=== PATIENT | male | born 1965 | race Caucasian/White ===

== ENCOUNTER 2020-08-05 11:29 | Inpatient (IN) ==
[2020-08-05 12:06] LABS: Basophils # (auto) 0.04 K/uL (0-0.2); Basophils % (auto) 0.6 %; Eosinophils # (auto) 0.28 K/uL (0-0.5); Eosinophils % (auto) 3.9 %; Hematocrit (blood only) 39.9 % (42-52); Immature Granulocytes # (auto) 0.01 K/uL (0.00-0.02); Immature Granulocytes % (auto) 0.1 %; Lymphocytes # (auto) 1.32 K/uL (1.2-3.4); Lymphocytes % (auto) 18.2 %; Mean Corpuscular Hemoglobin 30.2 pg (25-34); Mean Corpuscular Hgb Conc 32.6 g/dL (32-36); Mean Corpuscular Volume 92.6 fL (80-100); Mean Platelet Volume 10.4 fL (7.4-10.4); Monocytes % (auto) 5.5 %; Neutrophils # (auto) 5.22 K/uL (1.4-6.5); Neutrophils % (auto) 71.7 %; Platelet Count 159 K/uL (130-400); RDW Coefficient of Variation 13.1 % (11.5-14.5); RDW Standard Deviation 44.5 fL (36.4-46.3); Red Blood Count 4.31 M/uL (4.7-6.1); White Blood Count 7.27 K/uL (4.8-10.8)
[2020-08-05 12:24] LABS: Calcium 9.2 mg/dl (8.5-10.1); Creatinine Clr Calc Pharmacy 125.9 ml/min; Est GFR (African American) 101.4; Est GFR (Non-African American) 87.5; Potassium 4.5 mmol/L (3.5-5.1)
[2020-08-05] MEDS ORDERED: PIPERACILL/TAZOBAC CONSULT ACTIVE PRN ×2 (12:25→13:45)
[2020-08-05] MEDS ORDERED: PIPERACILLIN/TAZOBACTAM 4.5 GM/120 ML BAG IV ONE (12:25)
--- NOTE | 2020-08-05 13:08 | Ultrasound Report ---
ULTRASOUND BILATERAL LOWER EXTREMITY VENOUS CLINICAL HISTORY: Lower extremity pain and swelling. Cellulitis. COMPARISON STUDY: No priors. TECHNIQUE: Real-time, grayscale, and color Doppler sonography of the deep veins of the right and left lower extremity was performed from the inguinal crease to the calf. Compression and augmentation wer e utilized. FINDINGS: There is no sonographic evidence of deep venous thrombosis identified in the right or left lower extremity. The common femoral, superficial femoral, and popliteal veins are patent and normally compressible bilaterally. The greater saphenous vein and the profunda femoris vein at the junction w ith the common femoral vein are clear in both legs. The visualized calf veins are patent bilaterally. IMPRESSION: There is no sonographic evidence of deep venous thrombosis identified in the right or lef t lower extremity. ACT 112: Negative or not required by law. Electronically signed by: Gurinder Celestin M.D. 08/05/2020 1:07 PM
[2020-08-05] MEDS ORDERED: ONDANSETRON INJ 2 MG/ML 2 ML VIAL IV PRN (13:37)
[2020-08-05] MEDS ORDERED: POLYETHYLENE (MIRALAX) 17 GM PACK PO PRN (13:37)
[2020-08-05] MEDS ORDERED: ACETAMINOPHEN 325 MG TAB PO PRN (13:37)
[2020-08-05] MEDS ORDERED: MAGNESIUM HYDROXIDE SUSP 30 ML UDC PO PRN (13:37)
[2020-08-05] MEDS ORDERED: ALUMINUM/MAGNESIUM SUSP 30 ML UDC PO PRN (13:37)
[2020-08-05] MEDS ORDERED: hydrALAZINE HCL 20 MG/ML VIAL IV PRN (14:21)
--- NOTE | 2020-08-05 14:21 | History & Physical Report ---
Date of Service August 05, 2020 Assessment & Plan (1) Cellulitis: Mr. Smiley is a 55 year old male with a history of Type 2 DM, Hypertension, Asthma/COPD, Morbid Obesity, ARAM (does not use CPAP, it hasn't been set up yet), Klinefelter Syndrome, Gastroparesis, GERD, Seizure Disorder, and Schizophrenia who presented to the ER earlier today with a Progressive Cellulitis of the Right Leg. He has been dealing with a cellulitis of this leg over the past 3 weeks. Initially seen as an outpatient and started on Keflex and Bactrim. Seen at [facility] ER 07/29/2020 and given a dose of Dalvance 4.5 g IV. Met with wound clinic and a right heel diabetic ulcer was debrided -- received IV Dalvance 4.5 g IV at that visit, and continued Bactrim and Keflex. Returned to ER on 08/01/2020 -- given IV Dalvance 4.5 g. He continued Keflex and Bactrim DS as well -- but unfortunately, his leg has gotten more swollen and tender, erythema is spreading, and it is more painful -- making it difficult to walk. Patient does not appear septic currently and WBC count is not elevated. Blood cultures drawn and he is now getting IV Zosyn 4.5 g. -- Admit to Medical Floor. -- IV Zosyn 3.375 g q 8 hours. -- Continue Tylenol 650 mg q 4 hours as needed for pain. -- Consider consulting wound care. -- Monitor daily labs. (2) Diabetic ulcer of right foot: -- As outlined above. (3) Type 2 diabetes mellitus: -- Diabetic diet. -- BSG checks. -- Continue Lantus 50 unit subq daily. -- Novolog 70/30 25 units subq t.i.d.. (4) Hypertension: -- Continue Coreg 6.25 mg b.i.d.. -- Continue Lisinopril 10 mg daily. -- Hydralazine 20 mg IV q 4 hours prn for SBP > 160 mmHg. History of Present Illness Chief Complaint: -- Worsening Cellulitis of Right Lower Extremity. Primary Care Provider: Juan Greer DO Mr. Smiley is a 55 year old male with a history of Type 2 DM, Hypertension, Asthma/COPD, Morbid Obesity, ARAM (does not use CPAP, it hasn't been set up yet), Klinefelter Syndrome, Gastroparesis, GERD, Seizure Disorder, and Schizophrenia who presented to the ER earlier today with progressive swelling, erythema, and pain of the right lower extremity. He has been dealing with a cellulitis of this leg over the past 3 weeks. Initially seen as an outpatient and started on Keflex and Bactrim by his PCP. Seen at [facility] ER 07/29/2020 and given a dose of Dalvance 4.5 g IV. Met with wound clinic and a right heel diabetic ulcer was debrided -- received IV Dalvance 4.5 g IV, continued Bactrim and Keflex. Returned to ER on 08/01/2020 -- given IV Dalvance 4.5 g. He continued Keflex and Bactrim DS as well -- but unfortunately, his leg has gotten more tender, erythema is spreading, and it is more painful -- making it difficult to walk. Patient has had chills but denies any fever. He denies any headache or stiff neck. Appetite is at baseline, but he does admit to intermittent nausea. Patient offers no other complaints. He denies any chest pain, shortness of breath, abdominal pain, or vomiting. Venous Duplex today shows no evidence of DVT. Blood cultures have been drawn. Patient is uncertain if he has ever had arterial studies/ultrasounds done. Allergies Allergy/AdvReac Type Severity Reaction Status Date / Time copper Allergy Mild Unknown Unverified 08/05/20 12:22 cider vinegar AdvReac Mild Unknown Unverified 08/05/20 12:22 Home Medications Medication Instructions Recorded Confirmed Type Saccharomyces boulardii [Florastor] 250 mg PO BID #20 cap 07/29/20 08/05/20 Rx albuterol sulfate 90 mcg/actuation 2 inh INHALATION Q6H PRN 07/30/20 08/05/20 History breath activated powder inhaler carvedilol 6.25 mg tablet 6.25 mg PO BID 07/30/20 08/05/20 History clonazepam 0.5 mg tablet 0.5 mg PO QID tab 07/30/20 08/05/20 History fluoxetine 40 mg capsule 40 mg PO BID 07/30/20 08/05/20 History gabapentin 400 mg capsule 400 mg PO BID 07/30/20 08/05/20 History lisinopril 10 mg tablet 10 mg PO DAILY 07/30/20 08/05/20 History naproxen 250 mg tablet 250 mg PO BID PRN 07/30/20 08/05/20 History olanzapine 20 mg tablet 20 mg PO DAILY 07/30/20 08/05/20 History omeprazole 40 mg capsule,delayed 40 mg PO DAILY 07/30/20 08/05/20 History release trazodone 100 mg tablet 200 mg PO QPM 07/30/20 08/05/20 History zafirlukast 10 mg tablet 20 mg PO Q12H 07/30/20 08/05/20 History furosemide 40 mg PO DAILY 08/05/20 08/05/20 History insulin aspart U-100 [Novolog 25 unit SUBCUT TIDM 08/05/20 08/05/20 History Flexpen U-100 Insulin] methocarbamol 500 mg PO Q8H PRN 08/05/20 08/05/20 History Lantus Solostar U-100 Insulin 60 unit SUBCUT DAILY #1 pen 08/07/20 Rx ciprofloxacin HCl [Cipro] 500 mg PO BID #28 tab 08/07/20 Rx Past Med/Surg History Medical History Anxiety Asthma COPD (chronic obstructive pulmonary disease) Encounter for incision and drainage procedure Gastroparesis GERD (gastroesophageal reflux disease) Klinefelters syndrome Macular degeneration Morbid obesity with BMI of 40.0-44.9, adult ARAM (obstructive sleep apnea) Schizophrenia Seizure disorder Type 2 diabetes mellitus Surgical History H/O hernia repair H/O right heart catheterization Social History Smoking Status: Former smoker Years Smoked: 30; Smoking End Date: 2010; Number of Years Since Quit: 10; Second Hand Exposure: No; Do You Dip or Chew Tobacco: No; Tobacco Cessation Education Requested by Patient: No Hx Alcohol Use: No Hx Substance Use: No Preferred Language: Yoruba Communication Ability: Effective 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 HEENT: Head is atraumatic, normocephalic. EOM's intact. Facies symmetric. No perioral cyanosis. NECK: No JVD. JVP is at the level of the clavicle sitting upright. Carotid upstrokes are + 2 bilaterally. No bruits are noted. CHEST/LUNGS: Clear to auscultation throughout all lung engle. No wheezes, rales, or crackles. CVS: S1 and S2 are regular without obvious murmurs, gallops, or rubs. PMI is nonpalpable. No lifts, heaves, or thrills. No abdominal aortic or renal bruits. ABDOMINAL EXAM: Bowel sounds are present. No masses, organomegaly, or tenderness. EXTREMITIES: No clubbing or cyanosis. Erythema and edema of the right leg is noted and appears to have expanded from previously marked borders, tender to palpation. +1 right DP pulse, Right PT pulse is not palpable. Multiple thick calloused areas of the right heel, foot, and toes -- no obvious open areas or ulcerations. NEUROLOGIC EXAM: Patient is awake, alert, and oriented. Pleasant and cooperative. Answers questions appropriately. Speech is clear. Normal movement in all 4 extremities. Results & Data Results & Data ([facility]) Vital Signs (Past 12 Hours) Vital Signs Temp Pulse Resp BP Pulse Ox 08/05/20 11:30 36.5 C 81 20 179/89 H 99 Laboratory Results Laboratory Results - last 24 hr 08/05/20 08/05/20 11:45 11:45 WBC 7.27 RBC 4.31 L Hgb 13.0 L Hct 39.9 L MCV 92.6 MCH 30.2 MCHC 32.6 RDW Std Deviation 44.5 RDW Coeff of Alex 13.1 Plt Count 159 MPV 10.4 Immature Gran % (Auto) 0.1 Neut % (Auto) 71.7 Lymph % (Auto) 18.2 [place] % (Auto) 5.5 Eos % (Auto) 3.9 Baso % (Auto) 0.6 Neut # (Auto) 5.22 Lymph # (Auto) 1.32 [place] # (Auto) 0.40 Eos # (Auto) 0.28 Baso # (Auto) 0.04 Immature Gran # (Auto) 0.01 Sodium 135 L Potassium 4.5 Chloride 104 Carbon Dioxide 28 Anion Gap 3.0 BUN 17 Creatinine 0.97 Est Cr Clr Drug Dosing 125.9 Est GFR ( Amer) 101.4 Est GFR (Non-Af Amer) 87.5 BUN/Creatinine Ratio 17.0 Glucose 252 H Calcium 9.2 Medications Administered Active Medications Generic Name Dose Route Start Last Admin Trade Name Freq PRN Reason Stop Dose Admin Acetaminophen 650 mg 08/05/20 13:37 Acetaminophen 325 Mg Tab PO 09/04/20 13:36 Q4H PRN pain/fever Al Hydrox/Mg Hydrox/Simethicone 30 ml 08/05/20 13:37 Aluminum/Magnesium Susp 30 Ml Udc PO 09/04/20 13:36 Q6H PRN Dyspepsia Piperacillin Sod/Tazobactam 120 mls @ 30 mls/hr 08/05/20 20:00 Sod 4.5 gm/ Dextrose IV 08/12/20 19:59 Q8H JARVIS Protocol Magnesium Hydroxide 30 ml 08/05/20 13:37 Magnesium Hydroxide Susp 30 Ml Udc PO 09/04/20 13:36 Q6H PRN Constipation Miscellaneous Information 1 ea 08/05/20 13:45 Piperacill/Tazobac Consult Active N/A 09/04/20 13:44 UD PRN Consult Ondansetron HCl 4 mg 08/05/20 13:37 Ondansetron Inj 2 Mg/Ml 2 Ml Vial IV 09/04/20 13:36 Q6H PRN Nausea Polyethylene Glycol 17 gm 08/05/20 13:37 Polyethylene (Miralax) 17 Gm Pack PO 09/04/20 13:36 DAILY PRN Constipation Zolpidem Tartrate 5 mg 08/05/20 13:37 Zolpidem Tartrate 5 Mg Tab PO 09/04/20 13:36 HS PRN Sleep Code Status & VTE Plan Code Status Full code VTE Prophylaxis Plan VTE Prophylaxis will be ordered: Yes Supervising Physician Co-Signing Physician Notes I personally saw and examined the patient. I verified all jaime points and agree with VIRIDIANA Landin with the following exceptions and/or additions: 55-year-old male with worsening cellulitis despite outpatient treatment with Keflex, Bactrim and most recently Dalvance. Under the wound care clinic with erythema spreading beyond marked area on right leg now just from ankle to just below right knee. Previous cellulitis in this area improved with antibiotics. Risk factor of venous stasis and T2DM O/E Non-septic appearing, erythema, swelling and warmth area spreading beyond marked areas to just below right knee. Chronic venous stasis changes on left leg only without any cellulitis. A/P Agree with broad spectrum antibiotics with IV zosyn pending blood cultures. Will also consult wound care provider who has been managing this as an outpatient for continuity. No specific wound that this appears to have come from. Good movement of ankle joint given swelling therefore doubtful infected joint. PG Care Time/CCT Total # of Minutes Spent Total Time Spent with Patient: Total time spent is greater than 50% in coordination of care (as documented) at patient's floor/unit and/or counseling patient:45 Coding Level of Care Code 15996 Initial Inpt Care Lvl 2 Diagnoses Cellulitis L03.119 Laterality: unspecified laterality Site of cellulitis: extremity Site of cellulitis of extremity: lower extremity Diabetic ulcer of right foot E11.621; L97.519 Type 2 diabetes mellitus E11.9 Diabetes mellitus complication status: without complication Diabetes mellitus intermodal dispatcher insulin use: unspecified intermodal dispatcher insulin use status Hypertension I10 Hypertension type: unspecified Time Spent (min) 60 (1) Type 2 diabetes mellitus Diabetes mellitus complication status: without complication Diabetes mellitus intermodal dispatcher insulin use: unspecified intermodal dispatcher insulin use status Qualified Code(s): E11.9 - Type 2 diabetes mellitus without complications (2) Cellulitis Laterality: unspecified laterality Site of cellulitis: extremity Site of cellulitis of extremity: lower extremity Qualified Code(s): L03.119 - Cellulitis of unspecified part of limb (3) Hypertension Hypertension type: unspecified Qualified Code(s): I10 - Essential (primary) hypertension
[2020-08-05 15:39] LABS: Basophils # (auto) 0.04 K/uL (0-0.2); Basophils % (auto) 0.6 %; Eosinophils # (auto) 0.27 K/uL (0-0.5); Eosinophils % (auto) 3.8 %; Hematocrit (blood only) 40.1 % (42-52); Hemoglobin 13.3 g/dL (14.0-18.0); Immature Granulocytes # (auto) 0.01 K/uL (0.00-0.02); Immature Granulocytes % (auto) 0.1 %; Lymphocytes # (auto) 1.64 K/uL (1.2-3.4); Lymphocytes % (auto) 22.8 %; Mean Corpuscular Hemoglobin 30.9 pg (25-34); Mean Corpuscular Hgb Conc 33.2 g/dL (32-36); Mean Corpuscular Volume 93.3 fL (80-100); Monocytes # (auto) 0.38 K/uL (0.11-0.59); Monocytes % (auto) 5.3 %; Neutrophils # (auto) 4.86 K/uL (1.4-6.5); Neutrophils % (auto) 67.4 %; Platelet Count 152 K/uL (130-400); RDW Coefficient of Variation 13.2 % (11.5-14.5); RDW Standard Deviation 44.6 fL (36.4-46.3)
--- NOTE | 2020-08-05 15:43 | Emergency Department Note ---
Impression & Plan Cellulitis of leg, right ED Provider Note INFORMANT: Patient ED PROVIDER(S): Buster Beltrán MD CHIEF COMPLAINT: Swelling of leg PLAN: Disposition: Admitted Condition: Good MEDICAL DECISION MAKING: Patient presented to emergency department because of worsening right leg swelling and pain. He was evaluated. Blood work was obtained and was unremarkable. He had blood cultures done. He was given IV Zosyn after discussion with the ED pharmacist. The patient will need to be admitted for treatment failure of his cellulitis. He is in agreement. Consultation was made with the [facility] service. Patient was evaluated in the ER and admitted for further management. Triage Nursing notes reviewed and agree them. Prior medical records reviewed regarding his treatment and Dalvance evaluation Vital Signs: reviewed and remarkable for no significant abnormalities Differential diagnosis: Etiologies such as cellulitis, abscess, MRSA infection, dermatitis, drug eruption, necrotizing fasciitis, DVT as well as others were entertained. Diagnostics interpreted by me: Imaging studies: Ultrasound imaging revealed no evidence of DVT Consultation(s): [facility] HPI: The patient is a 55 year old male who presents to the Emergency Room with complaints of right leg swelling. This started last week and is from celluliti s. He was on Keflex and Bactrim which did not help. He was started on a trial of Dalvance however his condition worsened and the redness is spreading. More swelling noted. Current pain is rated as 4/10. Pt denies LOC, headache, fevers, chills, diaphoresis, visual changes, neck pain, chest pain, breathing difficulties, nausea, vomiting, abdominal pain, back pain, melena, hematochezia, urinary symptoms, numbness, weakness, lymphadenopathy, or other complaints. ROS: See above HPI for pertinent positives & negatives. A total of [10] systems reviewed and were otherwise negative. PAST MEDICAL HISTORY:[See Below] , diabetic PAST SURGICAL HISTORY:[See Below],[] FAMILY HISTORY:[See Below] SOCIAL HISTORY:[See Below], HOME MEDICATIONS:[See Below] ALLERGIES:[See Below] VITALS:[See Below] PHYSICAL EXAMINATION: GENERAL: Awake, alert, well-appearing, in no distress HENT: Normocephalic, atraumatic. Oropharynx unremarkable. EYES: Normal conjunctiva. Sclera non-icteric. NECK: Inspection normal. Non-tender. Supple. No nuchal rigidity. FROM. No mas ses. RESPIRATORY: Clear to auscultation. No wheezes. No rales. Normal respiratory effort. CARDIAC: Normal rate. Normal rhythm. No murmurs. No rubs. Extremities warm and well perfused. Pulses equal. No JVD. GI: Soft, non-distended. No tenderness to palpation. No rebound or guarding. No masses. RECTAL: Deferred. MUSCULOSKELETAL: Atraumatic. Chest examination reveals no tenderness. The back is symmetrical on inspection without obvious abnormality. There is no CVA tenderness to palpation. No joint edema. LOWER EXTREMITIES: The right lower extremity is more swollen than the left. There is 1+ edema. There is erythema, warmth and tenderness in the right lower leg. The areas that were demarcated by surgical skin marker indicate that the redness and swelling has progressed outside and more proximally. NEURO: Normal sensorium. No sensory or motor deficits noted. SKIN: No other rash or jaundice noted. The patient was seen and examined with Dr. Ana Molina, resident physician. We discussed the case and treatments ordered, reviewed the results, and deter mine the disposition. I have been directly involved with the management and disposition as well as independently evaluated the patient as documented in this note. Buster Beltrán MD Past Med/Surg History Medical History Anxiety Asthma COPD (chronic obstructive pulmonary disease) Encounter for incision and drainage procedure Gastroparesis GERD (gastroesophageal reflux disease) Klinefelters syndrome Macular degeneration Morbid obesity with BMI of 40.0-44.9, adult ARAM (obstructive sleep apnea) Schizophrenia Seizure disorder Type 2 diabetes mellitus Surgical History H/O hernia repair H/O right heart catheterization Social History Smoking Status: Former smoker Years Smoked: 30; Number of Years Since Quit: 10; Second Hand Exposure: No; Hx Alcohol Use: No Hx Substance Use: No Preferred Language: Greek Communication Ability: Effective Propulsion Engineer Required: No Beliefs That Will Affect Care: None marital status: / Current Living Situation: Alone current occupational status: disabled Feels Safe at Home: Yes Assistive Devices: Denture - Upper, Denture - Lower and Glasses Allergies Allergies Allergy/AdvReac Type Severity Reaction Status Date / Time copper Allergy Mild Unknown Unverified 08/05/20 12:22 cider vinegar AdvReac Mild Unknown Unverified 08/05/20 12:22 Home Meds Home Medications Medication Instructions Recorded Confirmed albuterol sulfate 90 mcg/actuation 2 inh INHALATION Q6H PRN 07/30/20 08/05/20 breath activated powder inhaler carvedilol 6.25 mg tablet 6.25 mg PO BID 07/30/20 08/05/20 clonazepam 0.5 mg tablet 0.5 mg PO QID tab 07/30/20 08/05/20 fluoxetine 40 mg capsule 40 mg PO BID 07/30/20 08/05/20 gabapentin 400 mg capsule 400 mg PO BID 07/30/20 08/05/20 insulin aspar prt-insulin aspart 25 unit SUBCUT DAILY 07/30/20 08/05/20 100 unit/mL (70-30) subcutaneous soln insulin glargine 100 unit/mL (3 60 unit SUBCUT DAILY ml 07/30/20 08/05/20 mL) subcutaneous pen lisinopril 10 mg tablet 10 mg PO DAILY 07/30/20 08/05/20 naproxen 250 mg tablet 250 mg PO BID PRN 07/30/20 08/05/20 olanzapine 20 mg tablet 20 mg PO DAILY 07/30/20 08/05/20 omeprazole 40 mg capsule,delayed 40 mg PO DAILY 07/30/20 08/05/20 release trazodone 100 mg tablet 100 mg PO BID 07/30/20 08/05/20 zafirlukast 10 mg tablet 20 mg PO Q12H 07/30/20 08/05/20 Previous Rx's Medication Instructions Recorded Saccharomyces boulardii [Florastor] 250 mg PO BID #20 cap 07/29/20 Results & Data (ED) Vital Signs Vital Signs - 24 hr 08/05/20 11:30 08/05/20 14:02 Temperature 36.5 C Temperature Source Temporal Artery Scan Pulse Rate 81 Pulse Rate [Right Finger] 68 Pulse Rhythm [Right Finger] Regular Pulse Strength [Right Finger] Normal Respiratory Rate 20 18 Respiratory Effort / Characteristics Non-Labored Non-Labored Spontaneous Respiratory Depth Normal Normal Respiratory Pattern Regular Blood Pressure 179/89 H Blood Pressure [Right Arm] 152/76 H Blood Pressure Mean 119 Blood Pressure Mean [Right Arm] 101 Blood Pressure Position [Right Arm] Lying Pulse Oximetry 99 93 Oxygen Delivery Method Room Air Room Air Sepsis Recent Fever Within 48 Hours No Sepsis New/Unexplained Change in Mental Status No Sepsis Action Taken by Nursing No Action Required Laboratory Data Result diagrams: 08/05/20 11:45 08/05/20 11:45 Lab Results 08/05/20 08/05/20 08/05/20 Range/Units 11:45 11:45 Unknown WBC 7.27 (4.8-10.8) K/uL RBC 4.31 L (4.7-6.1) M/uL Hgb 13.0 L (14.0-18.0) g/dL Hct 39.9 L (42-52) % MCV 92.6 (80-100) fL MCH 30.2 (25-34) pg MCHC 32.6 (32-36) g/dL RDW Std Deviation 44.5 (36.4-46.3) fL RDW Coeff of Alex 13.1 (11.5-14.5) % Plt Count 159 (130-400) K/uL MPV 10.4 (7.4-10.4) fL Immature Gran % (Auto) 0.1 % Neut % (Auto) 71.7 % Lymph % (Auto) 18.2 % [place] % (Auto) 5.5 % Eos % (Auto) 3.9 % Baso % (Auto) 0.6 % Neut # (Auto) 5.22 (1.4-6.5) K/uL Lymph # (Auto) 1.32 (1.2-3.4) K/uL [place] # (Auto) 0.40 (0.11-0.59) K/uL Eos # (Auto) 0.28 (0-0.5) K/uL Baso # (Auto) 0.04 (0-0.2) K/uL Immature Gran # (Auto) 0.01 (0.00-0.02) K/uL Sodium 135 L (136-145) mmol/L Potassium 4.5 (3.5-5.1) mmol/L Chloride 104 (98-107) mmol/L Carbon Dioxide 28 (21-32) mmol/L Anion Gap 3.0 (3-11) BUN 17 (7-18) mg/dl Creatinine 0.97 (0.6-1.4) mg/dl Est Cr Clr Drug Dosing 125.9 ml/min Est GFR ( Amer) 101.4 Est GFR (Non-Af Amer) 87.5 BUN/Creatinine Ratio 17.0 (10-20) Glucose 252 H (70-99) mg/dl Calcium 9.2 (8.5-10.1) mg/dl SARS-CoV-2 Ag (Rapid) Negative (Negative) Administered Medications Discontinued Medications Piperacillin Sod/Tazobactam Sod (Zosyn) 4.5 gm in 120 mls @ 240 mls/hr IV NOW ONE Stop: 08/05/20 12:54 Last Infusion: 08/05/20 14:38 Dose: 0 mls/hr Documented by: [id number] Admin: 08/05/20 14:02 Dose: 240 mls/hr Documented by: [id number] Discharge Plan Visit Data Chief Complaint: Swelling/Edema to Extremity Stated Complaint: CELLULITIS ED Provider: Buster Beltrán ED Midlevel Provider: Ana Molina Discharge Problem: Cellulitis of leg, right Forms Stand Alone Forms: My [facility] Prescriptions Prescriptions: No Action lisinopril 10 mg tablet 10 mg PO DAILY RF: 0 zafirlukast [Accolate] 10 mg tablet 20 mg PO Q12H RF: 0 albuterol sulfate 90 mcg/actuation aerosol powdr breath activated 2 inh inhalation Q6H PRN (Reason: Shortness Of Breath) RF: 0 fluoxetine [Prozac] 40 mg capsule 40 mg PO BID RF: 0 clonazepam [Klonopin] 0.5 mg tablet 0.5 mg PO QID RF: 0 gabapentin 400 mg capsule 400 mg PO BID RF: 0 insulin asp prt-insulin aspart [Novolog Mix 70-30 U-100 Insuln] 100 unit/mL (70-30) solution 25 unit subcut DAILY RF: 0 Lantus Solostar U-100 Insulin 100 unit/mL (3 mL) insulin pen 60 unit subcut DAILY RF: 0 carvedilol [Coreg] 6.25 mg tablet 6.25 mg PO BID RF: 0 olanzapine [Zyprexa] 20 mg tablet 20 mg PO DAILY RF: 0 naproxen 250 mg tablet 250 mg PO BID PRN (Reason: Pain) RF: 0 trazodone 100 mg tablet 100 mg PO BID RF: 0 omeprazole 40 mg capsule,delayed release(DR/EC) 40 mg PO DAILY RF: 0 Saccharomyces boulardii [Florastor] 250 mg capsule 250 mg PO BID Qty: 20 RF: 0
[2020-08-05 15:55] LABS: BUN Creatinine Ratio 16.9 (10-20); Calcium 9.4 mg/dl (8.5-10.1); Creatinine Clr Calc Pharmacy 131.3 ml/min; Est GFR (African American) 106.7; Est GFR (Non-African American) 92.1; Potassium 4.3 mmol/L (3.5-5.1)
[2020-08-05] MEDS ORDERED: NAPROXEN 250 MG TAB PO PRN (16:15)
[2020-08-05] MEDS ORDERED: ALBUTEROL HFA INHALER 8.5 GM INH PRN (16:35)
[2020-08-05] MEDS ORDERED: PHARMACY GLYCEMIC MGMT CONSULT PRN (16:36)
[2020-08-05] MEDS ORDERED: GLUCAGON FOR INJ 1 MG VIAL IM PRN (17:00)
[2020-08-05] MEDS ORDERED: GLUCOSE 40% GEL 15 GM TUBE PO PRN (17:00)
[2020-08-05] MEDS ORDERED: GLUCOSE 10 TABS/TUBE PO PRN (17:00)
[2020-08-05] MEDS ORDERED: CARBOHYDRATES FOR HYPOGLYCEMIA PO PRN (17:00)
[2020-08-05] MEDS ORDERED: DEXTROSE 50% 50 ML SYRINGE IV PRN (17:00)
[2020-08-05] MEDS: clonazePAM 0.5 MG TAB PO SCH ×2 (17:28→21:02)
[2020-08-05] MEDS: INSULIN ASPART 100 UNITS/ML 3 ML PEN SC SCH ×2 (17:29→21:21)
--- NOTE | 2020-08-05 20:55 | Ultrasound Report ---
US arterial duplex LE RT CLINICAL HISTORY: Right leg pain. COMPARISON STUDY: No previous studies for comparison. FINDINGS: The right arm brachial artery systolic pressure measured 148 mmHg. The left arm brachial artery systo lic pressure measured 150 mmHg. The right posterior tibial artery systolic pressure measured 145 mmHg. The pressure on the left was 1 82 mmHg. The right dorsalis pedis systolic arterial pressure measured 143 mmHg. The pressure in the left measu red 181 mmHg. This yields ankle arm indices of 0.97 on the right and 1.2 on the left. No elevated velocities were identified. There is triphasic flow in the common femoral superficial fem oral and popliteal arteries. Calf vessel waveforms were felt to be biphasic/triphasic. IMPRESSION: 1. No evidence of hemodynamic significant right lower extremity arterial stenosis. ACT 112: Negative or not required by law. Electronically signed by: Ramon Barrera M.D. 08/05/2020 8:54 PM
[2020-08-05] MEDS: PIPERACILLIN/TAZOBACTAM 4.5 GM in DEXTROSE 5% 100 ML IV SCH (21:00)
[2020-08-05] MEDS ORDERED: traZODone HCL 100 MG TAB PO SCH (21:00)
[2020-08-05] MEDS: FLUoxetine HCL 20 MG CAP PO SCH (21:02)
[2020-08-05] MEDS: SACCHAROMYCES BOULARDII 250 MG CAP PO SCH (21:02)
[2020-08-05] MEDS: carvediloL 6.25 MG TAB PO SCH (21:02)
[2020-08-05] MEDS: GABAPENTIN 400 MG CAP PO SCH (21:02)
[2020-08-05] MEDS: ZOLPIDEM TARTRATE 5 MG TAB PO PRN (21:02)
[2020-08-05] MEDS ORDERED: METHOCARBAMOL 500 MG TABLET PO ONE (21:34)
[2020-08-05] MEDS ORDERED: METHOCARBAMOL 500 MG TABLET PO PRN (21:34)
[2020-08-06] MEDS: PIPERACILLIN/TAZOBACTAM 4.5 GM in DEXTROSE 5% 100 ML IV SCH ×3 (03:50→20:16)
--- NOTE | 2020-08-06 06:37 | Emergency Department Note ---
General (ED) Blank Date of Service August 05, 2020 ED Visit Note I personally saw, interviewed, and examined the patient. Patient's case was discussed with Dr. Beltrán, ED attending, and I assisted with MDM. Please see attending documentation for full details. Resident Activity Tracking Resident Involvement: Resident Care Provided Care Provided: Adult ED
[2020-08-06 06:42] LABS: Basophils # (auto) 0.03 K/uL (0-0.2); Basophils % (auto) 0.5 %; Eosinophils # (auto) 0.24 K/uL (0-0.5); Eosinophils % (auto) 4.3 %; Hematocrit (blood only) 39.2 % (42-52); Hemoglobin 12.9 g/dL (14.0-18.0); Immature Granulocytes # (auto) 0.01 K/uL (0.00-0.02); Immature Granulocytes % (auto) 0.2 %; Lymphocytes # (auto) 1.72 K/uL (1.2-3.4); Lymphocytes % (auto) 30.6 %; Mean Corpuscular Hemoglobin 30.6 pg (25-34); Mean Corpuscular Hgb Conc 32.9 g/dL (32-36); Mean Corpuscular Volume 93.1 fL (80-100); Mean Platelet Volume 10.6 fL (7.4-10.4); Monocytes # (auto) 0.41 K/uL (0.11-0.59); Monocytes % (auto) 7.3 %; Neutrophils # (auto) 3.22 K/uL (1.4-6.5); Neutrophils % (auto) 57.1 %; Platelet Count 157 K/uL (130-400); RDW Coefficient of Variation 13.3 % (11.5-14.5); RDW Standard Deviation 45.3 fL (36.4-46.3); Red Blood Count 4.21 M/uL (4.7-6.1); White Blood Count 5.63 K/uL (4.8-10.8)
[2020-08-06 07:15] LABS: BUN Creatinine Ratio 16.9 (10-20); Blood Urea Nitrogen 15 mg/dl (7-18); C Reactive Protein < 0.29 mg/dl (0-0.29); Carbon Dioxide 29 mmol/L (21-32); Chloride 105 mmol/L (98-107); Creatinine Clr Calc Pharmacy 140.4 ml/min; Est GFR (African American) 112.6; Est GFR (Non-African American) 97.2; Glucose 179 mg/dl (70-99); Potassium 4.1 mmol/L (3.5-5.1); Sodium 136 mmol/L (136-145)
[2020-08-06] MEDS ORDERED: INSULIN GLARGINE SOLOSTAR 100 UNITS/ML 3 ML PEN SQ SCH ×2 (08:00→09:00)
[2020-08-06 08:04] LABS: Estimated Average Glucose 217 mg/dl; Hemoglobin A1C 9.2 % (4.5-5.6)
[2020-08-06] MEDS: SACCHAROMYCES BOULARDII 250 MG CAP PO SCH ×2 (09:21→20:16)
[2020-08-06] MEDS: clonazePAM 0.5 MG TAB PO SCH ×4 (09:21→20:16)
[2020-08-06] MEDS: lisinopril 10 MG TAB PO SCH (09:23)
[2020-08-06] MEDS: PANTOprazole 40 MG TAB PO SCH (09:23)
[2020-08-06] MEDS: OLANZapine 20 MG TABLET PO SCH (09:23)
[2020-08-06] MEDS: carvediloL 6.25 MG TAB PO SCH ×2 (09:23→20:16)
[2020-08-06] MEDS: FLUoxetine HCL 20 MG CAP PO SCH ×2 (09:23→20:17)
[2020-08-06] MEDS: FUROSEMIDE 40 MG TAB PO SCH (09:23)
[2020-08-06] MEDS: GABAPENTIN 400 MG CAP PO SCH ×2 (09:23→20:16)
[2020-08-06] MEDS: INSULIN ASPART 100 UNITS/ML 3 ML PEN SC SCH ×4 (09:26→21:57)
[2020-08-06] MEDS ORDERED: traMADol HCL 50 MG TABLET PO PRN (09:57)
--- NOTE | 2020-08-06 14:22 | Pharmacy Report ---
Pharmacy Glycemic Short Note 2 - Date of Service August 06, 2020 - Glycemic Short BSG Results (Last 24 hours): 08/05/20 08/05/20 08/05/20 15:33 17:11 20:43 Glucose 129 H POC Glucose 167 H 85 08/06/20 08/06/20 08/06/20 05:49 08:04 11:56 Glucose 179 H POC Glucose 176 H 252 H OUTPATIENT ANTIDIABETIC REGIMEN: * Novolog 25 units TIDM, Lantus 50 units daily * A1c 9.2% on 08/06/20 ASSESSMENT: * Patient admitted with cellulitis currently on zosyn, he is a type 2 diabetic currently using lantus and novolog at home. * Fasting this AM 179 mg/dL with reported 50 units yesterday morning, continued this dose this morning and will set scale for this evening * Lunch BSG elevated but AM novolog was given closer to 0930. Will keep current parameters for now, will tighten if continues to be elevated PLAN FOR INPATIENT GLYCEMIC CONTROL: * Hold outpatient oral diabetes medications * Basal insulin * Lantus 50 units SQ x1 * Scale for PM 0/10 units * Bolus insulin * NovoLog per scale ACHS or Q6hrs while NPO * Goal Range: Low 110 mg/dL - High 140 mg/dL * Correction Factor: 15 mg/dL/unit * Nutritional / Prandial insulin per carb ratio of 1 unit per 6 grams CHO consumed
--- NOTE | 2020-08-06 15:39 | Hospitalist Progress Note ---
Date of Service August 06, 2020 Assessment & Plan (1) Cellulitis: Mr. Smiley is a 55 year old male with a history of Type 2 DM, Hypertension, Asthma/COPD, Morbid Obesity, ARAM (does not use CPAP, it hasn't been set up yet), Klinefelter Syndrome, Gastroparesis, GERD, Seizure Disorder, and Schizophrenia who presented to the ER earlier today with a Progressive Cellulitis of the Right Leg. He has been dealing with a cellulitis of this leg over the past 3 weeks. Initially seen as an outpatient and started on Keflex and Bactrim. Seen at [facility] [place] ER 07/29/2020 and given a dose of Dalvance 4.5 g IV. Met with wound clinic and a right heel diabetic ulcer was debrided -- received IV Dalvance 4.5 g IV at that visit, and continued Bactrim and Keflex. Returned to ER on 08/01/2020 -- given IV Dalvance 4.5 g. He continued Keflex and Bactrim DS as well -- but unfortunately, his leg has gotten more swollen and tender, erythema is spreading, and it is more painful -- making it difficult to walk. Afebrile, no leukocytosis, BC ngtd. CRP normal, ESR 24. Patient was seen last month by the wound clinic. He had Xray of the foot without evidence of osteomyelitis on 07/31 LE US - no DVT, duplex arterial US - no evidence of significant stenosis -Continue IV Zosyn . - Continue Tylenol, will add tramadol as patient's pain is not well controlled at present - wound care nurse consulted - no open areas to treat (2) Diabetic ulcer of right foot: Resolved (3) Type 2 diabetes mellitus: -- Diabetic diet. -- BSG checks. Pharmacy glycemic consult (4) Hypertension: -- Continue Coreg 6.25 mg b.i.d.. -- Continue Lisinopril 10 mg daily. -- Hydralazine 20 mg IV q 4 hours prn for SBP > 160 mmHg. (5) DVT prophylaxis: enoxaparin Admission and Anticipated Discharge Date Admission Date: August 05, 2020 Subjective Mr. Smiley is having pain in his lower leg, he reports that it is a 7/10. His leg has been increasingly worse over the last few weeks. He has nausea but otherwise does not have constitutional symptoms Review of Systems Constitutional: no fever, no chills and no body aches Respiratory: no cough and no dyspnea Cardiovascular: no chest pain and no palpitations Gastrointestinal: + nausea; no abdominal pain and no vomiting Genitourinary: no dysuria and no urinary hesitancy Musculoskeletal: no back pain and no joint pain Integumentary: no rash Physical Exam Physical Exam: General: no distress Eyes: normal inspection, PERLL Respiratory: chest non tender, clear to auscultation, normal breath sounds, no respiratory distress, no accessory muscle use Cardiac: regular rate and rhythm, no rub or gallop, no murmur, no edema, no jvd GI/: active bowel sounds, no abd pain or tenderness, soft, non distended Extremities: normal range of motion, normal strength, non tender Neuro/Psych: alert and oriented x 3, normal mood and affect Skin: normal color, dry, right leg with erythema just above mid calf. No open areas. Results & Data Results & Data ([place]) Vital Signs (Past 12 Hours) Vital Signs Temp Pulse Resp BP Pulse Ox 08/06/20 08:02 36.8 C 62 18 162/97 H 92 PG Care Time/CCT Total # of Minutes Spent Total Time Spent with Patient: Total time spent is greater than 50% in coordination of care (as documented) at patient's floor/unit and/or counseling patient: Coding Level of Care Code 67290 Subseq Hosp Care Lvl 2 Diagnoses Cellulitis L03.119 Laterality: unspecified laterality Site of cellulitis: extremity Site of cellulitis of extremity: lower extremity Diabetic ulcer of right foot E11.621; L97.519 Type 2 diabetes mellitus E11.9 Diabetes mellitus complication status: without complication Diabetes mellitus retirement insulin use: unspecified retirement insulin use status Hypertension I10 Hypertension type: unspecified DVT prophylaxis Z29.9 (1) Cellulitis Laterality: unspecified laterality Site of cellulitis: extremity Site of cellulitis of extremity: lower extremity Qualified Code(s): L03.119 - Cellulitis of unspecified part of limb (2) Type 2 diabetes mellitus Diabetes mellitus complication status: without complication Diabetes mellitus retirement insulin use: unspecified retirement insulin use status Qualified Code(s): E11.9 - Type 2 diabetes mellitus without complications (3) Hypertension Hypertension type: unspecified Qualified Code(s): I10 - Essential (primary) hypertension
[2020-08-06] MEDS ORDERED: INSULIN GLARGINE SOLOSTAR 100 UNITS/ML 3 ML PEN SQ ONE (21:00)
[2020-08-06] MEDS ORDERED: traZODone HCL 100 MG TAB PO SCH (21:00)
[2020-08-06] MEDS: ZOLPIDEM TARTRATE 5 MG TAB PO PRN (22:04)
[2020-08-07] MEDS: PIPERACILLIN/TAZOBACTAM 4.5 GM in DEXTROSE 5% 100 ML IV SCH ×2 (04:16→11:56)
[2020-08-07] MEDS ORDERED: POLYETHYLENE (MIRALAX) 17 GM PACK PO ONE (04:29)
[2020-08-07] MEDS ORDERED: bisacodyL 5 MG TABEC PO ONE (04:30)
[2020-08-07 07:10] LABS: Basophils # (auto) 0.04 K/uL (0-0.2); Basophils % (auto) 0.7 %; Eosinophils # (auto) 0.27 K/uL (0-0.5); Eosinophils % (auto) 4.5 %; Hematocrit (blood only) 40.8 % (42-52); Hemoglobin 13.1 g/dL (14.0-18.0); Lymphocytes # (auto) 1.85 K/uL (1.2-3.4); Lymphocytes % (auto) 30.7 %; Mean Corpuscular Hemoglobin 30.2 pg (25-34); Mean Corpuscular Hgb Conc 32.1 g/dL (32-36); Mean Platelet Volume 10.7 fL (7.4-10.4); Monocytes # (auto) 0.36 K/uL (0.11-0.59); Neutrophils # (auto) 3.51 K/uL (1.4-6.5); Neutrophils % (auto) 58.1 %; Platelet Count 151 K/uL (130-400); RDW Coefficient of Variation 13.2 % (11.5-14.5); RDW Standard Deviation 45.5 fL (36.4-46.3); Red Blood Count 4.34 M/uL (4.7-6.1); White Blood Count 6.03 K/uL (4.8-10.8)
[2020-08-07] MEDS ORDERED: POLYETHYLENE (MIRALAX) 17 GM PACK ONE (07:11)
[2020-08-07 07:24] VITALS: TEMP 97.9; O2SAT 99
[2020-08-07 07:48] LABS: BUN Creatinine Ratio 17.9 (10-20); Creatinine Clr Calc Pharmacy 117.4 ml/min; Est GFR (African American) 93.2; Est GFR (Non-African American) 80.5; Potassium 4.1 mmol/L (3.5-5.1)
[2020-08-07 08:23] VITALS: PULSE 62
[2020-08-07] MEDS: PANTOprazole 40 MG TAB PO SCH (08:25)
[2020-08-07] MEDS: clonazePAM 0.5 MG TAB PO SCH ×2 (08:25→12:43)
[2020-08-07] MEDS: OLANZapine 20 MG TABLET PO SCH (08:25)
[2020-08-07] MEDS: FLUoxetine HCL 20 MG CAP PO SCH (08:26)
[2020-08-07] MEDS: lisinopril 10 MG TAB PO SCH (08:26)
[2020-08-07] MEDS: GABAPENTIN 400 MG CAP PO SCH (08:26)
[2020-08-07] MEDS: FUROSEMIDE 40 MG TAB PO SCH (08:26)
[2020-08-07] MEDS: SACCHAROMYCES BOULARDII 250 MG CAP PO SCH (08:26)
[2020-08-07] MEDS: carvediloL 6.25 MG TAB PO SCH (08:27)
[2020-08-07] MEDS: INSULIN ASPART 100 UNITS/ML 3 ML PEN SC SCH ×2 (08:44→12:43)
[2020-08-07] MEDS ORDERED: ENOXAPARIN INJ 40 MG/0.4 ML SYR SQ SCH (09:00)
[2020-08-07] MEDS ORDERED: POLYETHYLENE (MIRALAX) 17 GM PACK PO SCH (09:00)
[2020-08-07] MEDS ORDERED: INSULIN GLARGINE SOLOSTAR 100 UNITS/ML 3 ML PEN SQ SCH (09:00)
--- NOTE | 2020-08-07 12:50 | Discharge Summary ---
Date of Service August 07, 2020 Admission HPI Per Admitting Provider Mr. Smiley is a 55 year old male with a history of Type 2 DM, Hypertension, Asthma/COPD, Morbid Obesity, ARAM (does not use CPAP, it hasn't been set up yet), Klinefelter Syndrome, Gastroparesis, GERD, Seizure Disorder, and Schizophrenia who presented to the ER earlier today with progressive swelling, erythema, and pain of the right lower extremity. He has been dealing with a cellulitis of this leg over the past 3 weeks. Initially seen as an outpatient and started on Keflex and Bactrim by his PCP. Seen at [facility] ER 07/29/2020 and given a dose of Dalvance 4.5 g IV. Met with wound clinic and a right heel diabetic ulcer was debrided -- received IV Dalvance 4.5 g IV, continued Bactrim and Keflex. Returned to ER on 08/01/2020 -- given IV Dalvance 4.5 g. He continued Keflex and Bactrim DS as well -- but unfortunately, his leg has gotten more tender, erythema is spreading, and it is more painful -- making it difficult to walk. Patient has had chills but denies any fever. He denies any headache or stiff neck. Appetite is at baseline, but he does admit to intermittent nausea. Patient offers no other complaints. He denies any chest pain, shortness of breath, abdominal pain, or vomiting. Venous Duplex today shows no evidence of DVT. Blood cultures have been drawn. Patient is uncertain if he has ever had arterial studies/ultrasounds done. Principal Diagnosis Cellulitis Discharge Exam Constitutional WD/WN, vitals as above Respiratory normal respiratory effort, lungs clear to auscultation Cardiovascular RRR, no murmur, no edema Gastrointestinal (Abdomen) normal bowel sounds, soft, nontender, no hepatosplenomegaly Musculoskeletal no cyanosis or clubbing, extremities motor strength 5/5 Skin no rashes, warm and dry improving erythema right lower leg Neurologic moves all extremities and awake Psychiatric A+Ox3, euthymic affect Discharge Data Allergies Allergy/AdvReac Type Severity Reaction Status Date / Time copper Allergy Mild Unknown Unverified 08/05/20 12:22 cider vinegar AdvReac Mild Unknown Unverified 08/05/20 12:22 Ordered Studies 08/05/20 11:53 US venous doppler LE BI Stat 08/05/20 16:06 US arterial duplex LE RT Routine Hospital Course (1) Cellulitis: Mr. Smiley is a 55 year old male with a history of Type 2 DM, Hypertension, Asthma/COPD, Morbid Obesity, ARAM (does not use CPAP, it hasn't been set up yet), Klinefelter Syndrome, Gastroparesis, GERD, Seizure Disorder, and Schizophrenia who presented to the ER earlier today with a Progressive Cellulitis of the Right Leg. He has been dealing with a cellulitis of this leg over the past 3 weeks. Initially seen as an outpatient and started on Keflex and Bactrim. Seen at [facility] ER 07/29/2020 and given a dose of Dalvance 4.5 g IV. Met with wound clinic and a right heel diabetic ulcer was debrided -- received IV Dalvance 4.5 g IV at that visit, and continued Bactrim and Keflex. Returned to ER on 08/01/2020 -- given IV Dalvance 4.5 g. He continued Keflex and Bactrim DS as well -- but unfortunately, his leg has gotten more swollen and tender, erythema is spreading, and it is more painful -- making it difficult to walk. Afebrile, no leukocytosis, BC ngtd. CRP normal, ESR 24. Patient was seen last month by the wound clinic. He had Xray of the foot without evidence of osteomyelitis on 07/31 LE US - no DVT, duplex arterial US - no evidence of significant stenosis - IV Zosyn given with good effect - today patient's pain is a 2-3/10 down from 7-8/10 yesterday. His erythema has improved and he overall feels much better. Will give 2 weeks ciprofloxacin 500 mg bid for discharge. He should assess with his pcp at his appointment later in the week if he can discontinue the cipro earlier than that. - wound care nurse consulted - no open areas to treat Recommend EKG in the office on Wednesday to monitor QT with patient taking Cipro and trazadone. (2) Diabetic ulcer of right foot: Resolved (3) Type 2 diabetes mellitus: A1c 9.2% -- Diabetic diet. -- BSG checks. Pharmacy glycemic consult Patient met with family living educator. Follow up with pcp for better glycemic control. Encouraged patient to check sugars more frequently. He also requests his Lantus dosing be increased to 60 units as this was what he was taking previously and he believes it was mis- filled at 50 units last prescription. I have sent a script for a pen but he may benefit from vials/syringe as he discussed with the family living educator that he has a little bit of trouble administering the pens. (4) Hypertension: -- Continue Coreg 6.25 mg b.i.d.. -- Continue Lisinopril 10 mg daily. -- Hydralazine 20 mg IV q 4 hours prn for SBP > 160 mmHg. (5) DVT prophylaxis: enoxaparin Total Time Total Time Spent Total Time Spent (In Minutes): greater than 30 minutes Discharge Plan Discharge Items Patient Disposition: Home - Self-Care Reason For Visit: CELLULITIS Discharge Diagnosis: Cellulitis Activity: Resume your previous activity Non-emergency contact: Primary Care Provider Call non-emergency contact if: you have any medication questions, your symptoms worsen, your pain is not controlled, your pain is worsening and you have a fever Follow-up/Referrals: Juan Greer DO [Primary Care Provider] - 08/09/20 9:10 am (follow up Wednesday ) Diet: Carb Consistent or DM2 Addtl Attending Provider Instructions: (1) Cellulitis: You recieved IV Zosyn (antibiotic) while you were in the hospital. You will discharge with ciprofloxacin (2) Type 2 diabetes mellitus: Your A1c (measure of 3 months average blood sugar) was 9.25 indicating that your average blood sugar was 217. This is suboptimal control of your blood sug ars and may make healing more difficult. Check your blood sugars before meals and before bed and keep a log to take to your primary care provider so that they can further help you to titrate your ins ulin regimen Pending Studies at Discharge: No Stand-Alone Forms: My [employer], Smoking Cessation Medications and DC Order Prescriptions: New ciprofloxacin HCl [Cipro] 500 mg tablet 500 mg PO BID Qty: 28 RF: 0 Lantus Solostar U-100 Insulin 100 unit/mL (3 mL) insulin pen 60 unit subcut DAILY Qty: 1 RF: 0 Continued lisinopril 10 mg tablet 10 mg PO DAILY RF: 0 zafirlukast [Accolate] 10 mg tablet 20 mg PO Q12H RF: 0 albuterol sulfate 90 mcg/actuation aerosol powdr breath activated 2 inh inhalation Q6H PRN (Reason: Shortness Of Breath) RF: 0 fluoxetine [Prozac] 40 mg capsule 40 mg PO BID RF: 0 clonazepam [Klonopin] 0.5 mg tablet 0.5 mg PO QID RF: 0 gabapentin 400 mg capsule 400 mg PO BID RF: 0 carvedilol [Coreg] 6.25 mg tablet 6.25 mg PO BID RF: 0 olanzapine [Zyprexa] 20 mg tablet 20 mg PO DAILY RF: 0 naproxen 250 mg tablet 250 mg PO BID PRN (Reason: Pain) RF: 0 trazodone 100 mg tablet 200 mg PO QPM RF: 0 omeprazole 40 mg capsule,delayed release(DR/EC) 40 mg PO DAILY RF: 0 Saccharomyces boulardii [Florastor] 250 mg capsule 250 mg PO BID Qty: 20 RF: 0 insulin aspart U-100 [Novolog Flexpen U-100 Insulin] 100 unit/mL (3 mL) Insulin Pen 25 unit SUBCUT TIDM RF: 0 methocarbamol 500 mg tablet 500 mg PO Q8H PRN (Reason: Muscle Spasm) RF: 0 furosemide 40 mg tablet 40 mg PO DAILY RF: 0 Discharge Orders: Discharge Order (Routine); Ordered 08/07/20 Ordered By: Brooke Marlow Admission Data Admit Date/Time: 08/05/20 14:46 Attending Provider: Elias Kitchen Admit Provider: Dylan Blount Primary Care Provider: Juan Greer Other Providers: John Swain Other Interventions: Discharge Summary Assessment (RN) Last Done: 08/07/20 13:22 Supervising Physician Co-Signing Physician Notes I personally examined the patient and verified all jaiem points of history and exam, discussed case, and agree with decision making with Florence CALVERT feeling better and up to going home. also informed PCP who came to look at foot for continuity in outpt f/u vitals ntoed nad heent nc at mmm L foot small soft area on ventral middle of heel but no crepitis no open lesion. tracking erythema gone - outlined areas noted DM foot infection - given what he didn't respond to//then responded dramatically to zosyn - strongly suspect gram negative - with uncontrolled DM have to assume pseudomonas. safe for home, no need for PICC/ongoing IV - risk/benefits favors cipro so that he can be discharged and avoid further risk of prolonged hospitalization. 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
[2020-08-07 13:24] VITALS: BP 130/82
== END 2020-08-07 14:40 | disposition home or self-care (01) | DRG 603 ==
LOC: ED 11:29 → 3W 14:46 → SUATTDRO 14:46 → 3W 16:02

== ENCOUNTER 2020-09-09 13:59 | Observation (INO) ==
[2020-09-09] MEDS ORDERED: ASPIRIN CHEW 324 MG PO STA (14:10)
[2020-09-09] MEDS ORDERED: NITROGLYCERIN SL 0.4 MG/TAB TAB SL STA (14:10)
--- NOTE | 2020-09-09 14:15 | Emergency Department Note ---
Impression & Plan Chest pain, Near syncope, Acute hyperglycemia ED Provider Note NAME: NOA SCHNEIDER AGE: 55 SEX: M : 1965 ARRIVES VIA: Ambulance INFORMANT: Patient ED PROVIDER(S): Elias Sosa DO CHIEF COMPLAINT: HPI: Patient is a 55-year-old male who is morbidly obese with past medical history of schizophrenia, hypertension, hyperlipidemia, diabetes, family history of CAD and asthma who presents to the ER for passing out recurrently at the doctor's office. He notes that she has been having chest pain since then. He has some increased redness of his right lower extremity. He has chest pressure which has been coming and going since yesterday. This started again after he passed out today. He has some shortness of breath as well. Denies any dysuria, urgency or frequency. No new belly pain. No other exacerbating or remitting factors. He was brought in by EMS and found to have a pulse ox 92%. ROS: See above HPI for pertinent positives & negatives. A total of 10 systems reviewed and were otherwise negative. PAST MEDICAL HISTORY:See Below PAST SURGICAL HISTORY:See Below FAMILY HISTORY:See Below SOCIAL HISTORY:See Below HOME MEDICATIONS:See Below ALLERGIES:See Below VITALS:See Below PHYSICAL EXAMINATION: GENERAL: Sitting up in bed, alert, morbidly obese, disheveled, nontoxic, on nasal cannula EYE EXAM: normal conjunctiva. OROPHARYNX: no exudate, no erythema, lips, buccal mucosa, and tongue normal and mucous membranes are moist NECK: supple, no nuchal rigidity, no adenopathy, non-tender LUNGS: Clear to auscultation. Normal chest wall mechanics HEART: no murmurs, S1 normal and S2 normal ABDOMEN: abdomen soft, non-tender, normo-active bowel sounds, no masses, no rebound or guarding. BACK: Back is symmetrical on inspection and there is no deformity, no midline tenderness, no CVA tenderness. SKIN: no rashes and no bruising UPPER EXTREMITIES: upper extremities are grossly normal. LOWER EXTREMITIES: No pitting edema. NEURO EXAM: Normal sensorium, cranial nerves II-XII grossly intact, normal speech, no gross weakness of arms, no gross weakness of legs. MEDICAL DECISION MAKING: Patient is a 55-year-old male who presents the ER via EMS for chest pain associated with syncope versus near syncopal episodes.IV was established blood work was obtained. Labs show no significant leukocytosis or anemia. ABG with a CO2 slightly elevated at 51. BMP with LFTs bilirubin and lipase was unremarkable. Troponin was negative. UA was negative. Covid was negative. Chest x-ray with some vascular congestion. Patient was given nitro and had resolution of his chest pain. He is a fairly high risk with morbid obesity, hypertension, DM and hyperlipidemia. Patient was updated bedside and discussed with hospitalist for further evaluation. EKG showed no acute pathology. Triage Nursing notes reviewed. Limited review of prior medical records performed Vital Signs: reviewed and remarkable for no significant abnormalities Differential diagnosis: Differential diagnoses includes but is not limited to acute coronary syndrome, myocardial infarction, pericarditis, pulmonary embolus, aortic dissection, pneumonia, pneumothorax, musculoskeletal, shingles, esophageal. ER treatment provided: See below Diagnostics interpreted by me: ECG: Sinus rhythm rate 82 Normal axis No PVCs T wave inversion in aVL QTC 411 Cardiac Monitoring: An order was placed for continuous cardiac monitoring. The monitor shows a rate of 81 with sinus rhythm. Laboratory studies: As stated above and show below. Imaging studies: Portable AP upright 1 view of the chest shows no focal infiltrate or pneumothorax Consultation(s): Discussed with hospitalist for further evaluation Procedures: none Critical Care: None Past Med/Surg History Medical History Anxiety Asthma Cardiac murmur Cellulitis of leg Chronic back pain COPD (chronic obstructive pulmonary disease) Gastroparesis GERD (gastroesophageal reflux disease) Hiatal hernia Hx of respiratory failure Klinefelters syndrome Macular degeneration Morbid obesity with BMI of 40.0-44.9, adult ARAM (obstructive sleep apnea) Peripheral neuropathy Pneumonia Pneumonia Schizophrenia Seizure disorder Tachycardia Type 2 diabetes mellitus Surgical History H/O hernia repair H/O right heart catheterization History of colonoscopy History of esophagogastroduodenoscopy (EGD) History of gastric bypass S/P epidural steroid injection Family History Other No family history of adverse response to anesthesia Social History Smoking Status: Former smoker Tobacco Type: Cigarettes Years Smoked: 30; Number of Years Since Quit: 10; Second Hand Exposure: No; Hx Alcohol Use: Yes Alcohol type: beer and hard liquor Alcohol Intake F requency: Monthly or Less Hx Substance Use: No Preferred Language: P[place] Communication Ability: Effective 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 Beliefs That Will Affect Care: None marital status: / Current Living Situation: Alone current occupational status: disabled Feels Safe at Home: Yes Assistive Devices: Denture - Upper, Denture - Lower, Glasses and Walker Allergies Allergies Allergy/AdvReac Type Severity Reaction Status Date / Time copper Allergy Mild skin rash, Verified 09/09/20 11:12 itching cider vinegar AdvReac Mild Redness,swe Verified 09/09/20 11:12 ating Home Meds Home Medications Medication Instructions Recorded Confirmed albuterol sulfate 90 mcg/actuation 2 inh INHALATION Q6H PRN 07/30/20 09/09/20 breath activated powder inhaler clonazepam 0.5 mg tablet 0.5 mg PO QID tab 07/30/20 09/09/20 fluoxetine 40 mg capsule 80 mg PO QAM 07/30/20 09/09/20 lisinopril 10 mg tablet 10 mg PO QAM 07/30/20 09/09/20 omeprazole 40 mg capsule,delayed 40 mg PO BID 07/30/20 09/09/20 release insulin aspart U-100 [Novolog 25 unit SUBCUT TIDM 08/05/20 09/09/20 Flexpen U-100 Insulin] methocarbamol 500 mg PO Q8H PRN 08/05/20 09/09/20 Lantus Solostar U-100 Insulin 60 unit SUBCUT QAM 08/20/20 09/09/20 carvedilol 3.125 mg PO BID 08/20/20 09/09/20 gabapentin 600 mg PO QID 08/20/20 09/09/20 naproxen sodium 550 mg PO BID 08/20/20 09/09/20 rosuvastatin 20 mg PO QAM 08/20/20 09/09/20 trazodone 300 mg PO HS 08/26/20 09/09/20 furosemide 40 mg PO DIRECTED PRN 09/09/20 09/09/20 olanzapine 15 mg tablet 15 mg PO DAILY 09/09/20 09/09/20 olanzapine 20 mg tablet 20 mg PO HS tab 09/09/20 09/09/20 zafirlukast 20 mg PO DAILY 09/09/20 09/09/20 Previous Rx's Medication Instructions Recorded Fernando osborn [Florastor] 250 mg PO BID #20 cap 07/29/20 Results & Data (ED) Vital Signs Vital Signs - 24 hr 09/09/20 14:07 09/09/20 14:13 09/09/20 14:31 Temperature 37.1 C Temperature Source Oral Pulse Rate 80 79 87 Pulse Rate from SpO2 Sensor 80 88 Respiratory Rate 19 18 19 Respiratory Effort / Characteristics Spontaneous Respiratory Depth Normal Respiratory Pattern Regular Blood Pressure 154/90 H 154/90 H 127/78 Blood Pressure Mean 111 111 94 Blood Pressure Position Sitting Pulse Oximetry 95 93 91 Oxygen Delivery Method Room Air Oxygen Flow Rate Sepsis Recent Fever Within 48 Hours No Sepsis New/Unexplained Change in Mental Status N/A Sepsis Action Taken by Nursing No Action Required 09/09/20 14:32 09/09/20 14:38 09/09/20 15:00 Temperature Temperature Source Pulse Rate 90 81 Pulse Rate from SpO2 Sensor 90 81 Respiratory Rate 19 16 Respiratory Effort / Characteristics Respiratory Depth Respiratory Pattern Blood Pressure Blood Pressure Mean Blood Pressure Position Pulse Oximetry 90 93 93 Oxygen Delivery Method Room Air Room Air Room Air Oxygen Flow Rate Sepsis Recent Fever Within 48 Hours Sepsis New/Unexplained Change in Mental Status Sepsis Action Taken by Nursing 09/09/20 15:01 09/09/20 15:22 09/09/20 15:23 Temperature Temperature Source Pulse Rate 82 80 77 Pulse Rate from SpO2 Sensor 81 79 76 Respiratory Rate 16 17 16 Respiratory Effort / Characteristics Respiratory Depth Respiratory Pattern Blood Pressure 205/115 H 190/130 H 144/77 H Blood Pressure Mean 145 150 99 Blood Pressure Position Pulse Oximetry 93 94 95 Oxygen Delivery Method Room Air Room Air Nasal Cannula Oxygen Flow Rate 2 Sepsis Recent Fever Within 48 Hours Sepsis New/Unexplained Change in Mental Status Sepsis Action Taken by Nursing 09/09/20 15:30 09/09/20 15:31 09/09/20 16:00 Temperature Temperature Source Pulse Rate 75 78 71 Pulse Rate from SpO2 Sensor 75 78 71 Respiratory Rate 14 14 13 Respiratory Effort / Characteristics Respiratory Depth Respiratory Pattern Blood Pressure 133/82 149/77 H Blood Pressure Mean 99 101 Blood Pressure Position Pulse Oximetry 95 95 96 Oxygen Delivery Method Nasal Cannula Nasal Cannula Nasal Cannula Oxygen Flow Rate 2 2 2 Sepsis Recent Fever Within 48 Hours Sepsis New/Unexplained Change in Mental Status Sepsis Action Taken by Nursing 09/09/20 16:01 09/09/20 16:30 09/09/20 16:31 Temperature Temperature Source Pulse Rate 74 73 72 Pulse Rate from SpO2 Sensor 74 73 72 Respiratory Rate 15 14 15 Respiratory Effort / Characteristics Respiratory Depth Respiratory Pattern Blood Pressure 124/75 Blood Pressure Mean 91 Blood Pressure Position Pulse Oximetry 96 96 96 Oxygen Delivery Method Nasal Cannula Nasal Cannula Nasal Cannula Oxygen Flow Rate 2 2 2 Sepsis Recent Fever Within 48 Hours Sepsis New/Unexplained Change in Mental Status Sepsis Action Taken by Nursing 09/09/20 17:00 09/09/20 17:23 09/09/20 17:30 Temperature Temperature Source Pulse Rate 91 H 76 71 Pulse Rate from SpO2 Sensor 91 H 76 72 Respiratory Rate 23 17 21 Respiratory Effort / Characteristics Respiratory Depth Respiratory Pattern Blood Pressure 151/83 H 146/79 H Blood Pressure Mean 105 101 Blood Pressure Position Pulse Oximetry 96 98 98 Oxygen Delivery Method Nasal Cannula Nasal Cannula Nasal Cannula Oxygen Flow Rate 2 2 2 Sepsis Recent Fever Within 48 Hours Sepsis New/Unexplained Change in Mental Status Sepsis Action Taken by Nursing 09/09/20 17:31 09/09/20 18:00 09/09/20 18:01 Temperature Temperature Source Pulse Rate 71 75 74 Pulse Rate from SpO2 Sensor 71 74 74 Respiratory Rate 15 18 15 Respiratory Effort / Characteristics Respiratory Depth Respiratory Pattern Blood Pressure 145/81 H Blood Pressure Mean 102 Blood Pressure Position Pulse Oximetry 98 98 97 Oxygen Delivery Method Nasal Cannula Nasal Cannula Nasal Cannula Oxygen Flow Rate 2 2 2 Sepsis Recent Fever Within 48 Hours Sepsis New/Unexplained Change in Mental Status Sepsis Action Taken by Nursing 09/09/20 18:30 09/09/20 18:31 Temperature Temperature Source Pulse Rate 74 74 Pulse Rate from SpO2 Sensor 74 74 Respiratory Rate 13 13 Respiratory Effort / Characteristics Respiratory Depth Respiratory Pattern Blood Pressure 127/78 Blood Pressure Mean 94 Blood Pressure Position Pulse Oximetry 97 97 Oxygen Delivery Method Nasal Cannula Nasal Cannula Oxygen Flow Rate 2 2 Sepsis Recent Fever Within 48 Hours Sepsis New/Unexplained Change in Mental Status Sepsis Action Taken by Nursing Laboratory Data Result diagrams: 09/09/20 14:37 09/09/20 14:37 Lab Results 09/09/20 09/09/20 09/09/20 Range/Units 14:37 14:37 14:37 WBC 6.38 (4.8-10.8) K/uL RBC 4.24 L (4.7-6.1) M/uL Hgb 13.2 L (14.0-18.0) g/dL Hct 38.3 L (42-52) % MCV 90.3 (80-100) fL MCH 31.1 (25-34) pg MCHC 34.5 (32-36) g/dL RDW Std Deviation 43.5 (36.4-46.3) fL RDW Coeff of Alex 13.3 (11.5-14.5) % Plt Count 151 (130-400) K/uL MPV 11.1 H (7.4-10.4) fL Immature Gran % (Auto) 0.2 % Neut % (Auto) 66.2 % Lymph % (Auto) 23.5 % [place] % (Auto) 6.0 % Eos % (Auto) 3.6 % Baso % (Auto) 0.5 % Neut # (Auto) 4.23 (1.4-6.5) K/uL Lymph # (Auto) 1.50 (1.2-3.4) K/uL [place] # (Auto) 0.38 (0.11-0.59) K/uL Eos # (Auto) 0.23 (0-0.5) K/uL Baso # (Auto) 0.03 (0-0.2) K/uL Immature Gran # (Auto) 0.01 (0.00-0.02) K/uL VBG pH 7.35 L (7.36-7.41) VBG pCO2 51 H (38-50) mmHg VBG pO2 48 mmHg VBG HCO3 27 mmol/L VBG O2 Saturation 84.3 % VBG Base Excess 0.8 mEq/L Barometric Pressure 739.6 mm/Hg Sodium 137 (136-145) mmol/L Potassium 4.8 (3.5-5.1) mmol/L Chloride 103 (98-107) mmol/L Carbon Dioxide 27 (21-32) mmol/L Anion Gap 7.0 (3-11) BUN 20 H (7-18) mg/dl Creatinine 1.10 (0.6-1.4) mg/dl Est Cr Clr Drug Dosing 109.7 ml/min Est GFR ( Amer) 87.1 Est GFR (Non-Af Amer) 75.2 BUN/Creatinine Ratio 18.1 (10-20) Glucose 226 H (70-99) mg/dl Calcium 9.3 (8.5-10.1) mg/dl Total Bilirubin 0.3 (0.2-1) mg/dl AST 11 L (15-37) U/L ALT 21 (12-78) U/L Alkaline Phosphatase 99 (45-117) U/L Troponin I < 0.015 (0-0.045) ng/ml Total Protein 7.5 (6.4-8.2) gm/dl Albumin 4.1 (3.4-5.0) gm/dl Globulin 3.4 (2.5-4.0) gm/dl Albumin/Globulin Ratio 1.2 (0.9-2) Lipase 100 (73-393) U/L Urine Opiates Screen (Neg) Ur Methadone, Qual (Neg) Urine Barbiturates (Neg) Ur Phencyclidine (PCP) (Neg) U Amphetamin/Meth Scrn (Neg) MDMA (Ecstasy) Screen (Neg) U Benzodiazepines Scrn (Neg) Ur Cocaine Metabolite (Neg) U Marijuana (THC) Screen (Neg) COVID-19 Eval Order SARS-CoV-2, RNA, NAAT (NEGATIVE) 09/09/20 09/09/20 09/09/20 Range/Units 15:55 15:55 17:33 WBC (4.8-10.8) K/uL RBC (4.7-6.1) M/uL Hgb (14.0-18.0) g/dL Hct (42-52) % MCV (80-100) fL MCH (25-34) pg MCHC (32-36) g/dL RDW Std Deviation (36.4-46.3) fL RDW Coeff of Alex (11.5-14.5) % Plt Count (130-400) K/uL MPV (7.4-10.4) fL Immature Gran % (Auto) % Neut % (Auto) % Lymph % (Auto) % [place] % (Auto) % Eos % (Auto) % Baso % (Auto) % Neut # (Auto) (1.4-6.5) K/uL Lymph # (Auto) (1.2-3.4) K/uL [place] # (Auto) (0.11-0.59) K/uL Eos # (Auto) (0-0.5) K/uL Baso # (Auto) (0-0.2) K/uL Immature Gran # (Auto) (0.00-0.02) K/uL VBG pH (7.36-7.41) VBG pCO2 (38-50) mmHg VBG pO2 mmHg VBG HCO3 mmol/L VBG O2 Saturation % VBG Base Excess mEq/L Barometric Pressure mm/Hg Sodium (136-145) mmol/L Potassium (3.5-5.1) mmol/L Chloride (98-107) mmol/L Carbon Dioxide (21-32) mmol/L Anion Gap (3-11) BUN (7-18) mg/dl Creatinine (0.6-1.4) mg/dl Est Cr Clr Drug Dosing ml/min Est GFR ( Amer) Est GFR (Non-Af Amer) BUN/Creatinine Ratio (10-20) Glucose (70-99) mg/dl Calcium (8.5-10.1) mg/dl Total Bilirubin (0.2-1) mg/dl AST (15-37) U/L ALT (12-78) U/L Alkaline Phosphatase (45-117) U/L Troponin I (0-0.045) ng/ml Total Protein (6.4-8.2) gm/dl Albumin (3.4-5.0) gm/dl Globulin (2.5-4.0) gm/dl Albumin/Globulin Ratio (0.9-2) Lipase (73-393) U/L Urine Opiates Screen Neg (Neg) Ur Methadone, Qual Neg (Neg) Urine Barbiturates Neg (Neg) Ur Phencyclidine (PCP) Neg (Neg) U Amphetamin/Meth Scrn Neg (Neg) MDMA (Ecstasy) Screen Neg (Neg) U Benzodiazepines Scrn Neg (Neg) Ur Cocaine Metabolite Neg (Neg) U Marijuana (THC) Screen Neg (Neg) COVID-19 Eval Order Covid19 IDNow at[facility] SARS-CoV-2, RNA, NAAT NEGATIVE (NEGATIVE) Administered Medications Discontinued Medications Aspirin (Aspirin Chew 324 Mg) 324 mg PO NOW STA Stop: 09/09/20 14:11 Last Admin: 09/09/20 14:28 Dose: 324 mg Documented by: [id number] Ioversol (Optiray 320 125ml) 118 ml IV ONCE ONE Stop: 09/09/20 17:12 Last Admin: 09/09/20 17:17 Dose: 118 ml Documented by: [id number] Nitroglycerin (Nitroglycerin Sl 0.4 Mg/Tab Tab) 0.4 mg SL NOW STA Stop: 09/09/20 14:11 Last Admin: 09/09/20 14:28 Dose: 0.4 mg Documented by: [id number] Discharge Plan Visit Data Chief Complaint: Shortness of Breath/Dyspnea ED Provider: Elias Sosa Discharge Problem: Chest pain, Near syncope, Acute hyperglycemia Forms Stand Alone Forms: [facility] Prescriptions Prescriptions: No Action lisinopril 10 mg tablet 10 mg PO QAM RF: 0 albuterol sulfate 90 mcg/actuation aerosol powdr breath activated 2 inh inhalation Q6H PRN (Reason: Shortness Of Breath Or Wheezing) RF: 0 fluoxetine [Prozac] 40 mg capsule 80 mg PO QAM RF: 0 clonazepam [Klonopin] 0.5 mg tablet 0.5 mg PO QID RF: 0 omeprazole 40 mg capsule,delayed release(DR/EC) 40 mg PO BID RF: 0 olanzapine [Zyprexa] 20 mg tablet 20 mg PO HS RF: 0 olanzapine [Zyprexa] 15 mg tablet 15 mg PO DAILY RF: 0 Saccharomyces boulardii [Florastor] 250 mg capsule 250 mg PO BID Qty: 20 RF: 0 furosemide 40 mg tablet 40 mg PO DIRECTED PRN (Reason: Fluid Retention) RF: 0 zafirlukast 20 mg tablet 20 mg PO DAILY RF: 0 insulin aspart U-100 [Novolog Flexpen U-100 Insulin] 100 unit/mL (3 mL) Insulin Pen 25 unit SUBCUT TIDM RF: 0 methocarbamol 500 mg tablet 500 mg PO Q8H PRN (Reason: Muscle Spasm) RF: 0 gabapentin 600 mg tablet 600 mg PO QID RF: 0 carvedilol 3.125 mg tablet 3.125 mg PO BID RF: 0 naproxen sodium 550 mg tablet 550 mg PO BID RF: 0 rosuvastatin 20 mg tablet 20 mg PO QAM RF: 0 Lantus Solostar U-100 Insulin 100 unit/mL (3 mL) insulin pen 60 unit subcut QAM RF: 0 trazodone 300 mg tablet 300 mg PO HS RF: 0 Discharge Problem: Chest pain Qualifiers: Chest pain type: unspecified Qualified Code(s): R07.9 - Chest pain, unspecified
[2020-09-09 14:49] LABS: Basophils # (auto) 0.03 K/uL (0-0.2); Basophils % (auto) 0.5 %; Eosinophils # (auto) 0.23 K/uL (0-0.5); Eosinophils % (auto) 3.6 %; Hematocrit (blood only) 38.3 % (42-52); Hemoglobin 13.2 g/dL (14.0-18.0); Immature Granulocytes # (auto) 0.01 K/uL (0.00-0.02); Immature Granulocytes % (auto) 0.2 %; Lymphocytes % (auto) 23.5 %; Mean Corpuscular Hemoglobin 31.1 pg (25-34); Mean Corpuscular Hgb Conc 34.5 g/dL (32-36); Mean Corpuscular Volume 90.3 fL (80-100); Mean Platelet Volume 11.1 fL (7.4-10.4); Monocytes # (auto) 0.38 K/uL (0.11-0.59); Neutrophils # (auto) 4.23 K/uL (1.4-6.5); Neutrophils % (auto) 66.2 %; Platelet Count 151 K/uL (130-400); RDW Coefficient of Variation 13.3 % (11.5-14.5); RDW Standard Deviation 43.5 fL (36.4-46.3); Red Blood Count 4.24 M/uL (4.7-6.1); White Blood Count 6.38 K/uL (4.8-10.8)
[2020-09-09 14:58] LABS: Base Excess VBG 0.8 mEq/L; Oxygen Saturation VBG 84.3 %; pH VBG 7.35 (7.36-7.41)
[2020-09-09 15:08] LABS: Alanine Aminotransferase 21 U/L (12-78); Albumin Level 4.1 gm/dl (3.4-5.0); Aspartate Aminotransferase 11 U/L (15-37); BUN Creatinine Ratio 18.1 (10-20); Blood Urea Nitrogen 20 mg/dl (7-18); Calcium 9.3 mg/dl (8.5-10.1); Carbon Dioxide 27 mmol/L (21-32); Chloride 103 mmol/L (98-107); Creatinine Clr Calc Pharmacy 109.7 ml/min; Est GFR (African American) 87.1; Est GFR (Non-African American) 75.2; Glucose 226 mg/dl (70-99); Lipase 100 U/L (73-393); Potassium 4.8 mmol/L (3.5-5.1); Sodium 137 mmol/L (136-145)
--- NOTE | 2020-09-09 15:10 | XRay Report ---
XR chest 1V portable CLINICAL HISTORY: Atypical chest pain. COMPARISON STUDY: Chest radiograph and chest CT August 26, 2020. FINDINGS: There is no pneumothorax or pleural effusion. Cardiomegaly is again noted. There is pulmona ry vascular congestion. There is mild interstitial thickening. No lobar consolidation is present. IMPRESSION: 1. Interstitial thickening. Mild pulmonary edema is favored. An infectious process could appear simil ar but is considered less likely. 2. Cardiomegaly. ACT 112: Negative or not required by law. Electronically signed by: Lvaelle Bryant M.D. 09/09/2020 3:09 PM
[2020-09-09 15:13] LABS: Albumin Globulin Ratio 1.2 (0.9-2); Alkaline Phosphatase 99 U/L (45-117); Bilirubin,Total 0.3 mg/dl (0.2-1); Globulin 3.4 gm/dl (2.5-4.0); Total Protein 7.5 gm/dl (6.4-8.2); Troponin I < 0.015 ng/ml (0-0.045)
--- NOTE | 2020-09-09 16:08 | Electrocardiogram Report ---
Test Reason : Blood Pressure : / mmHG Vent. Rate : 082 BPM Atrial Rate : 082 BPM P-R Int : 156 ms QRS Dur : 082 ms QT Int : 352 ms P-R-T Axes : 056 006 063 degrees QTc Int : 411 ms Poor data quality, interpretation may be adversely affected Normal sinus rhythm Poor R wave progression, consider anterior AK vs. lead placement vs. LVH Abnormal ECG When compared with ECG of 26-AUG-2020 16:39, Nonspecific T wave abnormality, improved in Lateral leads Confirmed by Josef Bustos ([id number]) on 09/09/2020 4:07:43 PM Referred By: Confirmed By:Josef Bustos
[2020-09-09] MEDS ORDERED: OPTIRAY 320 125ml IV ONE (17:11)
--- NOTE | 2020-09-09 17:14 | History & Physical Report ---
Date of Service September 09, 2020 Assessment & Plan (1) Altered mental state: Patient fell asleep during interview, was easily arousable and return to baseline. - Do not feel that this is a seizure secondary to quick return to baseline and shortly lived <3 seconds - Appears related to acute intoxication from polypharmacy leading to worsening hypoventilation - Urine tox, pending - CTA and non con of head negative - Hold sedating medications tonight- Will leave on prozac and zyprexa. If s edation continues, hold zyprexa. (2) Respiratory acidosis: Acute- HCO3 27 and Co2 51 with PH 7.35. - As above - Continue LORENZO - CPAP while in house (3) Chest pain: Chest pain is reproduceable on the 3rd intercostal space left sternal border and walked out to midclavicular line. - Patient endorses that this is the same exact pain that he is feeling - Troponin I negative, ECG no acute changes - Will trend out Troponin I and ECG [id number]. - BP better controlled upon admission - ASA for primary prevention added, continue through discharge. - fasting lipids pending - hgba1c pending (4) Asthma: Patient on leukotriene inhibitor and LORENZO however not sure who is following for chronicity - Patient likely obesity hypoventilation syndrome component - Please assist patient to pulmonary follow upon discharge - PFT's likely needed and CPAP assistance/ need for home oxygen. - CPAP prn SPo2 <92, shortness of breath. (5) Diabetes mellitus type 2, uncontrolled, with complications: BG 226- - pharmacy consult for control of BG with altered mental status. - appreciate assistance, drip if needed. (6) Seizure disorder: ? patient reporting and chart review inadequate. - Reportedly was on Depakote in the past however this could have been used in his early treatment of schizophrenia or manic periods. - If mental state doesn't clear, we can further investigate. (7) Schizophrenia: Hold sedating medications at this time. - Slowly re-introduce medications 24-48 hours - as above if continue to have sedative or AMS effects, hold Zyprexa - No acute needs (8) DVT prophylaxis: SCD's, Lovenox History of Present Illness Primary Care Provider: Juan Greer, DO 55 YOM, with significant history of CAD, HTN, HLD, Morbid Obesity, COPD, Schizophrenia, DM II on insulin, Klinefelter, Neuropathy, cellulitis of lower extremity. Patient brought to the emergency room today via EMS from endocrinology diabetic appointment. Patient was reportedly having periods of lethargy and confusion and when he awoken was complaining of increased shortness of breath and chest discomfort. The patient was given ASA and nitroglycerin which he reports decreased his chest pain from 5 to a 2/10. The patient was sleeping upon entering the room and was easily awoken by voice however, the patient drifted off to sleep mid sentence and needed to be awoken again. The patient states that this has been increasingly occurring over the past 2 weeks. Only thing patient can relate to his symptoms is that he has been out of some his medications for the past month (simvastatin and zafirlukast), he also states that he increased his home oxygen amount over the past few weeks as well. The patient's chest pain left sided below his nipple and feels like a sharp stabbing pain. The pain gets worse with deep inspiration. The pain does not radiate and has no other associated symptoms. The patient reports his falling asleep episodes as random, he can just be in the middle of a sentance, then wake up and not know what he is doing or what was going on. The patient does not endorse losing bowel or bladder function, or periods of prolonged confusion following the events. No paralysis or weakness is noted either. The patient appears to have a fractionated follow up from his transition from [place] to here. It appears he transferred here for his aunt to assist looking after him. It is unclear as to who is managing his home oxygen levels and is not on CPAP as he states "he has not had it ordered"? Patient will be admitted for workup of his lethargy and chest pain and coordinate follow up appointments. Allergies Allergy/AdvReac Type Severity Reaction Status Date / Time copper Allergy Mild skin rash, Verified 09/09/20 11:12 itching cider vinegar AdvReac Mild Redness,swe Verified 09/09/20 11:12 ating Home Medications Medication Instructions Recorded Confirmed Type Saccharomyces boulardii [Florastor] 250 mg PO BID #20 cap 07/29/20 09/09/20 Rx albuterol sulfate 90 mcg/actuation 2 inh INHALATION Q6H PRN 07/30/20 09/09/20 History breath activated powder inhaler clonazepam 0.5 mg tablet 0.5 mg PO QID tab 07/30/20 09/09/20 History fluoxetine 40 mg capsule 80 mg PO QAM 07/30/20 09/09/20 History lisinopril 10 mg tablet 10 mg PO QAM 07/30/20 09/09/20 History omeprazole 40 mg capsule,delayed 40 mg PO BID 07/30/20 09/09/20 History release insulin aspart U-100 [Novolog 25 unit SUBCUT TIDM 08/05/20 09/09/20 History Flexpen U-100 Insulin] methocarbamol 500 mg PO Q8H PRN 08/05/20 09/09/20 History Lantus Solostar U-100 Insulin 60 unit SUBCUT QAM 08/20/20 09/09/20 History carvedilol 3.125 mg PO BID 08/20/20 09/09/20 History gabapentin 600 mg PO QID 08/20/20 09/09/20 History naproxen sodium 550 mg PO BID 08/20/20 09/09/20 History rosuvastatin 20 mg PO QAM 08/20/20 09/09/20 History trazodone 300 mg PO HS 08/26/20 09/09/20 History furosemide 40 mg PO DIRECTED PRN 09/09/20 09/09/20 History olanzapine 15 mg tablet 15 mg PO DAILY 09/09/20 09/09/20 History olanzapine 20 mg tablet 20 mg PO HS tab 09/09/20 09/09/20 History zafirlukast 20 mg PO DAILY 09/09/20 09/09/20 History Past Med/Surg History Medical History Anxiety Asthma Cardiac murmur Cellulitis of leg Chronic back pain COPD (chronic obstructive pulmonary disease) Gastroparesis GERD (gastroesophageal reflux disease) Hiatal hernia Hx of respiratory failure Klinefelters syndrome Macular degeneration Morbid obesity with BMI of 40.0-44.9, adult RAAM (obstructive sleep apnea) Peripheral neuropathy Pneumonia Pneumonia Schizophrenia Seizure disorder Tachycardia Type 2 diabetes mellitus Surgical History H/O hernia repair H/O right heart catheterization History of colonoscopy History of esophagogastroduodenoscopy (EGD) History of gastric bypass S/P epidural steroid injection Family History Other No family history of adverse response to anesthesia Social History Smoking Status: Former smoker Tobacco Type: Cigarettes Years Smoked: 30; Number of Years Since Quit: 10; Second Hand Exposure: No; Hx Alcohol Use: Yes Alcohol type: beer and hard liquor Alcohol Intake Frequency: Monthly or Less Hx Substance Use: No Preferred Language: Vietnamese Communication Ability: Effective Criminal Defense Attorney Required: No Beliefs That Will Affect Care: None marital status: / Current Living Situation: Alone current occupational status: disabled Feels Safe at Home: Yes Assistive Devices: Denture - Upper, Denture - Lower, Glasses and Walker Review of Systems Review of Systems: REVIEW OF SYSTEMS: Constitutional: No fever, sweats or chills Eyes: No diplopia, no worsening or blurred vision ENT: normal hearing, no trouble swallowing Respiratory: No cough, sputum, dyspnea at rest or on exertion Cardiovascular: (+) chest pain, tightness or palpitations Abdomen: No pain, nausea, vomiting, diarrhea or constipation Musculoskeletal: No joint pain, calf pain, swelling Neurologic: (+) lethargy, No weakness, numbness/tingling, or balance problems Psychiatric: No anxiety or depression Skin: No rash or itch Physical Exam Physical Exam: PHYSICAL EXAM: General: awake, alert, no apparent distress Head: Normocephalic, atraumatic ENT: PERRL, EOMI, no pharyngeal exudate, mucous membranes moist Neuro: AAO x 3, speech clear and appropriate, strength intact bilaterally 5/5, sensation intact and equal all extremities. no ataxia, no nystagmus. Patient did fall asleep while talking to him, and awoke with no neurological deficits or confusion. Chest: equal rise and fall of the chest, no accessory muscle use, no heaves or thrills difficult to auscultate secondary to body habitus, on 2lnc Cardiac: Regular rate and rhythm, telemetry reviewed, skin warm dry, cap refill <3 seconds, peripheral pulses +2 no JVD, +2 edema GI: NABS x 4 quadrants, soft, nontender to palpation, no rebound, guarding or tenderness : Spontaneously voiding, no pain, no CVA tenderness, Extremities: Normal inspection, no peripheral edema or erythema, calfs nontender to palpation Psych: Normal mood and affect cits Skin: no rash or erythema Results & Data Results & Data ([facility]) Vital Signs (Past 12 Hours) Vital Signs Temp Pulse Resp BP Pulse Ox 09/09/20 15:31 78 14 95 09/09/20 15:30 75 14 133/82 95 09/09/20 15:23 77 16 144/77 H 95 09/09/20 15:22 80 17 190/130 H 94 09/09/20 15:01 82 16 205/115 H 93 09/09/20 15:00 81 16 93 09/09/20 14:38 93 09/09/20 14:32 90 19 90 09/09/20 14:31 87 19 127/78 91 09/09/20 14:13 37.1 C 79 18 154/90 H 93 09/09/20 14:07 80 19 154/90 H 95 Laboratory Results Abnormal lab results 09/09/20 09/09/20 09/09/20 Range/Units 14:37 14:37 14:37 RBC 4.24 L (4.7-6.1) M/uL Hgb 13.2 L (14.0-18.0) g/dL Hct 38.3 L (42-52) % MPV 11.1 H (7.4-10.4) fL VBG pH 7.35 L (7.36-7.41) VBG pCO2 51 H (38-50) mmHg BUN 20 H (7-18) mg/dl Glucose 226 H (70-99) mg/dl AST 11 L (15-37) U/L Diagnostic Findings CT head/brain wo con CLINICAL HISTORY: increase lethargy ACUTE CHANGE IN MENTAL STATUS COMPARISON STUDY: No previous studies for comparison. TECHNIQUE: Axial CT of the brain is performed from the vertex to the skull base. IV contrast was not administered for this examination. A dose lowering technique was utilized adhering to the principles of ALARA. CT DOSE: FINDINGS: No intra or extra-axial mass lesions are visualized. There is no CT evidence of acute cortical infarction. There is no evidence of midline shift. There is no acute hemorrhage. No calvarial fractures are visualized. There is left maxillary sinus mucosal thickening with chronic wall thickening. There is no evidence of pathologic ventricular dilatation. IMPRESSION: No acute intracranial findings CT angio head w con CLINICAL HISTORY: altered mental status with increased lethargy PAIN TECHNIQUE: CT angiography of the head was performed in a dynamic helical fashion during intravenous administration of 118 cc of Optiray 320. MIP imaging was performed. A dose lowering technique was utilized adhering to the principles of ALARA. CT DOSE: 1051.91 mGy.cm COMPARISON STUDY: No previous studies for comparison. FINDINGS: There are no lesion suspicious for aneurysm. There are no major intracranial branch occlusions. The dural venous sinuses appear patent. There are atheromatous calcifications at the level of the cavernous carotids without evidence of hemodynamically significant stenosis. Postsurgical changes involve the left maxillary sinus. There is chronic wall thickening. IMPRESSION: Unremarkable CT angiography of the brain for age. XR chest 1V portable CLINICAL HISTORY: Atypical chest pain. COMPARISON STUDY: Chest radiograph and chest CT August 26, 2020. FINDINGS: There is no pneumothorax or pleural effusion. Cardiomegaly is again noted. There is pulmonary vascular congestion. There is mild interstitial thickening. No lobar consolidation is present. IMPRESSION: 1. Interstitial thickening. Mild pulmonary edema is favored. An infectious process could appear similar but is considered less likely. 2. Cardiomegaly. Medications Administered Discontinued Medications Aspirin (Aspirin Chew 324 Mg) 324 mg PO NOW STA Stop: 09/09/20 14:11 Last Admin: 09/09/20 14:28 Dose: 324 mg Documented by: [id number] Ioversol (Optiray 320 125ml) 118 ml IV ONCE ONE Stop: 09/09/20 17:12 Last Admin: 09/09/20 17:17 Dose: 118 ml Documented by: [id number] Nitroglycerin (Nitroglycerin Sl 0.4 Mg/Tab Tab) 0.4 mg SL NOW STA Stop: 09/09/20 14:11 Last Admin: 09/09/20 14:28 Dose: 0.4 mg Documented by: [id number] Code Status & VTE Plan Code Status Full VTE: Lovenox, SCD's Supervising Physician Co-Signing Physician Notes Patient was seen and examined independently I discussed the case with Farzad SWANSON I reviewed pertinent past medical social family history and also the plan of care and agree with the plan of care. Patient seen emergency department. He actually fell asleep midsentence on a few occasions. He denies taking additional medications other than his prescribed occasions. He states he had a sleep study years ago which was "normal. However his body habitus to be concerned that he may have sleep apnea. His chest pain appears to be reproducible however he does have symptoms of possible coronary disease especially with his diabetes that may be under heart rate physically. To that end we will sure that he has no active coronary artery disease patient is off to to amend his polypharmacy and try to improve his alertness. There is also concern with regard to sleep apnea we will try to see if we can do some clinical diagnosis to improve his nocturnal hypoxia if it exists Physical exam is fairly unremarkable except for reproducible midsternal and left-sided sternal chest pain. His cardiac exam is regular lungs are clear abdomen is normoactive bowel sounds Concerns for his hypersomnolence could be polypharmacy or sleep apnea he is will be evaluated. Many medications have been held particularly we are discontinuing his naproxen sodium due to coronary risk factors and possible exacerbation of his hiatal hernia and GI symptoms. Any exceptions will be noted below PG Care Time/CCT Total # of Minutes Spent Total Time Spent with Patient: Total time spent is greater than 50% in coordination of care (as documented) at patient's floor/unit and/or counseling patient: Coding Level of Care Code 84787 OBS Care - Level 3 Diagnoses Altered mental state R40.0 Altered mental status type: somnolence Respiratory acidosis E87.2 Chest pain R07.82 Chest pain type: intercostal pain Asthma J45.909 Asthma complication type: unspecified Asthma persistence: unspecified Asthma severity: unspecified severity Diabetes mellitus type 2, uncontrolled, with complications E11.8; E11.65 Seizure disorder G40.909 Schizophrenia F20.9 DVT prophylaxis Z29.9 (1) Altered mental state Altered mental status type: somnolence Qualified Code(s): R40.0 - Somnolence (2) Chest pain Chest pain type: intercostal pain Qualified Code(s): R07.82 - Intercostal pain (3) Asthma Asthma complication type: unspecified Asthma persistence: unspecified Asthma severity: unspecified severity Qualified Code(s): J45.909 - Unspecified asthma, uncomplicated
--- NOTE | 2020-09-09 17:26 | CT Scan Report ---
CT head/brain wo con CLINICAL HISTORY: increase lethargy ACUTE CHANGE IN MENTAL STATUS COMPARISON STUDY: No previous studies for comparison. TECHNIQUE: Axial CT of the brain is performed from the vertex to the skull base. IV contrast was not administered for this examination. A dose lowering technique was utilized adhering to the principles of ALARA. CT DOSE: FINDINGS: No intra or extra-axial mass lesions are visualized. There is no CT evidence of acute cortical infarc tion. There is no evidence of midline shift. There is no acute hemorrhage. No calvarial fractures ar e visualized. There is left maxillary sinus mucosal thickening with chronic wall thickening. There is no evidence of pathologic ventricular dilatation. IMPRESSION: No acute intracranial findings ACT 112: Negative or not required by law. Electronically signed by: Ramon Barrera M.D. 09/09/2020 5:24 PM
--- NOTE | 2020-09-09 17:29 | CT Scan Report ---
CT angio head w con CLINICAL HISTORY: altered mental status with increased lethargy PAIN TECHNIQUE: CT angiography of the head was performed in a dynamic helical fashion during intravenous a dministration of 118 cc of Optiray 320. MIP imaging was performed. A dose lowering technique was util ized adhering to the principles of ALARA. CT DOSE: 1051.91 mGy.cm COMPARISON STUDY: No previous studies for comparison. FINDINGS: There are no lesion suspicious for aneurysm. There are no major intracranial branch occlusi ons. The dural venous sinuses appear patent. There are atheromatous calcifications at the level of th e cavernous carotids without evidence of hemodynamically significant stenosis. Postsurgical changes i nvolve the left maxillary sinus. There is chronic wall thickening. IMPRESSION: Unremarkable CT angiography of the brain for age. ACT 112: Negative or not required by law. Electronically signed by: Ramon Barrera M.D. 09/09/2020 5:28 PM
[2020-09-09 18:11] LABS: Amphetamines+Metham, Urine Neg (Neg); Barbiturates, Urine Neg (Neg); Benzodiazepine, Urine Neg (Neg); Cocaine, Urine Neg (Neg); MDMA (Ecstacy), Urine Neg (Neg); Methadone, Urine Neg (Neg); Opiate, Urine Neg (Neg); Phencyclidine, Urine Neg (Neg)
[2020-09-09] MEDS ORDERED: FUROSEMIDE 40 MG TAB PO PRN (19:41)
[2020-09-09] MEDS ORDERED: ACETAMINOPHEN 325 MG TAB PO PRN (19:41)
[2020-09-09] MEDS ORDERED: ALBUTEROL HFA 8 GM INHALER INH PRN (20:04)
[2020-09-09] MEDS ORDERED: PHARMACY GLYCEMIC MGMT CONSULT PRN (20:14)
[2020-09-09] MEDS ORDERED: GLUCAGON FOR INJ 1 MG VIAL IM PRN (20:30)
[2020-09-09] MEDS ORDERED: GLUCOSE 10 TABS/TUBE PO PRN (20:30)
[2020-09-09] MEDS ORDERED: DEXTROSE 50% 50 ML SYRINGE IV PRN (20:30)
[2020-09-09] MEDS ORDERED: GLUCOSE 40% GEL 15 GM TUBE PO PRN (20:30)
[2020-09-09] MEDS ORDERED: CARBOHYDRATES FOR HYPOGLYCEMIA PO PRN (20:30)
[2020-09-09] MEDS: INSULIN ASPART 100 UNITS/ML 3 ML PEN SC SCH (21:29)
[2020-09-09] MEDS: OLANZapine 20 MG TABLET PO SCH (21:30)
[2020-09-09] MEDS: GABAPENTIN 600 MG TAB PO SCH ×2 (21:30→22:06)
[2020-09-09] MEDS: carvediloL 3.125 MG TAB PO SCH (21:30)
[2020-09-09] MEDS: SACCHAROMYCES BOULARDII 250 MG CAP PO SCH (21:30)
[2020-09-09] MEDS: ENOXAPARIN INJ 40 MG/0.4 ML SYR SQ SCH (21:30)
[2020-09-09] MEDS: PANTOprazole 40 MG TAB PO SCH (21:30)
[2020-09-10] MEDS ORDERED: INSULIN ASPART 100 UNITS/ML 3 ML PEN SC SCH
[2020-09-10 07:23] LABS: BUN Creatinine Ratio 20.7 (10-20); Calcium 8.9 mg/dl (8.5-10.1); Creatinine Clr Calc Pharmacy 139.5 ml/min; Est GFR (African American) 113.1; Est GFR (Non-African American) 97.6
[2020-09-10 07:37] LABS: Basophils # (auto) 0.03 K/uL (0-0.2); Basophils % (auto) 0.5 %; Eosinophils # (auto) 0.26 K/uL (0-0.5); Eosinophils % (auto) 4.3 %; Hematocrit (blood only) 38.3 % (42-52); Hemoglobin 12.9 g/dL (14.0-18.0); Lymphocytes # (auto) 1.67 K/uL (1.2-3.4); Lymphocytes % (auto) 27.7 %; Mean Corpuscular Hemoglobin 30.9 pg (25-34); Mean Corpuscular Volume 91.6 fL (80-100); Mean Platelet Volume 10.7 fL (7.4-10.4); Monocytes # (auto) 0.37 K/uL (0.11-0.59); Monocytes % (auto) 6.1 %; Neutrophils # (auto) 3.69 K/uL (1.4-6.5); Neutrophils % (auto) 61.4 %; Platelet Count 138 K/uL (130-400); RDW Coefficient of Variation 13.5 % (11.5-14.5); RDW Standard Deviation 45.4 fL (36.4-46.3); Red Blood Count 4.18 M/uL (4.7-6.1); White Blood Count 6.02 K/uL (4.8-10.8)
[2020-09-10 08:04] LABS: Mean Corpuscular Hgb Conc 33.7 g/dL (32-36)
[2020-09-10] MEDS: FLUoxetine HCL 20 MG CAP PO SCH (08:42)
[2020-09-10] MEDS: PANTOprazole 40 MG TAB PO SCH ×2 (08:42→21:09)
[2020-09-10] MEDS: lisinopril 10 MG TAB PO SCH (08:42)
[2020-09-10] MEDS: SACCHAROMYCES BOULARDII 250 MG CAP PO SCH ×2 (08:42→21:09)
[2020-09-10] MEDS: GABAPENTIN 600 MG TAB PO SCH ×4 (08:42→21:09)
[2020-09-10] MEDS: ASPIRIN 81 MG ECTAB PO SCH (08:42)
[2020-09-10] MEDS: INSULIN GLARGINE SOLOSTAR 100 UNITS/ML 3 ML PEN SC SCH (08:43)
[2020-09-10] MEDS: carvediloL 3.125 MG TAB PO SCH ×2 (08:43→21:09)
[2020-09-10] MEDS: ROSUVASTATIN CALCIUM 20 MG TAB PO SCH (08:43)
[2020-09-10] MEDS: ENOXAPARIN INJ 40 MG/0.4 ML SYR SQ SCH ×2 (08:44→21:10)
[2020-09-10] MEDS: INSULIN ASPART 100 UNITS/ML 3 ML PEN SC SCH ×4 (08:46→21:11)
[2020-09-10 09:47] LABS: Estimated Average Glucose 237 mg/dl; Hemoglobin A1C 9.9 % (4.5-5.6)
--- NOTE | 2020-09-10 10:30 | Electrocardiogram Report ---
Test Reason : Blood Pressure : / mmHG Vent. Rate : 074 BPM Atrial Rate : 074 BPM P-R Int : 150 ms QRS Dur : 084 ms QT Int : 370 ms P-R-T Axes : 083 018 092 degrees QTc Int : 410 ms Normal sinus rhythm Nonspecific T wave abnormality Lateral leads Abnormal ECG When compared with ECG of 09-SEP-2020 14:13, No significant change was found Confirmed by Josef Bustos ([id number]) on 09/10/2020 10:30:40 AM Referred By: REFERRED SELF Confirmed By:Josef Bustos
--- NOTE | 2020-09-10 10:33 | Hospitalist Progress Note ---
Date of Service September 10, 2020 Assessment & Plan (1) Altered mental state: Patient is a 55 year old male with PMHx DM2, Seizure Disorder, Schizoaffective Disorder, Asthma, Hypertension who presented from his Superintendent [employer]'s office after he was found to be lethargic and confused, with notes of increased SOB and chest pain when aroused. AMS, since resolved -Suspect secondary to polypharmacy vs OHS vs lack of sleep from farz[place] -Head CT/CTA negative acute processes -Urine Tox negative -Patient this AM awake and responsive -Will slowly reintroduce patient's home sedating medications including Klonopin and Trazodone Respiratory Acidosis, suspect secondary to obesity hypoventilation syndrome -Noted on admission with HCO3 27 and CO2 51 with PH 7.35 -Order for CPAP while inpatient -Patient has follow up with Pulmonology scheduled for 09/13/20 outpatient Schizoaffective Disorder -Has been seeing Dr. Selwyn García in [facility] -Was to establish with Dr. Valverde at [facility], though missed appointment due to recent pneumonia -Psych Liaison consulted to assist with establishing care for patient in the area -Continue home Zyprexa -Continue home Klonopin at TID dosing, if no sedation can resume home QID dosing -Continue home Prozac -Will hold Trazodone at this time due to patients AMS and lethargy on admission Chest Pain -Appears musculoskeletal in nature -EKG without acute changes -Troponin negative x2 -ASA added on admission, will continue for primary prevention -Fasting Lipids with Cholesterol 121, LDL 36, HDL 36 -HgbA1C 9.9 -Continue home Rosuvastatin DM2 -Pharm consult for glucose management -Patient on Lantus 60u qAM with Novolog 25 units TID at home -HgbA1C elevated at 9.9 -Unsure at this time whether patient requires tighter control, or is not properly taking at home Seizure Disorder -Last reported seizure in 2000 -Had been on Depakote in past per patient, though discontinued Asthma -Continue Albuterol PRN -Continue Zafirlukast daily -No PFTs on file, has f/u with Pulm on 09/16/20 Hypertension -Continue home Lisinopril -Continue home Carvedilol Neuropathy -Continue home Gabapentin 600 QID Dispo: PCU for close monitoring of mental status, suspect discharge in the following 1-2 days with improvement today and close follow up upon discharge in regards to med management. FEN: DM2 diet DVT: Lovenox 40 Code: Full Admission and Anticipated Discharge Date Admission Date: September 09, 2020 Supervising Physician Co-Signing Physician Notes Resident Physician Supervision Note: I independently interviewed and examined the patient and verified the jaime history and physical, reviewed labs and image studies, discussed the case with the resident Dr. Prabhakar and agree with the findings and care plan. Subjective Patient evaluated at the bedside this AM. Patient awake and aware of situation. Stated that he had been having difficulties with sleep since moved to the area in early July 2020. States that prior to his Endocrinology appointment prior to admission, he had not slept in over 3 nights and as a result was extremely tired during and after the appointment. Upon discussion with patients Aunt Jany who takes him to the appointment, she agrees that he had appeared more tired and had been having difficulties with his sleep since his arrival. Patient also denied having anymore chest pain this AM. He stated that since he was able to get sleep last night, he feels well. His only concern at this time is that he is hopeful to get his home Klonopin. He notes he has been taking it since 1994 without missing doses, and is concerned that he will go into withdrawal if he does not get it. Otherwise denies any fever, chills, SOB, chest pain, abdominal pain, nausea, vomiting. He does still note shortness of breath on exertion, though states it is not new. Review of Systems Review of Systems: All systems reviewed & are unremarkable except as noted in Subjective Physical Exam Constitutional: well developed and well nourished ENMT: external ear and nose normal, oropharynx normal Neck: trachea midline, no thyromegaly Respiratory: normal respiratory effort, lungs clear to auscultation Cardiovascular: RRR, no murmur, no edema Gastrointestinal (Abdomen): normal bowel sounds, soft, nontender, no hepa tosplenomegaly Neurologic: awake; not confused and not obtunded Psychiatric: A+Ox3, euthymic affect Results & Data Results & Data ([facility]) Vital Signs (Past 12 Hours) Vital Signs Temp Pulse Resp BP Pulse Ox 09/10/20 07:57 37.0 C 68 18 149/87 H 94 09/10/20 04:03 37 C 73 18 129/86 96 09/09/20 23:10 36.7 C 78 18 165/77 H 96 Resident Activity Tracking Resident Involvement: Resident Care Provided Care Provided: Adult Hospital Medicine (1) Altered mental state Altered mental status type: somnolence Qualified Code(s): R40.0 - Somnolence
--- NOTE | 2020-09-10 11:41 | Pharmacy Report ---
Pharmacy Glycemic Short Note 2 - Date of Service September 10, 2020 - Glycemic Short BSG Results (Last 24 hours): 09/09/20 09/09/20 09/10/20 14:37 20:01 00:12 Glucose 226 H POC Glucose 218 H 230 H 09/10/20 09/10/20 06:39 07:36 Glucose 166 H POC Glucose 194 H OUTPATIENT ANTIDIABETIC REGIMEN: * Lantus 60 units SQ AM * Novolog 25 units TIDM * A1c = 9.9% (09/10/20) RISK FACTORS FOR INSULIN RESISTANCE: * Diet: T2DM ASSESSMENT: * 55 yo M admitted secondary to altered mental status. Pharmacy is consulted for inpatient glycemic management. Patient was previous here from 08/05-08/07/20 for cellulitis. Will utilize this data to help guide inpatient insulin dosing for this admission. * Patient reports taking 60 units of Lantus prior to admission yesterday. His BSGs upon admission and throughout last evening were 226-218-230 mg/dL - uncontrolled. * Fasting BSG this AM was uncontrolled at 194 mg/dL. * Will increase Lantus to 70 units this morning * Tightened CF/CR and goal range to reflect previous admission data PLAN FOR INPATIENT GLYCEMIC CONTROL: * Basal insulin * Lantus 70 units SQ AM * Bolus insulin * NovoLog per scale ACHS or Q6hrs while NPO * Goal Range: Low 110 mg/dL - High 140 mg/dL * Correction Factor: 12 mg/dL/unit * Nutritional / Prandial insulin per carb ratio of 1 unit per 4 grams CHO consumed PLAN FOR DISCHARGE: * TBD
[2020-09-10] MEDS: clonazePAM 0.5 MG TAB PO PRN ×2 (13:01→21:09)
[2020-09-10] MEDS: OLANZapine 20 MG TABLET PO SCH (21:09)
[2020-09-11] MEDS ORDERED: INSULIN ASPART 100 UNITS/ML 3 ML PEN SC SCH (02:00)
[2020-09-11 07:15] LABS: Basophils # (auto) 0.04 K/uL (0-0.2); Basophils % (auto) 0.6 %; Eosinophils # (auto) 0.32 K/uL (0-0.5); Eosinophils % (auto) 5.1 %; Hematocrit (blood only) 42.1 % (42-52); Hemoglobin 14.2 g/dL (14.0-18.0); Immature Granulocytes # (auto) 0.01 K/uL (0.00-0.02); Immature Granulocytes % (auto) 0.2 %; Lymphocytes # (auto) 1.41 K/uL (1.2-3.4); Lymphocytes % (auto) 22.5 %; Mean Corpuscular Hgb Conc 33.7 g/dL (32-36); Mean Corpuscular Volume 91.9 fL (80-100); Mean Platelet Volume 10.5 fL (7.4-10.4); Monocytes # (auto) 0.38 K/uL (0.11-0.59); Monocytes % (auto) 6.1 %; Neutrophils # (auto) 4.12 K/uL (1.4-6.5); Neutrophils % (auto) 65.5 %; Platelet Count 132 K/uL (130-400); RDW Coefficient of Variation 13.3 % (11.5-14.5); RDW Standard Deviation 44.5 fL (36.4-46.3); Red Blood Count 4.58 M/uL (4.7-6.1); White Blood Count 6.28 K/uL (4.8-10.8)
[2020-09-11 07:48] LABS: BUN Creatinine Ratio 21.2 (10-20); Calcium 9.8 mg/dl (8.5-10.1); Creatinine Clr Calc Pharmacy 108.1 ml/min; Est GFR (African American) 86.2; Est GFR (Non-African American) 74.4; Potassium 4.5 mmol/L (3.5-5.1)
--- NOTE | 2020-09-11 08:33 | Electrocardiogram Report ---
Test Reason : Blood Pressure : / mmHG Vent. Rate : 066 BPM Atrial Rate : 066 BPM P-R Int : 160 ms QRS Dur : 090 ms QT Int : 364 ms P-R-T Axes : 076 045 063 degrees QTc Int : 381 ms Normal sinus rhythm Minor Nonspecific T wave abnormality Lateral leads When compared with ECG of 10-SEP-2020 07:07, No significant change was found Confirmed by Josef Bustos ([id number]) on 09/11/2020 8:32:51 AM Referred By: REFERRED SELF Confirmed By:Josef Bustos
[2020-09-11] MEDS: INSULIN ASPART 100 UNITS/ML 3 ML PEN SC SCH ×2 (08:37→11:51)
[2020-09-11] MEDS: INSULIN GLARGINE SOLOSTAR 100 UNITS/ML 3 ML PEN SC SCH (08:39)
[2020-09-11] MEDS: PANTOprazole 40 MG TAB PO SCH (08:40)
[2020-09-11] MEDS: ENOXAPARIN INJ 40 MG/0.4 ML SYR SQ SCH (08:40)
[2020-09-11] MEDS: carvediloL 3.125 MG TAB PO SCH (08:40)
[2020-09-11] MEDS: GABAPENTIN 600 MG TAB PO SCH ×2 (08:41→12:35)
[2020-09-11] MEDS: lisinopril 10 MG TAB PO SCH (08:41)
[2020-09-11] MEDS: ASPIRIN 81 MG ECTAB PO SCH (08:41)
[2020-09-11] MEDS: SACCHAROMYCES BOULARDII 250 MG CAP PO SCH (08:41)
[2020-09-11] MEDS: ROSUVASTATIN CALCIUM 20 MG TAB PO SCH (08:41)
[2020-09-11] MEDS: FLUoxetine HCL 20 MG CAP PO SCH (08:41)
[2020-09-11] MEDS: clonazePAM 0.5 MG TAB PO PRN (08:46)
--- NOTE | 2020-09-11 09:54 | Discharge Summary ---
Date of Service September 11, 2020 Admission HPI Per Admitting Provider 55 YOM, with significant history of CAD, HTN, HLD, Morbid Obesity, COPD, Schizophrenia, DM II on insulin, Klinefelter, Neuropathy, cellulitis of lower extremity. Patient brought to the emergency room today via EMS from endocrinology diabetic appointment. Patient was reportedly having periods of lethargy and confusion and when he awoken was complaining of increased shortness of breath and chest discomfort. The patient was given ASA and nitroglycerin which he reports decreased his chest pain from 5 to a 2/10. The patient was sleeping upon entering the room and was easily awoken by voice however, the patient drifted off to sleep mid sentence and needed to be awoken again. The patient states that this has been increasingly occurring over the past 2 weeks. Only thing patient can relate to his symptoms is that he has been out of some his medications for the past month (simvastatin and zafirlukast), he also states that he increased his home oxygen amount over the past few weeks as well. The patient's chest pain left sided below his nipple and feels like a sharp stabbing pain. The pain gets worse with deep inspiration. The pain does not radiate and has no other associated symptoms. The patient reports his falling asleep episodes as random, he can just be in the middle of a sentance, then wake up and not know what he is doing or what was going on. The patient does not endorse losing bowel or bladder function, or periods of prolonged confusion following the events. No paralysis or weakness is noted either. The patient appears to have a fractionated follow up from his transition from [place] to here. It appears he transferred here for his aunt to assist looking after him. It is unclear as to who is managing his home oxygen levels and is not on CPAP as he states "he has not had it ordered"? Patient will be admitted for workup of his lethargy and chest pain and coordinate follow up appointments. Admission Exam Per Admitting Provider PHYSICAL EXAM: General: awake, alert, no apparent distress Head: Normocephalic, atraumatic ENT: PERRL, EOMI, no pharyngeal exudate, mucous membranes moist Neuro: AAO x 3, speech clear and appropriate, strength intact bilaterally 5/5, sensation intact and equal all extremities. no ataxia, no nystagmus. Patient did fall asleep while talking to him, and awoke with no neurological deficits or confusion. Chest: equal rise and fall of the chest, no accessory muscle use, no heaves or thrills difficult to auscultate secondary to body habitus, on 2lnc Cardiac: Regular rate and rhythm, telemetry reviewed, skin warm dry, cap refill <3 seconds, peripheral pulses +2 no JVD, +2 edema GI: NABS x 4 quadrants, soft, nontender to palpation, no rebound, guarding or tenderness : Spontaneously voiding, no pain, no CVA tenderness, Extremities: Normal inspection, no peripheral edema or erythema, calfs nontender to palpation Psych: Normal mood and affect cits Skin: no rash or erythema Principal Diagnosis Altered Mental Status Discharge Exam Constitutional well developed and well nourished ENMT external ear and nose normal, oropharynx normal Neck trachea midline, no thyromegaly Respiratory normal respiratory effort, lungs clear to auscultation Cardiovascular RRR, no murmur, no edema Gastrointestinal (Abdomen) normal bowel sounds, soft, nontender, no hepatosplenomegaly Neurologic awake; not confused and not obtunded Psychiatric A+Ox3, euthymic affect Discharge Data Allergies Allergy/AdvReac Type Severity Reaction Status Date / Time copper Allergy Mild skin rash, Verified 09/09/20 11:12 itching cider vinegar AdvReac Mild Redness,swe Verified 09/09/20 11:12 ating Consultations 09/09/20 15:45 ED Decision to Admit Stat 09/10/20 09:45 Consult Behavioral Health Liaison Routine Ordered Studies 09/09/20 16:24 CT angio head w con Stat 09/09/20 16:32 CT head/brain wo con Stat Hospital Course (1) Altered mental state: Patient is a 55 year old male with PMHx DM2, Seizure Disorder, Schizoaffective Disorder, Asthma, Hypertension who presented from his Down Filler's office after he was found to be lethargic and confused, with notes of increased SOB and chest pain when aroused. AMS, since resolved -Suspect secondary to polypharmacy vs OHS vs lack of sleep from farzana -Head CT/CTA negative acute processes -Urine Tox negative -Had resolved the following day after admission once able to sleep. -Patients Klonopin was reintroduced at lower dose of 0.5 tid (was on 0.5mgs qid). Respiratory Acidosis, suspect secondary to obesity hypoventilation syndrome -Noted on admission with HCO3 27 and CO2 51 with PH 7.35 -Ordered for CPAP while inpatient -Will likely require sleep study and CPAP outpatient. -Patient has follow up with Pulmonology scheduled for 09/13/20 outpatient Schizoaffective Disorder -Had been seeing Dr. Selwyn García in [facility] -Was to establish with Dr. Valverde at [facility], though missed appointment due to recent pneumonia -Psych Liaison consulted to assist with establishing care for patient in the area, reached out again to Dr. Valverde prior to patients discharge. -Continued home Zyprexa -Continued home Klonopin at TID dosing - patient tolerated well and agreed to lowering dosage for outpatient use. -Continued home Prozac -Held Trazodone due to concerns that it was overly sedating him. -As patients AMS resolved with sleep, and with reduction of Klonopin, can resume upon discharge. Chest Pain -Appeared musculoskeletal in nature -EKG without acute changes -Troponin negative x2 -ASA added on admission, will continue upon discharge for primary prevention -Fasting Lipids with Cholesterol 121, LDL 36, HDL 36 -HgbA1C 9.9 -Continued home Rosuvastatin DM2 -Pharm consulted for glucose management -Patient on Lantus 60u qAM with Novolog 25 units TID at home -HgbA1C elevated at 9.9 -Unsure at this time whether patient requires tighter control, or is not properly taking at home -Upon further discussion patient had noted difficulties with drawing up insulin into needles due to his neuropathy and difficulty with utilizing pens due to bleeding. -Case management assisted with getting patient home health services which would be present the following day after discharge. Seizure Disorder -Last reported seizure in 2000 -Had been on Depakote in past per patient, though discontinued Asthma -Continued Albuterol PRN -Continued Zafirlukast daily -No PFTs on file, has f/u with Pulm on 09/16/20 Hypertension -Continued home Lisinopril -Continued home Carvedilol Neuropathy -Continued home Gabapentin 600 QID Total Time Total Time Spent Total Time Spent (In Minutes): see attending attestation Discharge Plan Discharge Items Patient Disposition: Home - Self-Care Reason For Visit: LETHARGY AND CHEST PAIN Discharge Diagnosis: Altered Mental Status Activity: Resume your previous activity Non-emergency contact: Primary Care Provider Call non-emergency contact if: you have any medication questions and your symptoms worsen Follow-up/Referrals: Juan Greer DO [Primary Care Provider] - 09/16/20 1:30 pm Diet: Carb Consistent or DM2 Addtl Attending Provider Instructions: Mr. Smiley, It was our pleasure caring for you at [facility] from 09/09 - 09/11/20. Please see below for a summary of your care and future instructions. Altered Mental Status -On your admission you were found to be profoundly lethargic and confused. -There were concerns in regards that your medications have have been too sedating, in addition to your difficulty with sleep. -You underwent a Head CT and CTA scan which were both negative for any acute processes. -You improved significantly and your mentation improved after getting rest. -We would like to reduce your Klonopin to three times a day instead of 4 times a day to which you were agreeable with. -A 1 week dose of Klonopin 0.5mg three times a day was sent to your pharmacy. Concern for Obesity Hypoventilation Syndrome -On your admission there were also concerns that you were retaining CO2, specifically while you were sleeping. -Please follow up with Pulmonology on 09/13/20 Schizoaffective Disorder -You had mentioned you had been following with Dr. Selwyn García in [facility] -You were seen by our Psych Liaison who reached out to Dr. Valverde at [facility] again to reschedule you for an appointment. -Please also attend your family medicine appointment with Dr. Greer on 09/16/20 to discuss med management. -Please continue your Zyprexa, Prozac, and Trazodone as prescribed -As noted above, your Klonopin was reduced to three times a day. Chest Pain -The chest pain you experienced on admission appeared musculoskeletal in nature -Please continue your Rosuvastatin as prescribed. -A baby aspirin was also added on for you and sent to your pharmacy for primary prevention. Diabetes Mellitus 2 -Your HgbA1C was elevated 9.9 on admission -Please continue your insulin regiment as prescribed -Please discuss this with your Down Filler at your appointment on 09/25/20 as you will require tighter control. Asthma -Continue your Albuterol as needed -Continue your Zafirlukast daily -No PFTs on file, follow up with Pulmonology on 09/16/20 Hypertension -Continue home Lisinopril -Continue home Carvedilol Neuropathy -Continue home Gabapentin 600 QID Pending Studies at Discharge: No Stand-Alone Forms: My [facility], Smoking Cessation Medications and DC Order Prescriptions: New aspirin 81 mg Tablet,Delayed Release (Dr/Ec) 81 mg PO QAM 30 Days Qty: 30 RF: 0 clonazepam [Klonopin] 0.5 mg tablet 0.5 mg PO TID Qty: 20 RF: 0 clonazepam 0.5 mg Tablet 0.5 mg PO TID Qty: 20 RF: 0 Continued albuterol sulfate 90 mcg/actuation aerosol powdr breath activated 2 inh inhalation Q6H PRN (Reason: Shortness Of Breath Or Wheezing) RF: 0 fluoxetine [Prozac] 40 mg capsule 80 mg PO QAM RF: 0 omeprazole 40 mg capsule,delayed release(DR/EC) 40 mg PO BID RF: 0 olanzapine [Zyprexa] 20 mg tablet 20 mg PO HS RF: 0 olanzapine [Zyprexa] 15 mg tablet 15 mg PO DAILY RF: 0 Saccharomyces boulardii [Florastor] 250 mg capsule 250 mg PO BID Qty: 20 RF: 0 furosemide 40 mg tablet 40 mg PO DIRECTED PRN (Reason: Fluid Retention) RF: 0 carvedilol 3.125 mg tablet 3.125 mg PO BID 30 Days Qty: 60 RF: 0 lisinopril 10 mg tablet 10 mg PO QAM 30 Days Qty: 30 RF: 0 zafirlukast 20 mg tablet 20 mg PO DAILY 30 Days Qty: 30 RF: 0 rosuvastatin 20 mg tablet 20 mg PO QAM 30 Days Qty: 30 RF: 0 insulin aspart U-100 [Novolog Flexpen U-100 Insulin] 100 unit/mL (3 mL) Insulin Pen 25 unit SUBCUT TIDM RF: 0 methocarbamol 500 mg tablet 500 mg PO Q8H PRN (Reason: Muscle Spasm) RF: 0 gabapentin 600 mg tablet 600 mg PO QID RF: 0 Lantus Solostar U-100 Insulin 100 unit/mL (3 mL) insulin pen 60 unit subcut QAM RF: 0 trazodone 300 mg tablet 300 mg PO HS RF: 0 Discontinued clonazepam [Klonopin] 0.5 mg tablet 0.5 mg PO QID RF: 0 naproxen sodium 550 mg tablet 550 mg PO BID RF: 0 Discharge Orders: Discharge Order (Routine); Ordered 09/11/20 Ordered By: Wiliam Prabhakar Admission Data Admit Date/Time: 09/09/20 17:14 Attending Provider: Ani Howell Admit Provider: Silver Morrison Primary Care Provider: Juan Greer Other Providers: Wiliam Dominguez Other Interventions: Discharge Summary Assessment (RN) Last Done: 09/11/20 11:41 Supervising Physician Co-Signing Physician Notes Resident Physician Supervision Note: I independently interviewed and examined the patient and verified the jaime history and physical, reviewed labs and image studies, discussed the case with the resident Dr. Prabhakar and agree with the findings and care plan. Resident Activity Tracking Resident Involvement: Resident Care Provided Care Provided: Adult Hospital Medicine
[2020-09-12] MEDS ORDERED: INSULIN ASPART 100 UNITS/ML 3 ML PEN SC SCH
== END 2020-09-11 14:40 | disposition home or self-care (01) ==
LOC: ED 13:59 → 2S 13:59 → SUATTDRO 17:14 → 2S 20:19
DX: J45.909 Unspecified asthma, uncomplicated; E78.5 Hyperlipidemia, unspecified; Z79.899 Other long term (current) drug therapy; Z79.4 Long term (current) use of insulin; R07.82 Intercostal pain; G47.33 Obstructive sleep apnea (adult) (pediatric); Z87.891 Personal history of nicotine dependence; I10 Essential (primary) hypertension; R41.82 Altered mental status, unspecified; E11.65 Type 2 diabetes mellitus with hyperglycemia; E66.01 Morbid (severe) obesity due to excess calories; Z68.41 Body mass index [BMI] 40.0-44.9, adult; E11.40 Type 2 diabetes mellitus with diabetic neuropathy, unspecified; E87.2 Acidosis; G40.909 Epilepsy, unspecified, not intractable, without status epilepticus; F20.9 Schizophrenia, unspecified

== ENCOUNTER 2020-09-22 20:00 | Inpatient (IN) ==
[2020-09-22] MEDS ORDERED: predniSONE 50 MG TAB PO STA (20:16)
[2020-09-22] MEDS ORDERED: ALBUT/IPRATROP 3MG/0.5MG NEB 3 ML VIAL NEB STA ×2 (20:16→22:22)
[2020-09-22 20:36] LABS: Basophils # (auto) 0.03 K/uL (0-0.2); Basophils % (auto) 0.6 %; Eosinophils # (auto) 0.27 K/uL (0-0.5); Eosinophils % (auto) 5.3 %; Hematocrit (blood only) 37.5 % (42-52); Hemoglobin 12.5 g/dL (14.0-18.0); Lymphocytes # (auto) 1.31 K/uL (1.2-3.4); Lymphocytes % (auto) 25.8 %; Mean Corpuscular Hgb Conc 33.3 g/dL (32-36); Mean Corpuscular Volume 93.1 fL (80-100); Mean Platelet Volume 11.2 fL (7.4-10.4); Monocytes # (auto) 0.23 K/uL (0.11-0.59); Monocytes % (auto) 4.5 %; Neutrophils # (auto) 3.23 K/uL (1.4-6.5); Neutrophils % (auto) 63.8 %; Platelet Count 133 K/uL (130-400); RDW Coefficient of Variation 13.4 % (11.5-14.5); RDW Standard Deviation 45.5 fL (36.4-46.3); Red Blood Count 4.03 M/uL (4.7-6.1); White Blood Count 5.07 K/uL (4.8-10.8)
[2020-09-22 20:37] LABS: Base Excess VBG 2.4 mEq/L; Oxygen Saturation VBG 81.6 %; pH VBG 7.33 (7.36-7.41)
[2020-09-22 21:28] LABS: BUN Creatinine Ratio 12.4 (10-20); Blood Urea Nitrogen 15 mg/dl (7-18); Calcium 9.6 mg/dl (8.5-10.1); Carbon Dioxide 28 mmol/L (21-32); Chloride 99 mmol/L (98-107); Creatinine Clr Calc Pharmacy 101.2 ml/min; Est GFR (African American) 77.6; Glucose 417 mg/dl (70-99); NT Pro B Type Natriuretic Pept 103 pg/ml (0-900); Potassium 4.9 mmol/L (3.5-5.1); Sodium 134 mmol/L (136-145); Troponin I < 0.015 ng/ml (0-0.045)
[2020-09-22 21:49] LABS: Beta-Hydroxybutyrate 1.69 mg/dl (0.2-2.81)
--- NOTE | 2020-09-22 22:49 | Emergency Department Note ---
History of Present Illness General Chief complaint: Shortness of Breath/Dyspnea Time Seen by Provider: 09/22/20 20:04 History of Present Illness Provider complaint: Shortness of breath Onset (ago): week(s) 2 Maximum Pain Intensity: 0 Current Pain Intensity: 0 Associated symptoms: + cough and + shortness of breath; no chest pain and no fever/chills 55-year-old male presents emergency department for shortness of breath. He reports his shortness of breath has been getting progressively worse over the last 2 weeks. He reports using his inhalers more. He denies any hemoptysis. No fevers. He does report a cough. No chest pain. No nausea vomiting or diarrhea. States he has a history of having pneumonias and feels as though he has pneumonia again. Home Medications Medication Instructions Recorded Confirmed Type Saccharomyces boulardii [Florastor] 250 mg PO BID #20 cap 07/29/20 09/13/20 Rx albuterol sulfate 90 mcg/actuation 2 inh INHALATION Q6H PRN 07/30/20 09/13/20 History breath activated powder inhaler fluoxetine 40 mg capsule 80 mg PO QAM 07/30/20 09/13/20 History omeprazole 40 mg capsule,delayed 40 mg PO BID 07/30/20 09/13/20 History release insulin aspart U-100 [Novolog 25 unit SUBCUT TIDM 08/05/20 09/13/20 History Flexpen U-100 Insulin] methocarbamol 500 mg PO Q8H PRN 08/05/20 09/13/20 History Lantus Solostar U-100 Insulin 60 unit SUBCUT QAM 08/20/20 09/13/20 History gabapentin 600 mg PO QID 08/20/20 09/13/20 History trazodone 300 mg PO HS 08/26/20 09/13/20 History furosemide 40 mg PO DIRECTED PRN 09/09/20 09/13/20 History olanzapine 15 mg tablet 15 mg PO DAILY 09/09/20 09/13/20 History olanzapine 20 mg tablet 20 mg PO HS tab 09/09/20 09/13/20 History aspirin 81 mg PO QAM 30 Days #30 tab 09/11/20 09/13/20 Rx carvedilol 3.125 mg PO BID 30 Days #60 tab 09/11/20 09/13/20 Rx clonazepam 0.5 mg PO TID #20 tab 09/11/20 09/13/20 Rx clonazepam [Klonopin] 0.5 mg PO TID #20 tab 09/11/20 09/13/20 Rx lisinopril 10 mg PO QAM 30 Days #30 tab 09/11/20 09/13/20 Rx rosuvastatin 20 mg PO QAM 30 Days #30 tab 09/11/20 09/13/20 Rx zafirlukast 20 mg PO DAILY 30 Days #30 tab 09/11/20 09/13/20 Rx umeclidinium 62.5 mcg-vilanterol 1 inh INHALATION DAILY #60 ea 09/13/20 09/13/20 Rx 25 mcg/actuation powdr for inhalation aspirin [Aspirin Low Dose] 81 mg PO QAM 09/22/20 09/22/20 History carvedilol [Coreg] 3.125 mg PO BID 09/22/20 09/22/20 History clonazepam [Klonopin] 0.5 mg PO TID 09/22/20 09/22/20 History fluoxetine [Prozac] 80 mg PO QAM 09/22/20 09/22/20 History gabapentin [Neurontin] See Rx Instructions .ROUTE .COMPLEX 09/22/20 09/22/20 History insulin glargine [Lantus U-100 60 unit SUBCUT QAM 09/22/20 09/22/20 History Insulin] insulin lispro [Humalog U-100 25 unit SUBCUT TIDM 09/22/20 09/22/20 History Insulin] linaclotide [Linzess] 290 mcg PO DAILY PRN 09/22/20 09/22/20 History lisinopril [Zestril] 10 mg PO QAM 09/22/20 09/22/20 History olanzapine [Zyprexa] 20 mg PO HS 09/22/20 09/22/20 History omeprazole 40 mg PO QAM 09/22/20 09/22/20 History rosuvastatin [Crestor] 20 mg PO QAM 09/22/20 09/22/20 History trazodone 300 mg PO HS 09/22/20 09/22/20 History zafirlukast [Accolate] 20 mg PO QAM 09/22/20 09/22/20 History Allergies Allergy/AdvReac Type Severity Reaction Status Date / Time copper Allergy Mild skin rash, Verified 09/22/20 21:39 itching cider vinegar AdvReac Mild Redness,swe Verified 09/22/20 21:39 ating Past Med/Surg History Medical History Anxiety Asthma Cardiac murmur Cellulitis of leg right knee to right foot -- hospitalized [facility] treated with IV antibiotics. 08/2020 Chronic back pain COPD (chronic obstructive pulmonary disease) Excessive daytime sleepiness Gastroparesis GERD (gastroesophageal reflux disease) Hiatal hernia History of tobacco abuse Hx of respiratory failure r/t pneumonia 09/08/2019. treated at [place]. to follow with Academic Coach NARENDRA 09/2020. Hypoxia Klinefelters syndrome Macular degeneration Morbid obesity due to excess calories Morbid obesity with BMI of 40.0-44.9, adult Obesity hypoventilation syndrome ARAM (obstructive sleep apnea) no current device since he moved to [place] ARAM (obstructive sleep apnea) Peripheral neuropathy Pneumonia hx (gets annually) Pneumonia Polypharmacy Schizophrenia Seizure disorder hx, last seizure 2000 -- treated with depakote and was taken off of depakote about ~2010. no problems since. Shortness of breath Tachycardia treated with coreg. to follow with Dr Chapman 09/2020. (hx of following with Dr Clark, cardiology at [place], [place]) Type 2 diabetes mellitus IDDM Surgical History H/O hernia repair umbilical H/O right heart catheterization no stents. ~2018 in [place] History of colonoscopy History of esophagogastroduodenoscopy (EGD) History of gastric bypass gastric sleeve S/P epidural steroid injection Family History Other No family history of adverse response to anesthesia Social History Smoking Status: Former smoker Tobacco Type: Cigarettes Years Smoked: 30; Number of Years Since Quit: 10; Second Hand Exposure: No; Hx Alcohol Use: Yes Alcohol type: beer and hard liquor Alcohol Intake Frequency: Monthly or Less Hx Substance Use: No Preferred Language: Uzbek Communication Ability: Effective [employer] Required: No Beliefs That Will Affect Care: None marital status: / Current Living Situation: Alone current occupational status: disabled Feels Safe at Home: Yes Assistive Devices: Glasses, Oxygen - Continuous and Walker Review of Systems A total of 10 systems reviewed and were otherwise negative Physical Exam Vital Signs Vital Signs - 24 hr 09/22/20 20:15 09/22/20 20:29 09/22/20 20:35 Temperature 36.9 C Temperature Source Oral Pulse Rate 75 Pulse Rate [Left Finger] 72 Respiratory Rate 20 18 Respiratory Effort / Characteristics Non-Labored Non-Labored Spontaneous Respiratory Depth Normal Respiratory Pattern Regular Blood Pressure 164/92 H Blood Pressure [Right Arm] Blood Pressure Mean 116 Blood Pressure Mean [Right Arm] Blood Pressure Position Lying Blood Pressure Position [Right Arm] Pulse Oximetry 95 96 93 Oxygen Delivery Method Room Air Room Air Room Air Oxygen Flow Rate Sepsis Recent Fever Within 48 Hours No Sepsis New/Unexplained Change in Mental Status No Sepsis Action Taken by Nursing No Action Required 09/22/20 21:04 09/22/20 22:17 09/22/20 22:45 Temperature Temperature Source Pulse Rate Pulse Rate [Left Finger] 72 67 67 Respiratory Rate 18 20 14 Respiratory Effort / Characteristics Non-Labored Spontaneous Respiratory Depth Normal Respiratory Pattern Blood Pressure Blood Pressure [Right Arm] 140/89 141/81 H Blood Pressure Mean Blood Pressure Mean [Right Arm] 106 101 Blood Pressure Position Blood Pressure Position [Right Arm] Lying Lying Pulse Oximetry 95 89 L 97 Oxygen Delivery Method Room Air Room Air Nasal Cannula Oxygen Flow Rate 2 Sepsis Recent Fever Within 48 Hours Sepsis New/Unexplained Change in Mental Status Sepsis Action Taken by Nursing Physical Exam GENERAL: He is oriented to person, place, and time. He appears well-developed and well-nourished. He does not appear distressed. HENT: Exam performed. - Head: Normocephalic and atraumatic. - Right Ear: External ear normal. No mastoid tenderness. - Left Ear: External ear normal. No mastoid tenderness. - Mouth/Throat: The oropharynx is clear and moist. No trismus in the jaw. No dental abscesses or uvula swelling. No oropharyngeal exudate or tonsillar abscesses. EYES: Conjunctivae and EOM are normal. Pupils are equal, round, and reactive to light. Right eye exhibits no discharge. Left eye exhibits no discharge. No scleral icterus. NECK: Normal range of motion. Neck supple. No JVD present. No spinous process tenderness present. No carotid bruit present. No rigidity. No tracheal deviation and normal range of motion present. No Brudzinski's sign and no Kernig's sign noted. CV: Normal rate, regular rhythm, normal heart sounds and intact distal pulses. There is no peripheral edema. Palpable radial pulses bue. PULM/CHEST: Diminished breath sounds bilaterally with scant expiratory wheezes bilaterally. - Chest Wall: He exhibits no tenderness. ABD: Obese.The abdomen is soft. Bowel sounds are normal. He has no distension. No mass is present. There is no tenderness. There is no rebound, no guarding, no Camp's sign and no tenderness at McBurney's point. Rovsig negative. MUSC/SKEL: Normal range of motion. There is no peripheral edema, tenderness or deformity. LYMPH: No cervical adenopathy. NEURO: He is alert and oriented to person, place, and time. He has normal strength. No cranial nerve deficit or sensory deficit. Coordination and gait normal. GCS eye subscore is 4. GCS verbal subscore is 5. GCS motor subscore is 6. Cerebellar tests wnl. SKIN: Skin is warm and dry. He is not diaphoretic. PSYCH: He has a normal mood and affect. Behavior is normal. Judgment and thought content normal. Course Course 2003: The patient was evaluated in room B8. A complete history and physical exam was performed. Cardiac monitoring: An order was placed for continuous cardiac monitoring. The monitor shows a rate of 70 with sinus rhythm EMR reviewed.Patient has a history of asthma, excessive daytime sleepiness, tobacco abuse, schizophrenia, and chronic pain. Patient has history of polypharmacy.Patient was admitted from the hospital from September 09 to September 11, 2020. He followed up with Pulmonology on September 13, 2020. 2215: Vital signs stable. Labs within normal limits. On reassessment the patient was hypoxic at 87 to 89% on room air. Patient reports he does not usually wear oxygen but has worn oxygen in the past. 2 L of supplemental oxygen were applied via nasal cannula which improved the patient's oxygen saturation. Patient will be admitted to [facility] service, Dr. Licea's team will be notified. Administered Medications Discontinued Medications Albuterol (Albut/Ipratrop 3mg/0.5mg Neb 3 Ml Vial) 3 ml NEB NOW STA Stop: 09/22/20 20:17 Last Admin: 09/22/20 20:35 Dose: 3 ml Documented by: [id number] Albuterol (Albut/Ipratrop 3mg/0.5mg Neb 3 Ml Vial) 3 ml NEB NOW STA Stop: 09/22/20 22:23 Last Admin: 09/22/20 22:41 Dose: 3 ml Documented by: [id number] Prednisone (Prednisone 50 Mg Tab) 50 mg PO NOW STA Stop: 09/22/20 20:17 Last Admin: 09/22/20 20:54 Dose: 50 mg Documented by: [id number] Critical Care Time Critical Care Time: Yes Total Critical Care Time: 55 I have personally spent greater than 55 minutes of critical care time in the direct management of this patient. This includes bedside care, interpretation o f diagnostic studies, and testing, discussion with consultants, patient, and family members, and other required patient management activities. This 55 minutes is in excess of all separately billable procedures. Medical Decision Making Laboratory Data Result diagrams: 09/22/20 20:11 09/22/20 20:11 Lab Results 09/22/20 09/22/20 09/22/20 Range/Units 20:11 20:11 20:25 WBC 5.07 (4.8-10.8) K/uL RBC 4.03 L (4.7-6.1) M/uL Hgb 12.5 L (14.0-18.0) g/dL Hct 37.5 L (42-52) % MCV 93.1 (80-100) fL MCH 31.0 (25-34) pg MCHC 33.3 (32-36) g/dL RDW Std Deviation 45.5 (36.4-46.3) fL RDW Coeff of Alex 13.4 (11.5-14.5) % Plt Count 133 (130-400) K/uL MPV 11.2 H (7.4-10.4) fL Immature Gran % (Auto) 0.0 % Neut % (Auto) 63.8 % Lymph % (Auto) 25.8 % Kent % (Auto) 4.5 % Eos % (Auto) 5.3 % Baso % (Auto) 0.6 % Neut # (Auto) 3.23 (1.4-6.5) K/uL Lymph # (Auto) 1.31 (1.2-3.4) K/uL Kent # (Auto) 0.23 (0.11-0.59) K/uL Eos # (Auto) 0.27 (0-0.5) K/uL Baso # (Auto) 0.03 (0-0.2) K/uL Immature Gran # (Auto) 0.00 (0.00-0.02) K/uL VBG pH 7.33 L (7.36-7.41) VBG pCO2 56 H (38-50) mmHg VBG pO2 46 mmHg VBG HCO3 29 mmol/L VBG O2 Saturation 81.6 % VBG Base Excess 2.4 mEq/L Barometric Pressure 741.0 mm/Hg Sodium 134 L (136-145) mmol/L Potassium 4.9 (3.5-5.1) mmol/L Chloride 99 (98-107) mmol/L Carbon Dioxide 28 (21-32) mmol/L Anion Gap 6.0 (3-11) BUN 15 (7-18) mg/dl Creatinine 1.21 (0.6-1.4) mg/dl Est Cr Clr Drug Dosing 101.2 ml/min Est GFR ( Amer) 77.6 Est GFR (Non-Af Amer) 67.0 BUN/Creatinine Ratio 12.4 (10-20) Glucose 417 H* (70-99) mg/dl Calcium 9.6 (8.5-10.1) mg/dl Troponin I < 0.015 (0-0.045) ng/ml NT-Pro-B Natriuret Pep 103 (0-900) pg/ml Beta-Hydroxybutyric Acd 1.69 (0.2-2.81) mg/dl COVID-19 Eval Order SARS-CoV-2, RNA, NAAT (NEGATIVE) 09/22/20 09/22/20 Range/Units 20:28 20:28 WBC (4.8-10.8) K/uL RBC (4.7-6.1) M/uL Hgb (14.0-18.0) g/dL Hct (42-52) % MCV (80-100) fL MCH (25-34) pg MCHC (32-36) g/dL RDW Std Deviation (36.4-46.3) fL RDW Coeff of Alex (11.5-14.5) % Plt Count (130-400) K/uL MPV (7.4-10.4) fL Immature Gran % (Auto) % Neut % (Auto) % Lymph % (Auto) % Kent % (Auto) % Eos % (Auto) % Baso % (Auto) % Neut # (Auto) (1.4-6.5) K/uL Lymph # (Auto) (1.2-3.4) K/uL Kent # (Auto) (0.11-0.59) K/uL Eos # (Auto) (0-0.5) K/uL Baso # (Auto) (0-0.2) K/uL Immature Gran # (Auto) (0.00-0.02) K/uL VBG pH (7.36-7.41) VBG pCO2 (38-50) mmHg VBG pO2 mmHg VBG HCO3 mmol/L VBG O2 Saturation % VBG Base Excess mEq/L Barometric Pressure mm/Hg Sodium (136-145) mmol/L Potassium (3.5-5.1) mmol/L Chloride (98-107) mmol/L Carbon Dioxide (21-32) mmol/L Anion Gap (3-11) BUN (7-18) mg/dl Creatinine (0.6-1.4) mg/dl Est Cr Clr Drug Dosing ml/min Est GFR ( Amer) Est GFR (Non-Af Amer) BUN/Creatinine Ratio (10-20) Glucose (70-99) mg/dl Calcium (8.5-10.1) mg/dl Troponin I (0-0.045) ng/ml NT-Pro-B Natriuret Pep (0-900) pg/ml Beta-Hydroxybutyric Acd (0.2-2.81) mg/dl COVID-19 Eval [facility] SARS-CoV-2, RNA, NAAT NEGATIVE (NEGATIVE) Imaging Data My Impression: No significant change from the chest x-ray done on September 09. ECG Data Additional Comments: EKG #1 at 2002: Sinus rhythm with rate of 69. OR QRS and QTc intervals within normal limits. No ST elevation or ST depression. EKG #2 at 2247: Sinus rhythm with rate of 68. OR QRS and QTc intervals within normal limits. No ST elevation or ST depression. [facility] Narrative 2004: The patient was evaluated in room B8. A complete history and physical exam was performed. Cardiac monitoring: An order was placed for continuous cardiac monitoring. The monitor shows a rate of 70 with sinus rhythm EMR reviewed.Patient has a history of asthma, excessive daytime sleepiness, tobacco abuse, schizophrenia, and chronic pain. Patient has history of p olypharmacy.Patient was admitted from the hospital from September 09 to September 11, 2020. He followed up with Pulmonology on September 13, 2020.Patient had a CTA of the chest on August 26, 2020 that is negative for PE. 2215: Vital signs stable. Labs within normal limits. On reassessment the patie nt was hypoxic at 87 to 89% on room air. Patient reports he does not usually wear oxygen but has worn oxygen in the past. 2 L of supplemental oxygen were applied via nasal cannula which improved the patient's oxygen saturation. Patient will be admitted to [facility] service, Dr. Licea's team will be notified. Impression & Plan Hypoxia, Asthma Discharge Plan Visit Data Chief Complaint: Shortness of Breath/Dyspnea ED Provider: Danilo Pearson Discharge Problem: Hypoxia, Asthma Patient Disposition: Admitted As Inpatient Forms Stand Alone Forms: My [facility] Prescriptions Prescriptions: No Action albuterol sulfate 90 mcg/actuation aerosol powdr breath activated 2 inh inhalation Q6H PRN (Reason: Shortness Of Breath Or Wheezing) RF: 0 fluoxetine [Prozac] 40 mg capsule 80 mg PO QAM RF: 0 omeprazole 40 mg capsule,delayed release(DR/EC) 40 mg PO BID RF: 0 olanzapine [Zyprexa] 20 mg tablet 20 mg PO HS RF: 0 Anoro Ellipta 62.5-25 mcg/actuation blister with device 1 inh inhalation DAILY Qty: 60 RF: 2 umeclidinium-vilanterol [Anoro Ellipta] 62.5-25 mcg/actuation blister with device RF: 0 olanzapine [Zyprexa] 15 mg tablet 15 mg PO DAILY RF: 0 Saccharomyces boulardii [Florastor] 250 mg capsule 250 mg PO BID Qty: 20 RF: 0 furosemide 40 mg tablet 40 mg PO DIRECTED PRN (Reason: Fluid Retention) RF: 0 aspirin 81 mg Tablet,Delayed Release (Dr/Ec) 81 mg PO QAM 30 Days Qty: 30 RF: 0 carvedilol 3.125 mg tablet 3.125 mg PO BID 30 Days Qty: 60 RF: 0 lisinopril 10 mg tablet 10 mg PO QAM 30 Days Qty: 30 RF: 0 zafirlukast 20 mg tablet 20 mg PO DAILY 30 Days Qty: 30 RF: 0 rosuvastatin 20 mg tablet 20 mg PO QAM 30 Days Qty: 30 RF: 0 clonazepam [Klonopin] 0.5 mg tablet 0.5 mg PO TID Qty: 20 RF: 0 clonazepam 0.5 mg Tablet 0.5 mg PO TID Qty: 20 RF: 0 fluoxetine [Prozac] 40 mg capsule 80 mg PO QAM RF: 0 gabapentin [Neurontin] 600 mg tablet See Rx Instructions .ROUTE .COMPLEX RF: 0 Lantus U-100 Insulin 100 unit/mL solution 60 unit SUBCUT QAM RF: 0 clonazepam [Klonopin] 0.5 mg tablet 0.5 mg PO TID RF: 0 omeprazole 40 mg capsule,delayed release(DR/EC) 40 mg PO QAM RF: 0 aspirin [Aspirin Low Dose] 81 mg tablet,delayed release (DR/EC) 81 mg PO QAM RF: 0 carvedilol [Coreg] 3.125 mg tablet 3.125 mg PO BID RF: 0 lisinopril [Zestril] 10 mg tablet 10 mg PO QAM RF: 0 zafirlukast [Accolate] 20 mg tablet 20 mg PO QAM RF: 0 trazodone 300 mg tablet 300 mg PO HS RF: 0 insulin lispro [Humalog U-100 Insulin] 100 unit/mL solution 25 unit subcut TIDM RF: 0 olanzapine [Zyprexa] 20 mg tablet 20 mg PO HS RF: 0 rosuvastatin [Crestor] 20 mg tablet 20 mg PO QAM RF: 0 Linzess 290 mcg capsule 290 mcg PO DAILY PRN (Reason: Gi Upset) RF: 0 insulin aspart U-100 [Novolog Flexpen U-100 Insulin] 100 unit/mL (3 mL) Insulin Pen 25 unit SUBCUT TIDM RF: 0 methocarbamol 500 mg tablet 500 mg PO Q8H PRN (Reason: Muscle Spasm) RF: 0 gabapentin 600 mg tablet 600 mg PO QID RF: 0 Lantus Solostar U-100 Insulin 100 unit/mL (3 mL) insulin pen 60 unit subcut QAM RF: 0 trazodone 300 mg tablet 300 mg PO HS RF: 0 Referrals Referrals: Ani Howell MD [Primary Care Provider] - Discharge Problem: Asthma Qualifiers: Asthma severity: moderate Asthma persistence: persistent Asthma complication type: with acute exacerbation Qualified Code(s): J45.41 - Moderate persistent asthma with (acute) exacerbation
--- NOTE | 2020-09-22 23:30 | History & Physical Report ---
Date of Service September 22, 2020 Assessment & Plan (1) Hypoxia: Hypoxia/obesity hypoventilation syndrome/ARAM/asthma- Continue Umeclidinium/Vilanterol and Accolate DuoNebs every 2 hours as needed Pulse ox while in the emergency department ranged from 89-94% depending upon degree of inspiration, on room air. Patient reported a pulse ox of 75% on room air at home, which prompted his visit to the emergency department. He likely would benefit from home oxygen and CPAP/BiPAP at bedtime, and during the day as needed Consult his director of home health services Dr. Hernandez The patient does not appear to have any active infection at this time Present on Admission?: Yes (2) Obesity hypoventilation syndrome: See above Present on Admission?: Yes (3) ARAM (obstructive sleep apnea): See above Present on Admission?: Yes (4) Asthma: See above Present on Admission?: Yes (5) Morbid obesity due to excess calories: Long-term issues, dietary counseling Present on Admission?: Yes (6) Seizure disorder: Continue gabapentin and clonazepam, no direct otherwise treatment noted Present on Admission?: Yes (7) Diabetes mellitus type 2, uncontrolled, with complications: Continue insulin glargine 60 units subcu every morning. Hold standing order for Humalog 25 units subcu 3 times daily with meals. Placed on Accu-Cheks before meals and at bedtime with NovoLog coverage per scale Present on Admission?: Yes (8) Schizophrenia: Schizophrenia/anxiety with depression- Continue clonazepam, fluoxetine, olanzapine and trazodone Present on Admission?: Yes (9) Anxiety and depression: See above Present on Admission?: Yes (10) Hypertension: Continue aspirin, carvedilol, lisinopril. Present on Admission?: Yes History of Present Illness Chief Complaint: The patient presents to the emergency department after he recorded a pulse ox at home of 76% while at rest. Primary Care Provider: Ani Howell MD The patient is a 55-year-old male with a past medical history including tobacco abuse, morbid obesity due to excess calories, obesity hypoventilation syndrome, ARAM, excessive daytime sleepiness, near syncope, morbid obesity, seizure disorder, schizophrenia, diabetes mellitus, asthma, Klinefelter syndrome, colon polyps, diabetic ulcer right foot, and cellulitis of right leg. He was most recently admitted to [facility] from 08/05-08/07/2020 and then 09/09-09/11/2020. Prior to these admissions, patient had been living in [place] and reports having had multiple admissions there for hypoxia. He has moved to this area so that his aunt can help take care of him. He most recently underwent colonoscopy on 08/23/2020 due to history of colon polyps, by Dr. Glover, which was negative. He had an outpatient visit with Dr. Hernandez on 09/13/2020, but was found to have a pulse ox of 94%, and arrangements were to be made for sleep apnea studies to determine need for CPAP. Patient reports that when he lived in [place], he was on up to 4 L nasal cannula oxygen and wore BiPAP at nighttime, but reports that both of these were discontinued for unknown reasons prior to his move, but likely associated with his move. The patient has no new complaints today, he primarily is here because of his recording of a low pulse oximetry as noted above. Allergies Allergy/AdvReac Type Severity Reaction Status Date / Time copper Allergy Mild skin rash, Verified 09/22/20 21:39 itching cider vinegar AdvReac Mild Redness,swe Verified 09/22/20 21:39 ating Home Medications Medication Instructions Recorded Confirmed Type albuterol sulfate 90 mcg/actuation 2 inh INHALATION Q6H PRN 07/30/20 09/22/20 History breath activated powder inhaler methocarbamol 500 mg PO Q8H PRN 08/05/20 09/22/20 History furosemide 40 mg PO DIRECTED PRN 09/09/20 09/22/20 History umeclidinium 62.5 mcg-vilanterol 1 inh INHALATION DAILY #60 ea 09/13/20 09/22/20 Rx 25 mcg/actuation powdr for inhalation aspirin [Aspirin Low Dose] 81 mg PO QAM 09/22/20 09/22/20 History carvedilol [Coreg] 3.125 mg PO BID 09/22/20 09/22/20 History clonazepam [Klonopin] 0.5 mg PO TID 09/22/20 09/22/20 History fluoxetine [Prozac] 80 mg PO QAM 09/22/20 09/22/20 History gabapentin [Neurontin] See Rx Instructions .ROUTE .COMPLEX 09/22/20 09/22/20 Hi story insulin glargine [Lantus U-100 60 unit SUBCUT QAM 09/22/20 09/22/20 History Insulin] insulin lispro [Humalog U-100 25 unit SUBCUT TIDM 09/22/20 09/22/20 History Insulin] linaclotide [Linzess] 290 mcg PO DAILY PRN 09/22/20 09/22/20 History lisinopril [Zestril] 10 mg PO QAM 09/22/20 09/22/20 History naproxen sodium 550 mg PO AMPM 09/22/20 09/22/20 History olanzapine [Zyprexa] 20 mg PO HS 09/22/20 09/22/20 History omeprazole 40 mg PO QAM 09/22/20 09/22/20 History rosuvastatin [Crestor] 20 mg PO QAM 09/22/20 09/22/20 History trazodone 300 mg PO HS 09/22/20 09/22/20 History zafirlukast [Accolate] 20 mg PO QAM 09/22/20 09/22/20 History Past Med/Surg History Medical History Anxiety Asthma Cardiac murmur Cellulitis of leg right knee to right foot -- hospitalized [facility] treated with IV antibiotics. 08/2020 Chronic back pain COPD (chronic obstructive pulmonary disease) Excessive daytime sleepiness Gastroparesis GERD (gastroesophageal reflux disease) Hiatal hernia History of tobacco abuse Hx of respiratory failure r/t pneumonia 09/08/2019. treated at [place] to follow with Programmer Business NARENDRA 09/2020. Hypoxia Klinefelters syndrome Macular degeneration Morbid obesity due to excess calories Morbid obesity with BMI of 40.0-44.9, adult Obesity hypoventilation syndrome ARAM (obstructive sleep apnea) no current device since he moved to [place] ARAM (obstructive sleep apnea) Peripheral neuropathy Pneumonia hx (gets annually) Pneumonia Polypharmacy Schizophrenia Seizure disorder hx, last seizure 2000 -- treated with depakote and was taken off of depakote about ~2010. no problems since. Shortness of breath Tachycardia treated with coreg. to follow with Dr Chapman 09/2020. (hx of following with Dr Clark, cardiology at [place]) Type 2 diabetes mellitus IDDM Surgical History H/O hernia repair umbilical H/O right heart catheterization no stents. ~2019 in [place] History of colonoscopy History of esophagogastroduodenoscopy (EGD) History of gastric bypass gastric sleeve S/P epidural steroid injection Family History Other No family history of adverse response to anesthesia Social History Smoking Status: Former smoker Tobacco Type: Cigarettes Years Smoked: 30; Number of Years Since Quit: 10; Second Hand Exposure: No; Hx Alcohol Use: Yes Alcohol type: beer and hard liquor Alcohol Intake Frequ ency: Monthly or Less Hx Substance Use: No Preferred Language: Monegasque Communication Ability: Effective Temporary Help Agency Referral Clerk Required: No Beliefs That Will Affect Care: None marital status: / Current Living Situation: Alone current occupational status: disabled Feels Safe at Home: Yes Assistive Devices: Glasses, Oxygen - Continuous and Walker Review of Systems Review of Systems: The patient denies chest pain, palpitations, sore throat, fevers, chills, sweats, nausea, vomiting, diarrhea , constipation, abdominal pain, pelvic pain, blood in urine or stool, dysuria, urinary frequency or urgency, lightheadedness, dizziness, headache, memory loss, loss of consciousness, rash, abnormal bruising or bleeding, imbalance, focal or generalized weakness, numbness or tingling in arms or legs, generalized arthralgias or myalgias, back or neck pain, or night sweats. The review of systems is otherwise negative other than for that already noted above, and at least 10 systems have been reviewed. Physical Exam Physical Exam: The patient is awake, alert and oriented 3, normocephalic and atraumatic, lying in bed and in no acute distress. HEENT--PERRL, EOMI, mucous membranes and oropharynx normal. Neck--supple. No JVD. No bruits. Heart--normal S1 and S2. No murmurs, rubs or gallops. Lungs--decreased breath sounds throughout. No respiratory distress, no accessory muscle use. Abdomen--normal bowel sounds and soft. Nontender. Nondistended. Morbidly obese Extremities--no cyanosis or clubbing. No edema. Dermatologic--normal skin turgor, normal color, no abnormal lymph nodes, no rash. Neurologic--cranial nerves II through XII grossly intact. Rheumatologic--decreased range of motion due to body habitus Psychiatric--normal affect. Results & Data Results & Data ([facility]) Vital Signs (Past 12 Hours) Vital Signs Temp Pulse Pulse Resp BP BP Pulse Ox 09/22/20 22:45 67 14 97 09/22/20 22:17 67 20 141/81 H 89 L 09/22/20 21:04 72 18 140/89 95 09/22/20 20:35 72 18 93 09/22/20 20:29 96 09/22/20 20:15 98.4 F 75 20 164/92 H 95 Laboratory Results Laboratory Results WBC 5.07 K/uL (4.8-10.8) 09/22/20 20:11 RBC 4.03 M/uL (4.7-6.1) L 09/22/20 20:11 Hgb 12.5 g/dL (14.0-18.0) L 09/22/20 20:11 Hct 37.5 % (42-52) L 09/22/20 20:11 MCV 93.1 fL (80-100) 09/22/20 20:11 MCH 31.0 pg (25-34) 09/22/20 20:11 MCHC 33.3 g/dL (32-36) 09/22/20 20:11 RDW Std Deviation 45.5 fL (36.4-46.3) 09/22/20 20:11 RDW Coeff of Alex 13.4 % (11.5-14.5) 09/22/20 20:11 Plt Count 133 K/uL (130-400) 09/22/20 20:11 MPV 11.2 fL (7.4-10.4) H 09/22/20 20:11 Immature Gran % (Auto) 0.0 % 09/22/20 20:11 Neut % (Auto) 63.8 % 09/22/20 20:11 Lymph % (Auto) 25.8 % 09/22/20 20:11 [place] % (Auto) 4.5 % 09/22/20 20:11 Eos % (Auto) 5.3 % 09/22/20 20:11 Baso % (Auto) 0.6 % 09/22/20 20:11 Neut # (Auto) 3.23 K/uL (1.4-6.5) 09/22/20 20:11 Lymph # (Auto) 1.31 K/uL (1.2-3.4) 09/22/20 20:11 [place] # (Auto) 0.23 K/uL (0.11-0.59) 09/22/20 20:11 Eos # (Auto) 0.27 K/uL (0-0.5) 09/22/20 20:11 Baso # (Auto) 0.03 K/uL (0-0.2) 09/22/20 20:11 Immature Gran # (Auto) 0.00 K/uL (0.00-0.02) 09/22/20 20:11 VBG pH 7.33 (7.36-7.41) L 09/22/20 20:25 VBG pCO2 56 mmHg (38-50) H 09/22/20 20:25 VBG pO2 46 mmHg 09/22/20 20:25 VBG HCO3 29 mmol/L 09/22/20 20:25 VBG O2 Saturation 81.6 % 09/22/20 20:25 VBG Base Excess 2.4 mEq/L 09/22/20 20:25 Barometric Pressure 741.0 mm/Hg 09/22/20 20:25 Sodium 134 mmol/L (136-145) L 09/22/20 20:11 Potassium 4.9 mmol/L (3.5-5.1) 09/22/20 20:11 Chloride 99 mmol/L (98-107) 09/22/20 20:11 Carbon Dioxide 28 mmol/L (21-32) 09/22/20 20:11 Anion Gap 6.0 (3-11) 09/22/20 20:11 BUN 15 mg/dl (7-18) 09/22/20 20:11 Creatinine 1.21 mg/dl (0.6-1.4) 09/22/20 20:11 Est Cr Clr Drug Dosing 101.2 ml/min 09/22/20 20:11 Est GFR ( Amer) 77.6 09/22/20 20:11 Est GFR (Non-Af Amer) 67.0 09/22/20 20:11 BUN/Creatinine Ratio 12.4 (10-20) 09/22/20 20:11 Glucose 417 mg/dl (70-99) H* 09/22/20 20:11 POC Glucose 365 mg/dl (70-99) H* 09/23/20 00:34 Calcium 9.6 mg/dl (8.5-10.1) 09/22/20 20:11 Troponin I < 0.015 ng/ml (0-0.045) 09/22/20 20:11 NT-Pro-B Natriuret Pep 103 pg/ml (0-900) 09/22/20 20:11 Beta-Hydroxybutyric Acd 1.69 mg/dl (0.2-2.81) 09/22/20 20:11 COVID-19 Eval Order Covid19 IDNow [facility] 09/22/20 20:28 SARS-CoV-2, RNA, NAAT NEGATIVE (NEGATIVE) 09/22/20 20:28 Code Status & VTE Plan Code Status Full code VTE Prophylaxis Plan VTE Prophylaxis will be ordered: Yes PG Care Time/CCT Total # of Minutes Spent Total Time Spent with Patient: Total time spent is greater than 50% in coordination of care (as documented) at patient's floor/unit and/or counseling patient: Coding Level of Care Code 25050 OBS Care - Level 3 Diagnoses Hypoxia R09.02 Obesity hypoventilation syndrome E66.2 ARAM (obstructive sleep apnea) G47.33 Asthma J45.41 Asthma severity: moderate Asthma persistence: persistent Asthma complication type: with acute exacerbation Morbid obesity due to excess calories E66.01 Seizure disorder G40.909 Diabetes mellitus type 2, uncontrolled, with complications E11.8; E11.65 Schizophrenia F20.9 Anxiety and depression F41.9; F32.9 Hypertension I10 (1) Asthma Asthma severity: moderate Asthma persistence: persistent Asthma complication type: with acute exacerbation Qualified Code(s): J45.41 - Moderate persistent asthma with (acute) exacerbation
[2020-09-23] MEDS ORDERED: METHOCARBAMOL 500 MG TABLET PO PRN (00:30)
[2020-09-23] MEDS ORDERED: DEXTROSE 50% 50 ML SYRINGE IV PRN (00:30)
[2020-09-23] MEDS ORDERED: GLUCOSE 10 TABS/TUBE PO PRN (00:30)
[2020-09-23] MEDS ORDERED: GLUCOSE 40% GEL 15 GM TUBE PO PRN (00:30)
[2020-09-23] MEDS ORDERED: GLUCAGON FOR INJ 1 MG VIAL SQ PRN (00:30)
[2020-09-23] MEDS ORDERED: ONDANSETRON INJ 2 MG/ML 2 ML VIAL IV PRN (00:30)
[2020-09-23] MEDS ORDERED: ACETAMINOPHEN 325 MG TAB PO PRN (00:30)
[2020-09-23] MEDS ORDERED: CARBOHYDRATES FOR HYPOGLYCEMIA PO PRN (00:30)
[2020-09-23] MEDS: INSULIN ASPART 100 UNITS/ML 3 ML PEN SC SCH ×5 (01:52→20:50)
[2020-09-23] MEDS: carvediloL 3.125 MG TAB PO SCH ×3 (01:53→20:50)
[2020-09-23] MEDS: GABAPENTIN 600 MG TAB PO SCH ×4 (01:53→20:50)
[2020-09-23] MEDS: ALBUT/IPRATROP 3MG/0.5MG NEB 3 ML VIAL NEB SCH ×4 (07:19→19:11)
--- NOTE | 2020-09-23 07:20 | XRay Report ---
SINGLE VIEW CHEST CLINICAL HISTORY: Dyspnea. FINDINGS: 2 AP, portable, upright chest radiographs are compared to study dated 09/09/2020 and correlat ed with chest CT dated 08/26/2020. The examination is degraded by portable technique and patient rotat ion. The heart is enlarged. There is mild pulmonary vascular congestion. Atelectasis is noted at the lung bases. There is no airspace consolidation typical for pneumonia or large pleural effusion. No pn eumothorax is seen. The bony thorax is grossly intact. IMPRESSION: Cardiomegaly with mild pulmonary vascular congestion. ACT 112: Negative or not required by law. Electronically signed by: Gurinder Celestin M.D. 09/23/2020 7:19 AM
[2020-09-23 07:57] LABS: Estimated Average Glucose 252 mg/dl; Hemoglobin A1C 10.4 % (4.5-5.6)
--- NOTE | 2020-09-23 08:21 | Electrocardiogram Report ---
Test Reason : Blood Pressure : / mmHG Vent. Rate : 068 BPM Atrial Rate : 068 BPM P-R Int : 158 ms QRS Dur : 086 ms QT Int : 406 ms P-R-T Axes : 050 000 095 degrees QTc Int : 431 ms Normal sinus rhythm T wave abnormality, consider lateral ischemia Abnormal ECG When compared with ECG of 22-SEP-2020 20:03, (unconfirmed) No significant change was found Confirmed by Evangelista Andrews ([id number]) on 09/23/2020 8:21:13 AM Referred By: REFERRED SELF Confirmed By:Sabas Andrews
--- NOTE | 2020-09-23 08:21 | Electrocardiogram Report ---
Test Reason : Blood Pressure : / mmHG Vent. Rate : 069 BPM Atrial Rate : 069 BPM P-R Int : 160 ms QRS Dur : 086 ms QT Int : 396 ms P-R-T Axes : 063 008 078 degrees QTc Int : 424 ms Normal sinus rhythm T wave abnormality, consider lateral ischemia Abnormal ECG When compared with ECG of 11-SEP-2020 06:39, T wave inversion more evident in Lateral leads Confirmed by Evangelista Andrews ([id number]) on 09/23/2020 8:21:02 AM Referred By: REFERRED SELF Confirmed By:Sabas Andrews
[2020-09-23] MEDS: UMECLIDINIUM/VILANTEROL 62.5/25MCG 7 PUFFS/INHALER INH SCH (08:40)
[2020-09-23] MEDS: PANTOprazole 40 MG TAB PO SCH (08:45)
[2020-09-23] MEDS: FLUoxetine HCL 20 MG CAP PO SCH (08:45)
[2020-09-23] MEDS: ASPIRIN 81 MG ECTAB PO SCH (08:45)
[2020-09-23] MEDS: ROSUVASTATIN CALCIUM 20 MG TAB PO SCH (08:45)
[2020-09-23] MEDS: lisinopril 10 MG TAB PO SCH (08:46)
[2020-09-23] MEDS: clonazePAM 0.5 MG TAB PO SCH ×3 (08:53→20:52)
[2020-09-23] MEDS ORDERED: INSULIN GLARGINE 100 UNIT/ML VIAL SQ SCH (09:00)
[2020-09-23] MEDS ORDERED: GABAPENTIN 600 MG TAB PO SCH (09:00)
[2020-09-23] MEDS ORDERED: NON-FORMULARY MEDICATION (Omeprazole 40 mg capsule,delayed release(DR/EC)) PO SCH (09:00)
--- NOTE | 2020-09-23 11:22 | Pulmonary Consultation ---
Date of Consultation September 23, 2020 Assessment & Plan (1) Hypoxia: Patient is a 55 year old male with PMHx Schizoaffective disorder, ARAM, Obesity hypoventilation syndrome, DM2, Asthma, Klinefelter syndrome who had presented to the ED for concerns of hypoxia and shortness of breath. SOB and Hypoxia, secondary to ARAM/OHS -Outpatient sleep study -Continue O2 via NC PRN saturation >92% -As patient is inpatient will order for ABG for concrete diagnosis of OHS -Would recommend CPAP/BiPAP QHS -Low suspicion at this time for infectious etiology -Patient noting he had completed an Echocardiogram, but unable to locate in chart, though clinically does not appear to have CHF symptoms of LE edema, JVD, respiratory crackles -Consider 2-step test for qualification for home oxygen, though patient had passed without need for O2 at his last Pulmonology visit. COPD -Continue Duonebs -Patient noting history of thrush with Anoro Ellipta, but this should be unlikely as no steroid is a part of the formulation. -Would continue with Anoro and monitor for symptoms. -PFT's ordered for outpatient Thank you for allowing us to participate in the care of this patient. Please see attending attestation for further instructions/corrections to the above plan. Supervising Physician Co-Signing Physician Notes Dr. Prabhakar Was the resident-physician during care of patient. I agree with the findings and plan except for any additions/exceptions noted. Patient underwent an ABG today at 11:49 AM. ABG demonstrates acute on chronic hypercapnic respiratory failure with a pH of 7.34 and a PCO2 of 54. PaO2 was 77, but this was on 2 L of oxygen. I would recommend that the patient be discharged home on supplemental oxygen that this is a medical necessity to maintain saturations above 88% especially on exertion. I would also recommend the patient be sent home with a trilogy noninvasive ventilator. Due to chronic hypercapnic respiratory failure consequent to obesity hypoventilation syndrome, the patient now requires a noninvasive home ventilator. Bilevel therapy with and without a rate would be ineffective as patient requires a volume targeted mode. Ventilation is required to decrease work of breathing and improve pulmonary status. Interruption of ventilator support would lead to decline of health status. I still would recommend an outpatient in lab polysomnography. I do not think the patient has an acute COPD exacerbation and thus I do not feel that steroids are warranted at this time. Continue home inhaler regimen. History of Present Illness Reason for Consultation: Hypoxia, Obesity Hypoventilation syndrome Attending Physician: Heidi Pitt DO History of Present Illness Patient is a 55 year old male with PMHx Schizoaffective disorder, ARAM, Obesity hypoventilation syndrome, DM2, Asthma, Klinefelter syndrome who had presented to the ED for concerns of hypoxia and shortness of breath. Pulmonology consulted for assistance for concerns of hypoxia and obesity hypoventilation syndrome. Patient known the the pulmonology service last being seen on 09/13/20 where PFTs were ordered (not completed yet), a referral to the sleep clinic placed (not completed yet), and patient was prescribed Anoro Ellipta for COPD. Patient states that he had used the Anoro Ellipta for 7 days before discontinuing it on his own due to "getting thrush." He notes that this has occurred for him in the past as well and he compensates for this by utilizing his Albuterol inhaler BID. Patient notes that around 6:30PM the night prior he was cooking when he suddenly felt more short of breath. He notes that this has occurred before and in the past when he lived in [place] he was on 4L of O2 NC daily and BiPAP at night. He notes that he checked his pulse ox at that time and it showed his oxygen saturation level was "in the 60's." He called for emergency services to primarily check his vitals and was ultimately brought to the ED for evaluation. In the ED patient had oxygen saturation levels of 89-94% on room air. Currently patient notes that while he still feels short of breath on 2L NC, he over all is feeling better. He states that the prednisone he got in the ED may have "opened up my lungs." He otherwise denies any fever, chills, chest pain, chest pressure, abdominal pain, nausea, vomiting, diarrhea. He states that other than discontinuing the Anoro Ellipta on his own, he takes his remaining medications as prescribed. Allergies Allergy/AdvReac Type Severity Reaction Status Date / Time copper Allergy Mild skin rash, Verified 09/22/20 21:39 itching cider vinegar AdvReac Mild Redness,swe Verified 09/22/20 21:39 ating Home Medications Medication Instructions Recorded Confirmed Type albuterol sulfate 90 mcg/actuation 2 inh INHALATION Q6H PRN 07/30/20 09/22/20 History breath activated powder inhaler methocarbamol 500 mg PO Q8H PRN 08/05/20 09/22/20 History furosemide 40 mg PO DIRECTED PRN 09/09/20 09/22/20 History umeclidinium 62.5 mcg-vilanterol 1 inh INHALATION DAILY #60 ea 09/13/20 09/22/20 Rx 25 mcg/actuation powdr for inhalation aspirin [Aspirin Low Dose] 81 mg PO QAM 09/22/20 09/22/20 History carvedilol [Coreg] 3.125 mg PO BID 09/22/20 09/22/20 History clonazepam [Klonopin] 0.5 mg PO TID 09/22/20 09/22/20 History fluoxetine [Prozac] 80 mg PO QAM 09/22/20 09/22/20 History gabapentin [Neurontin] See Rx Instructions .ROUTE .COMPLEX 09/22/20 09/22/20 History insulin glargine [Lantus U-100 60 unit SUBCUT QAM 09/22/20 09/22/20 History Insulin] insulin lispro [Humalog U-100 25 unit SUBCUT TIDM 09/22/20 09/22/20 History Insulin] linaclotide [Linzess] 290 mcg PO DAILY PRN 09/22/20 09/22/20 History lisinopril [Zestril] 10 mg PO QAM 09/22/20 09/22/20 History naproxen sodium 550 mg PO AMPM 09/22/20 09/22/20 History olanzapine [Zyprexa] 20 mg PO HS 09/22/20 09/22/20 History omeprazole 40 mg PO QAM 09/22/20 09/22/20 History rosuvastatin [Crestor] 20 mg PO QAM 09/22/20 09/22/20 History trazodone 300 mg PO HS 09/22/20 09/22/20 History zafirlukast [Accolate] 20 mg PO QAM 09/22/20 09/22/20 History Patient History Medical History (Updated 09/23/20 @ 04:40 by Fausto Herring MD) Anxiety Anxiety and depression Asthma Cardiac murmur Cellulitis of leg right knee to right foot -- hospitalized [facility] treated with IV antibiotics. 08/2020 Chronic back pain COPD (chronic obstructive pulmonary disease) Excessive daytime sleepiness Gastroparesis GERD (gastroesophageal reflux disease) Hiatal hernia History of tobacco abuse Hx of respiratory failure r/t pneumonia 09/08/2019. treated at [place] to follow with Parts Coordinator NARENDRA 09/2020. Hypertension Hypoxia Klinefelters syndrome Macular degeneration Morbid obesity due to excess calories Morbid obesity with BMI of 40.0-44.9, adult Obesity hypoventilation syndrome ARAM (obstructive sleep apnea) no current device since he moved to [place] ARAM (obstructive sleep apnea) Peripheral neuropathy Pneumonia hx (gets annually) Pneumonia Polypharmacy Schizophrenia Seizure disorder hx, last seizure 2000 -- treated with depakote and was taken off of depakote about ~2010. no problems since. Shortness of breath Tachycardia treated with coreg. to follow with Dr Chapman 09/2020. (hx of following with Dr Clark, cardiology at [place], [place]) Type 2 diabetes mellitus IDDM Surgical History H/O hernia repair umbilical H/O right heart catheterization no stents. ~2018 in [place] History of colonoscopy History of esophagogastroduodenoscopy (EGD) History of gastric bypass gastric sleeve S/P epidural steroid injection Family History Other No family history of adverse response to anesthesia Social History Smoking Status: Never smoker Tobacco Type: Cigarettes Years Smoked: 30; Number of Years Since Quit: 10; Second Hand Exposure: No; Hx Alcohol Use: Yes Alcohol type: beer and hard liquor Alcohol Intake Frequency: Monthly or Less Hx Substance Use: No Preferred Language: Portuguese Communication Ability: Effective Public Defender Required: No Beliefs That Will Affect Care: None marital status: / Current Living Situation: Alone current occupational status: disabled Other Information That Helps Us Care for You: No Feels Safe at Home: Yes Assistive Devices: Glasses and Oxygen - Continuous Review of Systems Review of Systems: All systems reviewed & are unremarkable except as noted in Subjective Physical Exam Constitutional: + morbidly obese and cooperative; no acute distress, not in distress and not diaphoretic Eyes: PERRL, conjunctivae normal, anicteric sclerae ENMT: external ear and nose normal, oropharynx normal Respiratory: normal respiratory effort and able to speak in complete sentences; no respiratory distress, no labored breathing, does not use accessory muscles and no cough Auscultation: lungs clear to auscultation bilaterally on 2L NC Cardiovascular: RRR, no murmur, no edema Gastrointestinal (Abdomen): normal bowel sounds, soft, nontender, no hepatosplenomegaly Musculoskeletal: no cyanosis or clubbing, extremities motor strength 5/5 Skin: no rashes, warm and dry Neurologic: PERRL, EOMI, accommodation nl, no face palsy, no dysarthria Psychiatric: A+Ox3, euthymic affect Results & Data Results & Data ([facility]) Vital Signs (Past 12 Hours) Vital Signs Temp Pulse Pulse Resp BP BP Pulse Ox 09/23/20 07:29 68 09/23/20 07:21 76 19 92 09/23/20 07:15 36.4 C L 71 20 138/93 91 09/23/20 03:36 36.7 C 73 16 148/79 H 90 09/22/20 23:55 76 20 146/70 H 96 Resident Activity Tracking Resident Involvement: Resident Care Provided Care Provided: Adult Hospital Medicine
[2020-09-23 11:59] LABS: Base Excess ABG 1.9 mEq/L (-9-1.8); HCO3 ABG 29 mmol/L (19-24); Oxygen Saturation ABG 95.3 % (90-95); PCO2 ABG 54 mmHg (35-46); PO2 ABG 77 mmHg (80-95); pH ABG 7.34 (7.35-7.45)
[2020-09-23 12:00] LABS: Allen Test Pos (Pos)
--- NOTE | 2020-09-23 13:53 | Billing Data ---
Date of Service September 23, 2020 Coding Level of Care Code 98031 Initial Inpt Care Lvl 3
--- NOTE | 2020-09-23 18:43 | Hospitalist Progress Note ---
Date of Service September 23, 2020 Assessment & Plan (1) Hypoxia: Hypoxia/obesity hypoventilation syndrome/ARAM/asthma- Continue Umeclidinium/Vilanterol and Accolate DuoNebs every 2 hours as needed Pulse ox while in the emergency department ranged from 89-94% depending upon degree of inspiration, on room air. Patient reported a pulse ox of 75% on room air at home, which prompted his visit to the emergency department. Pt given steroids in the ED, but not ordered on admission Pulm c/s noted, feels this is acute on chronic hypercapnic RF Recs for home O2 and set up with Trilogy Needs outpt sleep study Will work with CM on Trilogy set up (2) Obesity hypoventilation syndrome: See above (3) ARAM (obstructive sleep apnea): See above (4) Asthma: See above (5) Morbid obesity due to excess calories: Long-term issues, dietary counseling (6) Seizure disorder: Continue gabapentin and clonazepam, no direct otherwise treatment noted (7) Diabetes mellitus type 2, uncontrolled, with complications: Continue insulin glargine 60 units subcu every morning. Hold standing order for Humalog 25 units subcu 3 times daily with meals. Placed on Accu-Cheks before meals and at bedtime with NovoLog coverage per scale A1c 10.4 BS elevated in the setting of ED steroid dosing, however pt reports similar over the last few days Possibly related to untx resp issues leading to uncontrollable cortisol/insulin issues Pt tells me that his usual BS is in the 200s, however starting around 2 days ago it was over 450. He does check regularly. He states his A1c had been improving. It was 12 -> 7.9 prior to moving here. His last outpt A1c was 8.9. He states that since moving in with his aunt his diet has gotten much better. He has started eating [employer] frozen meals and has lost weight. He states he was 326lbs prior to the move and was 309 at a recent pulm visit. He was very disappointed that his A1c is higher today. He notes he is 315 here. He states he is compliant with his dosing, taking lantus 60 units AM and humalog 25units TID meals. (8) Schizophrenia: Schizophrenia/anxiety with depression- Continue clonazepam, fluoxetine, olanzapine and trazodone (9) Anxiety and depression: See above (10) Hypertension: Continue aspirin, carvedilol, lisinopril. Admission and Anticipated Discharge Date Admission Date: September 22, 2020 Subjective Pt states he is still feeling SOB when moving from seated to standing. 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 Pt tells me that his usual BS is in the 200s, however starting around 2 days ago it was over 450. He does check regularly. He states his A1c had been improving. It was 12 -> 7.9 prior to moving here. His last outpt A1c was 8.9. He states that since moving in with his aunt his diet has gotten much better. He has started eating [employer] frozen meals and has lost weight. He states he was 326lbs prior to the move and was 309 at a recent pulm visit. He notes he is 315 here. He states he is compliant with his dosing, taking lantus 60 units AM and humalog 25units TID meals. Review of Systems Review of Systems: Pertinent positives and negatives reviewed in HPI--all others negative Physical Exam Constitutional: WD/WN, vitals as above + morbidly obese Eyes: normal visual engle by confrontation and + anicteric sclerae Neck: normal visual inspection and trachea midline Respiratory: normal respiratory effort, lungs clear to auscultation Cardiovascular: Rate/Rhythm: regular rate and regular rhythm Gastrointestinal (Abdomen): Inspection/Auscultation: abdomen not distended Percussion/Palpation: abdomen soft; abdomen nontender Musculoskeletal: Head/Neck/Chest: normocephalic and head atraumatic negative for edema, peripheral pulses intact Skin: no rashes, warm and dry Neurologic: awake; not confused Speech / Cognition: normal speech Psychiatric: A+Ox3, euthymic affect Results & Data Results & Data ([facility]) Vital Signs (Past 12 Hours) Vital Signs Temp Pulse Pulse Resp BP Pulse Ox 09/23/20 15:45 36.7 C 67 20 131/73 94 09/23/20 15:19 67 19 94 09/23/20 15:17 67 09/23/20 11:26 36.5 C 73 16 150/75 H 95 09/23/20 11:17 80 20 94 02/22/21 07:29 68 09/23/20 07:21 76 19 92 09/23/20 07:15 36.4 C L 71 20 138/93 91 PG Care Time/CCT Total # of Minutes Spent Total Time Spent with Patient: Total time spent is greater than 50% in coordination of care (as documented) at patient's floor/unit and/or counseling patient: Coding Level of Care Code 94563 Subseq Hosp Care Lvl 3 Diagnoses Hypoxia R09.02 Obesity hypoventilation syndrome E66.2 ARAM (obstructive sleep apnea) G47.33 Asthma J45.41 Asthma severity: moderate Asthma persistence: persistent Asthma complication type: with acute exacerbation Morbid obesity due to excess calories E66.01 Seizure disorder G40.909 Diabetes mellitus type 2, uncontrolled, with complications E11.8; E11.65 Schizophrenia F20.9 Anxiety and depression F41.9; F32.9 Hypertension I10 (1) Asthma Asthma severity: moderate Asthma persistence: persistent Asthma complication type: with acute exacerbation Qualified Code(s): J45.41 - Moderate persistent asthma with (acute) exacerbation
[2020-09-23] MEDS: traZODone HCL 100 MG TAB PO SCH (20:48)
[2020-09-23] MEDS: OLANZapine 20 MG TABLET PO SCH (20:49)
[2020-09-24] MEDS: MELATONIN 3 MG TAB PO PRN (00:06)
[2020-09-24] MEDS: ALBUT/IPRATROP 3MG/0.5MG NEB 3 ML VIAL NEB SCH ×3 (07:02→14:47)
[2020-09-24 08:28] LABS: HCO3 ABG 29 mmol/L (19-24); Oxygen Saturation ABG 93.1 % (90-95); PCO2 ABG 58 mmHg (35-46); PO2 ABG 66 mmHg (80-95); pH ABG 7.32 (7.35-7.45)
[2020-09-24 08:29] LABS: Allen Test Pos (Pos)
[2020-09-24] MEDS: INSULIN ASPART 100 UNITS/ML 3 ML PEN SC SCH ×4 (09:32→20:38)
[2020-09-24] MEDS: ASPIRIN 81 MG ECTAB PO SCH (09:33)
[2020-09-24] MEDS: carvediloL 3.125 MG TAB PO SCH ×2 (09:33→20:44)
[2020-09-24] MEDS: UMECLIDINIUM/VILANTEROL 62.5/25MCG 7 PUFFS/INHALER INH SCH (09:33)
[2020-09-24] MEDS: ROSUVASTATIN CALCIUM 20 MG TAB PO SCH (09:33)
[2020-09-24] MEDS: clonazePAM 0.5 MG TAB PO SCH ×2 (09:33→12:45)
[2020-09-24] MEDS: INSULIN GLARGINE 100 UNIT/ML VIAL SQ SCH (09:33)
[2020-09-24] MEDS: PANTOprazole 40 MG TAB PO SCH (09:34)
[2020-09-24] MEDS: GABAPENTIN 600 MG TAB PO SCH ×3 (09:34→20:44)
[2020-09-24] MEDS: FLUoxetine HCL 20 MG CAP PO SCH (09:34)
[2020-09-24] MEDS: lisinopril 10 MG TAB PO SCH (09:34)
[2020-09-24 16:40] LABS: Base Excess ABG 2.7 mEq/L (-9-1.8); HCO3 ABG 29 mmol/L (19-24); Oxygen Saturation ABG 92.7 % (90-95); PCO2 ABG 55 mmHg (35-46); PO2 ABG 62 mmHg (80-95); pH ABG 7.35 (7.35-7.45)
--- NOTE | 2020-09-24 16:42 | Hospitalist Progress Note ---
Date of Service September 24, 2020 Assessment & Plan (1) Hypoxia: Hypoxia/obesity hypoventilation syndrome/ARAM/asthma- Continue Umeclidinium/Vilanterol and Accolate DuoNebs every 2 hours as needed Pulse ox while in the emergency department ranged from 89-94% depending upon degree of inspiration, on room air. Patient reported a pulse ox of 75% on room air at home, which prompted his visit to the emergency department. Pt given steroids in the ED, but not ordered on admission Pulm c/s noted, feels this is acute on chronic hypercapnic RF Recs for home O2 and set up with Trilogy Needs outpt sleep study Will work with CM on Trilogy set up, awaiting insurance auth Will need 2 step prior to d/c, ordered but unable to obtain due to somnolence (2) Obesity hypoventilation syndrome: See above Clearly pt needs more support CPAP today (3) ARAM (obstructive sleep apnea): See above (4) Asthma: See above (5) Morbid obesity due to excess calories: Long-term issues, dietary counseling (6) Seizure disorder: Continue gabapentin and clonazepam, no direct otherwise treatment noted (7) Diabetes mellitus type 2, uncontrolled, with complications: insulin glargine 60 units QAM at home, increased to 80 on 09/24 Hold standing order for Humalog 25 units subcu 3 times daily with meals. Placed on Accu-Cheks before meals and at bedtime with NovoLog coverage per scale, increased CF/CR as per pharmacy recs based on use last admission A1c 10.4 BS elevated in the setting of ED steroid dosing, however pt reports similar over the last few days Possibly related to untx resp issues leading to uncontrollable cortisol/insulin issues Pt tells me that his usual BS is in the 200s, however starting around 2 days ago it was over 450. He does check regularly. He states his A1c had been improving. It was 12 -> 7.9 prior to moving here. His last outpt A1c was 8.9. He states that since moving in with his aunt his diet has gotten much better. He has started eating [employer] frozen meals and has lost weight. He states he was 326lbs prior to the move and was 309 at a recent pulm visit. He was very disappointed that his A1c is higher today. He notes he is 315 here. He states he is compliant with his dosing, taking lantus 60 units AM and humalog 25units TID meals. Worsening A1c in the setting of diet changes and weight loss are likely the result of respiratory issues given his A1c was better when he had home O2. (8) Schizophrenia: Schizophrenia/anxiety with depression- Continue clonazepam, fluoxetine, olanzapine and trazodone (9) Anxiety and depression: See above (10) Hypertension: Continue aspirin, carvedilol, lisinopril. Admission and Anticipated Discharge Date Admission Date: September 22, 2020 Subjective Pt woke up enough to say hello to me and move his head towards me, but then back to sleep. Per nursing, pt reports he has not slept in 2 days. He has been difficult to arouse all morning. He was on NC overnight. Orders given this AM for a CPAP, however it was not delivered to room until afternoon. Review of Systems Review of Systems: Unable to obtain due to somnolence Physical Exam Constitutional: WD/WN, vitals as above + morbidly obese Eyes: normal visual engle by confrontation and + anicteric sclerae Neck: normal visual inspection and trachea midline Respiratory: normal respiratory effort, lungs clear to auscultation Cardiovascular: Rate/Rhythm: regular rate and regular rhythm Gastrointestinal (Abdomen): Inspection/Auscultation: abdomen not distended Percussion/Palpation: abdomen soft; abdomen nontender Musculoskeletal: Head/Neck/Chest: normocephalic and head atraumatic Skin: no rashes, warm and dry Neurologic: + obtunded; + not awake Psychiatric: Affect: + blunted affect Results & Data Results & Data ([facility]) Vital Signs (Past 12 Hours) Vital Signs Temp Pulse Pulse Resp BP Pulse Ox 09/24/20 15:50 75 20 92 09/24/20 15:00 37.1 C 73 22 145/77 H 92 09/24/20 14:48 70 70 21 93 09/24/20 13:05 70 20 92 09/24/20 12:17 67 17 94 09/24/20 11:00 36.6 C 69 22 146/79 H 93 09/24/20 07:12 64 09/24/20 07:04 78 19 94 09/24/20 07:00 36.2 C L 64 22 145/85 H 91 PG Care Time/CCT Total # of Minutes Spent Total Time Spent with Patient: Total time spent is greater than 50% in coordination of care (as documented) at patient's floor/unit and/or counseling patient: Coding Level of Care Code 14299 Subseq Hosp Care Lvl 3 Diagnoses Hypoxia R09.02 Obesity hypoventilation syndrome E66.2 ARAM (obstructive sleep apnea) G47.33 Asthma J45.41 Asthma severity: moderate Asthma persistence: persistent Asthma complication type: with acute exacerbation Morbid obesity due to excess calories E66.01 Seizure disorder G40.909 Diabetes mellitus type 2, uncontrolled, with complications E11.8; E11.65 Schizophrenia F20.9 Anxiety and depression F41.9; F32.9 Hypertension I10 (1) Asthma Asthma severity: moderate Asthma persistence: persistent Asthma complication type: with acute exacerbation Qualified Code(s): J45.41 - Moderate persistent asthma with (acute) exacerbation
[2020-09-24 16:48] LABS: Allen Test POS (Pos)
--- NOTE | 2020-09-24 18:11 | Pulmonology Progress Note ---
Date of Service September 24, 2020 Assessment & Plan (1) Hypoxia: (2) ARAM (obstructive sleep apnea): (3) Obesity hypoventilation syndrome: (4) Acute on chronic respiratory failure with hypoxia and hypercapnia: --Acute on chronic hypercapnic hypoxic respiratory failure Likely secondary to combination of ARAM/OHS along with polypharmacy Patient is on Klonopin on a daily basis along with high-dose gabapentin. Both of which can have effect on respiratory drive. Continue with BiPAP, avoid respiratory depressant medication Avoid hyperoxygenation of the patient. Keep O2 saturation between 90-92% COVID-19 negative --Encephalopathy Likely secondary to acute on chronic hypercapnic respiratory failure Plan as above --ARAM/OHS Polysomnography as an outpatient Patient's bicarb is greater than 30, BMI 43.1, PCO2 greater than 45 Continue with BiPAP nightly and as needed shortness of breath --Morbid obesity Advised to lose with diet and exercise --ACOS Not in exacerbation Continue with inhaler therapy Continue with montelukast [id number] smoking history quit at the age of 44 Plan: Change Klonopin to as needed Change CPAP to BiPAP / with backup rate of 18 Keep O2 saturation between 90-92%. ABG did show some improvement after changing the setting to BiPAP Due to chronic respiratory failure consequent to likely restrictive thoracic cage abnormality from morbid obesity and OHS, patient has failed BiPAP in the hospital, patient now requires a noninvasive home ventilator. Bilevel therapy with and without a rate would be ineffective as patient requires a volume targeted mode. Ventilation is required to decrease work of breathing and improve pulmonary status. Interruption of ventilator support would lead to decline of health status. NIMV settings should be AVAPS-AE; Breath rate: auto; Inspiratory time:auto; Sigh: off; Tidal Volume: 350-450, PS min: 4-10 PS max: 12-20; EPAP min: 6-10; EPAP max: 10-16; AVAPS rate: 14 during sleep and as needed Please note the above document was generated using voice recognition software. It may contain grammatical, syntax or spelling errors.Any formal questions or concerns about the content, text or information contained within the body of this dictation should be directly addressed to the provider for clarification. (5) Morbid obesity with body mass index (BMI) of 40.0 or higher: (6) Altered mental state: Altered mental status type: somnolence Qualified Code(s): R40.0 - Somnolence Admission and Anticipated Discharge Date Admission Date: September 22, 2020 Subjective Patient seen and examined at bedside. No acute distress. Patient was somnolent at the time. He was on CPAP 12 at the time of examination. Review of Systems Review of Systems: All systems reviewed & are unremarkable except as noted in Subjective Physical Exam Physical Exam: Constitutional: No acute distress HEENT: EOMI, PERRLA Respiratory system: Decreased air entry bilaterally, no wheeze, no rhonchi, positive crackles bilateral lower lobes CVS: S1-S2 positive, no murmurs or gallops Abdomen: Soft, nontender, nondistended, positive bowel sounds x4, obese Extremities: +2 pulses bilaterally radialis/ dorsalis pedis, no cyanosis, +1 edema bilateral lower extremity Neuro: Somnolent Psych: Unable to assess G/U: Positive Melgar Skin: no rashes, warm and dry Lymphatic: no cervical or axillary lymphadenopathy Results & Data Results & Data ([facility]) Vital Signs (Past 12 Hours) Vital Signs Temp Pulse Pulse Resp BP Pulse Ox 09/24/20 15:50 75 20 92 09/24/20 15:00 37.1 C 73 22 145/77 H 92 09/24/20 14:48 70 70 21 93 09/24/20 13:05 70 20 92 09/24/20 12:17 67 17 94 09/24/20 11:00 36.6 C 69 22 146/79 H 93 09/24/20 07:12 64 09/24/20 07:04 78 19 94 09/24/20 07:00 36.2 C L 64 22 145/85 H 91 09/22/20 20:11 09/22/20 20:11 PG Care Time/CCT Total # of Minutes Spent Total Time Spent with Patient: Total time spent is greater than 50% in coordination of care (as documented) at patient's floor/unit and/or counseling patient: Coding Level of Care Code 10829 Subseq Hosp Care Lvl 3 Diagnoses Hypoxia R09.02 ARAM (obstructive sleep apnea) G47.33 Obesity hypoventilation syndrome E66.2 Acute on chronic respiratory failure with hypoxia and hypercapnia J96.21; J96.22 Morbid obesity with body mass index (BMI) of 40.0 or higher E66.01 Altered mental state R40.0 Altered mental status type: somnolence
[2020-09-24] MEDS ORDERED: ALBUT/IPRATROP 3MG/0.5MG NEB 3 ML VIAL NEB PRN (18:20)
[2020-09-24] MEDS: traZODone HCL 100 MG TAB PO SCH (20:44)
[2020-09-24] MEDS: OLANZapine 20 MG TABLET PO SCH (20:44)
[2020-09-24] MEDS: MONTELUKAST SODIUM 10 MG TABLET PO SCH (20:44)
[2020-09-25] MEDS: MELATONIN 3 MG TAB PO PRN ×2 (00:09→23:28)
[2020-09-25 08:23] LABS: Base Excess ABG 1.6 mEq/L (-9-1.8); HCO3 ABG 28 mmol/L (19-24); Oxygen Saturation ABG 94.4 % (90-95); PCO2 ABG 54 mmHg (35-46); PO2 ABG 72 mmHg (80-95); pH ABG 7.34 (7.35-7.45)
[2020-09-25 08:24] LABS: Allen Test Pos (Pos)
[2020-09-25] MEDS: INSULIN ASPART 100 UNITS/ML 3 ML PEN SC SCH ×4 (08:56→20:08)
[2020-09-25] MEDS: INSULIN GLARGINE 100 UNIT/ML VIAL SQ SCH (08:58)
[2020-09-25] MEDS: carvediloL 3.125 MG TAB PO SCH ×2 (09:04→20:07)
[2020-09-25] MEDS: GABAPENTIN 600 MG TAB PO SCH ×3 (09:04→20:08)
[2020-09-25] MEDS: ROSUVASTATIN CALCIUM 20 MG TAB PO SCH (09:05)
[2020-09-25] MEDS: FLUoxetine HCL 20 MG CAP PO SCH (09:05)
[2020-09-25] MEDS: ASPIRIN 81 MG ECTAB PO SCH (09:05)
[2020-09-25] MEDS: PANTOprazole 40 MG TAB PO SCH (09:05)
[2020-09-25] MEDS: lisinopril 10 MG TAB PO SCH (09:05)
[2020-09-25] MEDS: UMECLIDINIUM/VILANTEROL 62.5/25MCG 7 PUFFS/INHALER INH SCH (09:06)
[2020-09-25 10:12] LABS: Folate (Folic Acid) 10.7 ng/ml (>5.38)
[2020-09-25 10:17] LABS: Calcium 8.6 mg/dl (8.5-10.1); Creatinine Clr Calc Pharmacy 97.8 ml/min; Est GFR (African American) 76.1; Est GFR (Non-African American) 65.7; Ferritin 61.6 ng/ml (8-388); Potassium 4.3 mmol/L (3.5-5.1); Thyroid Stimulating Hormone 6.36 uIu/ml (0.300-4.500)
[2020-09-25 10:35] LABS: Beta-Hydroxybutyrate 1.69 mg/dl (0.2-2.81); T4 Free Thyroxine 0.79 ng/dl (0.8-1.6)
[2020-09-25] MEDS: LEVOTHYROXINE SODIUM 50 MCG TABLET PO SCH (13:40)
--- NOTE | 2020-09-25 14:14 | Pulmonology Progress Note ---
Date of Service September 25, 2020 Assessment & Plan (1) Hypoxia: (2) ARAM (obstructive sleep apnea): (3) Obesity hypoventilation syndrome: (4) Acute on chronic respiratory failure with hypoxia and hypercapnia: --Acute on chronic hypercapnic hypoxic respiratory failure Likely secondary to combination of ARAM/OHS along with polypharmacy Patient is on Klonopin on a daily basis along with high-dose gabapentin. Both of which can have effect on respiratory drive. Continue with BiPAP, avoid respiratory depressant medication Avoid hyperoxygenation of the patient. Keep O2 saturation between 90-92% COVID-19 negative --Encephalopathy Likely secondary to acute on chronic hypercapnic respiratory failure Plan as above --ARAM/OHS Polysomnography as an outpatient Patient's bicarb is greater than 30, BMI 43.1, PCO2 greater than 45 Continue with BiPAP nightly and as needed shortness of breath --Morbid obesity Advised to lose with diet and exercise --ACOS Not in exacerbation Continue with inhaler therapy Continue with montelukast [id number] smoking history quit at the age of 44 Plan: ABG from today still shows hypercapnia and mildly acidotic with patient's mentation is significantly improved. No need to repeat ABGs if the mentation is good. Patient clinically doing much better. Would continue with BiPAP nightly and whenever he is sleeping. Patient will definitely benefit from trilogy on discharge at home. No further recommendations from pulmonary perspective. Please recall if needed. Please note the above document was generated using voice recognition software. It may contain grammatical, syntax or spelling errors.Any formal questions or concerns about the content, text or information contained within the body of this dictation should be directly addressed to the provider for clarification. (5) Morbid obesity with body mass index (BMI) of 40.0 or higher: (6) Altered mental state: Altered mental status type: somnolence Qualified Code(s): R40.0 - Somnolence Admission and Anticipated Discharge Date Admission Date: September 24, 2020 Subjective Patient seen and examined at bedside. No acute distress, no adverse events overnight. Patient used BiPAP overnight. Today he is very alert. Talking in full sentences. Denies any chest pain, no shortness of breath. No fever or chills. Review of Systems Review of Systems: All systems reviewed & are unremarkable except as noted in Subjective Physical Exam Physical Exam: Constitutional: No acute distress HEENT: EOMI, PERRLA, thick neck Respiratory system: Decreased air entry bilaterally, no wheeze, no rhonchi, minimal crackles bilateral lower lobes CVS: S1-S2 positive, no murmurs or gallops Abdomen: Soft, nontender, nondistended, positive bowel sounds x4, obese Extremities: +2 pulses bilaterally radialis/ dorsalis pedis, no cyanosis, +1 edema bilateral lower extremity Neuro: Awake alert oriented x3 Psych: Normal mood and affect Skin: no rashes, warm and dry Lymphatic: no cervical or axillary lymphadenopathy Results & Data Results & Data ([facility]) Vital Signs (Past 12 Hours) Vital Signs Temp Pulse Pulse Resp BP Pulse Ox 09/25/20 10:57 36.6 C 80 20 122/73 92 09/25/20 08:00 63 09/25/20 07:11 36.6 C 62 20 126/80 93 09/25/20 07:09 61 61 21 90 09/25/20 04:21 36.6 C 71 20 125/76 94 09/25/20 03:04 69 16 90 09/22/20 20:11 09/25/20 09:06 PG Care Time/CCT Total # of Minutes Spent Total Time Spent with Patient: Total time spent is greater than 50% in coordination of care (as documented) at patient's floor/unit and/or counseling patient: Coding Level of Care Code 70866 Subseq Hosp Care Lvl 3 Diagnoses Hypoxia R09.02 ARAM (obstructive sleep apnea) G47.33 Obesity hypoventilation syndrome E66.2 Acute on chronic respiratory failure with hypoxia and hypercapnia J96.21; J96.22 Morbid obesity with body mass index (BMI) of 40.0 or higher E66.01 Altered mental state R40.0 Altered mental status type: somnolence
[2020-09-25] MEDS: traZODone HCL 100 MG TAB PO SCH (20:07)
[2020-09-25] MEDS: OLANZapine 20 MG TABLET PO SCH (20:08)
[2020-09-25] MEDS: MONTELUKAST SODIUM 10 MG TABLET PO SCH (20:08)
--- NOTE | 2020-09-25 20:17 | Hospitalist Progress Note ---
Date of Service September 25, 2020 Assessment & Plan (1) Acute on chronic respiratory failure with hypoxia and hypercapnia: 2nd to OHS/ARAM newly diagnosed hypothyroidism can contribute to sedation which can worsen respiratory status polypharmacy can contribute to hypercapnea cannot rule out underlying obstructive lung disease contributing as well appreciate pulmonary consultation and recs based on ABGs he is home Trilogy candidate (noninvasive ventilator) social work is arranging for home (2) Obesity hypoventilation syndrome: See above previously was on home O2 continously during recent pulmonary visit he had 2-step which he passed o2 was stopped consider repeating this upon discharge OHS contributing to chronic hypoxia as noted above (3) ARAM (obstructive sleep apnea): See above home Trilogy BIPAP while hospitalized weight loss needed (4) Asthma: cont inhalers pulmonary office note states he will have PFTs soon to substantiate obstructive lung disease (5) Morbid obesity due to excess calories: BMI 43 (6) Seizure disorder: Continue gabapentin and clonazepam (7) Diabetes mellitus type 2, uncontrolled, with complications: HbA1c 10.4% pharmacy providing glycemic recs - appreciate their assistance cont basal-bolus regimen (8) Schizophrenia: Continue clonazepam, fluoxetine, olanzapine and trazodone No psychotic symptoms at this time (9) Anxiety and depression: See above (10) Hypertension: Continue aspirin, carvedilol, lisinopril Controlled (11) Acquired hypothyroidism: elevated TSH low FT4 all c/w hypothyroidism start synthroid 50mcg daily repeat TSH 6 weeks as outpatient patient informed of diagnosis (12) Anemia: Fe studies, b12, folate - all checked today and acceptable new onset hypothyroidism could be contributing this will need to be followed as outpatient (13) DVT prophylaxis: add lovenox 40mg daily anticipate d/c home in am Admission and Anticipated Discharge Date Admission Date: September 24, 2020 Subjective patient w/o complaints during the visit. feels good. eating well. cognition normal at this time. sleeping well with BIPAP at night-time. he relayed much of his medical history when he was living in [place]. now living in apartment in [facility]. his aunt lives locally to assist him with his affairs. Review of Systems Constitutional: + fatigue (Chronic) Respiratory: no cough and no dyspnea Cardiovascular: no chest pain Gastrointestinal: no abdominal pain Endocrine: + cold intolerance Physical Exam Constitutional: well developed, well nourished and + morbidly obese; no acute distress and no altered mental status ENMT: external ear and nose normal, oropharynx normal Neck: trachea midline, no thyromegaly Respiratory: normal respiratory effort, lungs clear to auscultation Cardiovascular: Rate/Rhythm: regular rate and regular rhythm Heart Sounds: normal S1 and normal S2; no murmur Vessels: posterior tibial pulses present and dorsalis pedis pulses present; no JVD Extremities: no edema Skin: no rashes, warm and dry recent cellulitis right leg resolved Psychiatric: A+Ox3, euthymic affect Results & Data Results & Data ([facility]) Vital Signs (Past 12 Hours) Vital Signs Temp Pulse Pulse Resp BP BP Pulse Ox 09/25/20 19:02 36.7 C 82 18 138/76 93 09/25/20 15:59 75 09/25/20 15:16 36.6 C 74 18 132/84 90 09/25/20 10:57 36.6 C 80 20 122/73 92 Laboratory Results Laboratory Results - last 24 hr 09/24/20 09/25/20 09/25/20 20:30 07:20 08:11 ABG pH 7.34 L ABG pCO2 54 H ABG pO2 72 L ABG HCO3 28 H ABG O2 Saturation 94.4 ABG Base Excess 1.6 Jeff Test Pos Barometric Pressure 732.8 Oxygen Given 2 L BIPAP Sodium Potassium Chloride Carbon Dioxide Anion Gap BUN Creatinine Est Cr Clr Drug Dosing Est GFR ( Amer) Est GFR (Non-Af Amer) BUN/Creatinine Ratio Glucose POC Glucose 86 211 H Calcium Iron Transferrin Transferrin % Sat Ferritin Vitamin B12 Folate Beta-Hydroxybutyric Acd TSH Free T4 09/25/20 09/25/20 09/25/20 09:06 09:06 11:23 ABG pH ABG pCO2 ABG pO2 ABG HCO3 ABG O2 Saturation ABG Base Excess Jeff Test Barometric Pressure Oxygen Given Sodium 134 L Potassium 4.3 Chloride 101 Carbon Dioxide 27 Anion Gap 6.0 BUN 23 H Creatinine 1.23 Est Cr Clr Drug Dosing 97.8 Est GFR ( Amer) 76.1 Est GFR (Non-Af Amer) 65.7 BUN/Creatinine Ratio 19.0 Glucose 329 H* POC Glucose 273 H Calcium 8.6 Iron 79 Transferrin 232 Transferrin % Sat 24 Ferritin 61.6 Vitamin B12 892 Folate 10.70 Beta-Hydroxybutyric Acd 1.69 TSH 6.360 H Free T4 0.79 L 09/25/20 09/25/20 16:29 20:08 ABG pH ABG pCO2 ABG pO2 ABG HCO3 ABG O2 Saturation ABG Base Excess Jeff Test Barometric Pressure Oxygen Given Sodium Potassium Chloride Carbon Dioxide Anion Gap BUN Creatinine Est Cr Clr Drug Dosing Est GFR ( Amer) Est GFR (Non-Af Amer) BUN/Creatinine Ratio Glucose POC Glucose 101 H 129 H Calcium Iron Transferrin Transferrin % Sat Ferritin Vitamin B12 Folate Beta-Hydroxybutyric Acd TSH Free T4 PG Care Time/CCT Total # of Minutes Spent Total Time Spent with Patient: Total time spent is greater than 50% in coordination of care (as documented) at patient's floor/unit and/or counseling patient: Coding Level of Care Code 43274 Subseq Hosp Care Lvl 2 Diagnoses Acute on chronic respiratory failure with hypoxia and hypercapnia J96.21; J96.22 Obesity hypoventilation syndrome E66.2 ARAM (obstructive sleep apnea) G47.33 Asthma J45.41 Asthma complication type: with acute exacerbation Asthma persistence: persistent Asthma severity: moderate Morbid obesity due to excess calories E66.01 Seizure disorder G40.909 Diabetes mellitus type 2, uncontrolled, with complications E11.8; E11.65 Schizophrenia F20.9 Anxiety and depression F41.9; F32.9 Hypertension I10 Acquired hypothyroidism E03.9 Anemia D64.9 DVT prophylaxis Z29.9 (1) Asthma Asthma complication type: with acute exacerbation Asthma persistence: persistent Asthma severity: moderate Qualified Code(s): J45.41 - Moderate persistent asthma with (acute) exacerbation
[2020-09-25] MEDS: clonazePAM 0.5 MG TAB PO PRN (20:18)
[2020-09-25] MEDS ORDERED: ENOXAPARIN INJ 40 MG/0.4 ML SYR SQ ONE (20:21)
[2020-09-26] MEDS: LEVOTHYROXINE SODIUM 50 MCG TABLET PO SCH (05:56)
[2020-09-26] MEDS: UMECLIDINIUM/VILANTEROL 62.5/25MCG 7 PUFFS/INHALER INH SCH (07:57)
[2020-09-26] MEDS: carvediloL 3.125 MG TAB PO SCH (07:58)
[2020-09-26] MEDS: PANTOprazole 40 MG TAB PO SCH (07:58)
[2020-09-26] MEDS: GABAPENTIN 600 MG TAB PO SCH ×2 (07:58→14:54)
[2020-09-26] MEDS: ASPIRIN 81 MG ECTAB PO SCH (07:58)
[2020-09-26] MEDS: lisinopril 10 MG TAB PO SCH (07:58)
[2020-09-26] MEDS: FLUoxetine HCL 20 MG CAP PO SCH (07:59)
[2020-09-26] MEDS: ROSUVASTATIN CALCIUM 20 MG TAB PO SCH (07:59)
[2020-09-26] MEDS: INSULIN ASPART 100 UNITS/ML 3 ML PEN SC SCH ×2 (08:01→12:27)
[2020-09-26] MEDS: INSULIN GLARGINE 100 UNIT/ML VIAL SQ SCH (08:05)
[2020-09-26] MEDS: clonazePAM 0.5 MG TAB PO PRN (08:11)
[2020-09-26] MEDS ORDERED: ENOXAPARIN INJ 40 MG/0.4 ML SYR SQ SCH (09:00)
[2020-09-26] MEDS ORDERED: bisacodyL 10 MG SUPP PR ONE (10:21)
[2020-09-26] MEDS ORDERED: SENNA 8.6 MG TAB PO ONE (10:45)
--- NOTE | 2020-09-26 13:47 | Discharge Summary ---
Date of Service date of admission - September 24, 2020 date of discharge - September 26, 2020 Admission HPI Per Admitting Provider The patient is a 55-year-old male with a past medical history including tobacco abuse, morbid obesity due to excess calories, obesity hypoventilation syndrome, ARAM, excessive daytime sleepiness, near syncope, morbid obesity, seizure disorder, schizophrenia, diabetes mellitus, asthma, Klinefelter syndrome, colon polyps, diabetic ulcer right foot, and cellulitis of right leg. He was most recently admitted to [facility] from 08/05-08/07/2020 and then 09/09-09/11/2020. Prior to these admissions, patient had been living in [place] and reports having had multiple admissions there for hypoxia. He has moved to this area so that his aunt can help take care of him. He most recently underwent colonoscopy on 08/23/2020 due to history of colon polyps, by Dr. Glover, which was negative. He had an outpatient visit with Dr. Hernandez on 09/13/2020, but was found to have a pulse ox of 94%, and arrangements were to be made for sleep apnea studies to determine need for CPAP. Patient reports that when he lived in [place], he was on up to 4 L nasal cannula oxygen and wore BiPAP at nighttime, but reports that both of these were discontinued for unknown reasons prior to his move, but likely associated with his move. The patient has no new complaints today, he primarily is here because of his recording of a low pulse oximetry as noted above. Principal Diagnosis acute/chronic hypoxic and hypercarbic respiratory failure Discharge Exam Constitutional well developed, well nourished and + morbidly obese; no acute distress and no altered mental status ENMT external ear and nose normal, oropharynx normal Neck trachea midline, no thyromegaly Respiratory normal respiratory effort, lungs clear to auscultation Cardiovascular Rate/Rhythm: regular rate and regular rhythm Heart Sounds: normal S1 and normal S2; no murmur Vessels: posterior tibial pulses present and dorsalis pedis pulses present; no JVD Extremities: no edema Gastrointestinal (Abdomen) normal bowel sounds, soft, nontender, no hepatosplenomegaly Skin no rashes, warm and dry Psychiatric A+Ox3, euthymic affect Discharge Data Allergies Allergy/AdvReac Type Severity Reaction Status Date / Time copper Allergy Mild skin rash, Verified 09/22/20 21:39 itching cider vinegar AdvReac Mild Redness,swe Verified 09/22/20 21:39 ating Consultations [facility] Pulmonology Diabetes Education Pharmacy Glycemic Team Hospital Course (1) Acute on chronic respiratory failure with hypoxia and hypercapnia: 2nd to OHS/ARAM. Newly diagnosed hypothyroidism can contribute to sedation which can worsen respiratory status. Polypharmacy can contribute to hypercapnea. Cannot rule out underlying obstructive lung disease contributing as well. Seen by [facility] pulmonary and based on ABGs he qualified for home noninvasive ventilation - Trilogy. Social work was involved in arranging for the Trilogy machine. He was counseled on the importance of compliance with the Trilogy machine in light of his OHS/ARAM and chronic CO2 retention. (2) Obesity hypoventilation syndrome: See above Previously was on home O2 continuously. During recent pulmonary visit he had 2-step ambulatory oxygen test which he passed. o2 was stopped. A repeat 2-step test was performed during this stay and again he passed. OHS is contributing to chronic hypoxia. (3) ARAM (obstructive sleep apnea): See above home Trilogy prescribed BIPAP was utilized while hospitalized weight loss needed (4) Asthma: cont inhalers. pulmonary to perform PFTs after discharge to substantiate obstructive lung disease. (5) Morbid obesity due to excess calories: BMI 43 (6) Seizure disorder: Continue gabapentin and clonazepam. (7) Diabetes mellitus type 2, uncontrolled, with complications: HbA1c 10.4%. pharmacy provided glycemic recommendations during his stay. also seen by diabetes education. cont basal-bolus regimen of insulin at home. (8) Schizophrenia: Continue clonazepam, fluoxetine, olanzapine and trazodone. No psychotic symptoms during the hospitalization. (9) Anxiety and depression: See above. (10) Hypertension: Continue aspirin, carvedilol, lisinopril. Controlled during the visit. (11) Acquired hypothyroidism: elevated TSH low FT4 all c/w hypothyroidism started synthroid 50mcg daily repeat TSH 6 weeks as outpatient patient informed of diagnosis (12) Anemia: Fe studies, b12, folate - all checked and acceptable new onset hypothyroidism could be contributing to anemia this will need to be followed as outpatient Total Time Total Time Spent Total Time Spent (In Minutes): 45 Total Time Includes: Examination of the Patient, Discharge Planning, Medication Reconciliation and Communication With Other Providers Discharge Plan Discharge Items Patient Disposition: Home - Home Health Services Reason For Visit: HYPOXIA, OBESITY HYPOVENTILATION SYNDROME Discharge Diagnosis: 1. hypoxia (low oxygen) and shortness of breath - likely due to a condition called obesity-hypoventilation syndrome 2. sleep apnea 3. new diagnosis of underactive thyroid ("Hypothyroidism") #1 and #2 -- treatment will be "Trilogy" Machine with sleeping. Activity: Resume your previous activity Non-emergency contact: Primary Care Provider and Clerical Methods Analyst Call non-emergency contact if: you have any medication questions, your symptoms worsen and you have a fever Follow-up/Referrals: Cesario Hernandez MD [Physician] - 09/30/20 11:00 am () Dennis Gross MD [Physician] - 01/08/21 9:00 am () Ani Howell MD [Primary Care Provider] - 10/03/20 1:30 pm () Diet: Carb Consistent or DM2 Addtl Attending Provider Instructions: Mr Smiley, You were seen by the lung specialists/pulmonologists for your difficulty breathing. Your blood oxygen levels are low, and your blood carbon dioxide levels are high. These are abnormal because of a combination of sleep apnea as well as a condition called obesity-hypoventilation syndrome. These 2 conditions will be treated with a Trilogy machine. You will need to use the machine any time you sleep - naps, and bedtime. The machine will help your oxygen levels as well as keep your carbon dioxide levels in check. It is possible that many of your medications for your mood/sleep are affecting your breathing, and also the hypothyroidism can contribute somewhat as well. Recommendations - 1. Start levothyroxine thyroid medication TOMORROW morning, 09/27/20, before breakfast. you will need your thyroid level repeated in 6 weeks. your family doctor can check it for you. 2. INCREASE your lantus to 80 units daily. 3. CHANGE your clonazepam to twice daily and use as needed only. 4. use the Trilogy machine any time you sleep. 5. we walked you in the hallway today and fortunately you do not need oxygen with ambulation/walking. That is good news! 6. use the Givit-Magni Guide Syringe magnifier on your insulin syringes to help you see the numbers more clearly. I sent this to [facility] for you. Follow-up - see separate section Return to [facility] if - * you have worsening shortness of breath despite taking all of your usual medications * you have chest pain * you have persistently high blood sugars (350 or more) or lows (less than 70) * any other concerns Welcome to the area and stay well! -Dr Mooney Pending Studies at Discharge: No Stand-Alone Forms: My [facility], Smoking Cessation Medications and DC Order Prescriptions: New levothyroxine [Synthroid] 50 mcg Tablet 50 mcg PO DAILYBB Qty: 30 RF: 5 (DME) BD Magni-Guide Syringe Magnifi Misc See Rx Instructions .ROUTE .MEDSUPPLY Qty: 1 RF: 0 (DME) syringe (disposable) 1 mL syringe See Rx Instructions .ROUTE .MEDSUPPLY Qty: 100 RF: 1 (DME) insulin syringe-needle U-100 [BD Insulin Syringe Ultra-Fine] 0.3 mL 31 gauge x 5/16" syringe See Rx Instructions .ROUTE .MEDSUPPLY Qty: 100 RF: 2 Continued albuterol sulfate 90 mcg/actuation aerosol powdr breath activated 2 inh inhalation Q6H PRN (Reason: Shortness Of Breath Or Wheezing) RF: 0 Anoro Ellipta 62.5-25 mcg/actuation blister with device 1 inh inhalation DAILY Qty: 60 RF: 2 furosemide 40 mg tablet 40 mg PO DIRECTED PRN (Reason: Fluid Retention) RF: 0 fluoxetine [Prozac] 40 mg capsule 80 mg PO QAM RF: 0 gabapentin [Neurontin] 600 mg tablet See Rx Instructions .ROUTE .COMPLEX RF: 0 omeprazole 40 mg capsule,delayed release(DR/EC) 40 mg PO QAM RF: 0 aspirin [Aspirin Low Dose] 81 mg tablet,delayed release (DR/EC) 81 mg PO QAM RF: 0 carvedilol [Coreg] 3.125 mg tablet 3.125 mg PO BID RF: 0 lisinopril [Zestril] 10 mg tablet 10 mg PO QAM RF: 0 zafirlukast [Accolate] 20 mg tablet 20 mg PO QAM RF: 0 trazodone 300 mg tablet 300 mg PO HS RF: 0 insulin lispro [Humalog U-100 Insulin] 100 unit/mL solution 25 unit subcut TIDM RF: 0 olanzapine [Zyprexa] 20 mg tablet 20 mg PO HS RF: 0 rosuvastatin [Crestor] 20 mg tablet 20 mg PO QAM RF: 0 Linzess 290 mcg capsule 290 mcg PO DAILY PRN (Reason: Gi Upset) RF: 0 naproxen sodium 550 mg tablet 550 mg PO AMPM RF: 0 methocarbamol 500 mg tablet 500 mg PO Q8H PRN (Reason: Muscle Spasm) RF: 0 Changed Lantus U-100 Insulin 100 unit/mL solution 80 unit SUBCUT QAM Qty: 0 RF: 0 clonazepam [Klonopin] 0.5 mg tablet 0.5 mg PO BID PRN (Reason: Anxiety) Qty: 0 RF: 0 Discharge Orders: Discharge Order (Routine); Ordered 09/26/20 Ordered By: Dylan Barber/Other Patient Handouts: ED Hypothyroidism Admission Data Admit Date/Time: 09/24/20 18:22 Attending Provider: Dylan Mooney Admit Provider: Fausto Herring Primary Care Provider: Ani Howell Other Providers: Fausto Herring ; Cesario Hernandez Other Interventions: Discharge Summary Assessment (RN) Last Done: 09/26/20 14:38 Coding Level of Care Code D/C Day Management >30 mins Diagnoses Acute on chronic respiratory failure with hypoxia and hypercapnia J96.21; J96.22 Obesity hypoventilation syndrome E66.2 ARAM (obstructive sleep apnea) G47.33 Asthma J45.41 Asthma complication type: with acute exacerbation Asthma persistence: persistent Asthma severity: moderate Morbid obesity due to excess calories E66.01 Seizure disorder G40.909 Diabetes mellitus type 2, uncontrolled, with complications E11.8; E11.65 Schizophrenia F20.9 Anxiety and depression F41.9; F32.9 Hypertension I10 Acquired hypothyroidism E03.9 Anemia D64.9
== END 2020-09-26 15:30 | disposition home health service (06) ==
LOC: ED 20:00 → 2W 20:00 → MERGE 20:00 → SUATTDRO 23:29 → 2W 23:55 → SUATTDRO 09-24 18:22

== ENCOUNTER 2020-10-28 11:11 | Observation (INO) ==
[2020-10-28 12:37] LABS: Appearance Urine Clear (Clear); Bilirubin Urine Negative (Negative); Blood Urine Negative (Negative); Color Urine Yellow; Glucose Urine UA Negative (Negative); Ketones Urine Negative (Negative); Leukocyte Esterase Urine Negative (Negative); Nitrite Urine Negative (Negative); Protein Urine Negative (Negative); Specific Gravity Urine 1.019 (1.000-1.030); Urobilinogen Urine Negative (Negative)
--- NOTE | 2020-10-28 12:40 | Emergency Department Note ---
Impression & Plan Chronic hypercapnic respiratory failure, Cellulitis of leg, right, Fatigue ED Provider Note Provider: Tru Garcia MD DATE OF SERVICE: 10/28/2020 CHIEF COMPLAINT: Fatigue, leg pain HISTORY OF PRESENT ILLNESS: Patient is a 55-year-old gentleman with extensive past medical history including seizure disorder, schizophrenia, diabetes, asthma, prior right leg cellulitis, excessive daytime sleepiness, obesity, and ARAM presenting here today via ambulance from physical therapy. Patient reports that over the last 2 to 3 days has been more fatigued than normal. States his blood sugars been running in the 300s which is higher than normal as well. Went to physical therapy today and they did some seated exercises he seemed a bit fatigued and a bit unbalanced when standing. Patient denies falling. Patient states he is feeling a little bit better at the moment but the physical therapist were concerned about his little fatigue and thus referred him here for further evaluation. Patient is a bit about 2 weeks ago was seen in the medical office given a dose ceftriaxone and started on a course of dicloxacillin that he completed for some redness and presumed cellulitis of the right lower leg. Patient states this improved his right leg but now the redness is returning and he has some slight stiffness here as well. Patient reports a history of diabetic neuropathy in his legs. Patient states he had a very large bowel movement over the weekend but denies significant abdominal pain at this point. States his diet is not significantly changed. Patient denies shortness of breath but states occasionally gets a little bit of pain at the bilateral lower edge of the rib cages. Patient denies fever that he is aware of. Patient denies any swelling or tenderness of the left leg. REVIEW OF SYSTEMS: A total of 10 review of systems was obtained and negative except as stated above in the HPI. PAST MEDICAL HISTORY: As noted above MEDICATIONS: Reviewed home medication list SOCIAL HISTORY: Former smoker PHYSICAL EXAM: GENERAL: alert and oriented in no acute distress on stretcher, initially resting when I enter the room but quickly awakens upon saying his name Head: normocephalic and atraumatic EYES: No injection, discharge or icterus. NECK: Trachea midline. Supple. ENT: Mucous membranes pink and moist. There is a small still healing defect in the mucosa of the inner left upper lip without signs of infection or foreign body. LUNGS: Airway patent. No retractions. Breath sounds clear with diminished air movements in the bases HEART: Regular rate and rhythm. No chest wall tenderness ABDOMEN: Soft and non-tender, without guarding or rebound. SKIN: Acyanotic, warm, dry, without rashes EXTREMITIES: Patient has asymmetric 2+ swelling of the right lower extremity wi th some healed scabs but no large ulceration appreciated. The left leg has some chronic stasis changes but is much less swollen and not erythematous. NEUROLOGICAL: No aphasia. No facial droop or slurred speech. Normal strength and tone in the extremities. Bilateral decreased sensation of the feet on the right leg to the ankle on the left leg to the dorsum of the foot. EK bpm normal sinus rhythm. No PVC or PAC. No acute ST segment elevation noted with a QTC of 358. There is some slight artifact in the V3 lead but no clear ST depression noted either. Some nonspecific slight lateral T wave changes are improved compared to previous from September 22 of this year CONTINUOUS CARDIAC MONITORING: was ordered and showed a heart rate of 60s-70s bpm in normal sinus rhythm Patient's laboratory studies and imaging reviewed. Differential includes Infection, dehydration, metabolic abnormality, hypo/hyperglycemia, electrolyte disturbance, anemia, hypoxia, cardiac sources, intracerebral event, toxicologic, neurologic, as well as other pathologies. IMPRESSION/MEDICAL DECISION MAKING: Patient presents reports some increased fatigue for the last several days with some increased swelling in the right leg and redness and some elevated blood sugars. Patient has multiple medical comorbidities and his recent medical records reviewed with multiple admissions over the past 2 months here. Question of some type of this could be infectious related to cellulitis in the right leg. Did want to exclude DVT here given the asymmetric swelling and an ultrasound was ordered. Patient did stated recent improvement in the office after a course of dicloxacillin and this is somewhat more suggestive of infection. No fever, hypotension, or tachycardia here low suspicion for sepsis but blood work was completed. Chest x-ray obtained. Complaints little bit of pain at times in the lower bilateral costal margins of his chest but not significantly reproducible on exam. Denies shortness of breath. Not hypoxic here and lower suspicion at this time for PE. Troponin and EKG were completed but seems also highly atypical for ACS. Benign abdomen on exam without significant abdominal tenderness. Did have a large bowel movement with some trace blood several days ago but this is resolved I doubt acute GI bleed at this point and think was likely a little bit more irritated bleeding from the large bowel movement. Patient seems fairly alert at this time but a VBG was checked given his respi ratory history. Do not see any focality of significance to his neurological exam and only we need CT of the head at this time. Blood work returns without significant leukocytosis. Stable mild anemia. Slight acidosis with a CO2 of 56. No severe electrolyte abnormalities noted. No evidence of transaminitis or pancreatitis based on labs. TSH within normal is. Troponin is undetectable and EKG without acute ischemic changes. Urinalysis is negative. Chest x-ray question some pulmonary vascular congestion per the radiology report. Ultrasound without evidence of DVT in the right lower extremity. Covid test was negative. Did review records with his extensive history of treatment in August for cellulitis in this leg as well as his diabetes to have some concerns about worsening after recent outpatient treatment. Patient is also mildly hypercarbic in this and possible cellulitis may be contributing to his increased fatigue over the last day or 2. Patient's not been using his home trilogy machine due to the facial injury from earlier in the month although this appears likely healed on exam. Given his complex history and situation given a dose of Zosyn and recommended further observation here in the hospital hospitalist was contacted. DIAGNOSIS: Right lower extremity cellulitis, chronic respiratory failure, fatigue DISPOSITION: Hospitalist will evaluate Patient was agreeable with this plan. Past Med/Surg History Medical History Anxiety Asthma Cardiac murmur Cellulitis of leg right knee to right foot -- hospitalized [facility] treated with IV antibiotics. 08/2020 Chronic back pain Chronic hypercapnic respiratory failure COPD (chronic obstructive pulmonary disease) Diabetes mellitus type 2, uncontrolled, with complications Excessive daytime sleepiness Gastroparesis GERD (gastroesophageal reflux disease) Hiatal hernia History of tobacco abuse Hx of respiratory failure r/t pneumonia 09/08/2019. treated at [place]. to follow with [facility] NARENDRA 09/2020. Hypoxia Klinefelters syndrome Macular degeneration Morbid obesity with BMI of 40.0-44.9, adult Obesity hypoventilation syndrome Obstructive sleep apnea (adult) (pediatric) ARAM (obstructive sleep apnea) no current device since he moved to [place] Peripheral neuropathy Pneumonia hx (gets annually) Pneumonia Polypharmacy Schizophrenia Seizure disorder hx, last seizure 2000 -- treated with depakote and was taken off of depakote about ~2010. no problems since. Shortness of breath Tachycardia treated with coreg. to follow with Dr Chapman 09/2020. (hx of following with Dr Clark, cardiology at [place], [place]) Type 2 diabetes mellitus IDDM Surgical History H/O hernia repair umbilical H/O right heart catheterization no stents. ~2018 in [place] History of colonoscopy History of esophagogastroduodenoscopy (EGD) History of gastric bypass gastric sleeve S/P epidural steroid injection Family History Other No family history of adverse response to anesthesia Social History (Updated 10/28/20 @ 15:44 by Gurinder Hernandez PA-C) Smoking Status: Former smoker Tobacco Type: Cigarettes and Smokeless Tobacco (Dip or Chew) Years Smoked: 30; Number of Years Since Quit: 7; Second Hand Exposure: No; Do You Dip or Chew Tobacco: Yes (Patient goes her approximate 1/2 can/day. Started chew when he quit smoking); Hx Alcohol Use: Yes Alcohol type: beer and hard liquor Alcohol Intake Frequency: Monthly or Less Hx Substance Use: No Preferred Language: Maori Communication Ability: Effective Loop Sewer Required: No Beliefs That Will Affect Care: None marital status: / Current Living Situation: Alone current occupational status: disabled Feels Safe at Home: Yes Allergies Allergies Allergy/AdvReac Type Severity Reaction Status Date / Time copper Allergy Mild skin rash, Verified 10/28/20 12:34 itching cider vinegar AdvReac Mild Redness,swe Verified 10/28/20 12:34 ating Home Meds Home Medications Medication Instructions Recorded Confirmed albuterol sulfate 90 mcg/actuation 2 inh INHALATION Q6H PRN 07/30/20 10/28/20 breath activated powder inhaler methocarbamol 500 mg PO Q8H PRN 08/05/20 10/28/20 furosemide 40 mg PO DIRECTED PRN 09/09/20 10/28/20 Linzess 290 mcg PO DAILY PRN 09/22/20 10/28/20 carvedilol [Coreg] 3.125 mg PO BID 09/22/20 10/28/20 fluoxetine [Prozac] 80 mg PO QAM 09/22/20 10/28/20 gabapentin [Neurontin] See Rx Instructions .ROUTE .COMPLEX 09/22/20 10/28/20 insulin lispro [Humalog U-100 23 unit SUBCUT TIDM 09/22/20 10/28/20 Insulin] lisinopril [Zestril] 10 mg PO QAM 09/22/20 10/28/20 naproxen sodium 550 mg PO AMPM 09/22/20 10/28/20 olanzapine [Zyprexa] 20 mg PO HS 09/22/20 10/28/20 omeprazole 40 mg PO QAM 09/22/20 10/28/20 rosuvastatin [Crestor] 20 mg PO QAM 09/22/20 10/28/20 trazodone 300 mg PO HS 09/22/20 10/28/20 timolol maleate 1 drp OPHTHALMIC (EYE) DIRECTED 10/04/20 10/28/20 zafirlukast 20 mg tablet 20 mg PO BID tab 10/09/20 10/28/20 aspirin [Sindy Aspirin] 162.5 mg PO DAILY 10/28/20 10/28/20 clonazepam 0.5 mg tablet 0.5 mg PO TID PRN tab 10/28/20 10/28/20 insulin glargine [Lantus U-100 75 unit SUBCUT QAM 10/28/20 10/28/20 Insulin] Previous Rx's Medication Instructions Recorded levothyroxine [Synthroid] 50 mcg PO DAILYBB #30 tab 09/26/20 tiotropium 2.5 mcg-olodaterol 2.5 2 puff INHALATION DAILY #4 g 09/30/20 mcg/actuation mist for inhalation Results & Data (ED) Vital Signs Vital Signs - 24 hr 10/28/20 11:19 10/28/20 11:22 10/28/20 11:30 Temperature 36.8 C Temperature Source Oral Pulse Rate 66 71 67 Pulse Rate from SpO2 Sensor 67 69 Respiratory Rate 15 14 19 Respiratory Depth Normal Blood Pressure 144/84 H 144/84 H Blood Pressure Mean 104 104 Blood Pressure Position Sitting Pulse Oximetry 95 94 Oxygen Delivery Method Room Air Sepsis Recent Fever Within 48 Hours No Sepsis New/Unexplained Change in Mental Status Yes Sepsis Action Taken by Nursing No Action Required 10/28/20 11:40 10/28/20 11:50 10/28/20 12:00 Temperature Temperature Source Pulse Rate 68 66 66 Pulse Rate from SpO2 Sensor 65 Respiratory Rate 14 16 19 Respiratory Depth Blood Pressure Blood Pressure Mean Blood Pressure Position Pulse Oximetry 94 Oxygen Delivery Method Sepsis Recent Fever Within 48 Hours Sepsis New/Unexplained Change in Mental Status Sepsis Action Taken by Nursing 10/28/20 12:10 10/28/20 12:20 10/28/20 12:40 Temperature Temperature Source Pulse Rate Pulse Rate from SpO2 Sensor 72 65 Respiratory Rate 24 17 17 Respiratory Depth Blood Pressure Blood Pressure Mean Blood Pressure Position Pulse Oximetry 95 91 Oxygen Delivery Method Sepsis Recent Fever Within 48 Hours Sepsis New/Unexplained Change in Mental Status Sepsis Action Taken by Nursing 10/28/20 12:50 10/28/20 13:00 10/28/20 13:10 Temperature Temperature Source Pulse Rate Pulse Rate from SpO2 Sensor 66 65 68 Respiratory Rate 22 22 20 Respiratory Depth Blood Pressure Blood Pressure Mean Blood Pressure Position Pulse Oximetry 95 95 94 Oxygen Delivery Method Sepsis Recent Fever Within 48 Hours Sepsis New/Unexplained Change in Mental Status Sepsis Action Taken by Nursing 10/28/20 13:20 10/28/20 13:30 10/28/20 13:40 Temperature Temperature Source Pulse Rate Pulse Rate from SpO2 Sensor 67 69 70 Respiratory Rate 17 Respiratory Depth Blood Pressure Blood Pressure Mean Blood Pressure Position Pulse Oximetry 92 93 93 Oxygen Delivery Method Sepsis Recent Fever Within 48 Hours Sepsis New/Unexplained Change in Mental Status Sepsis Action Taken by Nursing 10/28/20 14:20 10/28/20 14:40 10/28/20 14:50 Temperature Temperature Source Pulse Rate 72 Pulse Rate from SpO2 Sensor 72 65 Respiratory Rate 20 16 18 Respiratory Depth Blood Pressure Blood Pressure Mean Blood Pressure Position Pulse Oximetry 97 94 Oxygen Delivery Method Sepsis Recent Fever Within 48 Hours Sepsis New/Unexplained Change in Mental Status Sepsis Action Taken by Nursing 10/28/20 15:00 10/28/20 15:10 10/28/20 15:20 Temperature Temperature Source Pulse Rate Pulse Rate from SpO2 Sensor 64 67 65 Respiratory Rate 22 15 17 Respiratory Depth Blood Pressure Blood Pressure Mean Blood Pressure Position Pulse Oximetry 94 92 93 Oxygen Delivery Method Sepsis Recent Fever Within 48 Hours Sepsis New/Unexplained Change in Mental Status Sepsis Action Taken by Nursing 10/28/20 15:30 10/28/20 15:33 10/28/20 15:50 Temperature Temperature Source Pulse Rate 74 65 Pulse Rate from SpO2 Sensor 69 Respiratory Rate 19 17 19 Respiratory Depth Blood Pressure 150/82 H Blood Pressure Mean 104 Blood Pressure Position Pulse Oximetry 94 Oxygen Delivery Method Sepsis Recent Fever Within 48 Hours Sepsis New/Unexplained Change in Mental Status Sepsis Action Taken by Nursing 10/28/20 19:41 Temperature Temperature Source Pulse Rate Pulse Rate from SpO2 Sensor Respiratory Rate Respiratory Depth Blood Pressure Blood Pressure Mean Blood Pressure Position Pulse Oximetry Oxygen Delivery Method Room Air Sepsis Recent Fever Within 48 Hours Sepsis New/Unexplained Change in Mental Status Sepsis Action Taken by Nursing Laboratory Data Result diagrams: 10/28/20 12:45 10/28/20 12:45 Lab Results 10/28/20 10/28/20 10/28/20 Range/Units 12:25 12:45 12:45 WBC (4.8-10.8) K/uL RBC (4.7-6.1) M/uL Hgb (14.0-18.0) g/dL Hct (42-52) % MCV (80-100) fL MCH (25-34) pg MCHC (32-36) g/dL RDW Std Deviation (36.4-46.3) fL RDW Coeff of Alex (11.5-14.5) % Plt Count (130-400) K/uL MPV (7.4-10.4) fL Immature Gran % (Auto) % Neut % (Auto) % Lymph % (Auto) % [place] % (Auto) % Eos % (Auto) % Baso % (Auto) % Neut # (Auto) (1.4-6.5) K/uL Lymph # (Auto) (1.2-3.4) K/uL [place] # (Auto) (0.11-0.59) K/uL Eos # (Auto) (0-0.5) K/uL Baso # (Auto) (0-0.2) K/uL Immature Gran # (Auto) (0.00-0.02) K/uL PT 10.3 (9.0-12.0) Seconds INR 1.0 (0.9-1.1) VBG pH (7.36-7.41) VBG pCO2 (38-50) mmHg VBG pO2 mmHg VBG HCO3 mmol/L VBG O2 Saturation % VBG Base Excess mEq/L Barometric Pressure mm/Hg Sodium 137 (136-145) mmol/L Potassium 4.9 (3.5-5.1) mmol/L Chloride 106 (98-107) mmol/L Carbon Dioxide 28 (21-32) mmol/L Anion Gap 3.0 (3-11) BUN 23 H (7-18) mg/dl Creatinine 1.05 (0.6-1.4) mg/dl Est Cr Clr Drug Dosing 116.2 ml/min Est GFR ( Amer) 92.2 Est GFR (Non-Af Amer) 79.5 BUN/Creatinine Ratio 21.6 H (10-20) Glucose 132 H (70-99) mg/dl Calcium 9.5 (8.5-10.1) mg/dl Magnesium 2.1 (1.8-2.4) mg/dl Total Bilirubin 0.3 (0.2-1) mg/dl AST 10 L (15-37) U/L ALT 19 (12-78) U/L Alkaline Phosphatase 78 (45-117) U/L Troponin I < 0.015 (0-0.045) ng/ml Total Protein 6.9 (6.4-8.2) gm/dl Albumin 3.9 (3.4-5.0) gm/dl Globulin 3.0 (2.5-4.0) gm/dl Albumin/Globulin Ratio 1.3 (0.9-2) Lipase 63 L (73-393) U/L Procalcitonin (0-0.5) ng/ml TSH 0.748 (0.300-4.500) uIu/ml Urine Color Yellow Urine Appearance Clear (Clear) Urine pH 6.0 (4.5-7.5) Ur Specific [place] 1.019 (1.000-1.030) Urine Protein Negative (Negative) Urine Glucose (UA) Negative (Negative) Urine Ketones Negative (Negative) Urine Blood Negative (Negative) Urine Nitrite Negative (Negative) Urine Bilirubin Negative (Negative) Urine Urobilinogen Negative (Negative) Ur Leukocyte Esterase Negative (Negative) COVID-19 Eval Order SARS-CoV-2 (PCR) (Negative) Influenza Type A (PCR) (Neg) Influenza Type B (PCR) (Neg) RSV (RT-PCR) (Neg) 10/28/20 10/28/20 10/28/20 Range/Units 12:45 12:45 12:45 WBC 6.77 (4.8-10.8) K/uL RBC 3.94 L (4.7-6.1) M/uL Hgb 12.0 L (14.0-18.0) g/dL Hct 36.2 L (42-52) % MCV 91.9 (80-100) fL MCH 30.5 (25-34) pg MCHC 33.1 (32-36) g/dL RDW Std Deviation 45.5 (36.4-46.3) fL RDW Coeff of Alex 13.6 (11.5-14.5) % Plt Count 143 (130-400) K/uL MPV 10.7 H (7.4-10.4) fL Immature Gran % (Auto) 0.0 % Neut % (Auto) 69.1 % Lymph % (Auto) 20.8 % [place] % (Auto) 5.3 % Eos % (Auto) 4.1 % Baso % (Auto) 0.7 % Neut # (Auto) 4.67 (1.4-6.5) K/uL Lymph # (Auto) 1.41 (1.2-3.4) K/uL [place] # (Auto) 0.36 (0.11-0.59) K/uL Eos # (Auto) 0.28 (0-0.5) K/uL Baso # (Auto) 0.05 (0-0.2) K/uL Immature Gran # (Auto) 0.00 (0.00-0.02) K/uL PT (9.0-12.0) Seconds INR (0.9-1.1) VBG pH 7.33 L (7.36-7.41) VBG pCO2 56 H (38-50) mmHg VBG pO2 56 mmHg VBG HCO3 29 mmol/L VBG O2 Saturation 88.4 % VBG Base Excess 1.7 mEq/L Barometric Pressure 737.0 mm/Hg Sodium (136-145) mmol/L Potassium (3.5-5.1) mmol/L Chloride (98-107) mmol/L Carbon Dioxide (21-32) mmol/L Anion Gap (3-11) BUN (7-18) mg/dl Creatinine (0.6-1.4) mg/dl Est Cr Clr Drug Dosing ml/min Est GFR ( Amer) Est GFR (Non-Af Amer) BUN/Creatinine Ratio (10-20) Glucose (70-99) mg/dl Calcium (8.5-10.1) mg/dl Magnesium (1.8-2.4) mg/dl Total Bilirubin (0.2-1) mg/dl AST (15-37) U/L ALT (12-78) U/L Alkaline Phosphatase (45-117) U/L Troponin I (0-0.045) ng/ml Total Protein (6.4-8.2) gm/dl Albumin (3.4-5.0) gm/dl Globulin (2.5-4.0) gm/dl Albumin/Globulin Ratio (0.9-2) Lipase (73-393) U/L Procalcitonin < 0.05 (0-0.5) ng/ml TSH (0.300-4.500) uIu/ml Urine Color Urine Appearance (Clear) Urine pH (4.5-7.5) Ur Specific [place] (1.000-1.030) Urine Protein (Negative) Urine Glucose (UA) (Negative) Urine Ketones (Negative) Urine Blood (Negative) Urine Nitrite (Negative) Urine Bilirubin (Negative) Urine Urobilinogen (Negative) Ur Leukocyte Esterase (Negative) COVID-19 Eval Order SARS-CoV-2 (PCR) (Negative) Influenza Type A (PCR) (Neg) Influenza Type B (PCR) (Neg) RSV (RT-PCR) (Neg) 10/28/20 10/28/20 Range/Units 15:35 15:35 WBC (4.8-10.8) K/uL RBC (4.7-6.1) M/uL Hgb (14.0-18.0) g/dL Hct (42-52) % MCV (80-100) fL MCH (25-34) pg MCHC (32-36) g/dL RDW Std Deviation (36.4-46.3) fL RDW Coeff of Alex (11.5-14.5) % Plt Count (130-400) K/uL MPV (7.4-10.4) fL Immature Gran % (Auto) % Neut % (Auto) % Lymph % (Auto) % [place] % (Auto) % Eos % (Auto) % Baso % (Auto) % Neut # (Auto) (1.4-6.5) K/uL Lymph # (Auto) (1.2-3.4) K/uL [place] # (Auto) (0.11-0.59) K/uL Eos # (Auto) (0-0.5) K/uL Baso # (Auto) (0-0.2) K/uL Immature Gran # (Auto) (0.00-0.02) K/uL PT (9.0-12.0) Seconds INR (0.9-1.1) VBG pH (7.36-7.41) VBG pCO2 (38-50) mmHg VBG pO2 mmHg VBG HCO3 mmol/L VBG O2 Saturation % VBG Base Excess mEq/L Barometric Pressure mm/Hg Sodium (136-145) mmol/L Potassium (3.5-5.1) mmol/L Chloride (98-107) mmol/L Carbon Dioxide (21-32) mmol/L Anion Gap (3-11) BUN (7-18) mg/dl Creatinine (0.6-1.4) mg/dl Est Cr Clr Drug Dosing ml/min Est GFR ( Amer) Est GFR (Non-Af Amer) BUN/Creatinine Ratio (10-20) Glucose (70-99) mg/dl Calcium (8.5-10.1) mg/dl Magnesium (1.8-2.4) mg/dl Total Bilirubin (0.2-1) mg/dl AST (15-37) U/L ALT (12-78) U/L Alkaline Phosphatase (45-117) U/L Troponin I (0-0.045) ng/ml Total Protein (6.4-8.2) gm/dl Albumin (3.4-5.0) gm/dl Globulin (2.5-4.0) gm/dl Albumin/Globulin Ratio (0.9-2) Lipase (73-393) U/L Procalcitonin (0-0.5) ng/ml TSH (0.300-4.500) uIu/ml Urine Color Urine Appearance (Clear) Urine pH (4.5-7.5) Ur Specific [place] (1.000-1.030) Urine Protein (Negative) Urine Glucose (UA) (Negative) Urine Ketones (Negative) Urine Blood (Negative) Urine Nitrite (Negative) Urine Bilirubin (Negative) Urine Urobilinogen (Negative) Ur Leukocyte Esterase (Negative) COVID-19 Eval Order [facility]FluRsv at [facility] SARS-CoV-2 (PCR) NEGATIVE (Negative) Influenza Type A (PCR) Negative (Neg) Influenza Type B (PCR) Negative (Neg) RSV (RT-PCR) Negative (Neg) Discharge Plan Visit Data Chief Complaint: Lethargic ED Provider: Tru Garcia Discharge Problem: Chronic hypercapnic respiratory failure, Cellulitis of leg, right, Fatigue Patient Disposition: Being Evaluated by Hospitalist Discharge Instructions Interventions: ED Discharge Assessment Last Done: 10/28/20 19:41 Forms Stand Alone Forms: My [facility] Prescriptions Prescriptions: No Action albuterol sulfate 90 mcg/actuation aerosol powdr breath activated 2 inh inhalation Q6H PRN (Reason: Shortness Of Breath Or Wheezing) RF: 0 Stiolto Respimat 2.5-2.5 mcg/actuation mist 2 puff inhalation DAILY Qty: 4 RF: 3 clonazepam [Klonopin] 0.5 mg tablet 0.5 mg PO TID PRN (Reason: Anxiety) RF: 0 furosemide 40 mg tablet 40 mg PO DIRECTED PRN (Reason: Fluid Retention) RF: 0 fluoxetine [Prozac] 40 mg capsule 80 mg PO QAM RF: 0 gabapentin [Neurontin] 600 mg tablet See Rx Instructions .ROUTE .COMPLEX RF: 0 omeprazole 40 mg capsule,delayed release(DR/EC) 40 mg PO QAM RF: 0 carvedilol [Coreg] 3.125 mg tablet 3.125 mg PO BID RF: 0 lisinopril [Zestril] 10 mg tablet 10 mg PO QAM RF: 0 trazodone 300 mg tablet 300 mg PO HS RF: 0 insulin lispro [Humalog U-100 Insulin] 100 unit/mL solution 23 unit subcut TIDM RF: 0 olanzapine [Zyprexa] 20 mg tablet 20 mg PO HS RF: 0 rosuvastatin [Crestor] 20 mg tablet 20 mg PO QAM RF: 0 Linzess 290 mcg capsule 290 mcg PO DAILY PRN (Reason: Gi Upset) RF: 0 naproxen sodium 550 mg tablet 550 mg PO AMPM RF: 0 levothyroxine [Synthroid] 50 mcg Tablet 50 mcg PO DAILYBB Qty: 30 RF: 5 zafirlukast [Accolate] 20 mg tablet 20 mg PO BID RF: 0 methocarbamol 500 mg tablet 500 mg PO Q8H PRN (Reason: Muscle Spasm) RF: 0 timolol maleate 0.5 % drops 1 drp ophthalmic (eye) DIRECTED RF: 0 aspirin [Sindy Aspirin] 325 mg Tablet 162.5 mg PO DAILY RF: 0 Lantus U-100 Insulin 100 unit/mL solution 75 unit SUBCUT QAM RF: 0 Referrals Referrals: Ani Howell MD [Primary Care Provider] -
--- NOTE | 2020-10-28 12:48 | Electrocardiogram Report ---
Test Reason : Blood Pressure : / mmHG Vent. Rate : 071 BPM Atrial Rate : 071 BPM P-R Int : 152 ms QRS Dur : 084 ms QT Int : 330 ms P-R-T Axes : 067 002 056 degrees QTc Int : 358 ms Normal sinus rhythm Nonspecific T wave abnormality Abnormal ECG When compared with ECG of 22-SEP-2020 22:48, Nonspecific T wave abnormality has replaced inverted T waves in Lateral leads QT has shortened Confirmed by Lionel Eugene ([id number]) on 10/28/2020 12:48:10 PM Referred By: Confirmed By:Lionel Eugene
[2020-10-28 13:03] LABS: Basophils # (auto) 0.05 K/uL (0-0.2); Basophils % (auto) 0.7 %; Eosinophils # (auto) 0.28 K/uL (0-0.5); Eosinophils % (auto) 4.1 %; Hematocrit (blood only) 36.2 % (42-52); Lymphocytes # (auto) 1.41 K/uL (1.2-3.4); Lymphocytes % (auto) 20.8 %; Mean Corpuscular Hemoglobin 30.5 pg (25-34); Mean Corpuscular Hgb Conc 33.1 g/dL (32-36); Mean Corpuscular Volume 91.9 fL (80-100); Mean Platelet Volume 10.7 fL (7.4-10.4); Monocytes # (auto) 0.36 K/uL (0.11-0.59); Monocytes % (auto) 5.3 %; Neutrophils # (auto) 4.67 K/uL (1.4-6.5); Neutrophils % (auto) 69.1 %; Platelet Count 143 K/uL (130-400); RDW Coefficient of Variation 13.6 % (11.5-14.5); RDW Standard Deviation 45.5 fL (36.4-46.3); Red Blood Count 3.94 M/uL (4.7-6.1); White Blood Count 6.77 K/uL (4.8-10.8)
[2020-10-28 13:06] LABS: Base Excess VBG 1.7 mEq/L; Oxygen Saturation VBG 88.4 %; pH VBG 7.33 (7.36-7.41)
[2020-10-28 13:14] LABS: Prothrombin Time 10.3 Seconds (9.0-12.0)
[2020-10-28 13:19] LABS: Alanine Aminotransferase 19 U/L (12-78); Albumin Level 3.9 gm/dl (3.4-5.0); Aspartate Aminotransferase 10 U/L (15-37); BUN Creatinine Ratio 21.6 (10-20); Blood Urea Nitrogen 23 mg/dl (7-18); Calcium 9.5 mg/dl (8.5-10.1); Carbon Dioxide 28 mmol/L (21-32); Chloride 106 mmol/L (98-107); Creatinine Clr Calc Pharmacy 116.2 ml/min; Est GFR (African American) 92.2; Est GFR (Non-African American) 79.5; Glucose 132 mg/dl (70-99); Lipase 63 U/L (73-393); Magnesium 2.1 mg/dl (1.8-2.4); Potassium 4.9 mmol/L (3.5-5.1); Sodium 137 mmol/L (136-145)
--- NOTE | 2020-10-28 13:21 | XRay Report ---
XR chest 1V portable HISTORY: 55 years-old Male weakness acute weakness COMPARISON: Chest radiograph 09/22/2020 TECHNIQUE: Portable AP view of the chest FINDINGS: Cardiac megaly with pulmonary vascular congestion. There is no pneumothorax, pleural effusion, airspa ce consolidation or overt pulmonary edema. Bones of the chest appear grossly intact. IMPRESSION: Cardiomegaly with pulmonary vascular congestion. ACT 112: Negative or not required by law. The above report was generated using voice recognition software. It may contain grammatical, syntax o r spelling errors. Electronically signed by: Ernie Johnson M.D. 10/28/2020 1:19 PM
[2020-10-28 13:30] LABS: Albumin Globulin Ratio 1.3 (0.9-2); Alkaline Phosphatase 78 U/L (45-117); Bilirubin,Total 0.3 mg/dl (0.2-1); Thyroid Stimulating Hormone 0.748 uIu/ml (0.300-4.500); Total Protein 6.9 gm/dl (6.4-8.2); Troponin I < 0.015 ng/ml (0-0.045)
--- NOTE | 2020-10-28 14:11 | Ultrasound Report ---
RIGHT LOWER EXTREMITY VENOUS DOPPLER HISTORY: Right leg swelling COMPARISON STUDY: None. FINDINGS: There is normal compressibility, flow, and augmentation within the right lower extremity de ep venous system. IMPRESSION: No DVT within the right lower extremity ACT 112: Negative or not required by law. Electronically signed by: Michael Dillard M.D. 10/28/2020 2:10 PM
--- NOTE | 2020-10-28 15:37 | History & Physical Report ---
Date of Service October 28, 2020 Assessment & Plan (1) Cellulitis of leg, right: Patient complains of increasing tightness and pain in the right lower extremity for last 2 to 3 days. Recently seen in the outpatient clinic and received ceftriaxone At this time patient has new leukocytosis. He has no fever. Procalcitonin is negative Patient does have some increased erythema and tenderness to the right lower extremity and slight edema compared to left leg. Lower extremity duplex is negative for DVT We will continue Zosyn while inpatient Continue to monitor vital signs and repeat CBC in the morning No evidence of sepsis Continue to provide supportive care. (2) Type 2 diabetes mellitus: Elevated hemoglobin A1c Recently seen by Dr. Mei in the endocrinology office and Lantus and Humalog adjusted We will continue with increased level of Lantus 25 units daily and will continue outpatient regimen with Humalog Continue diabetic diet while inpatient Further management as an outpatient especially in light of chronic cellulitis of lower extremity (3) Diabetic ulcer of right foot: Continue with outpatient wound care management No indication for wound care consult at this time Anticipate discharge home tomorrow (4) Chronic hypercapnic respiratory failure: Obesity hypoventilation syndrome with obstructive sleep apnea Most recently seen in the pulmonary clinic by Dr. Hernandez on 09/30/2020 Patient has a trilogy noninvasive ventilator at home Patient also following with his sleep clinic with Dr. Tejada Continue to encourage use of noninvasive ventilator at home Chronic hypercapnia review of records PFTs are to be scheduled before his next outpatient visit Order inpatient BiPAP at 16/8 with a backup rate of 18 Continue outpatient inhaler therapy and zafirlukast (5) History of tobacco abuse: Quit smoking cigarettes several years ago secondary to cost Currently uses smokeless Tobacco in a pouch. 1 can every 2 days Counseled on risk of oral cancer as well as lung cancer and colon cancer Suggest he complete abstention of tobacco products Patient said he will think about it (6) Macular degeneration: Continue timolol drops (7) DVT prophylaxis: Lower extremity Doppler without evidence of acute DVT Heparin 7500 units every 8 hours SQ Please refer to Dr. Blount's addendum for further recommendations and correc tions. History of Present Illness Primary Care Provider: Ani Howell MD Attending: Dr. Blount Santos Smiley is a 55-year-old male with a past medical history including uncontrolled diabetes mellitus type 2 on chronic insulin, morbid obesity, chronic hypercapnic respiratory failure, obstructive sleep apnea, obesity hypoventilation syndrome, history of cigarette smoking, current everyday smokeless tobacco use, macular degeneration, Klinefelter syndrome, diabetic ulcer right foot, chronic cellulitis of right leg. The patient reports that he was admitted in August for cellulitis of lower extremity. Blood cultures at that time were negative. He underwent treatment with IV antibiotics and was discharged on oral antibiotics. He has had ongoing problems with chronic venous stasis of the bilateral lower extremities. He is also had chronic problems with apparent cellulitis of the right lower extremity. He recently was seen in the outpatient setting received intramuscular ceftriaxone. He reports over the last 2 to 3 days his leg has increased pain and feels tight. He thought he might have a fever the other night but turned the heat off in the home and felt better. He has no documented fever. He has no diaphoresis or rigors. He denies any other acute complaints. He did have a venous Doppler done in the emergency department which was found to be negative for DVT. Regarding his diabetes, hemoglobin A1c is elevated at 10.8%. He recently saw Dr. Mei in the outpatient clinic who increased his Lantus from 60 units daily to 75 units daily and decreased his scheduled Humalog from 25 units 3 times daily to 23 units 3 times daily. Patient reports that his sugar was over 300 this morning and over the weekend it was over 500. No history of Covid but his did pass away from Covid pneumonia in May of last year. The patient did just receive his second vaccination with Pfizer 3 weeks ago. Allergies Allergy/AdvReac Type Severity Reaction Status Date / Time copper Allergy Mild skin rash, Verified 10/28/20 12:34 itching cider vinegar AdvReac Mild Redness,swe Verified 10/28/20 12:34 ating Home Medications Medication Instructions Recorded Confirmed Type albuterol sulfate 90 mcg/actuation 2 inh INHALATION Q6H PRN 07/30/20 10/28/20 History breath activated powder inhaler methocarbamol 500 mg PO Q8H PRN 08/05/20 10/28/20 History furosemide 40 mg PO DIRECTED PRN 09/09/20 10/28/20 History Linzess 290 mcg PO DAILY PRN 09/22/20 10/28/20 History carvedilol [Coreg] 3.125 mg PO BID 09/22/20 10/28/20 History fluoxetine [Prozac] 80 mg PO QAM 09/22/20 10/28/20 History gabapentin [Neurontin] See Rx Instructions .ROUTE .COMPLEX 09/22/20 10/28/20 History insulin lispro [Humalog U-100 23 unit SUBCUT TIDM 09/22/20 10/28/20 History Insulin] lisinopril [Zestril] 10 mg PO QAM 09/22/20 10/28/20 History naproxen sodium 550 mg PO AMPM 09/22/20 10/28/20 History olanzapine [Zyprexa] 20 mg PO HS 09/22/20 10/28/20 History omeprazole 40 mg PO QAM 09/22/20 10/28/20 History rosuvastatin [Crestor] 20 mg PO QAM 09/22/20 10/28/20 History trazodone 300 mg PO HS 09/22/20 10/28/20 History levothyroxine [Synthroid] 50 mcg PO DAILYBB #30 tab 09/26/20 10/28/20 Rx tiotropium 2.5 mcg-olodaterol 2.5 2 puff INHALATION DAILY #4 g 09/30/20 10/28/20 Rx mcg/actuation mist for inhalation timolol maleate 1 drp OPHTHALMIC (EYE) DIRECTED 10/04/20 10/28/20 History zafirlukast 20 mg tablet 20 mg PO BID tab 10/09/20 10/28/20 History aspirin [Sindy Aspirin] 162.5 mg PO DAILY 10/28/20 10/28/20 History clonazepam 0.5 mg tablet 0.5 mg PO TID PRN tab 10/28/20 10/28/20 History insulin glargine [Lantus U-100 75 unit SUBCUT QAM 10/28/20 10/28/20 History Insulin] Past Med/Surg History Medical History Anxiety Asthma Cardiac murmur Cellulitis of leg right knee to right foot -- hospitalized [facility] treated with IV antibiotics. 08/2020 Chronic back pain Chronic hypercapnic respiratory failure COPD (chronic obstructive pulmonary disease) Diabetes mellitus type 2, uncontrolled, with complications Excessive daytime sleepiness Gastroparesis GERD (gastroesophageal reflux disease) Hiatal hernia History of tobacco abuse Hx of respiratory failure r/t pneumonia 09/08/2019. treated at [place]. 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 Hypoxia Klinefelters syndrome Macular degeneration Morbid obesity with BMI of 40.0-44.9, adult Obesity hypoventilation syndrome Obstructive sleep apnea (adult) (pediatric) ARAM (obstructive sleep apnea) no current device since he moved to [place] Peripheral neuropathy Pneumonia hx (gets annually) Pneumonia Polypharmacy Schizophrenia Seizure disorder hx, last seizure 2000 -- treated with depakote and was taken off of depakote about ~2010. no problems since. Shortness of breath Tachycardia treated with coreg. to follow with Dr Chapman 09/2020. (hx of following with Dr Clark, cardiology at [place], [place]) Type 2 diabetes mellitus IDDM Surgical History H/O hernia repair umbilical H/O right heart catheterization no stents. ~2018 in [place] History of colonoscopy History of esophagogastroduodenoscopy (EGD) History of gastric bypass gastric sleeve S/P epidural steroid injection Family History Other No family history of adverse response to anesthesia Social History (Updated 10/28/20 @ 15:44 by Gurinder Hernandez PA-C) Smoking Status: Former smoker Tobacco Type: Cigarettes and Smokeless Tobacco (Dip or Chew) Years Smoked: 30; Number of Years Since Quit: 7; Second Hand Exposure: No; Do You Dip or Chew Tobacco: Yes (Pouches); Tobacco Cessation Education Requested by Patient: No Hx Alcohol Use: Yes Alcohol type: beer Alcohol Intake Frequency: Monthly or Less Hx Substance Use: No Preferred Language: Estonian Communication Ability: Effective 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 Immunizations: Received second Pfizer vaccination for Covid 3 weeks ago Review of Systems Review of Systems: All systems reviewed & are unremarkable except as noted in HPI & below Physical Exam Physical Exam: GENERAL : No acute distress EYES: No icterus, gaze conjugate. Pupils equal round and reactive to light NOSE: No evidence of epistaxis MOUTH: No lesions or candidiasis. Mucosa is moist. Upper dentures in place. Tongue is dark in color but patient reports tobacco abuse with chewing tobacco. NECK: Supple. No carotid bruits. LUNGS: CTA B/L, no wheezes, rales or rhonchi HEART: Regular, rate controlled ABDOMEN: Soft, NT, ND, BS Present EXTREMITIES: Minimal right LE edema, pedal pulses intact and equal bilaterally.Patient feels that his calf on the right side is swollen.Both calves are measured. Right calf is 420 cm. Left calf is 410 cm.There is no evidence of an open sore although patient does have a scabbed over area where it looks like he was picking at his leg.No pain or tenderness with touch.Minimal erythema. Skin temperature appears equal right versus left. NEURO: A&OX3 Results & Data Results & Data ([facility]) Vital Signs (Past 12 Hours) Vital Signs Temp Pulse Resp BP Pulse Ox 10/28/20 13:40 93 10/28/20 13:30 93 10/28/20 13:20 17 92 10/28/20 13:10 20 94 10/28/20 13:00 22 95 10/28/20 12:50 22 95 10/28/20 12:40 17 91 10/28/20 12:20 17 10/28/20 12:10 24 95 10/28/20 12:00 66 19 94 10/28/20 11:50 66 16 10/28/20 11:40 68 14 10/28/20 11:30 67 19 10/28/20 11:22 36.8 C 71 14 144/84 H 94 10/28/20 11:19 66 15 144/84 H 95 Laboratory Results 10/28/20 12:45 10/28/20 12:45 INR 1.0 (0.9-1.1) 10/28/20 12:45 Laboratory Tests 10/28/20 12:45 Procalcitonin < 0.05 Diagnostic Findings Chest x-ray reviewed. Appears to have some minimal pulmonary edema. Otherwise no acute findings. Medications Administered Zosyn administered by ER physician Code Status & VTE Plan Code Status Full resuscitation: Level I VTE Prophylaxis Plan VTE Prophylaxis will be ordered: Yes Supervising Physician Co-Signing Physician Notes I personally saw and examined the patient. I verified all jaime points and agree with VIRIDIANA Hernandez with the following exceptions and/or additions: 55 year old male with 2-3 days of fatigue, increased glucose levels with worsening erythema, swelling and pain of his right leg. 10 day course of doxycycline prescribed on 10/03/20. Previously difficult to treat cellulitis without IV antibiotics in August. O/E A&Ox3, mild erythema surrounding scabbed wound on anterior right leg that spreads approximately 5 cm radially, increased swelling but no warmth to touch. Altered mental status - possibly due to infection vs. increased clonazepam use. Prior episode in Sep related to insomnia and reduction in clonazepam. Unlikely hypercapnia having any significant effect given current VBG. 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
[2020-10-28 16:29] LABS: Influenza A virus by PCR Negative (Neg); Influenza B virus by PCR Negative (Neg); RSV by PCR Negative (Neg); SARS CoV2 RNA(COVID-19) InHosp NEGATIVE (Negative)
[2020-10-28] MEDS ORDERED: DEXTROSE 50% 50 ML SYRINGE IV PRN (20:28)
[2020-10-28] MEDS ORDERED: GLUCOSE 40% GEL 15 GM TUBE PO PRN (20:28)
[2020-10-28] MEDS ORDERED: GLUCOSE 10 TABS/TUBE PO PRN (20:28)
[2020-10-28] MEDS ORDERED: METHOCARBAMOL 500 MG TABLET PO PRN (20:28)
[2020-10-28] MEDS ORDERED: LINACLOTIDE 145 MCG CAPSULE PO PRN (20:28)
[2020-10-28] MEDS ORDERED: GLUCAGON FOR INJ 1 MG VIAL SQ PRN (20:28)
[2020-10-28] MEDS ORDERED: FUROSEMIDE 40 MG TAB PO PRN (20:28)
[2020-10-28] MEDS ORDERED: PIPERACILL/TAZOBAC CONSULT ACTIVE PRN (20:28)
[2020-10-28] MEDS ORDERED: TIMOLOL MALEATE 0.5% OP SCH (20:28)
[2020-10-28] MEDS ORDERED: ALBUTEROL HFA 8 GM INHALER INH PRN (20:28)
[2020-10-28] MEDS ORDERED: CARBOHYDRATES FOR HYPOGLYCEMIA PO PRN (20:28)
[2020-10-28] MEDS ORDERED: PIPERACILLIN/TAZOBACTAM 3.375 GM in DEXTROSE 5% 100 ML IV SCH (20:28)
[2020-10-28] MEDS ORDERED: PHARMACY GLYCEMIC MGMT CONSULT PRN (20:44)
[2020-10-28] MEDS ORDERED: PIPERACILLIN/TAZOBACTAM 4.5 GM in DEXTROSE 5% 100 ML IV ONE (21:00)
[2020-10-28] MEDS ORDERED: OLANZapine 20 MG TABLET PO SCH (21:00)
[2020-10-28] MEDS ORDERED: GABAPENTIN 600 MG TAB PO SCH (21:00)
[2020-10-28] MEDS ORDERED: traZODone HCL 100 MG TAB PO SCH (21:00)
[2020-10-28] MEDS: carvediloL 3.125 MG TAB PO SCH (21:25)
[2020-10-28] MEDS: INSULIN ASPART 100 UNITS/ML 3 ML PEN SC SCH ×2 (22:24→22:25)
[2020-10-28] MEDS: HEPARIN SOD 5,000 UNIT/0.5 ML VIAL SQ SCH (22:26)
[2020-10-28] MEDS: clonazePAM 0.5 MG TAB PO PRN (22:27)
[2020-10-28] MEDS ORDERED: MELATONIN 3 MG TAB PO PRN (23:44)
[2020-10-29] MEDS ORDERED: INSULIN ASPART 100 UNITS/ML 3 ML PEN SC ONE (02:00)
[2020-10-29] MEDS: HEPARIN SOD 5,000 UNIT/0.5 ML VIAL SQ SCH ×2 (05:55→13:36)
[2020-10-29] MEDS ORDERED: LEVOTHYROXINE SODIUM 50 MCG TABLET PO SCH (06:30)
[2020-10-29 06:31] LABS: Hematocrit (blood only) 37.2 % (42-52); Hemoglobin 12.4 g/dL (14.0-18.0); Mean Corpuscular Hemoglobin 30.9 pg (25-34); Mean Corpuscular Hgb Conc 33.3 g/dL (32-36); Mean Corpuscular Volume 92.8 fL (80-100); Mean Platelet Volume 10.6 fL (7.4-10.4); Platelet Count 133 K/uL (130-400); RDW Coefficient of Variation 13.6 % (11.5-14.5); RDW Standard Deviation 46.1 fL (36.4-46.3); Red Blood Count 4.01 M/uL (4.7-6.1); White Blood Count 6.68 K/uL (4.8-10.8)
[2020-10-29 07:19] LABS: BUN Creatinine Ratio 19.2 (10-20); Calcium 9.2 mg/dl (8.5-10.1); Creatinine Clr Calc Pharmacy 131.7 ml/min; Est GFR (African American) 109.6; Est GFR (Non-African American) 94.5; Potassium 4.1 mmol/L (3.5-5.1)
[2020-10-29] MEDS: NAPROXEN 250 MG TAB PO SCH ×2 (08:52→16:52)
[2020-10-29] MEDS: GABAPENTIN 600 MG TAB PO SCH ×2 (08:52→13:29)
[2020-10-29] MEDS: carvediloL 3.125 MG TAB PO SCH (08:54)
[2020-10-29] MEDS ORDERED: PANTOprazole 40 MG TAB PO SCH (09:00)
[2020-10-29] MEDS ORDERED: ROSUVASTATIN CALCIUM 20 MG TAB PO SCH (09:00)
[2020-10-29] MEDS ORDERED: UMECLIDINIUM/VILANTEROL 62.5/25MCG 7 PUFFS/INHALER INH SCH (09:00)
[2020-10-29] MEDS ORDERED: ASPIRIN 325 MG ECTAB PO SCH (09:00)
[2020-10-29] MEDS ORDERED: FLUoxetine HCL 20 MG CAP PO SCH (09:00)
[2020-10-29] MEDS ORDERED: lisinopril 10 MG TAB PO SCH (09:00)
[2020-10-29] MEDS ORDERED: INSULIN GLARGINE SOLOSTAR 100 UNITS/ML 3 ML PEN SQ SCH (09:00)
[2020-10-29] MEDS: clonazePAM 0.5 MG TAB PO PRN ×2 (09:00→13:33)
[2020-10-29] MEDS: INSULIN ASPART 100 UNITS/ML 3 ML PEN SC SCH ×2 (09:14→12:32)
[2020-10-29] MEDS ORDERED: PIPERACILLIN/TAZOBACTAM 4.5 GM in DEXTROSE 5% 100 ML IV ONE (14:45)
--- NOTE | 2020-10-29 15:30 | Pharmacy Report ---
Pharmacy Glycemic Short Note 2 - Date of Service October 29, 2020 - Glycemic Short BSG Results (Last 24 hours): 10/28/20 10/29/20 10/29/20 20:25 02:05 06:11 Glucose 167 H POC Glucose 215 H 140 H 10/29/20 10/29/20 08:18 12:19 Glucose POC Glucose 204 H 262 H OUTPATIENT ANTIDIABETIC REGIMEN: * Lantus 75 units qam * Humalog 23 units TIDM * A1C: 10.4% 09-23-20 ASSESSMENT: * Dosing based on outpatient regimen and previous glycemic service data. * BSG ranging from 140-262 today. BSGs have been labile at times in the past. Will continue current regimen and if dinner postprandial elevated,than may consider tightening novolog further. * Patient is tolerating a diet. PLAN FOR INPATIENT GLYCEMIC CONTROL: * Hold outpatient oral diabetes medications * Basal insulin * Lantus 75 units SQ AM * Bolus insulin * NovoLog per scale ACHS or Q6hrs while NPO * Goal Range: Low 110 mg/dL - High 140 mg/dL * Correction Factor: 10 mg/dL/unit * Nutritional / Prandial insulin per carb ratio of 1 unit per 3 grams CHO consumed
--- NOTE | 2020-10-29 16:33 | Discharge Summary ---
Date of Service October 29, 2020 Admission HPI Per Admitting Provider Attending: Dr. Blount Santos Smiley is a 55-year-old male with a past medical history including uncontrolled diabetes mellitus type 2 on chronic insulin, morbid obesity, chronic hypercapnic respiratory failure, obstructive sleep apnea, obesity hypoventilation syndrome, history of cigarette smoking, current everyday smokeless tobacco use, macular degeneration, Klinefelter syndrome, diabetic ulcer right foot, chronic cellulitis of right leg. The patient reports that he was admitted in August for cellulitis of lower extremity. Blood cultures at that time were negative. He underwent treatment with IV antibiotics and was discharged on oral antibiotics. He has had ongoing problems with chronic venous stasis of the bilateral lower extremities. He is also had chronic problems with apparent cellulitis of the right lower extremity. He recently was seen in the outpatient setting received intramuscular ceftriaxone. He reports over the last 2 to 3 days his leg has increased pain and feels tight. He thought he might have a fever the other night but turned the heat off in the home and felt better. He has no documented fever. He has no diaphoresis or rigors. He denies any other acute complaints. He did have a venous Doppler done in the emergency department which was found to be negative for DVT. Regarding his diabetes, hemoglobin A1c is elevated at 10.8%. He recently saw Dr. Mei in the outpatient clinic who increased his Lantus from 60 units daily to 75 units daily and decreased his scheduled Humalog from 25 units 3 times daily to 23 units 3 times daily. Patient reports that his sugar was over 300 this morning and over the weekend it was over 500. No history of Covid but his did pass away from Covid pneumonia in May of last year. The patient did just receive his second vaccination with Pfizer 3 weeks ago. Admission Exam Per Admitting Provider GENERAL : No acute distress EYES: No icterus, gaze conjugate. Pupils equal round and reactive to light NOSE: No evidence of epistaxis MOUTH: No lesions or candidiasis. Mucosa is moist. Upper dentures in place. Tongue is dark in color but patient reports tobacco abuse with chewing tobacco. NECK: Supple. No carotid bruits. LUNGS: CTA B/L, no wheezes, rales or rhonchi HEART: Regular, rate controlled ABDOMEN: Soft, NT, ND, BS Present EXTREMITIES: Minimal right LE edema, pedal pulses intact and equal bilaterally.Patient feels that his calf on the right side is swollen.Both calves are measured. Right calf is 420 cm. Left calf is 410 cm.There is no evidence of an open sore although patient does have a scabbed over area where it looks like he was picking at his leg.No pain or tenderness with touch.Minimal erythema. Skin temperature appears equal right versus left. NEURO: A&OX3 Principal Diagnosis Left lower extremity swelling Discharge Exam GENERAL : No acute distress EYES: No icterus, gaze conjugate NOSE: No evidence of epistaxis MOUTH: No lesions or candidiasis NECK: Supple LUNGS: CTA B/L, no wheezes, rales or rhonchi HEART: Regular, rate controlled ABDOMEN: Soft, NT, ND, BS Present EXTREMITIES: No LE edema, pedal pulses intact and equal bilaterally. Chronic venous stasis bilaterally. Right lower extremity does have a scabbed area that appears to be from picking. No significant area of erythema. No significant warmth. Skin temperature is the same as of the left leg. NEURO: A&OX3 Discharge Data Allergies Allergy/AdvReac Type Severity Reaction Status Date / Time copper Allergy Mild skin rash, Verified 10/30/20 09:32 itching cider vinegar AdvReac Mild Redness,swe Verified 10/30/20 09:32 ating Consultations 10/28/20 14:53 ED Decision to Admit Stat Ordered Studies 10/28/20 12:05 US venous doppler LE RT Stat RIGHT LOWER EXTREMITY VENOUS DOPPLER HISTORY: Right leg swelling COMPARISON STUDY: None. FINDINGS: There is normal compressibility, flow, and augmentation within the right lower extremity deep venous system. IMPRESSION: No DVT within the right lower extremity Electronically signed by: Michael Dillard M.D. 10/28/2020 2:10 PM Hospital Course (1) Cellulitis of leg, right: Patient complains of increasing tightness and pain in the right lower extremity for last 2 to 3 days. Recently seen in the outpatient clinic and received ceftriaxone At this time patient has no leukocytosis. He has no fever. Procalcitonin is negative Erythema to right lower extremity seems to be resolved. Lower extremity duplex is negative for DVT Received IV Zosyn while inpatient No indication for further antibiotics as patient's white count is normal, no fever, procalcitonin is normal Discharge home Follow-up with family practice as needed (2) Type 2 diabetes mellitus: Sugars better controlled while inpatient as compared to patient's self- reported BSG at home suggests poor compliance with home regimen of insulin Recently seen by Dr. Mei in the endocrinology office and Lantus and Humalog adjusted We will continue with increased level of Lantus 25 units daily and will continue outpatient regimen with Humalog Diabetic diet while inpatient May benefit from outpatient diabetic education versus home health. (3) Diabetic ulcer of right foot: Continue with outpatient wound care management as needed No indication for wound care consult at this time Follow-up with family practice (4) Chronic hypercapnic respiratory failure: Obesity hypoventilation syndrome with obstructive sleep apnea Most recently seen in the pulmonary clinic by Dr. Hernandez on 09/30/2020 Patient has a trilogy noninvasive ventilator at home Patient also following with his sleep clinic with Dr. Tejada Continue to encourage use of noninvasive ventilator at home Chronic hypercapnia per review of records PFTs are to be scheduled before his next outpatient visit Order inpatient BiPAP at 16/8 with a backup rate of 18 Continue outpatient inhaler therapy and zafirlukast Discharge home with continued use of trilogy noninvasive ventilator (5) History of tobacco abuse: Quit smoking cigarettes several years ago secondary to cost Currently uses smokeless Tobacco in a pouch. 1 can every 2 days Counseled on risk of oral cancer as well as lung cancer and colon cancer Suggest he complete abstention of tobacco products Patient said he will think about it (6) Macular degeneration: Continue timolol drops Total Time Total Time Spent Total Time Spent (In Minutes): 45 Total Time Includes: Examination of the Patient, Discharge Planning, Medication Reconciliation, Communication With Other Providers and Other Discharge Plan Discharge Items Patient Disposition: Home - Self-Care Reason For Visit: LETHARGIC Discharge Diagnosis: Right lower extremity cellulitis Lower extremity swelling Activity: Resume your previous activity Lifting: Gradually increase as tolerated Bathing: No limitations Exercise/Sports: Gradually increase as tolerated Weightbearing: Full weightbearing Non-emergency contact: Primary Care Provider Call non-emergency contact if: your symptoms worsen and you have a fever Follow-up/Referrals: Ani Howell MD [Primary Care Provider] - Diet: Carb Consistent or DM2 and Heart Healthy Addtl Attending Provider Instructions: You were admitted with suspicion of right lower extremity cellulitis based on redness and swelling of the right lower extremity. Your labs all came back negative and did not show any signs of infection. You received IV antibiotics in the form of Zosyn while in inpatient. After review of all your labs, you are being sent home without any further antibiotics. This most likely is chronic venous stasis as a result of your weight. If you should have swelling of this leg again, you should elevate the leg and apply ice packs. If you have increased warmth or if you develop a fever, please call your family doctor or report to the emergency department. Pending Studies at Discharge: Yes Studies:: Blood cultures x2 have been drawn but have not yet been reported. We will call you if they are found to be positive. Stand-Alone Forms: My [facility] [employer], Smoking Cessation Medications and DC Order Prescriptions: Continued albuterol sulfate 90 mcg/actuation aerosol powdr breath activated 2 inh inhalation Q6H PRN (Reason: Shortness Of Breath Or Wheezing) RF: 0 Stiolto Respimat 2.5-2.5 mcg/actuation mist 2 puff inhalation DAILY Qty: 4 RF: 3 clonazepam [Klonopin] 0.5 mg tablet 0.5 mg PO TID PRN (Reason: Anxiety) RF: 0 furosemide 40 mg tablet 40 mg PO DIRECTED PRN (Reason: Fluid Retention) RF: 0 fluoxetine [Prozac] 40 mg capsule 80 mg PO QAM RF: 0 gabapentin [Neurontin] 600 mg tablet See Rx Instructions .ROUTE .COMPLEX RF: 0 omeprazole 40 mg capsule,delayed release(DR/EC) 40 mg PO QAM RF: 0 carvedilol [Coreg] 3.125 mg tablet 3.125 mg PO BID RF: 0 lisinopril [Zestril] 10 mg tablet 10 mg PO QAM RF: 0 trazodone 300 mg tablet 300 mg PO HS RF: 0 olanzapine [Zyprexa] 20 mg tablet 20 mg PO HS RF: 0 rosuvastatin [Crestor] 20 mg tablet 20 mg PO QAM RF: 0 Linzess 290 mcg capsule 290 mcg PO DAILY PRN (Reason: Gi Upset) RF: 0 naproxen sodium 550 mg tablet 550 mg PO AMPM RF: 0 levothyroxine [Synthroid] 50 mcg Tablet 50 mcg PO DAILYBB Qty: 30 RF: 5 zafirlukast [Accolate] 20 mg tablet 20 mg PO BID RF: 0 methocarbamol 500 mg tablet 500 mg PO Q8H PRN (Reason: Muscle Spasm) RF: 0 timolol maleate 0.5 % drops 1 drp ophthalmic (eye) DIRECTED RF: 0 aspirin [Isndy Aspirin] 325 mg Tablet 162.5 mg PO DAILY RF: 0 Lantus U-100 Insulin 100 unit/mL solution 75 unit SUBCUT QAM RF: 0 No Action insulin lispro [Humalog U-100 Insulin] 100 unit/mL solution 22 unit subcut TIDM RF: 0 Discharge Orders: Discharge Order (Routine); Ordered 10/29/20 Ordered By: Gurinder Barber/Other Patient Handouts: Discharge Instructions for ... Admission Data Admit Date/Time: 10/28/20 15:55 Attending Provider: John Swain Admit Provider: Dylan Blount Primary Care Provider: Ani Howell Other Providers: Dylan Blount Other Interventions: Discharge Summary Assessment (RN) Last Done: 10/29/20 15:37 Supervising Physician Co-Signing Physician Notes Patient seen and examined on the day of discharge. I agree with the discharge summary by Gurinder KEMP. I have reviewed the chart including labs, imaging and plans for discharge. 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
[2020-10-29] MEDS ORDERED: PIPERACILLIN/TAZOBACTAM 4.5 GM in DEXTROSE 5% 100 ML IV SCH (19:00)
== END 2020-10-29 17:09 | disposition home or self-care (01) ==
LOC: 3E 11:11 → ED 11:11 → SUATTDRO 15:55 → 3E 19:41

== ENCOUNTER 2021-01-28 07:58 | Observation (INO) ==
[2021-01-28] MEDS ORDERED: SODIUM CHLORIDE 0.9% 500 ML IV ONE (08:19)
[2021-01-28] MEDS ORDERED: cefTRIAXone SODIUM 1,000 MG/50 ML BAG IV STA (08:19)
--- NOTE | 2021-01-28 08:23 | Emergency Department Note ---
Impression & Plan Hypoglycemia, Cellulitis of leg, right, At risk for hypoglycemia, Confusion ED Provider Note NAME: NOA SCHNEIDER AGE: 55 SEX: M : 1965 ARRIVES VIA: Ambulance INFORMANT: Patient ED PROVIDER(S): Elias Sosa DO CHIEF COMPLAINT: Hypoglycemia HPI: Patient is a 55-year-old male who presents the ER with a past medical history of diabetes, chest pain, syncope, hypertension, hyperlipidemia, and Klinefelter syndrome who presents the ER for low blood sugar. Patient presented to [facility] to have cataract surgery. He was found to be confused, diaphoretic and ill-appearing. His blood sugar was 29. They gave him an amp of D50. His blood sugar trended back up to low 100s and then it trended back down to the 70s and put him on a D5 drip. They finally got him awake enough to start eating. Patient believes that he took half dose of his Lantus which was 40 units and took half dose of NovoLog at about 3 AM. He took 3 glucose tablets prior to arrival as well. Dr. Aguilar notes that the patient is still confused and want sent him over here for further evaluation. Patient also is complaining of right leg redness. Notes this has been getting worse for the past several days. Denies any headache or change in vision. No chest pain or shortness of breath. No nausea, vomiting or diarrhea. ROS: See above HPI for pertinent positives & negatives. A total of 10 systems reviewed and were otherwise negative. PAST MEDICAL HISTORY:See Below PAST SURGICAL HISTORY:See Below FAMILY HISTORY:See Below SOCIAL HISTORY:See Below HOME MEDICATIONS:See Below ALLERGIES:See Below VITALS:See Below PHYSICAL EXAMINATION: GENERAL: Sitting up in bed, slightly ill-appearing, slurring words but answering questions appropriately EYE EXAM: normal conjunctiva. PERRL and EOM's grossly intact. OROPHARYNX: no exudate, no erythema, lips, buccal mucosa, and tongue normal and mucous membranes are moist NECK: supple, no nuchal rigidity, no adenopathy, non-tender LUNGS: Clear to auscultation. Normal chest wall mechanics HEART: no murmurs, S1 normal and S2 normal ABDOMEN: abdomen soft, non-tender, normo-active bowel sounds, no masses, no rebound or guarding. UPPER EXTREMITIES: upper extremities are grossly normal. LOWER EXTREMITIES: No pitting edema. Right lower extremity with circumferential erythema around the wound on the mid anterior bryan NEURO EXAM: Normal sensorium, cranial nerves II-XII grossly intact, slightly slurred speech speech, no weakness of arms, no weakness of legs. MEDICAL DECISION MAKING: Patient is a 55-year-old male who presents the ER referred over from [facility] for hypoglycemia. Upon presentation he is lethargic and slightly confused and slurring his words. IV was established blood work was obtained. He was able to eat here and blood sugars remain persistently above 100. Labs showed no significant leukocytosis and mild anemia at 11. VBG with a pH is 7.29 and a CO2 of 58 which was obtained just after admission. BMP with slightly elevated chloride. Glucose was elevated at 122. LFTs was unremarkable. UA was clean. CT head was negative. He was given IV fluids. He did become much more awake and oriented but was still fairly tired. He was given a dose of IV Rocephin due to the cellulitis of the right lower extremity. As he was still slightly sleepy I did discuss case with the hospitalist due to the recurrent hypoglycemia and mental status. I feels though he is a high risk for recurrent hypoglycemia over the next 24 hours. Triage Nursing notes reviewed. Limited review of prior medical records performed Vital Signs: reviewed and remarkable for no significant abnormalities Differential diagnosis: Infection, hypoglycemia, electrolyte abnormalities, overdose, toxicologic, cardiac sources, intracerebral event, neurologic, trauma, as well as other pathologies. ER treatment provided: See below Diagnostics interpreted by me: ECG: none Cardiac Monitoring: An order was placed for continuous cardiac monitoring. The monitor shows a rate of 74 with sinus rhythm. Laboratory studies: As stated above and show below. Imaging studies: CT head was negative Consultation(s): Discussed with Dr. Love Suarez for further evaluation Procedures: none Critical Care: None Past Med/Surg History Medical History Anxiety Asthma Cardiac murmur Cellulitis of leg right knee to right foot -- hospitalized [facility] treated with IV antibiotics. 08/2020 Chronic back pain Chronic hypercapnic respiratory failure COPD (chronic obstructive pulmonary disease) Gastroparesis GERD (gastroesophageal reflux disease) Hiatal hernia History of tobacco abuse Hx of respiratory failure r/t pneumonia 09/08/2019. treated at [place], [place]. to follow with [facility] NARENDRA 09/2020. Hypothyroidism Klinefelters syndrome Macular degeneration Morbid obesity with BMI of 40.0-44.9, adult ARAM (obstructive sleep apnea) no current device since he moved to [place] Peripheral neuropathy Pneumonia hx (gets annually) Schizophrenia Seizure disorder hx, last seizure 2000 -- treated with depakote and was taken off of depakote about ~2010. no problems since. Shortness of breath Tachycardia treated with coreg. to follow with Dr Chapman 09/2020. (hx of following with Dr Clark, cardiology at [place], [place]) Type 2 diabetes mellitus IDDM Surgical History H/O hernia repair umbilical H/O right heart catheterization no stents. ~2018 in [place] History of colonoscopy History of esophagogastroduodenoscopy (EGD) History of gastric bypass gastric sleeve S/P epidural steroid injection Family History Other No family history of adverse response to anesthesia Social History Smoking Status: Current every day smoker Tobacco Type: Cigarettes and Smokeless Tobacco (Dip or Chew) Years Smoked: 30; Number of Years Since Quit: 7; Second Hand Exposure: No; Hx Alcohol Use: Yes Alcohol type: beer Alcohol Intake Frequency: Monthly or Less Hx Substance Use: No Preferred Language: Latvian Communication Ability: Effective Customer Relations Consultant Required: No Beliefs That Will Affect Care: None marital status: / Current Living Situation: Alone current occupational status: disabled Feels Safe at Home: Yes Assistive Devices: Denture - Upper, Denture - Lower, Glasses and Walker Allergies Allergies Allergy/AdvReac Type Severity Reaction Status Date / Time copper Allergy Mild skin rash, Verified 01/28/21 09:16 itching cider vinegar AdvReac Mild Redness,swe Verified 01/28/21 09:16 ating Home Meds Home Medications Medication Instructions Recorded Confirmed methocarbamol 500 mg PO Q8H PRN 08/05/20 01/28/21 furosemide 40 mg PO UD PRN 09/09/20 01/28/21 Linzess 290 mcg PO QAM PRN 09/22/20 01/28/21 carvedilol [Coreg] 3.125 mg PO BID 09/22/20 01/28/21 fluoxetine [Prozac] 80 mg PO QAM 09/22/20 01/28/21 lisinopril [Zestril] 10 mg PO QAM 09/22/20 01/28/21 naproxen sodium 550 mg PO BID 09/22/20 01/28/21 olanzapine [Zyprexa] 20 mg PO HS 09/22/20 01/28/21 omeprazole 40 mg PO QAM 09/22/20 01/28/21 rosuvastatin [Crestor] 20 mg PO QAM 09/22/20 01/28/21 zafirlukast 20 mg tablet 20 mg PO BID tab 10/09/20 01/28/21 Lantus U-100 Insulin 70 unit SUBCUT QAM 10/28/20 01/28/21 clonazepam 0.5 mg tablet 0.5 mg PO TID tab 11/21/20 01/28/21 flash glucose scanning reader #1 ea 11/25/20 01/06/21 flash glucose sensor #1 ea 11/25/20 01/06/21 Anoro Ellipta 1 inh INHALATION QAM 12/25/20 01/28/21 Simbrinza 1 drp OPB TID 12/25/20 01/28/21 albuterol sulfate 1 inh INHALATION Q4H PRN 12/25/20 01/28/21 trazodone 100 mg PO HS 12/25/20 01/28/21 gabapentin 600 mg tablet See Rx Instructions .ROUTE 01/06/21 01/28/21 .COMPLEX tab semaglutide 0.25 mg SUBCUT WK ml 01/06/21 01/28/21 aspirin [Aspir-81] 81 mg PO QAM 01/28/21 01/28/21 cholecalciferol (vitamin D3) 5,000 unit PO QAM 01/28/21 01/28/21 testosterone [AndroGel] 2 pump TOPICAL .AFTERNOON 01/28/21 01/28/21 trazodone 150 mg PO HS 01/28/21 01/28/21 Previous Rx's Medication Instructions Recorded levothyroxine [Synthroid] 50 mcg PO DAILYBB #30 tab 09/26/20 insulin aspart U-100 100 unit/mL 20 unit SUBCUT TID #2 vial 01/23/21 subcutaneous solution Results & Data (ED) Vital Signs Vital Signs - 24 hr 01/28/21 08:03 01/28/21 08:18 01/28/21 09:00 Temperature 37.2 C Temperature Source Oral Pulse Rate 75 68 Pulse Rate from SpO2 Sensor 68 Respiratory Rate 17 18 Respiratory Effort / Characteristics Non-Labored Spontaneous Respiratory Depth Normal Respiratory Pattern Regular Blood Pressure 122/68 142/74 H Blood Pressure Mean 86 96 Blood Pressure Position Sitting Pulse Oximetry 96 96 95 Oxygen Delivery Method Room Air Room Air Room Air Oxygen Flow Rate Sepsis Recent Fever Within 48 Hours No Sepsis New/Unexplained Change in Mental Status No Sepsis Action Taken by Nursing No Action Required 01/28/21 10:00 01/28/21 10:13 01/28/21 10:19 Temperature Temperature Source Pulse Rate 67 65 Pulse Rate from SpO2 Sensor 66 65 Respiratory Rate 16 14 Respiratory Effort / Characteristics Respiratory Depth Respiratory Pattern Blood Pressure 125/71 125/71 Blood Pressure Mean 89 89 Blood Pressure Position Pulse Oximetry 90 89 L 98 Oxygen Delivery Method Nasal Cannula Oxygen Flow Rate 2 Sepsis Recent Fever Within 48 Hours Sepsis New/Unexplained Change in Mental Status Sepsis Action Taken by Nursing 01/28/21 10:43 01/28/21 11:27 01/28/21 13:01 Temperature Temperature Source Pulse Rate 70 87 77 Pulse Rate from SpO2 Sensor 76 Respiratory Rate 15 20 21 Respiratory Effort / Characteristics Respiratory Depth Respiratory Pattern Blood Pressure 190/107 H 180/112 H 173/82 H Blood Pressure Mean 134 134 112 Blood Pressure Position Pulse Oximetry 95 Oxygen Delivery Method Oxygen Flow Rate Sepsis Recent Fever Within 48 Hours Sepsis New/Unexplained Change in Mental Status Sepsis Action Taken by Nursing Laboratory Data Result diagrams: 01/28/21 08:18 01/28/21 08:18 Lab Results 01/28/21 01/28/21 01/28/21 Range/Units 08:03 08:10 08:10 WBC (4.8-10.8) K/uL RBC (4.7-6.1) M/uL Hgb (14.0-18.0) g/dL Hct (42-52) % MCV (80-100) fL MCH (25-34) pg MCHC (32-36) g/dL RDW Std Deviation (36.4-46.3) fL RDW Coeff of Alex (11.5-14.5) % Plt Count (130-400) K/uL MPV (7.4-10.4) fL Immature Gran % (Auto) % Neut % (Auto) % Lymph % (Auto) % Nobles % (Auto) % Eos % (Auto) % Baso % (Auto) % Neut # (Auto) (1.4-6.5) K/uL Lymph # (Auto) (1.2-3.4) K/uL Nobles # (Auto) (0.11-0.59) K/uL Eos # (Auto) (0-0.5) K/uL Baso # (Auto) (0-0.2) K/uL Immature Gran # (Auto) (0.00-0.02) K/uL VBG pH (7.36-7.41) VBG pCO2 (38-50) mmHg VBG pO2 mmHg VBG HCO3 mmol/L VBG O2 Saturation % VBG Base Excess mEq/L Barometric Pressure mm/Hg Sodium (136-145) mmol/L Potassium (3.5-5.1) mmol/L Chloride (98-107) mmol/L Carbon Dioxide (21-32) mmol/L Anion Gap (3-11) BUN (7-18) mg/dl Creatinine (0.6-1.4) mg/dl Est Cr Clr Drug Dosing ml/min Est GFR ( Amer) ml/min Est GFR (Non-Af Amer) ml/min BUN/Creatinine Ratio (10-20) Glucose (70-99) mg/dl POC Glucose 130 H (70-99) mg/dl Calcium (8.5-10.1) mg/dl Total Bilirubin (0.2-1) mg/dl AST (15-37) U/L ALT (12-78) U/L Alkaline Phosphatase (45-117) U/L Total Protein (6.4-8.2) gm/dl Albumin (3.4-5.0) gm/dl Globulin (2.5-4.0) gm/dl Albumin/Globulin Ratio (0.9-2) Lipase (73-393) U/L TSH 0.738 (0.300-4.500) uIu/ml Random Cortisol 18.42 mcg/dl Urine Color Urine Appearance (Clear) Urine pH (4.5-7.5) Ur Specific Wirt (1.000-1.030) Urine Protein (Negative) Urine Glucose (UA) (Negative) Urine Ketones (Negative) Urine Blood (Negative) Urine Nitrite (Negative) Urine Bilirubin (Negative) Urine Urobilinogen (Negative) Ur Leukocyte Esterase (Negative) COVID-19 Eval Order SARS-CoV-2 (PCR) (Negative) 01/28/21 01/28/21 01/28/21 Range/Units 08:18 08:18 08:41 WBC 7.70 (4.8-10.8) K/uL RBC 3.51 L (4.7-6.1) M/uL Hgb 11.0 L (14.0-18.0) g/dL Hct 34.0 L (42-52) % MCV 96.9 (80-100) fL MCH 31.3 (25-34) pg MCHC 32.4 (32-36) g/dL RDW Std Deviation 48.3 H (36.4-46.3) fL RDW Coeff of Alex 13.7 (11.5-14.5) % Plt Count 128 L (130-400) K/uL MPV 10.2 (7.4-10.4) fL Immature Gran % (Auto) 0.1 % Neut % (Auto) 69.7 % Lymph % (Auto) 17.0 % Nobles % (Auto) 8.3 % Eos % (Auto) 4.5 % Baso % (Auto) 0.4 % Neut # (Auto) 5.36 (1.4-6.5) K/uL Lymph # (Auto) 1.31 (1.2-3.4) K/uL Nobles # (Auto) 0.64 H (0.11-0.59) K/uL Eos # (Auto) 0.35 (0-0.5) K/uL Baso # (Auto) 0.03 (0-0.2) K/uL Immature Gran # (Auto) 0.01 (0.00-0.02) K/uL VBG pH (7.36-7.41) VBG pCO2 (38-50) mmHg VBG pO2 mmHg VBG HCO3 mmol/L VBG O2 Saturation % VBG Base Excess mEq/L Barometric Pressure mm/Hg Sodium 139 (136-145) mmol/L Potassium 4.3 (3.5-5.1) mmol/L Chloride 109 H (98-107) mmol/L Carbon Dioxide 26 (21-32) mmol/L Anion Gap 5.0 (3-11) BUN 27 H (7-18) mg/dl Creatinine 0.84 (0.6-1.4) mg/dl Est Cr Clr Drug Dosing 146.1 ml/min Est GFR ( Amer) 114.2 ml/min Est GFR (Non-Af Amer) 98.6 ml/min BUN/Creatinine Ratio 31.8 H (10-20) Glucose 122 H (70-99) mg/dl POC Glucose (70-99) mg/dl Calcium 8.6 (8.5-10.1) mg/dl Total Bilirubin 0.2 (0.2-1) mg/dl AST 26 (15-37) U/L ALT 40 (12-78) U/L Alkaline Phosphatase 65 (45-117) U/L Total Protein 6.4 (6.4-8.2) gm/dl Albumin 3.5 (3.4-5.0) gm/dl Globulin 2.9 (2.5-4.0) gm/dl Albumin/Globulin Ratio 1.2 (0.9-2) Lipase 74 (73-393) U/L TSH (0.300-4.500) uIu/ml Random Cortisol mcg/dl Urine Color Urine Appearance (Clear) Urine pH (4.5-7.5) Ur Specific Wirt (1.000-1.030) Urine Protein (Negative) Urine Glucose (UA) (Negative) Urine Ketones (Negative) Urine Blood (Negative) Urine Nitrite (Negative) Urine Bilirubin (Negative) Urine Urobilinogen (Negative) Ur Leukocyte Esterase (Negative) COVID-19 Eval Order Covid19 at [facility] SARS-CoV-2 (PCR) (Negative) 01/28/21 01/28/21 01/28/21 Range/Units 08:41 08:50 10:18 WBC (4.8-10.8) K/uL RBC (4.7-6.1) M/uL Hgb (14.0-18.0) g/dL Hct (42-52) % MCV (80-100) fL MCH (25-34) pg MCHC (32-36) g/dL RDW Std Deviation (36.4-46.3) fL RDW Coeff of Alex (11.5-14.5) % Plt Count (130-400) K/uL MPV (7.4-10.4) fL Immature Gran % (Auto) % Neut % (Auto) % Lymph % (Auto) % Nobles % (Auto) % Eos % (Auto) % Baso % (Auto) % Neut # (Auto) (1.4-6.5) K/uL Lymph # (Auto) (1.2-3.4) K/uL Nobles # (Auto) (0.11-0.59) K/uL Eos # (Auto) (0-0.5) K/uL Baso # (Auto) (0-0.2) K/uL Immature Gran # (Auto) (0.00-0.02) K/uL VBG pH (7.36-7.41) VBG pCO2 (38-50) mmHg VBG pO2 mmHg VBG HCO3 mmol/L VBG O2 Saturation % VBG Base Excess mEq/L Barometric Pressure mm/Hg Sodium (136-145) mmol/L Potassium (3.5-5.1) mmol/L Chloride (98-107) mmol/L Carbon Dioxide (21-32) mmol/L Anion Gap (3-11) BUN (7-18) mg/dl Creatinine (0.6-1.4) mg/dl Est Cr Clr Drug Dosing ml/min Est GFR ( Amer) ml/min Est GFR (Non-Af Amer) ml/min BUN/Creatinine Ratio (10-20) Glucose (70-99) mg/dl POC Glucose 134 H (70-99) mg/dl Calcium (8.5-10.1) mg/dl Total Bilirubin (0.2-1) mg/dl AST (15-37) U/L ALT (12-78) U/L Alkaline Phosphatase (45-117) U/L Total Protein (6.4-8.2) gm/dl Albumin (3.4-5.0) gm/dl Globulin (2.5-4.0) gm/dl Albumin/Globulin Ratio (0.9-2) Lipase (73-393) U/L TSH (0.300-4.500) uIu/ml Random Cortisol mcg/dl Urine Color Yellow Urine Appearance Clear (Clear) Urine pH 7.0 (4.5-7.5) Ur Specific Wirt 1.016 (1.000-1.030) Urine Protein Negative (Negative) Urine Glucose (UA) Negative (Negative) Urine Ketones Negative (Negative) Urine Blood Negative (Negative) Urine Nitrite Negative (Negative) Urine Bilirubin Negative (Negative) Urine Urobilinogen Negative (Negative) Ur Leukocyte Esterase Negative (Negative) COVID-19 Eval Order SARS-CoV-2 (PCR) NEGATIVE (Negative) 01/28/21 01/28/21 Range/Units 11:55 12:10 WBC (4.8-10.8) K/uL RBC (4.7-6.1) M/uL Hgb (14.0-18.0) g/dL Hct (42-52) % MCV (80-100) fL MCH (25-34) pg MCHC (32-36) g/dL RDW Std Deviation (36.4-46.3) fL RDW Coeff of Alex (11.5-14.5) % Plt Count (130-400) K/uL MPV (7.4-10.4) fL Immature Gran % (Auto) % Neut % (Auto) % Lymph % (Auto) % Nobles % (Auto) % Eos % (Auto) % Baso % (Auto) % Neut # (Auto) (1.4-6.5) K/uL Lymph # (Auto) (1.2-3.4) K/uL Nobles # (Auto) (0.11-0.59) K/uL Eos # (Auto) (0-0.5) K/uL Baso # (Auto) (0-0.2) K/uL Immature Gran # (Auto) (0.00-0.02) K/uL VBG pH 7.29 L (7.36-7.41) VBG pCO2 58 H (38-50) mmHg VBG pO2 43 mmHg VBG HCO3 27 mmol/L VBG O2 Saturation 79.6 % VBG Base Excess -0.5 mEq/L Barometric Pressure 738.0 mm/Hg Sodium (136-145) mmol/L Potassium (3.5-5.1) mmol/L Chloride (98-107) mmol/L Carbon Dioxide (21-32) mmol/L Anion Gap (3-11) BUN (7-18) mg/dl Creatinine (0.6-1.4) mg/dl Est Cr Clr Drug Dosing ml/min Est GFR ( Amer) ml/min Est GFR (Non-Af Amer) ml/min BUN/Creatinine Ratio (10-20) Glucose (70-99) mg/dl POC Glucose 231 H (70-99) mg/dl Calcium (8.5-10.1) mg/dl Total Bilirubin (0.2-1) mg/dl AST (15-37) U/L ALT (12-78) U/L Alkaline Phosphatase (45-117) U/L Total Protein (6.4-8.2) gm/dl Albumin (3.4-5.0) gm/dl Globulin (2.5-4.0) gm/dl Albumin/Globulin Ratio (0.9-2) Lipase (73-393) U/L TSH (0.300-4.500) uIu/ml Random Cortisol mcg/dl Urine Color Urine Appearance (Clear) Urine pH (4.5-7.5) Ur Specific Wirt (1.000-1.030) Urine Protein (Negative) Urine Glucose (UA) (Negative) Urine Ketones (Negative) Urine Blood (Negative) Urine Nitrite (Negative) Urine Bilirubin (Negative) Urine Urobilinogen (Negative) Ur Leukocyte Esterase (Negative) COVID-19 Eval Order SARS-CoV-2 (PCR) (Negative) Administered Medications Discontinued Medications Sodium Chloride (Nss) 500 mls @ 999 mls/hr IV .Q31M ONE Stop: 01/28/21 08:49 Last Infusion: 01/28/21 09:15 Dose: 0 mls/hr Documented by: [id number] Admin: 01/28/21 08:45 Dose: 999 mls/hr Documented by: [id number] Ceftriaxone Sodium (Rocephin) 1,000 mg in 50 mls @ 100 mls/hr IV NOW STA Stop: 01/28/21 08:48 Last Infusion: 01/28/21 09:15 Dose: 0 mls/hr Documented by: [id number] Admin: 01/28/21 08:45 Dose: 100 mls/hr Documented by: [id number] Imaging Data Radiologist's Impression: Head CT 01/28/21 10:49 CT SCAN OF THE BRAIN WITHOUT IV CONTRAST CLINICAL HISTORY: Change in mental status. COMPARISON STUDY: CT of the brain dated 10/04/2020. TECHNIQUE: Unenhanced axial CT scan of the brain is performed from the vertex to the skull base. A dose lowering technique was utilized adhering to the principles of ALARA. CT DOSE: 1400.53 mGy.cm FINDINGS: Brain parenchyma: The brain parenchyma is normal in appearance. There is no hemorrhage, mass effect, or evidence of acute territorial ischemia by CT criteria. Grover-white matter differentiation is preserved. No extra-axial fluid collection is seen. Ventricles, sulci, cisterns: Normal in configuration. Intracranial vasculature: The visualized intracranial vasculature at the skull base is normal in appearance. Calvarium: Unremarkable. Sinuses and mastoids: There is evidence of previous paranasal sinus surgery. Trace mucosal thickening is noted in the left maxillary antrum. The remaining visualized paranasal sinuses are clear. The mastoid air cells are well p neumatized. Orbits: The bony orbits are grossly intact. There is a right ocular lens implant. IMPRESSION: There is no hemorrhage, mass effect, or evidence of acute territorial ischemia by CT criteria. ACT 112: Negative or not required by law. Electronically signed by: Gurinder Celestin M.D. 01/28/2021 11:07 AM Discharge Plan Visit Data Chief Complaint: Hypoglycemia Stated Complaint: hypoglycemia ED Provider: Elias Sosa Discharge Problem: Hypoglycemia, Cellulitis of leg, right, At risk for hypoglycemia, Confusion Discharge Instructions Interventions: ED Discharge Assessment Last Done: 01/28/21 13:19 Forms Stand Alone Forms: My [facility] Prescriptions Prescriptions: No Action insulin aspart U-100 [Novolog U-100 Insulin aspart] 100 unit/mL solution 20 unit subcut TID Qty: 2 RF: 5 clonazepam [Klonopin] 0.5 mg tablet 0.5 mg PO TID RF: 0 Ozempic 0.25 mg or 0.5 mg(2 mg/1.5 mL) pen injector 0.25 mg subcut WK RF: 0 (DME) FreeStyle Shelley 14 Day Sensor Kit See Rx Instructions .ROUTE .MEDSUPPLY Qty: 1 RF: 0 (DME) FreeStyle Shelley 14 Day [place] Misc See Rx Instructions .ROUTE .MEDSUPPLY Qty: 1 RF: 0 furosemide 40 mg tablet 40 mg PO UD PRN (Reason: Fluid Retention) RF: 0 fluoxetine [Prozac] 40 mg capsule 80 mg PO QAM RF: 0 omeprazole 40 mg capsule,delayed release(DR/EC) 40 mg PO QAM RF: 0 carvedilol [Coreg] 3.125 mg tablet 3.125 mg PO BID RF: 0 lisinopril [Zestril] 10 mg tablet 10 mg PO QAM RF: 0 olanzapine [Zyprexa] 20 mg tablet 20 mg PO HS RF: 0 rosuvastatin [Crestor] 20 mg tablet 20 mg PO QAM RF: 0 Linzess 290 mcg capsule 290 mcg PO QAM PRN (Reason: Constipation) RF: 0 naproxen sodium 550 mg tablet 550 mg PO BID RF: 0 levothyroxine [Synthroid] 50 mcg Tablet 50 mcg PO DAILYBB Qty: 30 RF: 5 zafirlukast [Accolate] 20 mg tablet 20 mg PO BID RF: 0 gabapentin [Neurontin] 600 mg tablet See Rx Instructions .ROUTE .COMPLEX RF: 0 methocarbamol 500 mg tablet 500 mg PO Q8H PRN (Reason: Muscle Spasm) RF: 0 trazodone 100 mg Tablet 100 mg PO HS RF: 0 Simbrinza 1-0.2 % Drops,Suspension 1 drp OPB TID RF: 0 Anoro Ellipta 62.5-25 mcg/actuation Blister With Device 1 inh INHALATION QAM RF: 0 albuterol sulfate 90 mcg/actuation Aero Powdr Breath Act W/Sensor 1 inh INHALATION Q4H PRN (Reason: sob) RF: 0 Lantus U-100 Insulin 100 unit/mL solution 70 unit SUBCUT QAM RF: 0 aspirin [Aspir-81] 81 mg Tablet,Delayed Release (Dr/Ec) 81 mg PO QAM RF: 0 trazodone 300 mg tablet 150 mg PO HS RF: 0 cholecalciferol (vitamin D3) 125 mcg (5,000 unit) capsule 5,000 unit PO QAM RF: 0 testosterone [AndroGel] 20.25 mg/1.25 gram (1.62 %) gel in metered-dose pump 2 pump topical .AFTERNOON RF: 0 Referrals Referrals: Juan Greer DO [Primary Care Provider] -
[2021-01-28 08:27] LABS: Basophils # (auto) 0.03 K/uL (0-0.2); Basophils % (auto) 0.4 %; Eosinophils # (auto) 0.35 K/uL (0-0.5); Eosinophils % (auto) 4.5 %; Immature Granulocytes # (auto) 0.01 K/uL (0.00-0.02); Immature Granulocytes % (auto) 0.1 %; Lymphocytes # (auto) 1.31 K/uL (1.2-3.4); Mean Corpuscular Hemoglobin 31.3 pg (25-34); Mean Corpuscular Hgb Conc 32.4 g/dL (32-36); Mean Corpuscular Volume 96.9 fL (80-100); Mean Platelet Volume 10.2 fL (7.4-10.4); Monocytes # (auto) 0.64 K/uL (0.11-0.59); Monocytes % (auto) 8.3 %; Neutrophils # (auto) 5.36 K/uL (1.4-6.5); Neutrophils % (auto) 69.7 %; Platelet Count 128 K/uL (130-400); RDW Coefficient of Variation 13.7 % (11.5-14.5); RDW Standard Deviation 48.3 fL (36.4-46.3); Red Blood Count 3.51 M/uL (4.7-6.1)
[2021-01-28 08:46] LABS: Albumin Level 3.5 gm/dl (3.4-5.0); BUN Creatinine Ratio 31.8 (10-20); Calcium 8.6 mg/dl (8.5-10.1); Creatinine Clr Calc Pharmacy 146.1 ml/min; Est GFR (African American) 114.2 ml/min; Est GFR (Non-African American) 98.6 ml/min; Potassium 4.3 mmol/L (3.5-5.1)
[2021-01-28 08:49] LABS: Albumin Globulin Ratio 1.2 (0.9-2); Bilirubin,Total 0.2 mg/dl (0.2-1); Globulin 2.9 gm/dl (2.5-4.0); Total Protein 6.4 gm/dl (6.4-8.2)
[2021-01-28 09:05] LABS: Bilirubin Urine Negative (Negative); Blood Urine Negative (Negative); Color Urine Yellow; Glucose Urine UA Negative (Negative); Ketones Urine Negative (Negative); Leukocyte Esterase Urine Negative (Negative); Nitrite Urine Negative (Negative); Protein Urine Negative (Negative); Specific Gravity Urine 1.016 (1.000-1.030); Urobilinogen Urine Negative (Negative)
[2021-01-28 09:07] LABS: Appearance Urine Clear (Clear)
--- NOTE | 2021-01-28 11:09 | CT Scan Report ---
CT SCAN OF THE BRAIN WITHOUT IV CONTRAST CLINICAL HISTORY: Change in mental status. COMPARISON STUDY: CT of the brain dated 10/04/2020. TECHNIQUE: Unenhanced axial CT scan of the brain is performed from the vertex to the skull base. A d ose lowering technique was utilized adhering to the principles of ALARA. CT DOSE: 1400.53 mGy.cm FINDINGS: Brain parenchyma: The brain parenchyma is normal in appearance. There is no hemorrhage, mass effect, or evidence of acute territorial ischemia by CT criteria. Grover-white matter differentiation is preser nav. No extra-axial fluid collection is seen. Ventricles, sulci, cisterns: Normal in configuration. Intracranial vasculature: The visualized intracranial vasculature at the skull base is normal in appe arance. Calvarium: Unremarkable. Sinuses and mastoids: There is evidence of previous paranasal sinus surgery. Trace mucosal thickening is noted in the left maxillary antrum. The remaining visualized paranasal sinuses are clear. The mas toid air cells are well pneumatized. Orbits: The bony orbits are grossly intact. There is a right ocular lens implant. IMPRESSION: There is no hemorrhage, mass effect, or evidence of acute territorial ischemia by CT erick guaman. ACT 112: Negative or not required by law. Electronically signed by: Gurinder Celestin M.D. 01/28/2021 11:07 AM
--- NOTE | 2021-01-28 11:29 | History & Physical Report ---
Date of Service January 28, 2021 Assessment & Plan (1) Hypoglycemia: Presented with altered mental status, diaphoresis, and blood sugar in the 20s at the outpatient surgery center for his cataract surgery in the morning of admission Carb consistent diet- Glucose at noon 231 and symptoms improved - sliding scale with 35 CF and carb ratio 1:15 - Lantus tomorrow morning, pending trends of glucose overnight - Patient likely to be symptomatic with BG <130 as he is poorly controlled - Will follow blood glucose AC/HS- adjust based of his levels and diet intake - He recently had his short acting insulin decreased to 20 units TID and also started on Ozempic - His last dose of Ozempic was last (2) Diabetes mellitus type 2, uncontrolled, with complications: As above (3) Obstructive sleep apnea (adult) (pediatric): ARAM with obesity hypoventilation syndrome - on trilogy NIVV at home - compliance review shows very poor compliance - Will place on BiPAP 17/03 and back up rate of 16-18 while in house - can adjust for tolerance - (4) Obesity hypoventilation syndrome: Restrictive pattern on PFT - Continue outpatient inhalers - As prior he is on high doses of sedating medications and this may also play role in his excessive daytime somnolence - he has been losing weight with Dr. arevalo so hopefully this will continue - His HCO3 is 26 today which has been downtrending with his medical interventions (5) Metabolic syndrome: As above (6) Hypothyroidism (acquired): TSH pending - Continue Synthroid (7) Hypertension: Continue Carvedilol and lasix, no acute needs (8) Hyperlipidemia: Continue crestor 20 - no acute needs (9) Hypogonadism: No acute needs (10) Esophagitis determined by biopsy: Berkley Glabrata from EGD - With the patient's high dose trazodone interactions with fluconazole become higher risk with decrease clearance of Trazodone. - For efficacy and length required to wean down his trazodone and discussion with clinical pharmacist; treatment will be with caspofungin. 70mg IV as load, then 50mg IV daily for 14 days. - Defer to rounding team for options of access daily vs. Ultrasound guided IV - Case management consult to assist with discharge planning through the [facility] -Follow-up with GI (11) Lumbar stenosis: With stenosis - Recent steroid injection 11/21 - History of Present Illness Primary Care Provider: Juan Greer, DO 55 YOM with past medical history of: CAD, HTN, HLD, Morbid Obesity, COPD, Schizophrenia, DM II on insulin, Klinefelter, Neuropathy, cellulitis of lower extremity, chronic pain, and esophagitis. Since moving here in [facility] from [place] he has gotten engaged with pulmonary for his ARAM/CPAP in which he was ordered a trilogy NIVV (which he is noncompliant with), Weight loss management with Dr. Arevalo for his obesity, and metabolic syndrome, and with Dr. Luevano for his DM, and he had an EGD done on 01/20 with biopsy that revealed berkley glabratra, he is also following with Dr. Madrid for his chronic back pain. He was also scheduled to have cataract surgery this morning. He was instructed to half his insulin dose the night prior- so he reports he took 35 units of his l antus as well as 11 units of his short acting insulin. He checked his blood sugars in early in the morning as he was feeling symptomatic, and they were in the 120s so he took 3 glucose tabs, which made him feel a little better. The patient then proceeded to his surgical center, where he as reportedly in the 20's he was given glucose as well as glucose tabs with minimal improvement and was referred to [facility] EMD. In the EMD he was given crackers, applesauce, and diet coke his BG is ranging from 127-134. He reports that at home his BG levels are normally 170-200s, last HGB A1c in sep was 10. He had a non con CT scan of his head performed which did not show acute pathology. Patient is mentating well at this point and is still exhibiting some shakiness. He is also on multiple sedating medications at baseline. Patient will be observed over night and follow his blood sugars. Will place on sliding scale insulin with CF of 35 and 1:15 carb ratio. He does note a scrape to his right bryan, has chronic vascular changes to his legs, mild surrounding light pink tissue. He was given a dose of Ceftriaxone in the EMD. Allergies Allergy/AdvReac Type Severity Reaction Status Date / Time copper Allergy Mild skin rash, Verified 01/28/21 09:16 itching cider vinegar AdvReac Mild Redness,swe Verified 01/28/21 09:16 ating Home Medications Medication Instructions Recorded Confirmed Type methocarbamol 500 mg PO Q8H PRN 08/05/20 01/28/21 History furosemide 40 mg PO UD PRN 09/09/20 01/28/21 History Linzess 290 mcg PO QAM PRN 09/22/20 01/28/21 History carvedilol [Coreg] 3.125 mg PO BID 09/22/20 01/28/21 History fluoxetine [Prozac] 80 mg PO QAM 09/22/20 01/28/21 History lisinopril [Zestril] 10 mg PO QAM 09/22/20 01/28/21 History naproxen sodium 550 mg PO BID 09/22/20 01/28/21 History olanzapine [Zyprexa] 20 mg PO HS 09/22/20 01/28/21 History omeprazole 40 mg PO QAM 09/22/20 01/28/21 History rosuvastatin [Crestor] 20 mg PO QAM 09/22/20 01/28/21 History levothyroxine [Synthroid] 50 mcg PO DAILYBB #30 tab 09/26/20 01/28/21 Rx zafirlukast 20 mg tablet 20 mg PO BID tab 10/09/20 01/28/21 History Lantus U-100 Insulin 70 unit SUBCUT QAM 10/28/20 01/28/21 History clonazepam 0.5 mg tablet 0.5 mg PO TID tab 11/21/20 01/28/21 History flash glucose scanning reader #1 ea 11/25/20 01/06/21 History flash glucose sensor #1 ea 11/25/20 01/06/21 History Anoro Ellipta 1 inh INHALATION QAM 12/25/20 01/28/21 History Simbrinza 1 drp OPB TID 12/25/20 01/28/21 History albuterol sulfate 1 inh INHALATION Q4H PRN 12/25/20 01/28/21 History trazodone 100 mg PO HS 12/25/20 01/28/21 History gabapentin 600 mg tablet See Rx Instructions .ROUTE 01/06/21 01/28/21 History .COMPLEX tab semaglutide 0.25 mg SUBCUT WK ml 01/06/21 01/28/21 History insulin aspart U-100 100 unit/mL 20 unit SUBCUT TID #2 vial 01/23/21 01/28/21 Rx subcutaneous solution aspirin [Aspir-81] 81 mg PO QAM 01/28/21 01/28/21 History cholecalciferol (vitamin D3) 5,000 unit PO QAM 01/28/21 01/28/21 History testosterone [AndroGel] 2 pump TOPICAL .AFTERNOON 01/28/21 01/28/21 History trazodone 150 mg PO HS 01/28/21 01/28/21 History Past Med/Surg History Medical History Anxiety Asthma Cardiac murmur Cellulitis of leg right knee to right foot -- hospitalized [facility] treated with IV antibiotics. 08/2020 Chronic back pain Chronic hypercapnic respiratory failure COPD (chronic obstructive pulmonary disease) Gastroparesis GERD (gastroesophageal reflux disease) Hiatal hernia History of tobacco abuse Hx of respiratory failure r/t pneumonia 09/08/2019. treated at [place]. to follow with Finance Clerk NARENDRA 09/2020. Hypothyroidism Klinefelters syndrome Macular degeneration Morbid obesity with BMI of 40.0-44.9, adult ARAM (obstructive sleep apnea) no current device since he moved to [place] Peripheral neuropathy Pneumonia hx (gets annually) Schizophrenia Seizure disorder hx, last seizure 2000 -- treated with depakote and was taken off of depakote about ~2010. no problems since. Shortness of breath Tachycardia treated with coreg. to follow with Dr Chapman 09/2020. (hx of following with Dr Clark, cardiology at [place], [place]) Type 2 diabetes mellitus IDDM Surgical History H/O hernia repair umbilical H/O right heart catheterization no stents. ~2018 in [place] History of colonoscopy History of esophagogastroduodenoscopy (EGD) History of gastric bypass gastric sleeve S/P epidural steroid injection Family History Other No family history of adverse response to anesthesia Social History Smoking Status: Former smoker Tobacco Type: Cigarettes and Smokeless Tobacco (Dip or Chew) Years Smoked: 30; Number of Years Since Quit: 7; Second Hand Exposure: No; Do You Dip or Chew Tobacco: No; Tobacco Cessation Education Requested by Patient: No Hx Alcohol Use: Yes Alcohol type: beer Alcohol Intake Frequency: Monthly or Less Hx Substance Use: No Preferred Language: Syriac Communication Ability: Effective Ditch Digger Required: No Beliefs That Will Affect Care: None marital status: / Current Living Situation: Alone current occupational status: disabled Other Information That Helps Us Care for You: No Feels Safe at Home: Yes Safety Concerns: Feels Safe At This Time Assistive Devices: Denture - Upper, Denture - Lower and Glasses Review of Systems Review of Systems: REVIEW OF SYSTEMS: Constitutional: No fever, sweats or chills Eyes: (+) blurry vision, No diplopia, no worsening ENT: normal hearing, no trouble swallowing Respiratory: No cough, sputum, dyspnea at rest or on exertion Cardiovascular: No chest pain, tightness or palpitations Abdomen: No pain, nausea, vomiting, diarrhea or constipation Musculoskeletal: (+) chronic back, hip and knee joint pain, NO calf pain, swelling Neurologic: No weakness, numbness/tingling, or balance problems Psychiatric: (+) anxiety, depression, bipolar- feels his symptoms are controlled Skin: as per HPI Physical Exam Physical Exam: PHYSICAL EXAM: General: awake, alert, no apparent distress Head: Normocephalic, atraumatic ENT: PERRL, EOMI, no pharyngeal exudate, mucous membranes moist Neuro: AAO x 3, speech clear and appropriate, strength intact bilaterally 5/5, sensation intact and equal all extremities and dermatomes, no pronator drift Chest: equal rise and fall of the chest, no accessory muscle use, no heaves or thrills, Clear to auscultation, on room air, Cardiac: Regular rate and rhythm, telemetry reviewed- NSR, skin warm dry, cap refill <3 seconds, peripheral pules +2 no JVD, no murmur, no edema GI: NABS x 4 quadrants, soft, nontender to palpation, no rebound, guarding or tenderness : Spontaneously voiding, no pain, no CVA tenderness, Extremities: Normal inspection, no peripheral edema or erythema, calfs nontender to palpation Psych: Normal mood and affect Skin:scrape to right bryan, no drainage, mild pink along lateral edge, no circumferential or proximal spreading, not cellulitis appearing Results & Data Results & Data ([facility]) Vital Signs (Past 12 Hours) Vital Signs Temp Pulse Resp BP Pulse Ox 01/28/21 10:19 98 01/28/21 10:13 65 14 125/71 89 L 01/28/21 10:00 67 16 125/71 90 01/28/21 09:00 68 18 142/74 H 95 01/28/21 08:18 96 01/28/21 08:03 37.2 C 75 17 122/68 96 Laboratory Results Abnormal lab results 01/28/21 01/28/21 01/28/21 Range/Units 08:03 08:18 08:18 RBC 3.51 L (4.7-6.1) M/uL Hgb 11.0 L (14.0-18.0) g/dL Hct 34.0 L (42-52) % RDW Std Deviation 48.3 H (36.4-46.3) fL Plt Count 128 L (130-400) K/uL Osborne # (Auto) 0.64 H (0.11-0.59) K/uL Chloride 109 H (98-107) mmol/L BUN 27 H (7-18) mg/dl BUN/Creatinine Ratio 31.8 H (10-20) Glucose 122 H (70-99) mg/dl POC Glucose 130 H (70-99) mg/dl 01/28/21 Range/Units 10:18 RBC (4.7-6.1) M/uL Hgb (14.0-18.0) g/dL Hct (42-52) % RDW Std Deviation (36.4-46.3) fL Plt Count (130-400) K/uL Osborne # (Auto) (0.11-0.59) K/uL Chloride (98-107) mmol/L BUN (7-18) mg/dl BUN/Creatinine Ratio (10-20) Glucose (70-99) mg/dl POC Glucose 134 H (70-99) mg/dl Diagnostic Findings Head CT 01/28/21 10:49 CT SCAN OF THE BRAIN WITHOUT IV CONTRAST CLINICAL HISTORY: Change in mental status. COMPARISON STUDY: CT of the brain dated 10/04/2020. TECHNIQUE: Unenhanced axial CT scan of the brain is performed from the vertex to the skull base. A dose lowering technique was utilized adhering to the principles of ALARA. CT DOSE: 1400.53 mGy.cm FINDINGS: Brain parenchyma: The brain parenchyma is normal in appearance. There is no hemorrhage, mass effect, or evidence of acute territorial ischemia by CT criteria. Grover-white matter differentiation is preserved. No extra-axial fluid collection is seen. Ventricles, sulci, cisterns: Normal in configuration. Intracranial vasculature: The visualized intracranial vasculature at the skull base is normal in appearance. Calvarium: Unremarkable. Sinuses and mastoids: There is evidence of previous paranasal sinus surgery. Trace mucosal thickening is noted in the left maxillary antrum. The remaining visualized paranasal sinuses are clear. The mastoid air cells are well pneumatized. Orbits: The bony orbits are grossly intact. There is a right ocular lens implant. IMPRESSION: There is no hemorrhage, mass effect, or evidence of acute territorial ischemia by CT criteria. Electronically signed by: Gurinder Celestin M.D. 01/28/2021 11:07 AM Medications Administered Discontinued Medications Sodium Chloride (Nss) 500 mls @ 999 mls/hr IV .Q31M ONE Stop: 01/28/21 08:49 Last Infusion: 01/28/21 09:15 Dose: 0 mls/hr Documented by: [id number] Admin: 01/28/21 08:45 Dose: 999 mls/hr Documented by: [id number] Ceftriaxone Sodium (Rocephin) 1,000 mg in 50 mls @ 100 mls/hr IV NOW STA Stop: 01/28/21 08:48 Last Infusion: 01/28/21 09:15 Dose: 0 mls/hr Documented by: [id number] Admin: 01/28/21 08:45 Dose: 100 mls/hr Documented by: [id number] ECG Additional Comments: Pending at time of admission Code Status & VTE Plan Code Status CODE: FULL VTE: SCD, Lovenox 40 q 12 with elevated BMI VTE Prophylaxis Plan VTE Prophylaxis will be ordered: Yes Supervising Physician Co-Signing Physician Notes FUR DYER Supervision note: I have personally seen and examined the patient and discussed and verified the jaime points of the history and physical along with the plan with ENRIKE Morrison with the following exceptions and/or additions: Patient presents with confusion and altered mental status diaphoresis while in preop holding area at the outpatient [facility] center for cataract surgery today. His blood sugar was found to be in the 20s and is treated with D50 there as well as D5W. Blood sugars came up in the 100s initially here in the ER but he remained somewhat lethargic and confused but would wake up. As noted above, his blood sugars normally run in the 200s to 300s and he recently has only started gaining better control. He did take his NovoLog and Lantus both at half doses this morning but did not eat anything for surgery. He denies any chest pain shortness of breath, no abdominal pain or nausea. His mental status was completely back to normal at the time I saw him after admission. I discussed his care with GI on the phone who is treating with fluconazole- concern for to lower the dose with fluconazole 100 mg as well as resistance given it is Berkley glabrata. Will convert to IV caspofungin and plan for outpatient IV therapy for the remainder of the 14-day course. History and ROS reviewed Vitals reviewed Gen: AAOx3, NAD, morbidly obese HEENT: Anicteric sclerae, EOMI CV: RRR no mgr nl S1S2 Pulm: CTAB no wcr Abd: +BS soft NT ND no masses or hernias, obese Ext: No edema, no calf tenderness Skin: Right bryan with mild abrasion with minimal surrounding pink skin, does not appear to have cellulitis Neuro: Full strength throughout Laboratory values and radiology studies reviewed ECG not done at the time of admission 55-year-old male with severely uncontrolled diabetes, and history otherwise as above, here with hypoglycemic episode causing acute metabolic encephalopathy. Patient is now improved with treatment of hypoglycemia Will monitor overnight for recurrence of hypoglycemia Also with treatment of Ebrkley glabrata esophagitis as above-I signed a paper prescription for IV caspofungin and gave to the rn case mgr who will arrange outpatient treatment the [facility]. Patient is agreeable to [facility] treatment PG Care Time/CCT Total # of Minutes Spent Total Time Spent with Patient: Total time spent is greater than 50% in coordination of care (as documented) at patient's floor/unit and/or counseling patient: Coding Level of Care Code 99266 OBS Care - Level 3 Diagnoses Hypoglycemia E16.2 Diabetes mellitus type 2, uncontrolled, with complications E11.8; E11.65 Obstructive sleep apnea (adult) (pediatric) G47.33 Obesity hypoventilation syndrome E66.2 Metabolic syndrome E88.81 Hypothyroidism (acquired) E03.9 Hypertension I10 Hypertension type: essential hypertension Hyperlipidemia E78.5 Hyperlipidemia type: unspecified Hypogonadism Esophagitis determined by biopsy K20.90 Lumbar stenosis M48.061 Neurogenic claudication status: unspecified (1) Lumbar stenosis Neurogenic claudication status: unspecified Qualified Code(s): M48.061 - Spinal stenosis, lumbar region without neurogenic claudication (2) Hyperlipidemia Hyperlipidemia type: unspecified Qualified Code(s): E78.5 - Hyperlipidemia, unspecified (3) Hypertension Hypertension type: essential hypertension Qualified Code(s): I10 - Essential (primary) hypertension
[2021-01-28 12:08] LABS: Base Excess VBG -0.5 mEq/L; Oxygen Saturation VBG 79.6 %; pH VBG 7.29 (7.36-7.41)
[2021-01-28] MEDS ORDERED: CASPOFUNGIN 70 MG in SODIUM CHLORIDE 0.9% 250 ML IV ONE (13:00)
[2021-01-28] MEDS ORDERED: DEXTROSE 50% 50 ML SYRINGE IV PRN (14:26)
[2021-01-28] MEDS ORDERED: FUROSEMIDE 40 MG TAB PO PRN (14:26)
[2021-01-28] MEDS ORDERED: GLUCAGON FOR INJ 1 MG VIAL SQ PRN (14:26)
[2021-01-28] MEDS ORDERED: GLUCOSE 40% GEL 15 GM TUBE PO PRN (14:26)
[2021-01-28] MEDS ORDERED: CARBOHYDRATES FOR HYPOGLYCEMIA PO PRN (14:26)
[2021-01-28] MEDS ORDERED: GLUCOSE 10 TABS/TUBE PO PRN (14:26)
[2021-01-28] MEDS ORDERED: ALBUTEROL HFA 8 GM INHALER INH PRN (14:35)
[2021-01-28] MEDS ORDERED: LINACLOTIDE 145 MCG CAPSULE PO PRN (14:49)
[2021-01-28] MEDS: clonazePAM 0.5 MG TAB PO SCH ×2 (15:13→21:04)
[2021-01-28] MEDS: INSULIN ASPART 100 UNITS/ML 3 ML PEN SC SCH ×3 (15:38→21:06)
[2021-01-28] MEDS: GABAPENTIN 600 MG TAB PO SCH (16:06)
[2021-01-28] MEDS: ENOXAPARIN INJ 40 MG/0.4 ML SYR SQ SCH (16:06)
[2021-01-28] MEDS ORDERED: OLANZapine 20 MG TABLET PO SCH (21:00)
[2021-01-28] MEDS ORDERED: GABAPENTIN 600 MG TAB PO SCH (21:00)
[2021-01-28] MEDS: carvediloL 3.125 MG TAB PO SCH (21:01)
[2021-01-29] MEDS ORDERED: LEVOTHYROXINE SODIUM 50 MCG TABLET PO SCH (06:30)
[2021-01-29 07:30] LABS: Basophils # (auto) 0.03 K/uL (0-0.2); Basophils % (auto) 0.5 %; Eosinophils # (auto) 0.28 K/uL (0-0.5); Eosinophils % (auto) 4.8 %; Hematocrit (blood only) 36.8 % (42-52); Hemoglobin 11.9 g/dL (14.0-18.0); Lymphocytes # (auto) 1.54 K/uL (1.2-3.4); Lymphocytes % (auto) 26.6 %; Mean Corpuscular Hemoglobin 31.4 pg (25-34); Mean Corpuscular Hgb Conc 32.3 g/dL (32-36); Mean Corpuscular Volume 97.1 fL (80-100); Mean Platelet Volume 10.3 fL (7.4-10.4); Monocytes # (auto) 0.31 K/uL (0.11-0.59); Monocytes % (auto) 5.4 %; Neutrophils # (auto) 3.63 K/uL (1.4-6.5); Neutrophils % (auto) 62.7 %; Platelet Count 133 K/uL (130-400); RDW Coefficient of Variation 13.8 % (11.5-14.5); RDW Standard Deviation 48.9 fL (36.4-46.3); Red Blood Count 3.79 M/uL (4.7-6.1); White Blood Count 5.79 K/uL (4.8-10.8)
[2021-01-29 08:04] LABS: BUN Creatinine Ratio 19.7 (10-20); Calcium 8.4 mg/dl (8.5-10.1); Creatinine Clr Calc Pharmacy 139.5 ml/min; Est GFR (African American) 112.6 ml/min; Est GFR (Non-African American) 97.2 ml/min; Magnesium 2.3 mg/dl (1.8-2.4); Potassium 4.6 mmol/L (3.5-5.1)
[2021-01-29] MEDS: INSULIN ASPART 100 UNITS/ML 3 ML PEN SC SCH ×2 (08:27→12:16)
[2021-01-29] MEDS: carvediloL 3.125 MG TAB PO SCH (08:28)
[2021-01-29] MEDS: GABAPENTIN 600 MG TAB PO SCH ×2 (08:28→13:40)
[2021-01-29] MEDS: ENOXAPARIN INJ 40 MG/0.4 ML SYR SQ SCH (08:28)
[2021-01-29] MEDS: clonazePAM 0.5 MG TAB PO SCH ×2 (08:33→13:40)
[2021-01-29] MEDS ORDERED: ROSUVASTATIN CALCIUM 20 MG TAB PO SCH (09:00)
[2021-01-29] MEDS ORDERED: FLUoxetine HCL 20 MG CAP PO SCH (09:00)
[2021-01-29] MEDS ORDERED: CHOLECALCIFEROL 1,000 UNITS 25 MCG TAB PO SCH (09:00)
[2021-01-29] MEDS ORDERED: INSULIN GLARGINE 100 UNIT/ML VIAL SC SCH (09:00)
[2021-01-29] MEDS ORDERED: PANTOprazole 40 MG TAB PO SCH (09:00)
[2021-01-29] MEDS ORDERED: UMECLIDINIUM/VILANTEROL 62.5/25MCG 7 PUFFS/INHALER INH SCH (09:00)
[2021-01-29] MEDS ORDERED: CASPOFUNGIN 50 MG in SODIUM CHLORIDE 0.9% 250 ML IV SCH (09:00)
[2021-01-29] MEDS ORDERED: lisinopril 10 MG TAB PO SCH (09:00)
[2021-01-29] MEDS ORDERED: ASPIRIN 81 MG ECTAB PO SCH (09:00)
--- NOTE | 2021-01-29 09:26 | Hospitalist Progress Note ---
Date of Service January 29, 2021 Assessment & Plan (1) Hypoglycemia: Presented with altered mental status, diaphoresis, and blood sugar in the 20s at the outpatient surgery center for his cataract surgery in the morning of admission Carb consistent diet- Glucose at noon 231 and symptoms improved - sliding scale with 35 CF and carb ratio 1:15 - Lantus tomorrow morning, pending trends of glucose overnight - Patient likely to be symptomatic with BG <130 as he is poorly controlled - Will follow blood glucose AC/HS- adjust based of his levels and diet intake - He recently had his short acting insulin decreased to 20 units TID and also started on Ozempic - His last dose of Ozempic was last (2) Diabetes mellitus type 2, uncontrolled, with complications: As above (3) Obstructive sleep apnea (adult) (pediatric): ARAM with obesity hypoventilation syndrome - on trilogy NIVV at home - compliance review shows very poor compliance - Will place on BiPAP 17/03 and back up rate of 16-18 while in house - can adjust for tolerance - (4) Obesity hypoventilation syndrome: Restrictive pattern on PFT - Continue outpatient inhalers - As prior he is on high doses of sedating medications and this may also play role in his excessive daytime somnolence - he has been losing weight with Dr. arevalo so hopefully this will continue - His HCO3 is 26 today which has been downtrending with his medical interventions (5) Metabolic syndrome: As above (6) Hypothyroidism (acquired): TSH pending - Continue Synthroid (7) Hypertension: Continue Carvedilol and lasix, no acute needs (8) Hyperlipidemia: Continue crestor 20 - no acute needs (9) Hypogonadism: No acute needs (10) Esophagitis determined by biopsy: Mone Glabrata from EGD - With the patient's high dose trazodone interactions with fluconazole become higher risk with decrease clearance of Trazodone. - For efficacy and length required to wean down his trazodone and discussion with clinical pharmacist; treatment will be with caspofungin. 70mg IV as load, then 50mg IV daily for 14 days. - Defer to rounding team for options of access daily vs. Ultrasound guided IV - Case management consult to assist with discharge planning through the [facility] -Follow-up with GI (11) Lumbar stenosis: With stenosis - Recent steroid injection 11/21 - Admission and Anticipated Discharge Date Admission Date: January 28, 2021 Results & Data Results & Data ([facility]) Vital Signs (Past 12 Hours) Vital Signs Temp Pulse Pulse Resp BP Pulse Ox 01/29/21 09:00 79 01/29/21 07:42 98.6 F 68 18 133/80 90 01/29/21 04:00 98.2 F 75 18 131/75 92 01/29/21 01:02 80 01/28/21 22:59 97.9 F 75 18 138/80 92 PG Care Time/CCT Total # of Minutes Spent Total Time Spent with Patient: Total time spent is greater than 50% in coordination of care (as documented) at patient's floor/unit and/or counseling patient: Coding Diagnoses Hypoglycemia E16.2 Diabetes mellitus type 2, uncontrolled, with complications E11.8; E11.65 Obstructive sleep apnea (adult) (pediatric) G47.33 Obesity hypoventilation syndrome E66.2 Metabolic syndrome E88.81 Hypothyroidism (acquired) E03.9 Hypertension I10 Hypertension type: essential hypertension Hyperlipidemia E78.5 Hyperlipidemia type: unspecified Hypogonadism Esophagitis determined by biopsy K20.90 Lumbar stenosis M48.061 Neurogenic claudication status: unspecified (1) Hypertension Hypertension type: essential hypertension Qualified Code(s): I10 - Essential (primary) hypertension (2) Hyperlipidemia Hyperlipidemia type: unspecified Qualified Code(s): E78.5 - Hyperlipidemia, u nspecified (3) Lumbar stenosis Neurogenic claudication status: unspecified Qualified Code(s): M48.061 - Spinal stenosis, lumbar region without neurogenic claudication
--- NOTE | 2021-01-29 15:21 | Discharge Summary ---
Date of Service January 29, 2021 Admission HPI Per Admitting Provider 55 YOM with past medical history of: CAD, HTN, HLD, Morbid Obesity, COPD, Schizophrenia, DM II on insulin, Klinefelter, Neuropathy, cellulitis of lower extremity, chronic pain, and esophagitis. Since moving here in [facility] from [place] he has gotten engaged with pulmonary for his ARAM/CPAP in which he was ordered a trilogy NIVV (which he is noncompliant with), Weight loss management with Dr. Arevalo for his obesity, and metabolic syndrome, and with Dr. Luevano for his DM, and he had an EGD done on 01/20 with biopsy that revealed berkley glabratra, he is also following with Dr. Madrid for his chronic back pain. He was also scheduled to have cataract surgery this morning. He was instructed to half his insulin dose the night prior- so he reports he took 35 units of his lantus as well as 11 units of his short acting insulin. He checked his blood sugars in early in the morning as he was feeling symptomatic, and they were in the 120s so he took 3 glucose tabs, which made him feel a little better. The patient then proceeded to his surgical center, where he as reportedly in the 20's he was given glucose as well as glucose tabs with minimal improvement and was referred to [facility] E[facility]. In the EMD he was given crackers, applesauce, and diet coke his BG is ranging from 127-134. He reports that at home his BG levels are normally 170-200s, last HGB A1c in sep was 10. He had a non con CT scan of his head performed which did not show acute pathology. Patient is mentating well at this point and is still exhibiting some shakiness. He is also on multiple sedating medications at baseline. Patient will be observed over night and follow his blood sugars. Will place on sliding scale insulin with CF of 35 and 1:15 carb ratio. He does note a scrape to his right bryan, has chronic vascular changes to his l egs, mild surrounding light pink tissue. He was given a dose of Ceftriaxone in the EMD. Principal Diagnosis symptomatic hypoglycemia berkley glabrata esophagitis Discharge Exam The patient appeared well Vital signs as documented. Lungs are clear to auscultation and appear unlabored Cardiac exam, Rhythm is regular.. No murmurs, rubs or gallops. Abdominal exam reveals normal bowel sounds, soft non tender, no masses Extremities are nonedematous and both pedal pulses are normal. Neurologic exam is alert and oriented, no focal loss of strength or sensation Skin is without bruises or rashes Psychologically is without concerns for anxiety or depression. Discharge Data Allergies Allergy/AdvReac Type Severity Reaction Status Date / Time copper Allergy Mild skin rash, Verified 01/28/21 09:16 itching cider vinegar AdvReac Mild Redness,swe Verified 01/28/21 09:16 ating Consultations 01/28/21 10:36 ED Decision to Admit Stat Ordered Studies 01/28/21 10:49 CT head/brain wo con Stat Hospital Course (1) Hypoglycemia: Presented with altered mental status, diaphoresis, and blood sugar in the 20s at the outpatient surgery center for his cataract surgery in the morning of admission pt was npo for eye surgery and did reduce his long acting but did take his short acting thus developed reactive hypoglycemia and was symptomatic - He recently had his short acting insulin decreased to 20 units TID and also started on Ozempic - He will continue his home diabetic dosing and follow up with his pcp (2) Diabetes mellitus type 2, uncontrolled, with complications: As above (3) Obstructive sleep apnea (adult) (pediatric): ARAM with obesity hypoventilation syndrome - on trilogy NIVV at home - compliance review shows very poor compliance - reinforced compliance - (4) Obesity hypoventilation syndrome: Restrictive pattern on PFT - Continue outpatient inhalers - As prior he is on high doses of sedating medications and this may also play role in his excessive daytime somnolence - he has been losing weight with Dr. arevalo so hopefully this will continue - His HCO3 is 26 today which has been downtrending with his medical interventions (5) Metabolic syndrome: As above (6) Hypothyroidism (acquired): TSH pending - Continue Synthroid (7) Hypertension: Continue Carvedilol and lasix, no acute needs (8) Hyperlipidemia: Continue crestor 20 - no acute needs (9) Hypogonadism: No acute needs (10) Esophagitis determined by biopsy: Berkley Glabrata from EGD - With the patient's high dose trazodone interactions with fluconazole become higher risk with decrease clearance of Trazodone. - For efficacy and length required to wean down his trazodone and discussion with clinical pharmacist; treatment will be with caspofungin. 70mg IV as load, then 50mg IV daily for 14 d Ultrasound guided IV, Case management consult assisted with discharge planning through the [facility], infusion 8 am 01/30/21 (11) Lumbar stenosis: With stenosis - Recent steroid injection 11/21 - Total Time Total Time Spent Total Time Spent (In Minutes): It required greater than 30 minutes to prepare this patient for discharge Discharge Plan Discharge Items Patient Disposition: Home - Self-Care Reason For Visit: hypoglycemia Discharge Diagnosis: low blood sugar due to insulin fungal esophageal infection Activity: Resume your previous activity Non-emergency contact: Primary Care Provider and Specialist Call non-emergency contact if: you have any medication questions Follow-up/Referrals: Juan Greer, [Primary Care Provider] - 02/07/21 8:10 am (You are scheduled with Dr Hansen for your primary care follow up appointment. If you have any questions or need to change this appointment, please call [phone].) Diet: Carb Consistent or DM2 Addtl Attending Provider Instructions: Please report to the [facility]< medical treatment unit> at 8 am in the morning on january 30 2021 to continue your treatment of your esophageal infection I did call [facility] and they will be calling you to reschedule your appointment please continue all of your typical outpt medications as previous please follow up with your primary care doctor Pending Studies at Discharge: No Stand-Alone Forms: My [facility], Smoking Cessation Medications and DC Order Prescriptions: Continued insulin aspart U-100 [Novolog U-100 Insulin aspart] 100 unit/mL solution 20 unit subcut TID Qty: 2 RF: 5 clonazepam [Klonopin] 0.5 mg tablet 0.5 mg PO TID RF: 0 Ozempic 0.25 mg or 0.5 mg(2 mg/1.5 mL) pen injector 0.25 mg subcut WK RF: 0 furosemide 40 mg tablet 40 mg PO UD PRN (Reason: Fluid Retention) RF: 0 fluoxetine [Prozac] 40 mg capsule 80 mg PO QAM RF: 0 omeprazole 40 mg capsule,delayed release(DR/EC) 40 mg PO QAM RF: 0 carvedilol [Coreg] 3.125 mg tablet 3.125 mg PO BID RF: 0 lisinopril [Zestril] 10 mg tablet 10 mg PO QAM RF: 0 olanzapine [Zyprexa] 20 mg tablet 20 mg PO HS RF: 0 rosuvastatin [Crestor] 20 mg tablet 20 mg PO QAM RF: 0 Linzess 290 mcg capsule 290 mcg PO QAM PRN (Reason: Constipation) RF: 0 naproxen sodium 550 mg tablet 550 mg PO BID RF: 0 levothyroxine [Synthroid] 50 mcg Tablet 50 mcg PO DAILYBB Qty: 30 RF: 5 zafirlukast [Accolate] 20 mg tablet 20 mg PO BID RF: 0 gabapentin [Neurontin] 600 mg tablet See Rx Instructions .ROUTE .COMPLEX RF: 0 trazodone 100 mg Tablet 100 mg PO HS RF: 0 Simbrinza 1-0.2 % Drops,Suspension 1 drp OPB TID RF: 0 Anoro Ellipta 62.5-25 mcg/actuation Blister With Device 1 inh INHALATION QAM RF: 0 albuterol sulfate 90 mcg/actuation Aero Powdr Breath Act W/Sensor 1 inh INHALATION Q4H PRN (Reason: sob) RF: 0 Lantus U-100 Insulin 100 unit/mL solution 70 unit SUBCUT QAM RF: 0 aspirin 81 mg Tablet,Delayed Release (Dr/Ec) 81 mg PO QAM RF: 0 trazodone 300 mg tablet 150 mg PO HS RF: 0 cholecalciferol (vitamin D3) 125 mcg (5,000 unit) capsule 5,000 unit PO QAM RF: 0 testosterone [AndroGel] 20.25 mg/1.25 gram (1.62 %) gel in metered-dose pump 2 pump topical .AFTERNOON RF: 0 Discontinued methocarbamol 500 mg tablet 500 mg PO Q8H PRN (Reason: Muscle Spasm) RF: 0 No Action (DME) FreeStyle [place] 14 Day Sensor Kit See Rx Instructions .ROUTE .MEDSUPPLY Qty: 1 RF: 0 (DME) FreeStyle [place] 14 Day [place] Misc See Rx Instructions .ROUTE .MEDSUPPLY Qty: 1 RF: 0 Discharge Orders: Discharge Order (Routine); Ordered 01/29/21 Ordered By: Wiliam Dominguez Admission Data Admit Date/Time: 01/28/21 12:18 Attending Provider: Wiliam Dominguez Admit Provider: Love Suarez Primary Care Provider: Juan Greer Other Providers: Love Suarez ; [facility] F[facility] ; [facility] Coding Level of Care Code D/C Day Management >30 mins Diagnoses Hypoglycemia E16.2 Diabetes mellitus type 2, uncontrolled, with complications E11.8; E11.65 Obstructive sleep apnea (adult) (pediatric) G47.33 Obesity hypoventilation syndrome E66.2 Metabolic syndrome E88.81 Hypothyroidism (acquired) E03.9 Hypertension I10 Hypertension type: essential hypertension Hyperlipidemia E78.5 Hyperlipidemia type: unspecified Hypogonadism Esophagitis determined by biopsy K20.90 Lumbar stenosis M48.061 Neurogenic claudication status: unspecified
--- NOTE | 2021-01-30 11:23 | Electrocardiogram Report ---
Test Reason : Blood Pressure : / mmHG Vent. Rate : 073 BPM Atrial Rate : 073 BPM P-R Int : 160 ms QRS Dur : 088 ms QT Int : 378 ms P-R-T Axes : 069 020 085 degrees QTc Int : 416 ms Normal sinus rhythm Nonspecific T wave abnormality Abnormal ECG When compared with ECG of 28-OCT-2020 11:17, No significant change Confirmed by Elio Mckeon ([id number]) on 01/30/2021 11:22:36 AM Referred By: REFERRED SELF Confirmed By:Elio Mckeon
== END 2021-01-29 16:59 | disposition home or self-care (01) ==
LOC: 2N 07:58 → ED 07:58 → SUATTDRO 12:18 → 2N 13:19

== ENCOUNTER 2021-02-27 01:17 | Inpatient (IN) ==
[2021-02-27 02:33] LABS: Basophils # (auto) 0.03 K/uL (0-0.2); Basophils % (auto) 0.3 %; Eosinophils # (auto) 0.41 K/uL (0-0.5); Eosinophils % (auto) 4.7 %; Hematocrit (blood only) 32.9 % (42-52); Hemoglobin 10.9 g/dL (14.0-18.0); Immature Granulocytes # (auto) 0.02 K/uL (0.00-0.02); Immature Granulocytes % (auto) 0.2 %; Lymphocytes # (auto) 2.46 K/uL (1.2-3.4); Lymphocytes % (auto) 28.4 %; Mean Corpuscular Hemoglobin 30.7 pg (25-34); Mean Corpuscular Hgb Conc 33.1 g/dL (32-36); Mean Corpuscular Volume 92.7 fL (80-100); Mean Platelet Volume 10.1 fL (7.4-10.4); Monocytes # (auto) 0.41 K/uL (0.11-0.59); Monocytes % (auto) 4.7 %; Neutrophils # (auto) 5.34 K/uL (1.4-6.5); Neutrophils % (auto) 61.7 %; Platelet Count 127 K/uL (130-400); RDW Coefficient of Variation 12.9 % (11.5-14.5); RDW Standard Deviation 43.8 fL (36.4-46.3); Red Blood Count 3.55 M/uL (4.7-6.1); White Blood Count 8.67 K/uL (4.8-10.8)
--- NOTE | 2021-02-27 02:40 | Emergency Department Note ---
Impression & Plan Acute hypercapnic respiratory failure, Hypoxia, Suicidal ideation ED Provider Note Name: NOA SCHNEIDER Age: 55 Sex: M Arrives Via: Ambulance Informant: EMS, Crisis ED Provider: Jimbo Ulloa MD Chief Complaint: suicidal ideation Impression: Acute Hypercapnic Respiratory Failure Hypoxia Suicidal Ideation Medical Decision Makin yr old male brought in for suicidal ideation after telling Crisis he wants to be shot by police. On arrival quite somnolent though smelling of alcohol, though becoming increasingly somnolent to point of obtunded. Labs obtained with mild etoh elevation. Repeat exams increasing ARAM and sats dropped to 80s. At this point EKG obtained which was unremarkable with normal QTC. Straight cath with UA unremarkable and drug screen negative (noted that klonopin rx which does not always appear in drug screen). CXR with hypoventilation though no overt lobar infiltrate. Labs otherwise unremarkable. Continued somnolence and thus ABG obtained which revealed significant respiratory acidosis. Given this with NC O2 needs felt need to obtain CT head to rule out other pathology. Placed on Bipap with stable findings. He is far too somnolent and given unclear timeline for awakening will need to be hospitalized. Prior Medical Record and Triage/Nursing Notes reviewed by Me Additional history obtained from chart Differentials:Overdose, toxicologic, infection, hypoglycemia, electrolyte abnormalities, cardiac sources, intracerebral event, neurologic, trauma, as well as other pathologies. Vital Signs: reviewed and remarkable for initially then becoming hypoxic Interventions: saline lock Labs:Reviewed and remarkable for acidosis, hypercapnea Imaging:X ray results are stated below per my interpretation: Chest: 1 view: poor respiratory effort, no overt infiltrate EKG:Per My Interpretation: Indication Overdose: NSR 77 bpm, qtc 439. No Ectopy. No Ischemia. Compared to EKG 01/28/21, no significant changes. Cardiac/Tele Monitoring: Cardiac Monitoring: An Order was placed for continuous cardiac monitoring. The monitor shows a rate of 70 with a normal sinus rhythm. Consults:Dr Angelica ROSS Hospitalist Plan: Disposition:Hospitalization. Condition: Good History of Present Illness:55 yr old male arrives for evaluation of suicidal ideation. Patient reportedly drinking heavily this evening and called crisis stating he wanted to . His plan was to take a copy center operator hostage and then get shot to . He did not reportedly go through with any plan to harm self. He is so intoxicated that history is impossible to obtain from patient. ROS: Unable to obtain due to intoxication Past Medical History:See Below Past Surgical History:See Below Family History:See Below Social History:See Below Home Medications:See Below Allergies:cider, copper Vitals:Blood Pressure: 132/69, Pulse 81, RR 20, T 36.6C, O2 92% on RA Physical Exam: GENERAL: Patient is heavily intoxicated appearing and in no acute distress. Sleeping so soundly that barely able to awaken. EYES: No scleral icterus, unremarkable pupils. ENT: Mucous membranes moist, no nasal congestion. NECK: No masses appreciated, nomeningismus, trachea is midline. RESPIRATORY: No dyspnea. Clear to auscultation and equal bilaterally. No wheeze, no rhonchi. CARDIOVASCULAR: Regular rate and rhythm.No murmurs, rubs, gallops appreciated. GASTROINTESTINAL: Abdomen soft, non-tender, no peritonitis.Bowel sounds positive.No masses appreciated. BACK: No midline tenderness, no CVA tenderness EXTREMITIES: Normal motion all extremities, no cyanosis, no edema. NEUROLOGIC:Heavily intoxicated slurred speech and falls asleep immediately on discussions, no acute motor or sensory deficits, no focal weakness, cranial nerves grossly intact. SKIN: No rash, no jaundice, no diaphoresis. PSYCH: Unable to obtain due to intoxication ED Course: Times/Reassessments: gradually worsening obtundation and hypoxia, breathing much improved on bipap though still obtunded Critical Care: I have personally spent 35 minutes of critical care time in the direct management of this patient. Acute respiratory failure requiring bipap. This was a life/limb threatening event. This 35 minutes is in excess of all separately billable procedures. Jimbo Ulloa MD Past Med/Surg History Medical History (Updated 02/27/21 @ 06:06 by Jimbo Ulloa MD) Anxiety Asthma Cardiac murmur Cellulitis of leg right knee to right foot -- hospitalized [facility] treated with IV antibiotics. 08/2020 Chronic back pain Chronic hypercapnic respiratory failure COPD (chronic obstructive pulmonary disease) Esophagitis Gastroparesis GERD (gastroesophageal reflux disease) Hiatal hernia History of tobacco abuse Hx of respiratory failure r/t pneumonia 09/08/2019. treated at [place], [place]. to follow with [facility] NARENDRA 09/2020. Hypothyroidism Klinefelters syndrome Macular degeneration Morbid obesity with BMI of 40.0-44.9, adult ARAM (obstructive sleep apnea) no current device [place] Peripheral neuropathy Pneumonia hx (gets annually) Schizophrenia Seizure disorder hx, last seizure 2000 -- treated with depakote and was taken off of depakote about ~2010. no problems since. Shortness of breath Tachycardia treated with coreg. to follow with Dr Chapman 09/2020. (hx of following with Dr Clark, cardiology at [place], [place]) Type 2 diabetes mellitus IDDM Surgical History H/O hernia repair umbilical H/O right heart catheterization no stents. 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: No Beliefs That Will Affect Care: None marital status: / Current Living Situation: Alone current occupational status: disabled Feels Safe at Home: No Is there a partner from a previous relationship who is making you feel unsafe now?: No Assistive Devices: None Allergies Allergies Allergy/AdvReac Type Severity Reaction Status Date / Time copper Allergy Mild skin rash, Verified 02/27/21 02:38 itching cider vinegar AdvReac Mild Redness,swe Verified 02/27/21 02:38 ating Home Meds Home Medications Medication Instructions Recorded Confirmed furosemide 40 mg tablet 40 mg PO UD PRN 09/09/20 02/27/21 carvedilol 3.125 mg tablet (Coreg) 3.125 mg PO BID 09/22/20 02/27/21 fluoxetine 40 mg capsule (Prozac) 80 mg PO QAM 09/22/20 02/27/21 linaclotide 290 mcg capsule 290 mcg PO QAM PRN 09/22/20 02/27/21 (Linzess) lisinopril 10 mg tablet (Zestril) 10 mg PO QAM 09/22/20 02/27/21 naproxen sodium 550 mg tablet 550 mg PO BID 09/22/20 02/27/21 olanzapine 20 mg tablet (Zyprexa) 20 mg PO HS 09/22/20 02/27/21 omeprazole 40 mg capsule,delayed 40 mg PO QAM 09/22/20 02/27/21 release rosuvastatin 20 mg tablet (Crestor) 20 mg PO QAM 09/22/20 02/27/21 zafirlukast 20 mg tablet (Accolate) 20 mg PO BID tab 10/09/20 02/27/21 insulin glargine 100 unit/mL 70 unit SUBCUT QAM 10/28/20 02/27/21 subcutaneous solution (Lantus U-100 Insulin) clonazepam 0.5 mg tablet (Klonopin) 0.5 mg PO TID tab 11/21/20 02/27/21 flash glucose scanning reader #1 ea 11/25/20 02/17/21 (FreeStyle Shelley 14 Day Mcalester) flash glucose sensor (FreeStyle #1 ea 11/25/20 02/17/21 Shelley 14 Day Sensor) albuterol sulfate 90 mcg/actuation 1 inh INHALATION Q4H PRN 12/25/20 02/27/21 breath activated powder inhaler,sensor brinzolamide 1 %-brimonidine 0.2 % 1 drp OPB TID 12/25/20 02/27/21 eye drops,suspension (Simbrinza) trazodone 100 mg tablet 100 mg PO HS 12/25/20 02/27/21 umeclidinium 62.5 mcg-vilanterol 1 inh INHALATION QAM 12/25/20 02/27/21 25 mcg/actuation powdr for inhalation (Anoro Ellipta) gabapentin 600 mg tablet See Rx Instructions .ROUTE 01/06/21 02/27/21 (Neurontin) .COMPLEX tab aspirin 81 mg tablet,delayed 81 mg PO QAM 01/28/21 02/27/21 release cholecalciferol (vitamin D3) 125 5,000 unit PO QAM 01/28/21 02/27/21 mcg (5,000 unit) capsule testosterone 20.25 mg/1.25 gram 2 pump TOPICAL .AFTERNOON 01/28/21 02/27/21 (1.62 %) transdermal gel pump (AndroGel) trazodone 300 mg tablet 150 mg PO HS 01/28/21 02/27/21 olanzapine 10 mg tablet (Zyprexa) 10 mg PO DAILY 02/17/21 02/27/21 Previous Rx's Medication Instructions Recorded levothyroxine 50 mcg tablet 50 mcg PO DAILYBB #30 tab 09/26/20 (Synthroid) insulin aspart U-100 100 unit/mL 20 unit SUBCUT TID #2 vial 01/23/21 subcutaneous solution (Novolog U-100 Insulin aspart) semaglutide (Ozempic) 0.25 mg SUBCUT WK #1.5 ml 02/21/21 Results & Data (ED) Vital Signs Vital Signs - 24 hr 02/27/21 01:32 02/27/21 04:21 02/27/21 04:25 Temperature 36.6 C Temperature Source Oral Pulse Rate 81 Pulse Rate [Finger] 86 Pulse Rate from SpO2 Sensor Pulse Rhythm [Finger] Pulse Strength [Finger] Respiratory Rate 20 7 L Respiratory Effort / Characteristics Non-Labored Respiratory Depth Normal Respiratory Pattern Blood Pressure 132/69 Blood Pressure [Left Arm] 158/84 H Blood Pressure Mean 90 Blood Pressure Mean [Left Arm] 108 Blood Pressure Position [Left Arm] Pulse Oximetry 92 84 L 94 Oxygen Delivery Method Room Air Room Air Nasal Cannula Oxygen Flow Rate 5 Fraction of Inspired Oxygen Sepsis Recent Fever Within 48 Hours No Sepsis New/Unexplained Change in Mental Status Yes Sepsis Action Taken by Nursing No Action Required 02/27/21 04:45 02/27/21 05:27 02/27/21 05:30 Temperature Temperature Source Pulse Rate 77 81 84 Pulse Rate [Finger] Pulse Rate from SpO2 Sensor 77 81 83 Pulse Rhythm [Finger] Pulse Strength [Finger] Respiratory Rate 14 14 17 Respiratory Effort / Characteristics Respiratory Depth Respiratory Pattern Blood Pressure 148/103 H 168/87 H 181/93 H Blood Pressure [Left Arm] Blood Pressure Mean 118 114 122 Blood Pressure Mean [Left Arm] Blood Pressure Position [Left Arm] Pulse Oximetry 96 97 96 Oxygen Delivery Method Nasal Cannula Nasal Cannula Nasal Cannula Oxygen Flow Rate 5 5 5 Fraction of Inspired Oxygen Sepsis Recent Fever Within 48 Hours Sepsis New/Unexplained Change in Mental Status Sepsis Action Taken by Nursing 02/27/21 06:00 02/27/21 06:15 02/27/21 06:29 Temperature Temperature Source Pulse Rate 76 75 Pulse Rate [Finger] Pulse Rate from SpO2 Sensor 76 Pulse Rhythm [Finger] Pulse Strength [Finger] Respiratory Rate 16 Respiratory Effort / Characteristics Respiratory Depth Respiratory Pattern Blood Pressure 155/124 H Blood Pressure [Left Arm] Blood Pressure Mean 134 Blood Pressure Mean [Left Arm] Blood Pressure Position [Left Arm] Pulse Oximetry 98 96 Oxygen Delivery Method BiPAP Oxygen Flow Rate Fraction of Inspired Oxygen 30 Sepsis Recent Fever Within 48 Hours Sepsis New/Unexplained Change in Mental Status Sepsis Action Taken by Nursing 02/27/21 06:30 02/27/21 06:39 02/27/21 07:05 Temperature Temperature Source Pulse Rate 78 76 Pulse Rate [Finger] 78 Pulse Rate from SpO2 Sensor 79 Pulse Rhythm [Finger] Regular Pulse Strength [Finger] Normal Respiratory Rate 15 16 18 Respiratory Effort / Characteristics Non-Labored Spontaneous Spontaneous Respiratory Depth Normal Normal Respiratory Pattern Regular Regular Blood Pressure Blood Pressure [Left Arm] 181/90 H Blood Pressure Mean Blood Pressure Mean [Left Arm] 120 Blood Pressure Position [Left Arm] Sitting Pulse Oximetry 95 96 96 Oxygen Delivery Method BiPAP BiPAP Oxygen Flow Rate Fraction of Inspired Oxygen 30 Sepsis Recent Fever Within 48 Hours Sepsis New/Unexplained Change in Mental Status Sepsis Action Taken by Nursing Laboratory Data Result diagrams: 02/27/21 02:21 02/27/21 02:21 Lab Results 02/27/21 02/27/21 02/27/21 Range/Units 01:55 01:55 02:21 WBC 8.67 (4.8-10.8) K/uL RBC 3.55 L (4.7-6.1) M/uL Hgb 10.9 L (14.0-18.0) g/dL Hct 32.9 L (42-52) % MCV 92.7 (80-100) fL MCH 30.7 (25-34) pg MCHC 33.1 (32-36) g/dL RDW Std Deviation 43.8 (36.4-46.3) fL RDW Coeff of Alex 12.9 (11.5-14.5) % Plt Count 127 L (130-400) K/uL MPV 10.1 (7.4-10.4) fL Immature Gran % (Auto) 0.2 % Neut % (Auto) 61.7 % Lymph % (Auto) 28.4 % [place] % (Auto) 4.7 % Eos % (Auto) 4.7 % Baso % (Auto) 0.3 % Neut # (Auto) 5.34 (1.4-6.5) K/uL Lymph # (Auto) 2.46 (1.2-3.4) K/uL [place] # (Auto) 0.41 (0.11-0.59) K/uL Eos # (Auto) 0.41 (0-0.5) K/uL Baso # (Auto) 0.03 (0-0.2) K/uL Immature Gran # (Auto) 0.02 (0.00-0.02) K/uL ABG pH (7.35-7.45) ABG pCO2 (35-46) mmHg ABG pO2 (80-95) mmHg ABG HCO3 (19-24) mmol/L ABG O2 Saturation (90-95) % ABG Base Excess (-9-1.8) mEq/L Jeff Test (Pos) Barometric Pressure mm/Hg Oxygen Given Sodium (136-145) mmol/L Potassium (3.5-5.1) mmol/L Chloride (98-107) mmol/L Carbon Dioxide (21-32) mmol/L Anion Gap (3-11) BUN (7-18) mg/dl Creatinine (0.6-1.4) mg/dl Est Cr Clr Drug Dosing ml/min Est GFR ( Amer) ml/min Est GFR (Non-Af Amer) ml/min BUN/Creatinine Ratio (10-20) Glucose (70-99) mg/dl POC Glucose (70-99) mg/dl Calcium (8.5-10.1) mg/dl Total Bilirubin (0.2-1) mg/dl AST (15-37) U/L ALT (12-78) U/L Alkaline Phosphatase (45-117) U/L Total Protein (6.4-8.2) gm/dl Albumin (3.4-5.0) gm/dl Globulin (2.5-4.0) gm/dl Albumin/Globulin Ratio (0.9-2) TSH (0.300-4.500) uIu/ml Urine Color Urine Appearance (Clear) Urine pH (4.5-7.5) Ur Specific [place] (1.000-1.030) Urine Protein (Negative) Urine Glucose (UA) (Negative) Urine Ketones (Negative) Urine Blood (Negative) Urine Nitrite (Negative) Urine Bilirubin (Negative) Urine Urobilinogen (Negative) Ur Leukocyte Esterase (Negative) Salicylates (2.8-20) mg/dl Urine Opiates Screen (Neg) Ur Methadone, Qual (Neg) Acetaminophen (10-30) ug/ml Urine Barbiturates (Neg) Ur Phencyclidine (PCP) (Neg) U Amphetamin/Meth Scrn (Neg) MDMA (Ecstasy) Screen (Neg) U Benzodiazepines Scrn (Neg) Ur Cocaine Metabolite (Neg) U Marijuana (THC) Screen (Neg) Ethyl Alcohol mg/dL (0-3) mg/dl COVID-19 Eval Order Covid19 at [facility] SARS-CoV-2 (PCR) NEGATIVE (Negative) 02/27/21 02/27/21 02/27/21 Range/Units 02:21 02:21 02:21 WBC (4.8-10.8) K/uL RBC (4.7-6.1) M/uL Hgb (14.0-18.0) g/dL Hct (42-52) % MCV (80-100) fL MCH (25-34) pg MCHC (32-36) g/dL RDW Std Deviation (36.4-46.3) fL RDW Coeff of Alex (11.5-14.5) % Plt Count (130-400) K/uL MPV (7.4-10.4) fL Immature Gran % (Auto) % Neut % (Auto) % Lymph % (Auto) % [place] % (Auto) % Eos % (Auto) % Baso % (Auto) % Neut # (Auto) (1.4-6.5) K/uL Lymph # (Auto) (1.2-3.4) K/uL [place] # (Auto) (0.11-0.59) K/uL Eos # (Auto) (0-0.5) K/uL Baso # (Auto) (0-0.2) K/uL Immature Gran # (Auto) (0.00-0.02) K/uL ABG pH (7.35-7.45) ABG pCO2 (35-46) mmHg ABG pO2 (80-95) mmHg ABG HCO3 (19-24) mmol/L ABG O2 Saturation (90-95) % ABG Base Excess (-9-1.8) mEq/L Jeff Test (Pos) Barometric Pressure mm/Hg Oxygen Given Sodium 130 L (136-145) mmol/L Potassium 4.9 (3.5-5.1) mmol/L Chloride 99 (98-107) mmol/L Carbon Dioxide 26 (21-32) mmol/L Anion Gap 5.0 (3-11) BUN 17 (7-18) mg/dl Creatinine 0.76 (0.6-1.4) mg/dl Est Cr Clr Drug Dosing 158.4 ml/min Est GFR ( Amer) 119.0 ml/min Est GFR (Non-Af Amer) 102.7 ml/min BUN/Creatinine Ratio 22.5 H (10-20) Glucose 219 H (70-99) mg/dl POC Glucose (70-99) mg/dl Calcium 8.3 L (8.5-10.1) mg/dl Total Bilirubin 0.4 (0.2-1) mg/dl AST 14 L (15-37) U/L ALT 29 (12-78) U/L Alkaline Phosphatase 66 (45-117) U/L Total Protein 6.6 (6.4-8.2) gm/dl Albumin 3.7 (3.4-5.0) gm/dl Globulin 2.9 (2.5-4.0) gm/dl Albumin/Globulin Ratio 1.3 (0.9-2) TSH 1.260 (0.300-4.500) uIu/ml Urine Color Urine Appearance (Clear) Urine pH (4.5-7.5) Ur Specific [place] (1.000-1.030) Urine Protein (Negative) Urine Glucose (UA) (Negative) Urine Ketones (Negative) Urine Blood (Negative) Urine Nitrite (Negative) Urine Bilirubin (Negative) Urine Urobilinogen (Negative) Ur Leukocyte Esterase (Negative) Salicylates < 1.7 L (2.8-20) mg/dl Urine Opiates Screen (Neg) Ur Methadone, Qual (Neg) Acetaminophen 5 L (10-30) ug/ml Urine Barbiturates (Neg) Ur Phencyclidine (PCP) (Neg) U Amphetamin/Meth Scrn (Neg) MDMA (Ecstasy) Screen (Neg) U Benzodiazepines Scrn (Neg) Ur Cocaine Metabolite (Neg) U Marijuana (THC) Screen (Neg) Ethyl Alcohol mg/dL 122.0 H (0-3) mg/dl COVID-19 Eval Order SARS-CoV-2 (PCR) (Negative) 02/27/21 02/27/21 02/27/21 Range/Units 04:41 04:41 05:28 WBC (4.8-10.8) K/uL RBC (4.7-6.1) M/uL Hgb (14.0-18.0) g/dL Hct (42-52) % MCV (80-100) fL MCH (25-34) pg MCHC (32-36) g/dL RDW Std Deviation (36.4-46.3) fL RDW Coeff of Alex (11.5-14.5) % Plt Count (130-400) K/uL MPV (7.4-10.4) fL Immature Gran % (Auto) % Neut % (Auto) % Lymph % (Auto) % [place] % (Auto) % Eos % (Auto) % Baso % (Auto) % Neut # (Auto) (1.4-6.5) K/uL Lymph # (Auto) (1.2-3.4) K/uL [place] # (Auto) (0.11-0.59) K/uL Eos # (Auto) (0-0.5) K/uL Baso # (Auto) (0-0.2) K/uL Immature Gran # (Auto) (0.00-0.02) K/uL ABG pH 7.16 L* (7.35-7.45) ABG pCO2 77 H (35-46) mmHg ABG pO2 109 H (80-95) mmHg ABG HCO3 27 H (19-24) mmol/L ABG O2 Saturation 96.9 H (90-95) % ABG Base Excess -3.2 (-9-1.8) mEq/L Jeff Test POS (Pos) Barometric Pressure 731.9 mm/Hg Oxygen Given 5 L Sodium (136-145) mmol/L Potassium (3.5-5.1) mmol/L Chloride (98-107) mmol/L Carbon Dioxide (21-32) mmol/L Anion Gap (3-11) BUN (7-18) mg/dl Creatinine (0.6-1.4) mg/dl Est Cr Clr Drug Dosing ml/min Est GFR ( Amer) ml/min Est GFR (Non-Af Amer) ml/min BUN/Creatinine Ratio (10-20) Glucose (70-99) mg/dl POC Glucose (70-99) mg/dl Calcium (8.5-10.1) mg/dl Total Bilirubin (0.2-1) mg/dl AST (15-37) U/L ALT (12-78) U/L Alkaline Phosphatase (45-117) U/L Total Protein (6.4-8.2) gm/dl Albumin (3.4-5.0) gm/dl Globulin (2.5-4.0) gm/dl Albumin/Globulin Ratio (0.9-2) TSH (0.300-4.500) uIu/ml Urine Color Yellow Urine Appearance Clear (Clear) Urine pH 5.5 (4.5-7.5) Ur Specific [place] 1.023 (1.000-1.030) Urine Protein Negative (Negative) Urine Glucose (UA) Trace H (Negative) Urine Ketones Trace H (Negative) Urine Blood Negative (Negative) Urine Nitrite Negative (Negative) Urine Bilirubin Negative (Negative) Urine Urobilinogen Negative (Negative) Ur Leukocyte Esterase Negative (Negative) Salicylates (2.8-20) mg/dl Urine Opiates Screen Neg (Neg) Ur Methadone, Qual Neg (Neg) Acetaminophen (10-30) ug/ml Urine Barbiturates Neg (Neg) Ur Phencyclidine (PCP) Neg (Neg) U Amphetamin/Meth Scrn Neg (Neg) MDMA (Ecstasy) Screen Pos H (Neg) U Benzodiazepines Scrn Neg (Neg) Ur Cocaine Metabolite Neg (Neg) U Marijuana (THC) Screen Neg (Neg) Ethyl Alcohol mg/dL (0-3) mg/dl COVID-19 Eval Order SARS-CoV-2 (PCR) (Negative) 02/27/21 Range/Units 06:24 WBC (4.8-10.8) K/uL RBC (4.7-6.1) M/uL Hgb (14.0-18.0) g/dL Hct (42-52) % MCV (80-100) fL MCH (25-34) pg MCHC (32-36) g/dL RDW Std Deviation (36.4-46.3) fL RDW Coeff of Alex (11.5-14.5) % Plt Count (130-400) K/uL MPV (7.4-10.4) fL Immature Gran % (Auto) % Neut % (Auto) % Lymph % (Auto) % [place] % (Auto) % Eos % (Auto) % Baso % (Auto) % Neut # (Auto) (1.4-6.5) K/uL Lymph # (Auto) (1.2-3.4) K/uL [place] # (Auto) (0.11-0.59) K/uL Eos # (Auto) (0-0.5) K/uL Baso # (Auto) (0-0.2) K/uL Immature Gran # (Auto) (0.00-0.02) K/uL ABG pH (7.35-7.45) ABG pCO2 (35-46) mmHg ABG pO2 (80-95) mmHg ABG HCO3 (19-24) mmol/L ABG O2 Saturation (90-95) % ABG Base Excess (-9-1.8) mEq/L Jeff Test (Pos) Barometric Pressure mm/Hg Oxygen Given Sodium (136-145) mmol/L Potassium (3.5-5.1) mmol/L Chloride (98-107) mmol/L Carbon Dioxide (21-32) mmol/L Anion Gap (3-11) BUN (7-18) mg/dl Creatinine (0.6-1.4) mg/dl Est Cr Clr Drug Dosing ml/min Est GFR ( Amer) ml/min Est GFR (Non-Af Amer) ml/min BUN/Creatinine Ratio (10-20) Glucose (70-99) mg/dl POC Glucose 194 H (70-99) mg/dl Calcium (8.5-10.1) mg/dl Total Bilirubin (0.2-1) mg/dl AST (15-37) U/L ALT (12-78) U/L Alkaline Phosphatase (45-117) U/L Total Protein (6.4-8.2) gm/dl Albumin (3.4-5.0) gm/dl Globulin (2.5-4.0) gm/dl Albumin/Globulin Ratio (0.9-2) TSH (0.300-4.500) uIu/ml Urine Color Urine Appearance (Clear) Urine pH (4.5-7.5) Ur Specific [place] (1.000-1.030) Urine Protein (Negative) Urine Glucose (UA) (Negative) Urine Ketones (Negative) Urine Blood (Negative) Urine Nitrite (Negative) Urine Bilirubin (Negative) Urine Urobilinogen (Negative) Ur Leukocyte Esterase (Negative) Salicylates (2.8-20) mg/dl Urine Opiates Screen (Neg) Ur Methadone, Qual (Neg) Acetaminophen (10-30) ug/ml Urine Barbiturates (Neg) Ur Phencyclidine (PCP) (Neg) U Amphetamin/Meth Scrn (Neg) MDMA (Ecstasy) Screen (Neg) U Benzodiazepines Scrn (Neg) Ur Cocaine Metabolite (Neg) U Marijuana (THC) Screen (Neg) Ethyl Alcohol mg/dL (0-3) mg/dl COVID-19 Eval Order SARS-CoV-2 (PCR) (Negative) Imaging Data Radiologist's Impression: Chest X-Ray 02/27/21 04:21 XR chest 1V portable HISTORY: 55 years-old Male hypoxia acute hypoxia COMPARISON: 10/28/2020 TECHNIQUE: Supine AP view of the chest FINDINGS: Cardiac silhouette is enlarged. Pulmonary vascular congestion with bilateral interstitial reticular opacities. Mild blunting of the costophrenic angles. No pneumothorax. Degenerative changes of the shoulders and spine. IMPRESSION: 1. Cardiomegaly with pulmonary vascular congestion and interstitial opacities suggestive of pulmonary edema. An interstitial pneumonitis could appear similarly. 2. Trace pleural effusions. ACT 112: Negative or not required by law. The above report was generated using voice recognition software. It may contain grammatical, syntax or spelling errors. Electronically signed by: Reno Johnson M.D. 02/27/2021 7:[address] 02/27/21 05:[address] DOSE: 537.48 mGy.cm HISTORY: Altered mental status. TECHNIQUE: Multiaxial CT images of the head were performed without the use of intravenous contrast. Automated exposure control was utilized for this study. A dose lowering technique was utilized adhering to the principles of ALARA. Comparison: Head CT 01/28/2021. Findings: The paranasal sinuses and mastoid air cells are clear. The calvarium and skull base are intact. The ventricles and sulci are within normal limits. There is no mass, hematoma, midline shift, or acute infarct. Impression: No acute intracranial abnormality. ACT 112: Negative or not required by law. Electronically signed by: Michael Dillard M.D. 02/27/2021 7:05 AM Discharge Plan Visit Data Chief Complaint: Mental Health Evaluation Stated Complaint: EMOTIONAL/SUICIDAL IDEATION ED Provider: Jimbo Ulloa Discharge Problem: Acute hypercapnic respiratory failure, Hypoxia, Suicidal ideation Forms Stand Alone Forms: [facility], Suicide Prevention Resources Prescriptions Prescriptions: No Action insulin aspart U-100 [Novolog U-100 Insulin aspart] 100 unit/mL solution 20 unit subcut TID Qty: 2 RF: 5 Ozempic 0.25 mg or 0.5 mg(2 mg/1.5 mL) pen injector 0.25 mg subcut WK Qty: 1.5 RF: 5 clonazepam [Klonopin] 0.5 mg tablet 0.5 mg PO TID RF: 0 (DME) FreeStyle Shelley 14 Day Sensor Kit See Rx Instructions .ROUTE .MEDSUPPLY Qty: 1 RF: 0 (DME) FreeStyle Shelley 14 Day Mcalester Misc See Rx Instructions .ROUTE .MEDSUPPLY Qty: 1 RF: 0 olanzapine [Zyprexa] 10 mg tablet 10 mg PO DAILY RF: 0 furosemide 40 mg tablet 40 mg PO UD PRN (Reason: Fluid Retention) RF: 0 fluoxetine [Prozac] 40 mg capsule 80 mg PO QAM RF: 0 omeprazole 40 mg capsule,delayed release(DR/EC) 40 mg PO QAM RF: 0 carvedilol [Coreg] 3.125 mg tablet 3.125 mg PO BID RF: 0 lisinopril [Zestril] 10 mg tablet 10 mg PO QAM RF: 0 olanzapine [Zyprexa] 20 mg tablet 20 mg PO HS RF: 0 rosuvastatin [Crestor] 20 mg tablet 20 mg PO QAM RF: 0 Linzess 290 mcg capsule 290 mcg PO QAM PRN (Reason: Constipation) RF: 0 naproxen sodium 550 mg tablet 550 mg PO BID RF: 0 levothyroxine [Synthroid] 50 mcg Tablet 50 mcg PO DAILYBB Qty: 30 RF: 5 zafirlukast [Accolate] 20 mg tablet 20 mg PO BID RF: 0 gabapentin [Neurontin] 600 mg tablet See Rx Instructions .ROUTE .COMPLEX RF: 0 trazodone 100 mg Tablet 100 mg PO HS RF: 0 Simbrinza 1-0.2 % Drops,Suspension 1 drp OPB TID RF: 0 Anoro Ellipta 62.5-25 mcg/actuation Blister With Device 1 inh INHALATION QAM RF: 0 albuterol sulfate 90 mcg/actuation Aero Powdr Breath Act W/Sensor 1 inh INHALATION Q4H PRN (Reason: sob) RF: 0 Lantus U-100 Insulin 100 unit/mL solution 70 unit SUBCUT QAM RF: 0 aspirin 81 mg Tablet,Delayed Release (Dr/Ec) 81 mg PO QAM RF: 0 trazodone 300 mg tablet 150 mg PO HS RF: 0 cholecalciferol (vitamin D3) 125 mcg (5,000 unit) capsule 5,000 unit PO QAM RF: 0 testosterone [AndroGel] 20.25 mg/1.25 gram (1.62 %) gel in metered-dose pump 2 pump topical .AFTERNOON RF: 0 Referrals Referrals: Juan Greer DO [Primary Care Provider] -
[2021-02-27 02:51] LABS: Albumin Level 3.7 gm/dl (3.4-5.0); BUN Creatinine Ratio 22.5 (10-20); Calcium 8.3 mg/dl (8.5-10.1); Creatinine Clr Calc Pharmacy 158.4 ml/min; Est GFR (Non-African American) 102.7 ml/min; Potassium 4.9 mmol/L (3.5-5.1)
[2021-02-27 03:01] LABS: Albumin Globulin Ratio 1.3 (0.9-2); Bilirubin,Total 0.4 mg/dl (0.2-1); Globulin 2.9 gm/dl (2.5-4.0); Thyroid Stimulating Hormone 1.26 uIu/ml (0.300-4.500); Total Protein 6.6 gm/dl (6.4-8.2)
[2021-02-27 03:02] LABS: Acetaminophen 5 ug/ml (10-30); Salicylate < 1.7 mg/dl (2.8-20)
[2021-02-27 04:49] LABS: Appearance Urine Clear (Clear); Bilirubin Urine Negative (Negative); Blood Urine Negative (Negative); Color Urine Yellow; Glucose Urine UA Trace (Negative); Ketones Urine Trace (Negative); Leukocyte Esterase Urine Negative (Negative); Nitrite Urine Negative (Negative); Protein Urine Negative (Negative); Specific Gravity Urine 1.023 (1.000-1.030); Urobilinogen Urine Negative (Negative); pH Urine 5.5 (4.5-7.5)
[2021-02-27 05:29] LABS: Amphetamines+Metham, Urine Neg (Neg); Barbiturates, Urine Neg (Neg); Benzodiazepine, Urine Neg (Neg); Cocaine, Urine Neg (Neg); MDMA (Ecstacy), Urine Pos (Neg); Methadone, Urine Neg (Neg); Opiate, Urine Neg (Neg); Phencyclidine, Urine Neg (Neg)
[2021-02-27 05:51] LABS: Base Excess ABG -3.2 mEq/L (-9-1.8); HCO3 ABG 27 mmol/L (19-24); Oxygen Saturation ABG 96.9 % (90-95); PCO2 ABG 77 mmHg (35-46); PO2 ABG 109 mmHg (80-95)
[2021-02-27 05:52] LABS: Allen Test POS (Pos)
[2021-02-27 05:57] LABS: pH ABG 7.16 (7.35-7.45)
--- NOTE | 2021-02-27 07:07 | CT Scan Report ---
HEAD CT NONCONTRAST CT DOSE: 537.48 mGy.cm HISTORY: Altered mental status. TECHNIQUE: Multiaxial CT images of the head were performed without the use of intravenous contrast. A utomated exposure control was utilized for this study. A dose lowering technique was utilized adheri ng to the principles of ALARA. Comparison: Head CT 01/28/2021. Findings: The paranasal sinuses and mastoid air cells are clear. The calvarium and skull base are int act. The ventricles and sulci are within normal limits. There is no mass, hematoma, midline shift, or acute infarct. Impression: No acute intracranial abnormality. ACT 112: Negative or not required by law. Electronically signed by: Michael Dillard M.D. 02/27/2021 7:05 AM
--- NOTE | 2021-02-27 07:13 | XRay Report ---
XR chest 1V portable HISTORY: 55 years-old Male hypoxia acute hypoxia COMPARISON: 10/28/2020 TECHNIQUE: Supine AP view of the chest FINDINGS: Cardiac silhouette is enlarged. Pulmonary vascular congestion with bilateral interstitial reticular o pacities. Mild blunting of the costophrenic angles. No pneumothorax. Degenerative changes of the shou lders and spine. IMPRESSION: 1. Cardiomegaly with pulmonary vascular congestion and interstitial opacities suggestive of pulmonary edema. An interstitial pneumonitis could appear similarly. 2. Trace pleural effusions. ACT 112: Negative or not required by law. The above report was generated using voice recognition software. It may contain grammatical, syntax o r spelling errors. Electronically signed by: Reno Johnson M.D. 02/27/2021 7:11 AM
[2021-02-27] MEDS ORDERED: PHARMACY GLYCEMIC MGMT CONSULT STA (08:29)
--- NOTE | 2021-02-27 08:31 | Electrocardiogram Report ---
Test Reason : Blood Pressure : / mmHG Vent. Rate : 077 BPM Atrial Rate : 077 BPM P-R Int : 152 ms QRS Dur : 092 ms QT Int : 388 ms P-R-T Axes : 067 001 071 degrees QTc Int : 439 ms Normal sinus rhythm Normal ECG When compared with ECG of 28-JAN-2021 15:52, No significant change was found Confirmed by Josef Bustos ([id number]) on 02/27/2021 8:31:40 AM Referred By: Confirmed By:Josef Bustos
--- NOTE | 2021-02-27 08:35 | History & Physical Report ---
Date of Service February 27, 2021 Assessment & Plan (1) Acute hypercapnic respiratory failure: Plan: Patient found to be intoxicated with a BAL of 122 History of chronic hypercapnic respiratory failure with obstructive sleep apnea and obesity hypoventilation syndrome PCO2 was 77 Patient placed on BiPAP and had response within an hour cognitively Continue BiPAP as tolerated Alcohol withdrawal scale Follow electrolytes (2) Suicidal ideation: Plan: Patient stated that he wanted to be killed by the police At this time patient denies any current suicidal ideation We will continue suicide precautions and consult psychiatry (3) Diabetes mellitus type 2, uncontrolled, with complications: Plan: Most recent hemoglobin A1c was greater than 10% Check repeat A1c in the morning Continue home medications including semaglutide, Lantus, insulin aspart NovoLog sliding scale Glycemic consult with pharmacy (4) Hypothyroidism (acquired): Plan: Continue levothyroxine (5) Hypertension: Plan: Hemodynamically stable at this time Continue carvedilol and lisinopril Continue furosemide (6) Hyperlipidemia: Plan: Continue Crestor (7) History of gastric bypass: Plan: Patient morbidly obese with a BMI of 46 kg/m Patient denies special diet or volume restrictions (8) COPD (chronic obstructive pulmonary disease): Plan: History of tobacco abuse Continue albuterol rescue inhaler as needed Continue Anoro Ellipta Continue zafirlukast Oxygen supplementation as needed to maintain SaO2 of 90% No indication for steroids at this time Does not appear to be in COPD exacerbation (9) History of tobacco abuse: Plan: Unclear if patient continues to smoke or not We will monitor clinically for need of nicotine patch We will try to elicit further information once patient is less lethargic (10) Klinefelters syndrome: Plan: Continue testosterone replacement (11) ETOH abuse: Plan: BAL 122 AWSS We will not use gabapentin sliding scale as patient is on gabapentin as an outpatient Lorazepam per protocol Admit to medical telemetry (12) GERD (gastroesophageal reflux disease): Plan: Patient is on omeprazole as an outpatient -substitute pantoprazole while inpatient No midepigastric pain No reports of acid reflux (13) DVT prophylaxis: Plan: Patient lethargic Morbidly obese Heparin 7500 units subcu every 8 hours Please refer to Dr. Dominguez's addendum for further recommendations and corrections. History of Present Illness Chief Complaint: Alcohol intoxication, suicidal ideation Primary Care Provider: Juan Greer DO Attending: Dr. Dominguez This is a 55-year-old male with a past medical history including tobacco abuse, morbid obesity due to excess calories, obesity hypoventilation syndrome, ARAM, excessive daytime sleepiness, near syncope, morbid obesity, seizure disorder, schizophrenia, diabetes mellitus, asthma, Klinefelter syndrome, colon polyps, diabetic ulcer right foot, and history of cellulitis of right leg. The patient was drinking last night and had approximately 12 pack of IForem beer. Blood alcohol level this morning the emergency department was 122. Patient presented with suicidal ideation saying that he desired to be shot by police. Initially on presentation the patient was alert and oriented. He was then found to have increased somnolence and developed hypoxia with an SaO2 in the 70s. ABG was performed and revealed a pH of 7.16 and a PCO2 of 77 with a PaO2 of 109. On my examination patient is more oriented. He follows commands. He was able to stand at bedside and attempt to use urinal. He was behaviorally appropriate. He denies any fever, chills, sweats, rigors. Aside from the alcohol he denies any other substance abuse. It is unclear if he is still smoking tobacco or not. He reports no chest pain or tightness. He has no nausea or vomiting or diarrhea. He has no other acute complaints. Allergies Allergy/AdvReac Type Severity Reaction Status Date / Time copper Allergy Mild skin rash, Verified 02/27/21 02:38 itching cider vinegar AdvReac Mild Redness,swe Verified 02/27/21 02:38 ating Home Medications Medication Instructions Recorded Confirmed Type furosemide 40 mg tablet 40 mg PO UD PRN 09/09/20 02/27/21 History carvedilol 3.125 mg tablet (Coreg) 3.125 mg PO BID 09/22/20 02/27/21 History fluoxetine 40 mg capsule (Prozac) 80 mg PO QAM 09/22/20 02/27/21 History linaclotide 290 mcg capsule 290 mcg PO QAM PRN 09/22/20 02/27/21 History (Linzess) lisinopril 10 mg tablet (Zestril) 10 mg PO QAM 09/22/20 02/27/21 History naproxen sodium 550 mg tablet 550 mg PO BID 09/22/20 02/27/21 History olanzapine 20 mg tablet (Zyprexa) 20 mg PO HS 09/22/20 02/27/21 History omeprazole 40 mg capsule,delayed 40 mg PO QAM 09/22/20 02/27/21 History release rosuvastatin 20 mg tablet (Crestor) 20 mg PO QAM 09/22/20 02/27/21 History levothyroxine 50 mcg tablet 50 mcg PO DAILYBB #30 tab 09/26/20 02/27/21 Rx (Synthroid) zafirlukast 20 mg tablet (Accolate) 20 mg PO BID tab 10/09/20 02/27/21 History insulin glargine 100 unit/mL 70 unit SUBCUT QAM 10/28/20 02/27/21 History subcutaneous solution (Lantus U-100 Insulin) clonazepam 0.5 mg tablet (Klonopin) 0.5 mg PO TID tab 11/21/20 02/27/21 History flash glucose scanning reader #1 ea 11/25/20 02/17/21 History (FreeStyle Shelley 14 Day [place]) flash glucose sensor (FreeStyle #1 ea 11/25/20 02/17/21 History Shelley 14 Day Sensor) albuterol sulfate 90 mcg/actuation 1 inh INHALATION Q4H PRN 12/25/20 02/27/21 History breath activated powder inhaler,sensor brinzolamide 1 %-brimonidine 0.2 % 1 drp OPB TID 12/25/20 02/27/21 History eye drops,suspension (Simbrinza) trazodone 100 mg tablet 100 mg PO HS 12/25/20 02/27/21 History umeclidinium 62.5 mcg-vilanterol 1 inh INHALATION QAM 12/25/20 02/27/21 History 25 mcg/actuation powdr for inhalation (Anoro Ellipta) gabapentin 600 mg tablet See Rx Instructions .ROUTE 01/06/21 02/27/21 History (Neurontin) .COMPLEX tab insulin aspart U-100 100 unit/mL 20 unit SUBCUT TID #2 vial 01/23/21 02/27/21 Rx subcutaneous solution (Novolog U-100 Insulin aspart) aspirin 81 mg tablet,delayed 81 mg PO QAM 01/28/21 02/27/21 History release cholecalciferol (vitamin D3) 125 5,000 unit PO QAM 01/28/21 02/27/21 History mcg (5,000 unit) capsule testosterone 20.25 mg/1.25 gram 2 pump TOPICAL .AFTERNOON 01/28/21 02/27/21 History (1.62 %) transdermal gel pump (AndroGel) trazodone 300 mg tablet 150 mg PO HS 01/28/21 02/27/21 History olanzapine 10 mg tablet (Zyprexa) 10 mg PO DAILY 02/17/21 02/27/21 History semaglutide (Ozempic) 0.25 mg SUBCUT WK #1.5 ml 02/21/21 02/27/21 Rx Past Med/Surg History Medical History (Updated 02/27/21 @ 08:45 by Gurinder Hernandez PA-C) Anxiety Asthma Cardiac murmur Cellulitis of leg right knee to right foot -- hospitalized [facility] treated with IV antibiotics. 08/2020 Chronic back pain Chronic hypercapnic respiratory failure COPD (chronic obstructive pulmonary disease) Esophagitis ETOH abuse Gastroparesis GERD (gastroesophageal reflux disease) Hiatal hernia History of tobacco abuse Hx of respiratory failure r/t pneumonia 09/08/2019. treated at [place]. to follow with [employer] [facility] 09/2020. Hypothyroidism Klinefelters syndrome Macular degeneration Morbid obesity with BMI of 40.0-44.9, adult ARAM (obstructive sleep apnea) no current device since he moved to [place] Peripheral neuropathy Pneumonia hx (gets annually) Schizophrenia Seizure disorder hx, last seizure 2000 -- treated with depakote and was taken off of depakote about ~2010. no problems since. Shortness of breath Tachycardia treated with coreg. to follow with Dr Chapman 09/2020. (hx of following with Dr Clark, cardiology at [place], [place]) Type 2 diabetes mellitus IDDM Surgical History H/O hernia repair umbilical H/O right heart catheterization no stents. ~2018 in [place] History of colonoscopy History of esophagogastroduodenoscopy (EGD) History of gastric bypass gastric sleeve S/P epidural steroid injection Family History Other No family history of adverse response to anesthesia Social History Smoking Status: Never smoker Tobacco Type: Cigarettes and Smokeless Tobacco (Dip or Chew) Years Smoked: 30; Number of Years Since Quit: 7; Second Hand Exposure: No; Hx Alcohol Use: Yes Alcohol type: beer Alcohol Intake Frequency: Monthly or Less Hx Substance Use: No Preferred Language: Kuwaiti Communication Ability: Effective Tour Leader Required: No Beliefs That Will Affect Care: None marital status: / Current Living Situation: Alone current occupational status: disabled Other Information That Helps Us Care for You: No Feels Safe at Home: Yes Safety Concerns: Feels Safe At This Time Assistive Devices: Denture - Upper, Denture - Lower, Glasses and Walker Review of Systems Review of Systems: All systems reviewed & are unremarkable except as noted in Subjective Physical Exam Physical Exam: GENERAL : No acute distress. Lethargic but does follow co mmands. Poor historian. This is complicated by slurred speech. EYES: No icterus, gaze conjugate. Pupils equal round and reactive to light NOSE: No evidence of epistaxis. MOUTH: No lesions or candidiasis. Mucosa is dry NECK: Supple. No appreciation of stridor or bruits LUNGS: Very faint crackles at the base of both lungs. No rhonchi. No bronchospasm. HEART: Regular, rate controlled ABDOMEN: Soft, NT, ND, BS Present EXTREMITIES: No LE edema, pedal pulses intact and equal bilaterally. There appear to be some healed areas on the right bryan. There is no erythema or warmth. No evidence of infection. NEURO: Awake and alert. Follows commands. Some slurred speech. Lethargic. PERRL. Strength equal and appropriate upper and lower extremities. Able to do straight leg raise x2 with no back pain. Results & Data Results & Data ([facility]) Vital Signs (Past 12 Hours) Vital Signs Temp Pulse Pulse Resp BP BP Pulse Ox 02/27/21 07:30 36.9 C 75 18 133/69 97 02/27/21 07:05 76 18 96 02/27/21 06:39 78 16 181/90 H 96 02/27/21 06:30 78 15 95 02/27/21 06:29 75 16 96 02/27/21 06:15 76 98 02/27/21 06:00 155/124 H 02/27/21 05:30 84 17 181/93 H 96 02/27/21 05:27 81 14 168/87 H 97 02/27/21 04:45 77 14 148/103 H 96 02/27/21 04:25 94 02/27/21 04:21 86 7 L 158/84 H 84 L 02/27/21 01:32 36.6 C 81 20 132/69 92 Laboratory Results 02/27/21 02:21 02/27/21 02:[address] NON[address]AST CT DOSE: 537.48 mGy.cm HISTORY: Altered mental status. TECHNIQUE: Multiaxial CT images of the head were performed without the use of intravenous contrast. Automated exposure control was utilized for this study. A dose lowering technique was utilized adhering to the principles of ALARA. Comparison: Head CT 01/28/2021. Findings: The paranasal sinuses and mastoid air cells are clear. The calvarium and skull base are intact. The ventricles and sulci are within normal limits. T here is no mass, hematoma, midline shift, or acute infarct. Impression: No acute intracranial abnormality. ACT 112: Negative or not required by law. Electronically signed by: Michael Dillard M.D. 02/27/2021 7:05 AM XR chest 1V portable HISTORY: 55 years-old Male hypoxia acute hypoxia COMPARISON: 10/28/2020 TECHNIQUE: Supine AP view of the chest FINDINGS: Cardiac silhouette is enlarged. Pulmonary vascular congestion with bilateral interstitial reticular opacities. Mild blunting of the costophrenic angles. No pneumothorax. Degenerative changes of the shoulders and spine. IMPRESSION: 1. Cardiomegaly with pulmonary vascular congestion and interstitial opacities suggestive of pulmonary edema. An interstitial pneumonitis could appear similarly. 2. Trace pleural effusions. ACT 112: Negative or not required by law. The above report was generated using voice recognition software. It may contain grammatical, syntax or spelling errors. Electronically signed by: Reno Johnson M.D. 02/27/2021 7:11 AM Code Status & VTE Plan VTE Prophylaxis Plan VTE Prophylaxis will be ordered: Yes Supervising Physician Co-Signing Physician Notes Patient was seen and examined independently I discussed the case with Gurinder Hernandez PAC I reviewed pertinent past medical social family history and also the plan of care and agree with the plan of care. Patient admitted after an altercation with the police where he had gestured that he wanted to . He then developed progressive respiratory distress likely based on a combination of his home medications and possible alcohol. That he was found to have acute hypercarbic respiratory failure requiring noninvasive positive pressure ventilation. He was then subsequently admitted to our facility. I saw the patient was stuporous but alert he was urinating freely he had no focal complaints or problems denied wanting to kill himself at this time admits to drinking alcohol. On BiPAP his lungs were relatively clear his cardiac exam was regular clear his abdomen was NABS and soft Continue supportive care with this patient watch for aspiration pneumonitis may have ongoing psychiatric consultation once clear Any exceptions will be noted below PG Care Time/CCT Total # of Minutes Spent Total Time Spent with Patient: Total time spent is greater than 50% in coordination of care (as documented) at patient's floor/unit and/or counseling patient: 75 minutes Coding Level of Care Code INT OBSERVATION CARE 70M LVL 3 Diagnoses Acute hypercapnic respiratory failure J96.02 Suicidal ideation R45.851 Diabetes mellitus type 2, uncontrolled, with complications E11.8; E11.65 Hypothyroidism (acquired) E03.9 Hypertension I10 Hypertension type: essential hypertension Hyperlipidemia E78.5 Hyperlipidemia type: unspecified History of gastric bypass Z98.84 COPD (chronic obstructive pulmonary disease) J44.9 History of tobacco abuse Z87.891 Klinefelters syndrome Q98.4 ETOH abuse F10.10 GERD (gastroesophageal reflux disease) K21.9 DVT prophylaxis Z29.9 Time Spent (min) 75 (1) Hyperlipidemia Hyperlipidemia type: unspecified Qualified Code(s): E78.5 - Hyperlipidemia, unspecified (2) Hypertension Hypertension type: essential hypertension Qualified Code(s): I10 - Essential (primary) hypertension
[2021-02-27] MEDS ORDERED: ONDANSETRON INJ 2 MG/ML 2 ML VIAL IV PRN (16:35)
[2021-02-27] MEDS ORDERED: ACETAMINOPHEN 325 MG TAB PO PRN (16:35)
[2021-02-27] MEDS ORDERED: ALUMINUM/MAGNESIUM SUSP 30 ML UDC PO PRN (16:35)
[2021-02-27] MEDS ORDERED: GLUCOSE 40% GEL 15 GM TUBE PO PRN (16:35)
[2021-02-27] MEDS ORDERED: DEXTROSE 50% 50 ML SYRINGE IV PRN (16:35)
[2021-02-27] MEDS ORDERED: GLUCAGON FOR INJ 1 MG VIAL SQ PRN (16:35)
[2021-02-27] MEDS ORDERED: INSULIN ASPART PER UNIT SQ SCH (16:35)
[2021-02-27] MEDS ORDERED: POLYETHYLENE (MIRALAX) 17 GM PACK PO PRN (16:35)
[2021-02-27] MEDS ORDERED: CARBOHYDRATES FOR HYPOGLYCEMIA PO PRN (16:35)
[2021-02-27] MEDS ORDERED: MAGNESIUM HYDROXIDE SUSP 30 ML UDC PO PRN (16:35)
[2021-02-27] MEDS ORDERED: LORazepam 1 MG TAB PO PRN (16:35)
[2021-02-27] MEDS ORDERED: GLUCOSE 10 TABS/TUBE PO PRN (16:35)
[2021-02-27] MEDS ORDERED: FUROSEMIDE 40 MG TAB PO PRN (16:35)
[2021-02-27] MEDS ORDERED: ALBUTEROL HFA 8 GM INHALER INH PRN (16:52)
[2021-02-27] MEDS ORDERED: LINACLOTIDE 145 MCG CAPSULE PO PRN (16:55)
[2021-02-27] MEDS ORDERED: MULTI-VITAMIN INFUSION 10 ML, THIAMINE HCL 100 MG, FOLIC ACID 1 MG in SODIUM CHLORIDE 0... IV ONE (17:15)
[2021-02-27] MEDS ORDERED: INSULIN GLARGINE 100 UNIT/ML VIAL SC SCH (17:30)
[2021-02-27] MEDS ORDERED: PHARMACY GLYCEMIC MGMT CONSULT SCH (19:00)
[2021-02-27 19:48] LABS: BUN Creatinine Ratio 17.6 (10-20); Calcium 9.4 mg/dl (8.5-10.1); Creatinine Clr Calc Pharmacy 150.7 ml/min; Est GFR (Non-African American) 100.1 ml/min; Potassium 4.7 mmol/L (3.5-5.1)
[2021-02-27] MEDS: ASPIRIN 81 MG ECTAB PO SCH (19:59)
[2021-02-27] MEDS: carvediloL 3.125 MG TAB PO SCH ×2 (19:59→20:25)
[2021-02-27] MEDS: FLUoxetine HCL 20 MG CAP PO SCH (20:00)
[2021-02-27] MEDS: FOLIC ACID 1 MG TAB PO SCH (20:00)
[2021-02-27] MEDS: HEPARIN SOD 5,000 UNIT/0.5 ML VIAL SQ SCH ×2 (20:01→20:26)
[2021-02-27] MEDS: lisinopril 10 MG TAB PO SCH (20:01)
[2021-02-27] MEDS: OLANZapine 10 MG TAB PO SCH (20:01)
[2021-02-27] MEDS: THIAMINE HCL 100 MG TAB PO SCH (20:02)
[2021-02-27] MEDS: ROSUVASTATIN CALCIUM 20 MG TAB PO SCH (20:02)
[2021-02-27] MEDS: UMECLIDINIUM/VILANTEROL 62.5/25MCG 7 PUFFS/INHALER INH SCH (20:02)
[2021-02-27] MEDS: PANTOprazole 40 MG TAB PO SCH (20:02)
[2021-02-27] MEDS: LACTATED RINGER'S 1,000 ML IV SCH (20:03)
[2021-02-27] MEDS: INSULIN ASPART 100 UNITS/ML 3 ML PEN SC SCH ×2 (20:09→20:27)
[2021-02-27] MEDS: clonazePAM 0.5 MG TAB PO SCH ×2 (20:11→20:26)
[2021-02-27 20:23] LABS: Folate (Folic Acid) 9.4 ng/ml (>5.38)
[2021-02-27] MEDS ORDERED: OLANZapine 10 MG TAB PO ONE (20:27)
[2021-02-27] MEDS ORDERED: GABAPENTIN 600 MG TAB PO SCH (21:00)
[2021-02-27] MEDS ORDERED: OLANZapine 20 MG TABLET PO SCH (21:00)
[2021-02-27] MEDS: NICOTINE POLACRILEX 2 MG GUM MT PRN (21:15)
[2021-02-28] MEDS: HEPARIN SOD 5,000 UNIT/0.5 ML VIAL SQ SCH ×2 (06:26→13:07)
[2021-02-28] MEDS ORDERED: LEVOTHYROXINE SODIUM 50 MCG TABLET PO SCH (06:30)
[2021-02-28] MEDS: LACTATED RINGER'S 1,000 ML IV SCH (08:33)
[2021-02-28] MEDS: clonazePAM 0.5 MG TAB PO SCH ×2 (08:35→13:13)
[2021-02-28] MEDS: GABAPENTIN 600 MG TAB PO SCH ×2 (08:36→13:08)
[2021-02-28] MEDS: THIAMINE HCL 100 MG TAB PO SCH (08:37)
[2021-02-28] MEDS: ASPIRIN 81 MG ECTAB PO SCH (08:37)
[2021-02-28] MEDS: PANTOprazole 40 MG TAB PO SCH (08:37)
[2021-02-28] MEDS: ROSUVASTATIN CALCIUM 20 MG TAB PO SCH (08:38)
[2021-02-28] MEDS: OLANZapine 10 MG TAB PO SCH (08:38)
[2021-02-28] MEDS: lisinopril 10 MG TAB PO SCH (08:38)
[2021-02-28] MEDS: FOLIC ACID 1 MG TAB PO SCH (08:38)
[2021-02-28] MEDS: carvediloL 3.125 MG TAB PO SCH (08:39)
[2021-02-28] MEDS: FLUoxetine HCL 20 MG CAP PO SCH (08:39)
[2021-02-28] MEDS: UMECLIDINIUM/VILANTEROL 62.5/25MCG 7 PUFFS/INHALER INH SCH (08:40)
[2021-02-28] MEDS: INSULIN ASPART 100 UNITS/ML 3 ML PEN SC SCH ×2 (08:44→13:10)
[2021-02-28] MEDS ORDERED: INSULIN GLARGINE 100 UNIT/ML VIAL SC SCH ×2 (09:00→21:00)
[2021-02-28] MEDS ORDERED: CHOLECALCIFEROL 1,000 UNITS 25 MCG TAB PO SCH (09:00)
--- NOTE | 2021-02-28 09:39 | Pharmacy Report ---
Pharmacy Glycemic Short Note 2 - Date of Service February 28, 2021 - Glycemic Short BSG Results (Last 24 hours): 02/27/21 02/27/21 02/27/21 15:00 19:16 19:55 Glucose 219 H POC Glucose 222 H 209 H 02/28/21 07:30 Glucose POC Glucose 158 H OUTPATIENT ANTIDIABETIC REGIMEN: * Lantus 70 units SC qAM * Novolog 20 units SC TID * Ozempic SC weekly * HbA1c: 8.3% (02/28/21) ASSESSMENT: * TS is a 55 year old male who was brought to ED for suicidal ideation * Subsequently found to be intoxicated with hypercapnic respiratory failure * BSGs elevated yesterday, given home dose of Lantus at time of admission with aggressive Novolog parameters * Will plan to split Lantus BID with scale to allow for decreased HS dose if needed PLAN FOR INPATIENT GLYCEMIC CONTROL: * Basal insulin * Lantus 25-35 units SQ BID (see EHR for details * Bolus insulin * NovoLog per scale ACHS or Q6hrs while NPO * Goal Range: Low 110 mg/dL - High 140 mg/dL * Correction Factor: 10 mg/dL/unit * Nutritional / Prandial insulin per carb ratio of 1 unit per 3 grams CHO consumed PLAN FOR DISCHARGE: * HbA1c is above goal of less than 7%, but much improved from earlier this year * Will follow inpatient insulin needs and suggest insulin dose adjustments as needed
[2021-02-28 09:43] LABS: Basophils # (auto) 0.02 K/uL (0-0.2); Basophils % (auto) 0.3 %; Eosinophils # (auto) 0.26 K/uL (0-0.5); Hematocrit (blood only) 35.7 % (42-52); Hemoglobin 11.9 g/dL (14.0-18.0); Immature Granulocytes # (auto) 0.01 K/uL (0.00-0.02); Immature Granulocytes % (auto) 0.2 %; Lymphocytes % (auto) 21.7 %; Mean Corpuscular Hemoglobin 31.5 pg (25-34); Mean Corpuscular Hgb Conc 33.3 g/dL (32-36); Mean Corpuscular Volume 94.4 fL (80-100); Mean Platelet Volume 10.5 fL (7.4-10.4); Monocytes # (auto) 0.34 K/uL (0.11-0.59); Monocytes % (auto) 5.3 %; Neutrophils # (auto) 4.43 K/uL (1.4-6.5); Neutrophils % (auto) 68.5 %; Platelet Count 137 K/uL (130-400); RDW Coefficient of Variation 13.5 % (11.5-14.5); RDW Standard Deviation 45.9 fL (36.4-46.3); Red Blood Count 3.78 M/uL (4.7-6.1); White Blood Count 6.46 K/uL (4.8-10.8)
[2021-02-28 10:17] LABS: Magnesium 2.2 mg/dl (1.8-2.4); Phosphorus 4.8 mg/dl (2.5-4.9)
[2021-02-28 11:13] LABS: Estimated Average Glucose 192 mg/dl; Hemoglobin A1C 8.3 % (4.5-5.6)
[2021-02-28] MEDS: NICOTINE POLACRILEX 2 MG GUM MT PRN (13:18)
--- NOTE | 2021-02-28 14:27 | Psychiatric Consultation ---
Date of Consultation February 28, 2021 Impression / Recommendations Impression 55-year-old male with history of schizophrenia who presented following an episode of drinking where he made a suicidal statement. Immediately upon presentation patient had been denying any suicidal ideation or intent, and he has maintained this throughout his hospital stay. Upon meeting with patient today he is reporting stability and is agreeable to continue his care on an outpatient basis. No safety concerns verbalized. Plan: Patient is clear from psychiatric perspective, Patient to be provided with grief counseling resources Patient to follow-up with mental health appointments in the community. Psych History Chief Complaint "I just said something I did not mean". History of Present Illness HPI as per psychiatric liaison "ounded on patient to complete suicide risk assessment. Pt. resting in bed with 1:1 present for safety. Pt. alert and oriented and engaged in conversation, answers questions appropriately. He is a 55 year old male that lives by himself in an apartment in [place]. He does have a mental health history. He is denying any SI, states "I bought beer and it was on sale, and needed someone to talk to." He reports he called a friend, and his friend didn't have time to talk to him. States "I had a moment of grief". He reports that sometimes he gets lonely with unresolved grief from the loss of 2 wives, one from cancer, and the other from Covid. He does report that he was inpatient mental health 2 months ago in [place] with superficial cuts to his left forearm. He reports that his stay was helpful and started services with [facility] for therapy and medication management, last appointment was February 04, next appt. 03/10. He does have a [facility] Clementine at [facility] that is scheduled to come to his home on Wednesday. He also has virtual sessions with a Psychologist Dr. Valverde at [facility], next appt. 03/21. He does report occasional visual hallucinations of shadows. He reports recent medication change of Trazodone from 300mg to 250mg due to c/o sedation. He denies any issues with his medications and believe that they are helping. He was able to identify reasons for wanting to live such as his Aunt Jany who lives local and assists him with appointments, and he talks to her daily. He states "I want to see myself for another 20 years, and would like to buy a house." He is requesting assistance with grief counseling services. He did sign an SALOME for [facility], Dr. Valverde, and Patel along with his Aunt Jany." Upon evaluation this afternoon, patient endorses the above information is accurate. He states adamantly that he is not suicidal and that he is on a good path. Patient adds that he feels the "most stable" that he has felt in a long time. He states that he used to be homeless and suffer from severe alcohol use. He reports that he has been sober since November but did have a relapse just couple nights ago when thinking about his recently . He stated that during this time he drank too much and did not have anyone to talk to him in the moment. He denies any recent issues regarding his mood. He also denies any recent episodes of psychosis. He is open and agreeable to continue outpatient mental health services as well as take resources for grief counseling. Allergies Allergy/AdvReac Type Severity Reaction Status Date / Time copper Allergy Mild skin rash, Verified 02/27/21 02:38 itching cider vinegar AdvReac Mild Redness,swe Verified 02/27/21 02:38 ating Home Medications Medication Instructions Recorded Confirmed Type furosemide 40 mg tablet 40 mg PO UD PRN 09/09/20 02/27/21 History carvedilol 3.125 mg tablet (Coreg) 3.125 mg PO BID 09/22/20 02/27/21 History fluoxetine 40 mg capsule (Prozac) 80 mg PO QAM 09/22/20 02/27/21 History linaclotide 290 mcg capsule 290 mcg PO QAM PRN 09/22/20 02/27/21 History (Linzess) lisinopril 10 mg tablet (Zestril) 10 mg PO QAM 09/22/20 02/27/21 History naproxen sodium 550 mg tablet 550 mg PO BID 09/22/20 02/27/21 History olanzapine 20 mg tablet (Zyprexa) 20 mg PO HS 09/22/20 02/27/21 History omeprazole 40 mg capsule,delayed 40 mg PO QAM 09/22/20 02/27/21 History release rosuvastatin 20 mg tablet (Crestor) 20 mg PO QAM 09/22/20 02/27/21 History levothyroxine 50 mcg tablet 50 mcg PO DAILYBB #30 tab 09/26/20 02/27/21 Rx (Synthroid) zafirlukast 20 mg tablet (Accolate) 20 mg PO BID tab 10/09/20 02/27/21 History insulin glargine 100 unit/mL 70 unit SUBCUT QAM 10/28/20 02/27/21 History subcutaneous solution (Lantus U-100 Insulin) clonazepam 0.5 mg tablet (Klonopin) 0.5 mg PO TID tab 11/21/20 02/27/21 History flash glucose scanning reader #1 ea 11/25/20 02/17/21 History (FreeStyle Shelley 14 Day [place]) flash glucose sensor (FreeStyle #1 ea 11/25/20 02/17/21 History Shelley 14 Day Sensor) albuterol sulfate 90 mcg/actuation 1 inh INHALATION Q4H PRN 12/25/20 02/27/21 History breath activated powder inhaler,sensor brinzolamide 1 %-brimonidine 0.2 % 1 drp OPB TID 12/25/20 02/27/21 History eye drops,suspension (Simbrinza) trazodone 100 mg tablet 100 mg PO HS 12/25/20 02/27/21 History umeclidinium 62.5 mcg-vilanterol 1 inh INHALATION QAM 12/25/20 02/27/21 History 25 mcg/actuation powdr for inhalation (Anoro Ellipta) gabapentin 600 mg tablet See Rx Instructions .ROUTE 01/06/21 02/27/21 History (Neurontin) .COMPLEX tab insulin aspart U-100 100 unit/mL 20 unit SUBCUT TID #2 vial 01/23/21 02/27/21 Rx subcutaneous solution (Novolog U-100 Insulin aspart) aspirin 81 mg tablet,delayed 81 mg PO QAM 01/28/21 02/27/21 History release cholecalciferol (vitamin D3) 125 5,000 unit PO QAM 01/28/21 02/27/21 History mcg (5,000 unit) capsule testosterone 20.25 mg/1.25 gram 2 pump TOPICAL .AFTERNOON 01/28/21 02/27/21 History (1.62 %) transdermal gel pump (AndroGel) trazodone 300 mg tablet 150 mg PO HS 01/28/21 02/27/21 History olanzapine 10 mg tablet (Zyprexa) 10 mg PO DAILY 02/17/21 02/27/21 History semaglutide (Ozempic) 0.25 mg SUBCUT WK #1.5 ml 02/21/21 02/27/21 Rx Personal History Beliefs That Will Affect Care: None Patient History Medical History (Updated 02/27/21 @ 08:45 by Gurinder Hernandez PA-C) Anxiety Asthma Cardiac murmur Cellulitis of leg right knee to right foot -- hospitalized [facility] treated with IV antibiotics. 08/2020 Chronic back pain Chronic hypercapnic respiratory failure COPD (chronic obstructive pulmonary disease) Esophagitis ETOH abuse Gastroparesis GERD (gastroesophageal reflux disease) Hiatal hernia History of tobacco abuse Hx of respiratory failure r/t pneumonia 09/08/2019. treated at [place]. to follow with [employer] NARENDRA 09/2020. Hypothyroidism Klinefelters syndrome Macular degeneration Morbid obesity with BMI of 40.0-44.9, adult ARAM (obstructive sleep apnea) no current device since he moved to [place] Peripheral neuropathy Pneumonia hx (gets annually) Schizophrenia Seizure disorder hx, last seizure 2000 -- treated with depakote and was taken off of depakote about ~2010. no problems since. Shortness of breath Tachycardia treated with coreg. to follow with Dr Chapman 09/2020. (hx of following with Dr Clark, cardiology at [place], [place]) Type 2 diabetes mellitus IDDM Surgical History H/O hernia repair umbilical H/O right heart catheterization no stents. ~2018 in [place] History of colonoscopy History of esophagogastroduodenoscopy (EGD) History of gastric bypass gastric sleeve S/P epidural steroid injection Family History Other No family history of adverse response to anesthesia Social History Smoking Status: Never smoker Tobacco Type: Cigarettes and Smokeless Tobacco (Dip or Chew) Years Smoked: 30; Number of Years Since Quit: 7; Second Hand Exposure: No; Hx Alcohol Use: Yes Alcohol type: beer Alcohol Intake Frequency: Monthly or Less Hx Substance Use: No Preferred Language: Uzbek Communication Ability: Effective Bellman Required: No Beliefs That Will Affect Care: None marital status: / Current Living Situation: Alone current occupational status: disabled Feels Safe at Home: Yes Assistive Devices: Glasses and Walker Physical Exam Psychiatric: Orientation: alert and oriented x 3 Apperance: appropriately dressed and appropriately groomed Eye Contact: good eye contact Motor Behavior: no abnormal motor movements Speech: normal rate/rhythm/volume of speech Affect: euthymic affect Mood: no depressed mood and no anxious mood Thought Process: linear/logical thought process Thought Content: reality based without delusions Suicidal Thoughts: denies suicidal thoughts, denies suicidal plan and denies suicidal intent Homicidal Thoughts: denies homicidal thoughts, denies homicidal plan and denies homicidal intent Hallucinations: no auditory hallucinations and no visual hallucinations Cognition: remote memory grossly intact Estimated Intelligence: consistent with education level Insight: + fair insight Judgement: + fair judgement Vital Signs (Past 24 Hours): Last Vital Signs Temp 37.0 C 02/28/21 11:02 Pulse 78 02/28/21 11:02 Resp 16 02/28/21 11:02 BP 148/79 H 02/28/21 11:02 Pulse Ox 90 02/28/21 11:02 Results & Data (PSY) Medications Administered Aspirin (Aspirin 81 Mg Ectab) 81 mg PO QAM [facility] Stop: 03/29/21 16:34 Last Admin: 02/28/21 08:37 Dose: 81 mg Documented by: [id number] Admin: 02/27/21 19:59 Dose: 81 mg Documented by: [id number] Carvedilol (Carvedilol 3.125 Mg Tab) 3.125 mg PO BID [facility] Stop: 03/29/21 16:34 Last Admin: 02/28/21 08:39 Dose: 3.125 mg Documented by: [id number] Admin: 02/27/21 20:25 Dose: Not Given Documented by: [id number] Admin: 02/27/21 19:59 Dose: 3.125 mg Documented by: [id number] Clonazepam (Clonazepam 0.5 Mg Tab) 0.5 mg PO TID [facility] Stop: 03/29/21 16:34 Last Admin: 02/28/21 13:13 Dose: 0.5 mg Documented by: [id number] Admin: 02/28/21 08:35 Dose: 0.5 mg Documented by: [id number] Admin: 02/27/21 20:26 Dose: Not Given Documented by: [id number] Admin: 02/27/21 20:11 Dose: 0.5 mg Documented by: [id number] Fluoxetine HCl (Fluoxetine Hcl 20 Mg Cap) 80 mg PO QAM [facility] Stop: 03/29/21 16:34 Last Admin: 02/28/21 08:39 Dose: 80 mg Documented by: [id number] Admin: 02/27/21 20:00 Dose: 80 mg Documented by: [id number] Folic Acid (Folic Acid 1 Mg Tab) 1 mg PO QAM [facility] Stop: 03/29/21 16:34 Last Admin: 02/28/21 08:38 Dose: 1 mg Documented by: [id number] Admin: 02/27/21 20:00 Dose: 1 mg Documented by: [id number] Gabapentin (Gabapentin 600 Mg Tab) 600 mg PO DAILY@0900,1400 [facility] Stop: 03/30/21 08:59 Last Admin: 02/28/21 13:08 Dose: 600 mg Documented by: [id number] Admin: 02/28/21 08:36 Dose: 600 mg Documented by: [id number] Gabapentin (Gabapentin 600 Mg Tab) 1,200 mg PO HS [facility] Stop: 03/29/21 20:59 Last Admin: 02/27/21 21:14 Dose: 1,200 mg Documented by: [id number] Heparin Sodium (Porcine) (Heparin Sod 5,000 Unit/0.5 Ml Vial) 7,500 units SQ Q8 [facility] Stop: 03/29/21 16:34 Last Admin: 02/28/21 13:07 Dose: 7,500 units Documented by: [id number] Admin: 02/28/21 06:26 Dose: 7,500 units Documented by: [id number] Admin: 02/27/21 20:26 Dose: Not Given Documented by: [id number] Admin: 02/27/21 20:01 Dose: 7,500 units Documented by: [id number] Lactated Ringer's (Lr) 1,000 mls @ 80 mls/hr IV .[id number] [facility] Stop: 03/29/21 16:59 Last Admin: 02/28/21 08:33 Dose: 80 mls/hr Documented by: [id number] Infusion: 02/28/21 08:33 Dose: 80 mls/hr Documented by: [id number] Admin: 02/27/21 20:03 Dose: 80 mls/hr Documented by: [id number] Insulin Aspart (Insulin Aspart 100 Units/Ml 3 Ml Pen) 0 units SC [facility]; Protocol Stop: 03/29/21 17:29 Last Admin: 02/28/21 13:10 Dose: 16 units Documented by: [id number] Cosigned by: [id number] Admin: 02/28/21 08:44 Dose: 14 units Documented by: [id number] Cosigned by: [id number] Admin: 02/27/21 20:27 Dose: Not Given Documented by: [id number] Cosigned by: [id number] Admin: 02/27/21 20:09 Dose: 17 units Documented by: [id number] Cosigned by: [id number] Levothyroxine Sodium (Levothyroxine Sodium 50 Mcg Tablet) [facility] Stop: 03/30/21 06:29 Last Admin: 02/28/21 06:25 Dose: 50 mcg Documented by: [id number] Lisinopril (Lisinopril 10 Mg Tab) [facility] Stop: 03/29/21 16:34 Last Admin: 02/28/21 08:38 Dose: 10 mg Documented by: [id number] Admin: 02/27/21 20:01 Dose: 10 mg Documented by: [id number] Miscellaneous (Testosterone [Androgel] Order Awaiting Action) 1 ea N/A QS [facility] Stop: 03/30/21 00:00 Last Admin: 02/28/21 08:33 Dose: Not Given Documented by: [id number] Admin: 02/27/21 23:47 Dose: Not Given Documented by: [id number] Miscellaneous (Brinzolamide-Brimonidine [Simbrinza] 1-0.2 % Order Awaiting Action) 1 ea N/A QS [facility] Stop: 03/30/21 00:00 Last Admin: 02/28/21 08:33 Dose: Not Given Documented by: [id number] Admin: 02/27/21 23:47 Dose: Not Given Documented by: [id number] Miscellaneous (Zafirlukast (Accolate) 20 Mg Tablet -- Order Awaiting Action) 1 ea N/A QS [facility] Stop: 03/30/21 00:00 Last Admin: 02/28/21 08:34 Dose: Not Given Documented by: [id number] Admin: 02/27/21 23:48 Dose: Not Given Documented by: [id number] Nicotine Polacrilex (Nicotine Polacrilex 2 Mg Gum) 1 piece MT PRN PRN PRN Reason: Tobacco withdrawal Stop: 03/29/21 20:26 Last Admin: 02/28/21 13:18 Dose: 1 piece Documented by: [id number] Admin: 02/27/21 21:15 Dose: 1 piece Documented by: [id number] Olanzapine (Olanzapine 10 Mg Tab) 10 mg PO DAILY [facility] Stop: 03/29/21 16:34 Last Admin: 02/28/21 08:38 Dose: 10 mg Documented by: [id number] Admin: 02/27/21 20:01 Dose: 10 mg Documented by: [id number] Olanzapine (Olanzapine 20 Mg Tablet) 20 mg PO [facility] Stop: 03/29/21 20:59 Last Admin: 02/27/21 20:28 Dose: Not Given Documented by: [id number] Pantoprazole Sodium (Pantoprazole 40 Mg Tab) 40 [facility] Stop: 03/29/21 16:34 Last Admin: 02/28/21 08:37 Dose: 40 mg Documented by: [id number] Admin: 02/27/21 20:02 Dose: 40 mg Documented by: [id number] Rosuvastatin Calcium (Rosuvastatin Calcium 20 Mg Tab) 20 [facility] Stop: 03/29/21 16:34 Last Admin: 02/28/21 08:38 Dose: 20 mg Documented by: [id number] Admin: 02/27/21 20:02 Dose: 20 mg Documented by: [id number] Thiamine HCl (Thiamine Hcl 100 Mg Tab) 100 mg [facility] Stop: 03/29/21 16:34 Last Admin: 02/28/21 08:37 Dose: 100 mg Documented by: [id number] Admin: 02/27/21 20:02 Dose: 100 mg Documented by: [id number] Umeclidinium/Vilanterol (Umeclidinium/Vilanterol 62.5/25mcg 7 Puffs/Inhaler) 1 puffs INH [facility] Stop: 03/29/21 16:34 Last Admin: 02/28/21 08:40 Dose: 1 puffs Documented by: [id number] Admin: 02/27/21 20:02 Dose: 1 puffs Documented by: [id number] Vitamin D (Cholecalciferol 1,000 Units 25 Mcg Tab) 5,000 units PO [facility] Stop: 03/30/21 08:59 Last Admin: 02/28/21 08:36 Dose: 5,000 units Documented by: [id number] Coding Level of Care Code 28058 U Intl Hosp Care Lvl 2
--- NOTE | 2021-02-28 20:55 | Discharge Summary ---
Date of Service February 28, 2021 Admission HPI Per Admitting Provider Attending: Dr. Dominguez This is a 55-year-old male with a past medical history including tobacco abuse, morbid obesity due to excess calories, obesity hypoventilation syndrome, ARAM, excessive daytime sleepiness, near syncope, morbid obesity, seizure disorder, schizophrenia, diabetes mellitus, asthma, Klinefelter syndrome, colon polyps, diabetic ulcer right foot, and history of cellulitis of right leg. The patient was drinking last night and had approximately 12 pack of Myron Tapia beer. Blood alcohol level this morning the emergency department was 122. Patient presented with suicidal ideation saying that he desired to be shot by police. Initially on presentation the patient was alert and oriented. He was then found to have increased somnolence and developed hypoxia with an SaO2 in the 70s. ABG was performed and revealed a pH of 7.16 and a PCO2 of 77 with a PaO2 of 109. On my examination patient is more oriented. He follows commands. He was able to stand at bedside and attempt to use urinal. He was behaviorally appropriate. He denies any fever, chills, sweats, rigors. Aside from the alcohol he denies any other substance abuse. It is unclear if he is still smoking tobacco or not. He reports no chest pain or tightness. He has no nausea or vomiting or diarrhea. He has no other acute complaints. Principal Diagnosis Alcohol intoxication Suicidal ideation Discharge Exam Constitutional WD/WN, vitals as above Eyes EOM intact bilaterally; no conjunctival abnormality ENMT external ear and nose normal, oropharynx normal Neck trachea midline, no thyromegaly normal visual inspection Respiratory normal respiratory effort, lungs clear to auscultation no respiratory distress Cardiovascular RRR, no murmur, no edema Gastrointestinal (Abdomen) Inspection/Auscultation: abdomen normal to inspection; abdomen not distended Musculoskeletal no cyanosis or clubbing, extremities motor strength 5/5 Skin no rashes, warm and dry Neurologic moves all extremities and awake Psychiatric Orientation: alert, oriented to person and cooperative Discharge Data Allergies Allergy/AdvReac Type Severity Reaction Status Date / Time copper Allergy Mild skin rash, Verified 02/27/21 02:38 itching cider vinegar AdvReac Mild Redness,swe Verified 02/27/21 02:38 ating Consultations 02/27/21 07:12 ED Decision to Admit Stat 02/27/21 19:43 Consult Psychiatry Routine Ordered Studies 02/27/21 05:58 CT head/brain wo con Stat Hospital Course (1) Acute hypercapnic respiratory failure: By next morning, the alcoholic intoxication had resolved. Breathing issues resolved. Suicidal ideation resolved. - Seen by psychiatry and cleared for discharge. Has had some severe grief recently (mother and dying). Given grief support and will have close follow-up with his outpatient psychiatry team. Patient found to be intoxicated with a BAL of 122 History of chronic hypercapnic respiratory failure with obstructive sleep apnea and obesity hypoventilation syndrome PCO2 was 77 Patient placed on BiPAP and had response within an hour cognitively Continue BiPAP as tolerated Alcohol withdrawal scale Follow electrolytes (2) Suicidal ideation: Patient stated that he wanted to be killed by the police At this time patient denies any current suicidal ideation We will continue suicide precautions and consult psychiatry (3) Diabetes mellitus type 2, uncontrolled, with complications: Most recent hemoglobin A1c was greater than 10% Check repeat A1c in the morning Continue home medications including semaglutide, Lantus, insulin aspart NovoLog sliding scale Glycemic consult with pharmacy (4) Hypothyroidism (acquired): Continue levothyroxine (5) Hypertension: Hemodynamically stable at this time Continue carvedilol and lisinopril Continue furosemide (6) Hyperlipidemia: Continue Crestor (7) History of gastric bypass: Patient morbidly obese with a BMI of 46 kg/m Patient denies special diet or volume restrictions (8) COPD (chronic obstructive pulmonary disease): History of tobacco abuse Continue albuterol rescue inhaler as needed Continue Anoro Ellipta Continue zafirlukast Oxygen supplementation as needed to maintain SaO2 of 90% No indication for steroids at this time Does not appear to be in COPD exacerbation (9) History of tobacco abuse: Unclear if patient continues to smoke or not We will monitor clinically for need of nicotine patch We will try to elicit further information once patient is less lethargic (10) Klinefelters syndrome: Continue testosterone replacement (11) ETOH abuse: BAL 122 AWSS We will not use gabapentin sliding scale as patient is on gabapentin as an outpatient Lorazepam per protocol Admit to medical telemetry (12) GERD (gastroesophageal reflux disease): Patient is on omeprazole as an outpatient -substitute pantoprazole while inpatient No midepigastric pain No reports of acid reflux (13) DVT prophylaxis: Patient lethargic Morbidly obese Heparin 7500 units subcu every 8 hours Please refer to Dr. Dominguez's addendum for further recommendations and corrections. Total Time Total Time Spent Total Time Spent (In Minutes): 35 Discharge Plan Discharge Items Patient Disposition: Home - Self-Care Reason For Visit: SUICIDAL IDEATION ETHANOL INTOXICATION Discharge Diagnosis: Suicidal ideation Activity: Resume your previous activity Non-emergency contact: Primary Care Provider, Psychiatrist and Geodetic Engineer Call non-emergency contact if: your symptoms worsen Follow-up/Referrals: Ryan Jeffries MD [Primary Care Provider] - 03/06/21 2:10 pm Diet: Regular Addtl Attending Provider Instructions: Please follow-up with your mental health providers to help cope with your grief at your losses of family member. Please take care! Pending Studies at Discharge: No Stand-Alone Forms: My SocialDefender, Smoking Cessation Medications and DC Order Prescriptions: Continued insulin aspart U-100 [Novolog U-100 Insulin aspart] 100 unit/mL solution 20 unit subcut TID Qty: 2 RF: 5 Ozempic 0.25 mg or 0.5 mg(2 mg/1.5 mL) pen injector 0.25 mg subcut WK Qty: 1.5 RF: 5 clonazepam [Klonopin] 0.5 mg tablet 0.5 mg PO TID RF: 0 (DME) FreeStyle Shellye 14 Day Sensor Kit See Rx Instructions .ROUTE .MEDSUPPLY Qty: 1 RF: 0 (DME) FreeStyle Shelley 14 Day [place] Misc See Rx Instructions .ROUTE .MEDSUPPLY Qty: 1 RF: 0 olanzapine [Zyprexa] 10 mg tablet 10 mg PO DAILY RF: 0 furosemide 40 mg tablet 40 mg PO UD PRN (Reason: Fluid Retention) RF: 0 fluoxetine [Prozac] 40 mg capsule 80 mg PO QAM RF: 0 omeprazole 40 mg capsule,delayed release(DR/EC) 40 mg PO QAM RF: 0 carvedilol [Coreg] 3.125 mg tablet 3.125 mg PO BID RF: 0 lisinopril [Zestril] 10 mg tablet 10 mg PO QAM RF: 0 olanzapine [Zyprexa] 20 mg tablet 20 mg PO HS RF: 0 rosuvastatin [Crestor] 20 mg tablet 20 mg PO QAM RF: 0 Linzess 290 mcg capsule 290 mcg PO QAM PRN (Reason: Constipation) RF: 0 naproxen sodium 550 mg tablet 550 mg PO BID RF: 0 levothyroxine [Synthroid] 50 mcg Tablet 50 mcg PO DAILYBB Qty: 30 RF: 5 zafirlukast [Accolate] 20 mg tablet 20 mg PO BID RF: 0 gabapentin [Neurontin] 600 mg tablet See Rx Instructions .ROUTE .COMPLEX RF: 0 trazodone 100 mg Tablet 100 mg PO HS RF: 0 Simbrinza 1-0.2 % Drops,Suspension 1 drp OPB TID RF: 0 Anoro Ellipta 62.5-25 mcg/actuation Blister With Device 1 inh INHALATION QAM RF: 0 albuterol sulfate 90 mcg/actuation Aero Powdr Breath Act W/Sensor 1 inh INHALATION Q4H PRN (Reason: sob) RF: 0 Lantus U-100 Insulin 100 unit/mL solution 70 unit SUBCUT QAM RF: 0 aspirin 81 mg Tablet,Delayed Release (Dr/Ec) 81 mg PO QAM RF: 0 trazodone 300 mg tablet 150 mg PO HS RF: 0 cholecalciferol (vitamin D3) 125 mcg (5,000 unit) capsule 5,000 unit PO QAM RF: 0 testosterone [AndroGel] 20.25 mg/1.25 gram (1.62 %) gel in metered-dose pump 2 pump topical .AFTERNOON RF: 0 Discharge Orders: Discharge Order (Routine); Ordered 02/28/21 Ordered By: Jack Palacios Admission Data Admit Date/Time: 02/27/21 08:29 Attending Provider: Jack Palacios Admit Provider: Wiliam Dominguez Primary Care Provider: Ryan Jeffries Other Providers: Trinity Cormier ; Dr Óscar ; Shakira Nails ; Lawrence Mckeon ; Jack Palacios Other Interventions: Discharge Summary Assessment (RN) Last Done: 02/28/21 15:39 Coding Level of Care Code D/C DAY MANAGEMENT >30 MINS Diagnoses Acute hypercapnic respiratory failure J96.02 Suicidal ideation R45.851 Diabetes mellitus type 2, uncontrolled, with complications E11.8; E11.65 Hypothyroidism (acquired) E03.9 Hypertension I10 Hypertension type: essential hypertension Hyperlipidemia E78.5 Hyperlipidemia type: unspecified History of gastric bypass Z98.84 COPD (chronic obstructive pulmonary disease) J44.9 History of tobacco abuse Z87.891 Klinefelters syndrome Q98.4 ETOH abuse F10.10 GERD (gastroesophageal reflux disease) K21.9 DVT prophylaxis Z29.9
[2021-03-02 12:16] LABS: MDA negative; MDEA negative; MDMA (Ecstasy) Urine, Confirm negative
== END 2021-02-28 16:23 | disposition home or self-care (01) | DRG 896 ==
LOC: ED 01:17 → SUPCPDRO 08:29 → EDINP 08:29 → SUATTDRO 08:29 → 2W 18:30

== ENCOUNTER 2021-06-19 15:27 | Observation (INO) ==
[2021-06-19] MEDS ORDERED: ONDANSETRON INJ 2 MG/ML 2 ML VIAL IV STA (15:42)
[2021-06-19] MEDS ORDERED: MoRPHine SULFATE 4 MG/ML 1 ML CARP\\VIAL IV STA (15:42)
[2021-06-19] MEDS ORDERED: SODIUM CHLORIDE 0.9% 1000ML 500 ML IV ONE (15:42)
--- NOTE | 2021-06-19 15:46 | Emergency Department Note ---
Impression & Plan Hypoglycemia, Abdominal pain, Altered mental status, Hypercapnic respiratory failure, Constipation ED Provider Note Name: NOA SCHNEIDER Age: 56 Sex: M Arrives Via: Ambulance Informant: Patient ED Provider: Jimbo Ulloa MD Chief Complaint: Abdominal Pain Impression: As Per Impressions Above Medical Decision Makin yr old severely unwell male arrives from physicians office for evaluation of diffuse abdominal pain. EMS notes he was somewhat confused, found to have low BSG and woke up some with D10. Patient with vague diffuse TTP entire abdomen without specific focal TTP. He has quite a distended abdomen which he states is new, though may be more obesity related. He was given very small dose fentanyl and feeling better. Sent to CT where no evidence acute abdominal issues other than constipation. He was noted to have worsening mental states a while later and BSG low again. D50 given though still confused thus Ammonia, ETOH, and VBG obtained. He is a bit acidotic and hypercapnic likely the cause of confusion. He is a bit too somnolent to be eating though bsg stable after this. I discussed patient with hospitalist given my concerns. Of note he is low grade fever thus I did obtain cultures, straight cath ua and lactate of which immediate labs unremarkable. Covid negative and no evidence pneumonia. Seem unlikely SBP given other findings unremarkable. He does not have meningitis by exam. Hold on abx at this time. Prior Medical Record and Triage/Nursing Notes reviewed by Me Additional history obtained from chart Differentials:Infection, dehydration, metabolic abnormality, hypo/hyp erglycemia, electrolyte disturbance, anemia, hypoxia, cardiac sources, intracerebral event, toxicologic, neurologic, as well as other pathologies. Vital Signs: reviewed and remarkable for no significant abnormalities Interventions: D50 IV Labs:Reviewed and remarkable for acidosis with hypercapnia Imaging:See Below EKG:Per My Interpretation: Indication ams: NSR 83 bpm, qtc 397. No Ectopy. No Ischemia. Compared to EKG 02/27/21, no significant changes. Cardiac/Tele Monitoring: Cardiac Monitoring: An Order was placed for continuous cardiac monitoring. The monitor shows a rate of 80 with a normal sinus rhythm. Consults:Dr Nevaeh ROSS Hospitalist Plan: Disposition:Hospitalization. Condition: Good History of Present Illness:56 yr old male arrives for evaluation of abdominal pain. Patient with 2 days of abdominal pain. Associated with increasing distention, nausea, vomiting, and pain. Last BM was 2 days ago. States he can not eat due to nausea. Blood sugar has been lower since this started. No fevers, chills, chest pain, syncope, shob, headache, neck pain, rashes, leg swelling, nor other symptoms. Was at optho appointment where found to have these issues and EMS contacted. BSG 60 and thus EMS gave D10 IV prior to arrival. Patient notes he feels a bit better. Still having diffuse abdominal pain. History of gastric bypass. History DMII. ROS: See above HPI for pertinent positives & negatives. A total of 10 systems reviewed and were otherwise negative. Past Medical History:See Below Past Surgical History:See Below Family History:See Below Social History:See Below Home Medications:See Below Allergies:NKDA Vitals:Blood Pressure: 141/61, Pulse 94, RR 20, T 37.8C, O2 91% on RA Physical Exam: GENERAL: Patient is uncomfortable appearing and in moderate distress. EYES: No scleral icterus, unremarkable pupils. ENT: Mucous membranes moist, no nasal congestion. NECK: No masses appreciated, nomeningismus, trachea is midline. RESPIRATORY: No dyspnea. Clear to auscultation and equal bilaterally. No wheeze, no rhonchi. CARDIOVASCULAR: Regular rate and rhythm.No murmurs, rubs, gallops appreciated. GASTROINTESTINAL: Large distended abdomen with vague TTP throughout though no peritonitis. Bowel sounds positive.No masses appreciated. BACK: No midline tenderness, no CVA tenderness EXTREMITIES: Normal motion all extremities, no cyanosis, no edema. NEUROLOGIC: Awake though a bit distant, no acute motor or sensory deficits, no focal weakness, cranial nerves grossly intact. SKIN: No rash, no jaundice, no diaphoresis. PSYCH: Appropriate GCS: 15 ED Course: Times/Reassessments: waxing/waning mental status, no meningeal findings, abdomen still soft though vague TTP. Jimbo Ulloa MD Past Med/Surg History Medical History (Updated 06/20/21 @ 17:49 by Jimbo Ulloa MD) Anxiety Asthma Cardiac murmur Cellulitis of leg right knee to right foot -- hospitalized [facility] treated with IV antibiotics. 08/2020 Chronic back pain Chronic hypercapnic respiratory failure COPD (chronic obstructive pulmonary disease) Esophagitis ETOH abuse Gastroparesis GERD (gastroesophageal reflux disease) Hiatal hernia History of tobacco abuse Hx of respiratory failure r/t pneumonia 09/08/2019. treated at [place]. 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 Hypothyroidism Klinefelters syndrome Macular degeneration Morbid obesity with BMI of 40.0-44.9, adult ARAM (obstructive sleep apnea) trilogy bipap sleep machine Peripheral neuropathy Pneumonia hx (gets annually) Schizophrenia Seizure disorder hx, last seizure 2000 -- treated with depakote and was taken off of depakote about ~2010. no problems since. Shortness of breath Shortness of breath Tachycardia treated with coreg. to follow with Dr Chapman 09/2020. (hx of following with Dr Clark, cardiology at [place], [place]) Type 2 diabetes mellitus IDDM Surgical History H/O hernia repair umbilical H/O right heart catheterization no stents. ~2018 in [place] History of colonoscopy History of esophagogastroduodenoscopy (EGD) History of gastric bypass gastric sleeve S/P epidural steroid injection Family History Other No family history of adverse response to anesthesia Social History Smoking Status: Never smoker Tobacco Type: Cigarettes Years Smoked: 30; Number of Years Since Quit: 7; Second Hand Exposure: No; Hx Alcohol Use: Yes Alcohol type: beer Alcohol Intake Frequency: Monthly or Less Hx Substance Use: No Preferred Language: Malay Communication Ability: Effective Conveyor Technician Required: No Beliefs That Will Affect Care: None marital status: / Current Living Situation: Alone current occupational status: disabled How many Children do You have: 0 Other Information That Helps Us Care for You: No Feels Safe at Home: Yes Assistive Devices: Oxygen - at Night, Walker and Wheelchair Allergies Allergies Allergy/AdvReac Type Severity Reaction Status Date / Time copper Allergy Mild skin rash, Verified 06/19/21 16:45 itching cider vinegar AdvReac Mild Redness,swe Verified 06/19/21 16:45 ating Home Meds Home Medications Medication Instructions Recorded Confirmed furosemide 40 mg tablet 40 mg PO UD PRN 09/09/20 06/19/21 carvedilol 3.125 mg tablet (Coreg) 3.125 mg PO BID 09/22/20 06/19/21 fluoxetine 40 mg capsule (Prozac) 80 mg PO QAM 09/22/20 06/19/21 linaclotide 290 mcg capsule 290 mcg PO QAM PRN 09/22/20 06/19/21 (Linzess) lisinopril 10 mg tablet (Zestril) 10 mg PO QAM 09/22/20 06/19/21 naproxen sodium 550 mg tablet 550 mg PO BID 09/22/20 06/19/21 olanzapine 20 mg tablet (Zyprexa) 20 mg PO HS 09/22/20 06/19/21 omeprazole 40 mg capsule,delayed 40 mg PO QAM 09/22/20 06/19/21 release rosuvastatin 20 mg tablet (Crestor) 20 mg PO QAM 09/22/20 06/19/21 zafirlukast 20 mg tablet (Accolate) 20 mg PO BID tab 10/09/20 06/19/21 insulin glargine 100 unit/mL 70 unit SUBCUT QAM 10/28/20 06/19/21 subcutaneous solution (Lantus U-100 Insulin) clonazepam 0.5 mg tablet (Klonopin) 0.5 mg PO TID tab 11/21/20 06/19/21 flash glucose scanning reader #1 ea 11/25/20 06/11/21 (FreeStyle Shelley 14 Day [place]) flash glucose sensor (FreeStyle #1 ea 11/25/20 06/11/21 Shelley 14 Day Sensor) albuterol sulfate 90 mcg/actuation 1 inh INHALATION Q4H PRN 12/25/20 06/19/21 breath activated powder inhaler,sensor brinzolamide 1 %-brimonidine 0.2 % 1 drp OPB TID 12/25/20 06/19/21 eye drops,suspension (Simbrinza) trazodone 100 mg tablet 100 mg PO HS 12/25/20 06/19/21 umeclidinium 62.5 mcg-vilanterol 1 inh INHALATION QAM 12/25/20 06/19/21 25 mcg/actuation powdr for inhalation (Anoro Ellipta) gabapentin 600 mg tablet See Rx Instructions .ROUTE 01/06/21 06/19/21 (Neurontin) .COMPLEX tab aspirin 81 mg tablet,delayed 81 mg PO QAM 01/28/21 06/19/21 release cholecalciferol (vitamin D3) 125 5,000 unit PO QAM 01/28/21 06/19/21 mcg (5,000 unit) capsule olanzapine 10 mg tablet (Zyprexa) 10 mg PO HS 03/12/21 06/19/21 trazodone 150 mg tablet 150 mg PO HS 03/12/21 06/19/21 insulin aspart U-100 100 unit/mL 22 unit SUBCUT TID 03/14/21 06/19/21 subcutaneous solution (Novolog U-100 Insulin aspart) Oxygen Home 06/11/21 06/19/21 apraclonidine 0.5 % eye drops 1 drp OPR BID 06/19/21 06/19/21 methocarbamol 500 mg tablet 500 mg PO TID PRN 06/19/21 06/19/21 rosuvastatin 20 mg tablet 20 mg PO DAILY 06/19/21 06/19/21 Previous Rx's Medication Instructions Recorded levothyroxine 50 mcg tablet 50 mcg PO DAILYBB #30 tab 09/26/20 (Synthroid) cholecalciferol (vitamin D3) 1,250 50,000 unit PO .COMPLEX #14 cap 04/03/21 mcg (50,000 unit) capsule (D3-50 Cholecalciferol) testosterone 20.25 mg/1.25 gram 2 pump TOPICAL DAILY #75 g 04/03/21 (1.62 %) transdermal gel pump (AndroGel) semaglutide (Ozempic) 0.25 mg SUBCUT Q7D #1.5 ml 05/05/21 Results & Data (ED) Vital Signs Vital Signs - 24 hr 06/19/21 18:09 06/19/21 20:00 Temperature 37.8 C H Temperature Source Oral Pulse Rate [Apical] 91 H 93 H Pulse Rhythm [Apical] Regular Regular Pulse Strength [Apical] Normal Respiratory Rate 22 16 Respiratory Effort / Characteristics Non-Labored Spontaneous Non-Labored Respiratory Depth Normal Normal Blood Pressure [Left Arm] 118/52 L 96/50 L Blood Pressure Mean [Left Arm] 74 65 Pulse Oximetry 99 97 Oxygen Delivery Method Nasal Cannula Nasal Cannula Oxygen Flow Rate 2 2 Laboratory Data Result diagrams: 06/20/21 06:50 06/20/21 06:50 Lab Results 06/19/21 06/19/21 06/19/21 Range/Units 15:42 15:42 16:17 WBC 11.88 H (4.8-10.8) K/uL RBC 4.10 L (4.7-6.1) M/uL Hgb 12.5 L (14.0-18.0) g/dL Hct 38.7 L (42-52) % MCV 94.4 (80-100) fL MCH 30.5 (25-34) pg MCHC 32.3 (32-36) g/dL RDW Std Deviation 45.5 (36.4-46.3) fL RDW Coeff of Alex 13.1 (11.5-14.5) % Plt Count 155 (130-400) K/uL MPV 11.0 H (7.4-10.4) fL Immature Gran % (Auto) 0.1 % Neut % (Auto) 81.0 % Lymph % (Auto) 6.3 % Mclennan % (Auto) 7.9 % Eos % (Auto) 4.4 % Baso % (Auto) 0.3 % Neut # (Auto) 9.63 H (1.4-6.5) K/uL Lymph # (Auto) 0.75 L (1.2-3.4) K/uL Mclennan # (Auto) 0.94 H (0.11-0.59) K/uL Eos # (Auto) 0.52 H (0-0.5) K/uL Baso # (Auto) 0.03 (0-0.2) K/uL Immature Gran # (Auto) 0.01 (0.00-0.02) K/uL VBG pH (7.36-7.41) VBG pCO2 (38-50) mmHg VBG pO2 mmHg VBG HCO3 mmol/L VBG O2 Saturation % VBG Base Excess mEq/L Barometric Pressure mm/Hg Sodium 135 L (136-145) mmol/L Potassium 4.6 (3.5-5.1) mmol/L Chloride 100 (98-107) mmol/L Carbon Dioxide 32 (21-32) mmol/L Anion Gap 3.0 (3-11) BUN 16 (7-18) mg/dl Creatinine 1.23 (0.6-1.4) mg/dl Est Cr Clr Drug Dosing Not Reportable Est GFR ( Amer) 75.6 ml/min Est GFR (Non-Af Amer) 65.2 ml/min BUN/Creatinine Ratio 13.4 (10-20) Glucose 81 (70-99) mg/dl POC Glucose (70-99) mg/dl Lactate (0.4-2.0) mmol/L Calcium 9.6 (8.5-10.1) mg/dl Magnesium 2.2 (1.8-2.4) mg/dl Total Bilirubin 0.4 (0.2-1) mg/dl Direct Bilirubin < 0.1 (0-0.2) mg/dl AST 13 L (15-37) U/L ALT 28 (12-78) U/L Alkaline Phosphatase 90 (45-117) U/L Ammonia (11-32) umol/L Total Protein 7.3 (6.4-8.2) gm/dl Albumin 3.7 (3.4-5.0) gm/dl Lipase 66 L (73-393) U/L Urine Color Urine Appearance (Clear) Urine pH (4.5-7.5) Ur Specific [place] (1.000-1.030) Urine Protein (Negative) Urine Glucose (UA) (Negative) Urine Ketones (Negative) Urine Blood (Negative) Urine Nitrite (Negative) Urine Bilirubin (Negative) Urine Urobilinogen (Negative) Ur Leukocyte Esterase (Negative) Urine WBC (Auto) (0-5) /hpf Urine RBC (Auto) (0-4) /hpf U Hyaline Cast (Auto) (0-5) /lpf U Epithel Cells (Auto) (0-5) /lpf Urine Bacteria (Auto) (Negative) Ur Renal Epithelial Cell Urine Opiates Screen (Neg) Ur Methadone, Qual (Neg) Urine Barbiturates (Neg) Ur Phencyclidine (PCP) (Neg) U Amphetamin/Meth Scrn (Neg) MDMA (Ecstasy) Screen (Neg) U Benzodiazepines Scrn (Neg) Ur Cocaine Metabolite (Neg) U Marijuana (THC) Screen (Neg) Ethyl Alcohol mg/dL (0-3) mg/dl COVID-19 Eval Order Covid19 at [facility] SARS-CoV-2 (PCR) (Negative) 06/19/21 06/19/21 06/19/21 Range/Units 16:17 16:22 17:39 WBC (4.8-10.8) K/uL RBC (4.7-6.1) M/uL Hgb (14.0-18.0) g/dL Hct (42-52) % MCV (80-100) fL MCH (25-34) pg MCHC (32-36) g/dL RDW Std Deviation (36.4-46.3) fL RDW Coeff of Alex (11.5-14.5) % Plt Count (130-400) K/uL MPV (7.4-10.4) fL Immature Gran % (Auto) % Neut % (Auto) % Lymph % (Auto) % Mclennan % (Auto) % Eos % (Auto) % Baso % (Auto) % Neut # (Auto) (1.4-6.5) K/uL Lymph # (Auto) (1.2-3.4) K/uL Mclennan # (Auto) (0.11-0.59) K/uL Eos # (Auto) (0-0.5) K/uL Baso # (Auto) (0-0.2) K/uL Immature Gran # (Auto) (0.00-0.02) K/uL VBG pH (7.36-7.41) VBG pCO2 (38-50) mmHg VBG pO2 mmHg VBG HCO3 mmol/L VBG O2 Saturation % VBG Base Excess mEq/L Barometric Pressure mm/Hg Sodium (136-145) mmol/L Potassium (3.5-5.1) mmol/L Chloride (98-107) mmol/L Carbon Dioxide (21-32) mmol/L Anion Gap (3-11) BUN (7-18) mg/dl Creatinine (0.6-1.4) mg/dl Est Cr Clr Drug Dosing Est GFR ( Amer) ml/min Est GFR (Non-Af Amer) ml/min BUN/Creatinine Ratio (10-20) Glucose (70-99) mg/dl POC Glucose 65 L* (70-99) mg/dl Lactate 0.7 (0.4-2.0) mmol/L Calcium (8.5-10.1) mg/dl Magnesium (1.8-2.4) mg/dl Total Bilirubin (0.2-1) mg/dl Direct Bilirubin (0-0.2) mg/dl AST (15-37) U/L ALT (12-78) U/L Alkaline Phosphatase (45-117) U/L Ammonia (11-32) umol/L Total Protein (6.4-8.2) gm/dl Albumin (3.4-5.0) gm/dl Lipase (73-393) U/L Urine Color Urine Appearance (Clear) Urine pH (4.5-7.5) Ur Specific [place] (1.000-1.030) Urine Protein (Negative) Urine Glucose (UA) (Negative) Urine Ketones (Negative) Urine Blood (Negative) Urine Nitrite (Negative) Urine Bilirubin (Negative) Urine Urobilinogen (Negative) Ur Leukocyte Esterase (Negative) Urine WBC (Auto) (0-5) /hpf Urine RBC (Auto) (0-4) /hpf U Hyaline Cast (Auto) (0-5) /lpf U Epithel Cells (Auto) (0-5) /lpf Urine Bacteria (Auto) (Negative) Ur Renal Epithelial Cell Urine Opiates Screen (Neg) Ur Methadone, Qual (Neg) Urine Barbiturates (Neg) Ur Phencyclidine (PCP) (Neg) U Amphetamin/Meth Scrn (Neg) MDMA (Ecstasy) Screen (Neg) U Benzodiazepines Scrn (Neg) Ur Cocaine Metabolite (Neg) U Marijuana (THC) Screen (Neg) Ethyl Alcohol mg/dL (0-3) mg/dl COVID-19 Eval Order SARS-CoV-2 (PCR) NEGATIVE (Negative) 06/19/21 06/19/21 06/19/21 Range/Units 18:02 18:24 18:24 WBC (4.8-10.8) K/uL RBC (4.7-6.1) M/uL Hgb (14.0-18.0) g/dL Hct (42-52) % MCV (80-100) fL MCH (25-34) pg MCHC (32-36) g/dL RDW Std Deviation (36.4-46.3) fL RDW Coeff of Alex (11.5-14.5) % Plt Count (130-400) K/uL MPV (7.4-10.4) fL Immature Gran % (Auto) % Neut % (Auto) % Lymph % (Auto) % Mclennan % (Auto) % Eos % (Auto) % Baso % (Auto) % Neut # (Auto) (1.4-6.5) K/uL Lymph # (Auto) (1.2-3.4) K/uL Mclennan # (Auto) (0.11-0.59) K/uL Eos # (Auto) (0-0.5) K/uL Baso # (Auto) (0-0.2) K/uL Immature Gran # (Auto) (0.00-0.02) K/uL VBG pH (7.36-7.41) VBG pCO2 (38-50) mmHg VBG pO2 mmHg VBG HCO3 mmol/L VBG O2 Saturation % VBG Base Excess mEq/L Barometric Pressure mm/Hg Sodium (136-145) mmol/L Potassium (3.5-5.1) mmol/L Chloride (98-107) mmol/L Carbon Dioxide (21-32) mmol/L Anion Gap (3-11) BUN (7-18) mg/dl Creatinine (0.6-1.4) mg/dl Est Cr Clr Drug Dosing Est GFR ( Amer) ml/min Est GFR (Non-Af Amer) ml/min BUN/Creatinine Ratio (10-20) Glucose (70-99) mg/dl POC Glucose 165 H (70-99) mg/dl Lactate (0.4-2.0) mmol/L Calcium (8.5-10.1) mg/dl Magnesium (1.8-2.4) mg/dl Total Bilirubin (0.2-1) mg/dl Direct Bilirubin (0-0.2) mg/dl AST (15-37) U/L ALT (12-78) U/L Alkaline Phosphatase (45-117) U/L Ammonia 29.0 (11-32) umol/L Total Protein (6.4-8.2) gm/dl Albumin (3.4-5.0) gm/dl Lipase (73-393) U/L Urine Color Urine Appearance (Clear) Urine pH (4.5-7.5) Ur Specific [place] (1.000-1.030) Urine Protein (Negative) Urine Glucose (UA) (Negative) Urine Ketones (Negative) Urine Blood (Negative) Urine Nitrite (Negative) Urine Bilirubin (Negative) Urine Urobilinogen (Negative) Ur Leukocyte Esterase (Negative) Urine WBC (Auto) (0-5) /hpf Urine RBC (Auto) (0-4) /hpf U Hyaline Cast (Auto) (0-5) /lpf U Epithel Cells (Auto) (0-5) /lpf Urine Bacteria (Auto) (Negative) Ur Renal Epithelial Cell Urine Opiates Screen (Neg) Ur Methadone, Qual (Neg) Urine Barbiturates (Neg) Ur Phencyclidine (PCP) (Neg) U Amphetamin/Meth Scrn (Neg) MDMA (Ecstasy) Screen (Neg) U Benzodiazepines Scrn (Neg) Ur Cocaine Metabolite (Neg) U Marijuana (THC) Screen (Neg) Ethyl Alcohol mg/dL < 3.0 (0-3) mg/dl COVID-19 Eval Order SARS-CoV-2 (PCR) (Negative) 06/19/21 06/19/21 06/19/21 Range/Units 18:24 19:15 20:20 WBC (4.8-10.8) K/uL RBC (4.7-6.1) M/uL Hgb (14.0-18.0) g/dL Hct (42-52) % MCV (80-100) fL MCH (25-34) pg MCHC (32-36) g/dL RDW Std Deviation (36.4-46.3) fL RDW Coeff of Alex (11.5-14.5) % Plt Count (130-400) K/uL MPV (7.4-10.4) fL Immature Gran % (Auto) % Neut % (Auto) % Lymph % (Auto) % Mclennan % (Auto) % Eos % (Auto) % Baso % (Auto) % Neut # (Auto) (1.4-6.5) K/uL Lymph # (Auto) (1.2-3.4) K/uL Mclennan # (Auto) (0.11-0.59) K/uL Eos # (Auto) (0-0.5) K/uL Baso # (Auto) (0-0.2) K/uL Immature Gran # (Auto) (0.00-0.02) K/uL VBG pH 7.28 L (7.36-7.41) VBG pCO2 69 H (38-50) mmHg VBG pO2 32 mmHg VBG HCO3 32 mmol/L VBG O2 Saturation < 60.0 % VBG Base Excess 3.6 mEq/L Barometric Pressure 733.6 mm/Hg Sodium (136-145) mmol/L Potassium (3.5-5.1) mmol/L Chloride (98-107) mmol/L Carbon Dioxide (21-32) mmol/L Anion Gap (3-11) BUN (7-18) mg/dl Creatinine (0.6-1.4) mg/dl Est Cr Clr Drug Dosing Est GFR ( Amer) ml/min Est GFR (Non-Af Amer) ml/min BUN/Creatinine Ratio (10-20) Glucose (70-99) mg/dl POC Glucose 121 H (70-99) mg/dl Lactate (0.4-2.0) mmol/L Calcium (8.5-10.1) mg/dl Magnesium (1.8-2.4) mg/dl Total Bilirubin (0.2-1) mg/dl Direct Bilirubin (0-0.2) mg/dl AST (15-37) U/L ALT (12-78) U/L Alkaline Phosphatase (45-117) U/L Ammonia (11-32) umol/L Total Protein (6.4-8.2) gm/dl Albumin (3.4-5.0) gm/dl Lipase (73-393) U/L Urine Color Dark Yellow Urine Appearance Clear (Clear) Urine pH 6.0 (4.5-7.5) Ur Specific [place] 1.021 (1.000-1.030) Urine Protein Negative (Negative) Urine Glucose (UA) Negative (Negative) Urine Ketones Trace H (Negative) Urine Blood Negative (Negative) Urine Nitrite Negative (Negative) Urine Bilirubin Negative (Negative) Urine Urobilinogen Negative (Negative) Ur Leukocyte Esterase Trace H (Negative) Urine WBC (Auto) 1-5 (0-5) /hpf Urine RBC (Auto) 0-4 (0-4) /hpf U Hyaline Cast (Auto) 10-30 H (0-5) /lpf U Epithel Cells (Auto) >30 H (0-5) /lpf Urine Bacteria (Auto) Negative (Negative) Ur Renal Epithelial Cell Not Reportable Urine Opiates Screen (Neg) Ur Methadone, Qual (Neg) Urine Barbiturates (Neg) Ur Phencyclidine (PCP) (Neg) U Amphetamin/Meth Scrn (Neg) MDMA (Ecstasy) Screen (Neg) U Benzodiazepines Scrn (Neg) Ur Cocaine Metabolite (Neg) U Marijuana (THC) Screen (Neg) Ethyl Alcohol mg/dL (0-3) mg/dl COVID-19 Eval Order SARS-CoV-2 (PCR) (Negative) 06/19/21 06/19/21 Range/Units 20:20 20:49 WBC (4.8-10.8) K/uL RBC (4.7-6.1) M/uL Hgb (14.0-18.0) g/dL Hct (42-52) % MCV (80-100) fL MCH (25-34) pg MCHC (32-36) g/dL RDW Std Deviation (36.4-46.3) fL RDW Coeff of Alex (11.5-14.5) % Plt Count (130-400) K/uL MPV (7.4-10.4) fL Immature Gran % (Auto) % Neut % (Auto) % Lymph % (Auto) % [place]clennan % (Auto) % Eos % (Auto) % Baso % (Auto) % Neut # (Auto) (1.4-6.5) K/uL Lymph # (Auto) (1.2-3.4) K/uL [place]clennan # (Auto) (0.11-0.59) K/uL Eos # (Auto) (0-0.5) K/uL Baso # (Auto) (0-0.2) K/uL Immature Gran # (Auto) (0.00-0.02) K/uL VBG pH (7.36-7.41) VBG pCO2 (38-50) mmHg VBG pO2 mmHg VBG HCO3 mmol/L VBG O2 Saturation % VBG Base Excess mEq/L Barometric Pressure mm/Hg Sodium (136-145) mmol/L Potassium (3.5-5.1) mmol/L Chloride (98-107) mmol/L Carbon Dioxide (21-32) mmol/L Anion Gap (3-11) BUN (7-18) mg/dl Creatinine (0.6-1.4) mg/dl Est Cr Clr Drug Dosing Est GFR ( Amer) ml/min Est GFR (Non-Af Amer) ml/min BUN/Creatinine Ratio (10-20) Glucose (70-99) mg/dl POC Glucose 125 H (70-99) mg/dl Lactate (0.4-2.0) mmol/L Calcium (8.5-10.1) mg/dl Magnesium (1.8-2.4) mg/dl Total Bilirubin (0.2-1) mg/dl Direct Bilirubin (0-0.2) mg/dl AST (15-37) U/L ALT (12-78) U/L Alkaline Phosphatase (45-117) U/L Ammonia (11-32) umol/L Total Protein (6.4-8.2) gm/dl Albumin (3.4-5.0) gm/dl Lipase (73-393) U/L Urine Color Urine Appearance (Clear) Urine pH (4.5-7.5) Ur Specific [place] (1.000-1.030) Urine Protein (Negative) Urine Glucose (UA) (Negative) Urine Ketones (Negative) Urine Blood (Negative) Urine Nitrite (Negative) Urine Bilirubin (Negative) Urine Urobilinogen (Negative) Ur Leukocyte Esterase (Negative) Urine WBC (Auto) (0-5) /hpf Urine RBC (Auto) (0-4) /hpf U Hyaline Cast (Auto) (0-5) /lpf U Epithel Cells (Auto) (0-5) /lpf Urine Bacteria (Auto) (Negative) Ur Renal Epithelial Cell Urine Opiates Screen Pos H (Neg) Ur Methadone, Qual Neg (Neg) Urine Barbiturates Neg (Neg) Ur Phencyclidine (PCP) Neg (Neg) U Amphetamin/Meth Scrn Neg (Neg) MDMA (Ecstasy) Screen Pos H (Neg) U Benzodiazepines Scrn Neg (Neg) Ur Cocaine Metabolite Neg (Neg) U Marijuana (THC) Screen Neg (Neg) Ethyl Alcohol mg/dL (0-3) mg/dl COVID-19 Eval Order SARS-CoV-2 (PCR) (Negative) Administered Medications Acetaminophen (Acetaminophen 325 Mg Tab) 650 mg PO Q4H PRN PRN Reason: Pain or Fever Stop: 07/20/21 06:11 Last Admin: 06/20/21 06:25 Dose: 650 mg Documented by: [id number] Aspirin (Aspirin 81 Mg Ectab) 81 mg PO QAM [facility] Stop: 07/20/21 08:59 Last Admin: 06/20/21 09:18 Dose: 81 mg Documented by: [id number] Carvedilol (Carvedilol 3.125 Mg Tab) 3.125 mg PO BID [facility] Stop: 07/19/21 23:11 Last Admin: 06/20/21 09:18 Dose: 3.125 mg Documented by: [id number] Admin: 06/20/21 00:04 Dose: Not Given Documented by: [id number] Enoxaparin Sodium (Enoxaparin Inj 40 Mg/0.4 Ml Syr) 40 mg SQ BID [facility] Stop: 07/19/21 23:44 Last Admin: 06/20/21 09:22 Dose: 40 mg Documented by: [id number] Admin: 06/20/21 00:31 Dose: 40 mg Documented by: [id number] Fluoxetine HCl (Fluoxetine Hcl 20 Mg Cap) 80 mg PO QAM [facility] Stop: 07/20/21 08:59 Last Admin: 06/20/21 09:19 Dose: 80 mg Documented by: [id number] Gabapentin (Gabapentin 600 Mg Tab) 600 mg PO TID [facility] Stop: 07/19/21 23:11 Last Admin: 06/20/21 14:21 Dose: 600 mg Documented by: [id number] Admin: 06/20/21 09:20 Dose: 600 mg Documented by: [id number] Admin: 06/20/21 00:04 Dose: Not Given Documented by: [id number] Lactated Ringer's (Lr) 1,000 mls @ 125 mls/hr IV .Q8H [facility] Stop: 07/19/21 21:14 Last Admin: 06/20/21 14:21 Dose: 125 mls/hr Documented by: [id number] Infusion: 06/20/21 13:28 Dose: 125 mls/hr Documented by: [id number] Admin: 06/20/21 05:28 Dose: 125 mls/hr Documented by: [id number] Infusion: 06/20/21 05:28 Dose: 125 mls/hr Documented by: [id number] Admin: 06/19/21 21:40 Dose: 125 mls/hr Documented by: [id number] Insulin Aspart (Insulin Aspart 100 Units/Ml 3 Ml Pen) 22 units SQ TIDM [facility] Stop: 07/20/21 07:59 Last Admin: 06/20/21 11:59 Dose: 22 units Documented by: [id number] Cosigned by: [id number] Admin: 06/20/21 09:17 Dose: 22 units Documented by: [id number] Cosigned by: [id number] Insulin Aspart (Insulin Aspart 100 Units/Ml 3 Ml Pen) 0 units SC ACHS [facility] Stop: 07/20/21 07:29 Last Admin: 06/20/21 16:58 Dose: Not Given Documented by: [id number] Admin: 06/20/21 11:58 Dose: 2 units Documented by: [id number] Cosigned by: [id number] Admin: 06/20/21 09:17 Dose: 4 units Documented by: [id number] Cosigned by: [id number] Insulin Glargine (Insulin Glargine Solostar 100 Units/Ml 3 Ml Pen) 70 units SQ QAM [facility] Stop: 07/20/21 08:59 Last Admin: 06/20/21 09:20 Dose: 70 units Documented by: [id number] Cosigned by: [id number] Levothyroxine Sodium (Levothyroxine Sodium 50 Mcg Tablet) 50 mcg PO DAILYBB [facility] Stop: 07/20/21 06:29 Last Admin: 06/20/21 05:26 Dose: 50 mcg Documented by: [id number] Linaclotide (Linaclotide 145 Mcg Capsule) 290 mcg PO QAM [facility] Stop: 07/20/21 08:59 Last Admin: 06/20/21 09:21 Dose: 290 mcg Documented by: [id number] Lisinopril (Lisinopril 10 Mg Tab) 10 mg PO QAM [facility] Stop: 07/20/21 08:59 Last Admin: 06/20/21 09:21 Dose: 10 mg Documented by: [id number] Magnesium Hydroxide (Magnesium Hydroxide Susp 30 Ml Udc) 30 ml PO BID [facility] Stop: 07/20/21 08:59 Last Admin: 06/20/21 09:25 Dose: 30 ml Documented by: [id number] Miscellaneous (Accolate~Order Awaiting Action) 1 ea N/A QS [facility] Stop: 07/20/21 00:00 Last Admin: 06/20/21 00:32 Dose: Not Given Documented by: [id number] Pantoprazole Sodium (Pantoprazole 40 Mg Tab) 40 mg PO QAM [facility] Stop: 07/20/21 08:59 Last Admin: 06/20/21 09:22 Dose: 40 mg Documented by: [id number] Rosuvastatin Calcium (Rosuvastatin Calcium 20 Mg Tab) 20 mg PO QAM [facility] Stop: 07/20/21 08:59 Last Admin: 06/20/21 09:22 Dose: 20 mg Documented by: [id number] Senna/Docusate Sodium (Docusate Sodium/Senna 50/8.6mg Tab) 1 tab PO BID [facility] Stop: 07/20/21 08:59 Last Admin: 06/20/21 09:19 Dose: 1 tab Documented by: [id number] Umeclidinium/Vilanterol (Umeclidinium/Vilanterol 62.5/25mcg 7 Puffs/Inhaler) 1 puffs INH QAM [facility] Stop: 07/20/21 08:59 Last Admin: 06/20/21 09:22 Dose: 1 puffs Documented by: [id number] Discontinued Medications Bisacodyl (Bisacodyl 10 Mg Supp) 10 mg ME NOW STA Stop: 06/19/21 20:42 Last Admin: 06/19/21 20:54 Dose: 10 mg Documented by: [id number] Dextrose (Dextrose 50% 50 Ml Syringe) 50 ml IV NOW ONE Stop: 06/19/21 17:42 Last Admin: 06/19/21 17:46 Dose: 50 ml Documented by: [id number] Sodium Chloride (Nss 1000ml) 500 mls @ 999 mls/hr IV .Q31M ONE Stop: 06/19/21 16:12 Last Infusion: 06/19/21 17:22 Dose: 0 mls/hr Documented by: [id number] Admin: 06/19/21 16:29 Dose: 999 mls/hr Documented by: [id number] Magnesium Hydroxide (Magnesium Hydroxide Susp 30 Ml Udc) 30 ml PO NOW ONE Stop: 06/19/21 23:13 Last Admin: 06/20/21 00:04 Dose: Not Given Documented by: [id number] Morphine Sulfate (Morphine Sulfate 4 Mg/Ml 1 Ml Carp\Vial) 4 mg IV NOW STA Stop: 06/19/21 15:43 Last Admin: 06/19/21 16:25 Dose: 4 mg Documented by: [id number] Ondansetron HCl (Ondansetron Inj 2 Mg/Ml 2 Ml Vial) 4 mg IV NOW STA Stop: 06/19/21 15:43 Last Admin: 06/19/21 16:25 Dose: 4 mg Documented by: [id number] Discharge Plan Visit Data Chief Complaint: Abdominal Pain Stated Complaint: AB PAIN, HYPOGLYCEMIA ED Provider: Jimbo Ulloa Discharge Problem: Hypoglycemia, Abdominal pain, Altered mental status, Hypercapnic respiratory failure, Constipation Patient Disposition: Admitted As Inpatient Discharge Instructions Interventions: ED Discharge Assessment Last Done: 06/19/21 23:10 Discharge Problem: Abdominal pain Qualifiers: Abdominal location: generalized Qualified Code(s): R10.84 - Generalized abdominal pain Altered mental status Qualifiers: Altered mental status type: unspecified Qualified Code(s): R41.82 - Altered mental status, unspecified Hypercapnic respiratory failure Qualifiers: Chronicity: acute on chronic Qualified Code(s): J96.22 - Acute and chronic respiratory failure with hypercapnia Constipation Qualifiers: Constipation type: unspecified constipation type Qualified Code(s): K59.00 - Constipation, unspecified
[2021-06-19 15:54] LABS: Basophils # (auto) 0.03 K/uL (0-0.2); Basophils % (auto) 0.3 %; Eosinophils # (auto) 0.52 K/uL (0-0.5); Eosinophils % (auto) 4.4 %; Hematocrit (blood only) 38.7 % (42-52); Hemoglobin 12.5 g/dL (14.0-18.0); Immature Granulocytes # (auto) 0.01 K/uL (0.00-0.02); Immature Granulocytes % (auto) 0.1 %; Lymphocytes # (auto) 0.75 K/uL (1.2-3.4); Lymphocytes % (auto) 6.3 %; Mean Corpuscular Hemoglobin 30.5 pg (25-34); Mean Corpuscular Hgb Conc 32.3 g/dL (32-36); Mean Corpuscular Volume 94.4 fL (80-100); Monocytes # (auto) 0.94 K/uL (0.11-0.59); Monocytes % (auto) 7.9 %; Neutrophils # (auto) 9.63 K/uL (1.4-6.5); Platelet Count 155 K/uL (130-400); RDW Coefficient of Variation 13.1 % (11.5-14.5); RDW Standard Deviation 45.5 fL (36.4-46.3); White Blood Count 11.88 K/uL (4.8-10.8)
[2021-06-19 16:18] LABS: Alanine Aminotransferase 28 U/L (12-78); Albumin Level 3.7 gm/dl (3.4-5.0); Aspartate Aminotransferase 13 U/L (15-37); BUN Creatinine Ratio 13.4 (10-20); Bilirubin Direct < 0.1 mg/dl (0-0.2); Blood Urea Nitrogen 16 mg/dl (7-18); Calcium 9.6 mg/dl (8.5-10.1); Carbon Dioxide 32 mmol/L (21-32); Chloride 100 mmol/L (98-107); Est GFR (African American) 75.6 ml/min; Est GFR (Non-African American) 65.2 ml/min; Glucose 81 mg/dl (70-99); Lipase 66 U/L (73-393); Magnesium 2.2 mg/dl (1.8-2.4); Potassium 4.6 mmol/L (3.5-5.1); Sodium 135 mmol/L (136-145)
[2021-06-19 16:21] LABS: Alkaline Phosphatase 90 U/L (45-117); Bilirubin,Total 0.4 mg/dl (0.2-1); Total Protein 7.3 gm/dl (6.4-8.2)
--- NOTE | 2021-06-19 16:59 | CT Scan Report ---
CT SCAN OF THE ABDOMEN AND PELVIS WITHOUT IV CONTRAST CLINICAL HISTORY: Generalized abdominal pain. Vomiting. Distention. COMPARISON STUDY: No priors. TECHNIQUE: CT scan of the abdomen and pelvis is performed from the lung bases to the proximal femora. Images are reviewed in the axial, sagittal, and coronal planes. IV contrast was not administered for this examination. Note that the examination was performed in suboptimal fashion without oral and IV contrast. The Examination is also degraded by motion artifact. A dose lowering technique was utilized adhering to the principles of ALARA. CT DOSE: 3561.08 mGy.cm FINDINGS: Lung bases: The heart is normal in size and without pericardial effusion. The lung bases are clear no ting bibasilar atelectasis. Liver: The unenhanced liver is normal in size, contour, and attenuation. There is no intrahepatic krystal iary ductal dilatation. Gallbladder: Unremarkable. Spleen: Normal in size and attenuation. Pancreas: The unenhanced pancreas is atrophic and grossly unremarkable. Adrenal glands: Unremarkable. Kidneys: The unenhanced kidneys demonstrate mild cortical atrophy and are without hydronephrosis. The re are no renal calculi identified. There is no evidence of contour deforming renal mass lesion. Abdominal vasculature: The abdominal aorta is normal in course and caliber noting moderate atheroscle rotic calcification. Stomach and bowel: There is a small hiatal hernia. Postoperative change is noted in the stomach. Ther e is severe constipation. The small bowel loops are normal in caliber, with no bowel obstruction iden tified. No colonic wall thickening is identified. There is no pneumatosis intestinalis or portal veno us gas. The appendix is well-visualized and normal. Peritoneum:. Trace free fluid is seen in the paracolic gutters, right greater than left. No intraperi toneal free air is identified. A fat-containing umbilical hernia is observed. Lymphadenopathy: None. Pelvic viscera: The prostate gland is diminutive and heterogeneous. The bladder wall appears mildly t hickened and trabeculated suggesting chronic outlet obstruction. There is a small fat-containing left inguinal hernia. Skeletal structures: No lytic or blastic lesions are seen. IMPRESSION: 1. Suboptimal examination without oral and IV contrast. 2. Severe constipation. 3. No bowel obstruction is identified. 4. Trace nonspecific free fluid in the paracolic gutters is likely reactive. 5. Additional findings as above. ACT 112: Negative or not required by law. Electronically signed by: Gurinder Celestin M.D. 06/19/2021 4:57 PM
[2021-06-19] MEDS ORDERED: DEXTROSE 50% 50 ML SYRINGE IV ONE (17:41)
[2021-06-19 19:04] LABS: Base Excess VBG 3.6 mEq/L; HCO3 VBG 32 mmol/L; Oxygen Saturation VBG < 60.0 %; PCO2 VBG 69 mmHg (38-50); PO2 VBG 32 mmHg; pH VBG 7.28 (7.36-7.41)
--- NOTE | 2021-06-19 19:35 | CT Scan Report ---
CT SCAN OF THE BRAIN WITHOUT IV CONTRAST CLINICAL HISTORY: Change in mental status. COMPARISON STUDY: CT of the brain dated 02/27/2021. TECHNIQUE: Unenhanced axial CT scan of the brain is performed from the vertex to the skull base. A d ose lowering technique was utilized adhering to the principles of ALARA. The examination is a greater by motion artifact. CT DOSE: 3123.39 mGy.cm FINDINGS: Brain parenchyma: The brain parenchyma is normal in appearance. There is no hemorrhage, mass effect, or evidence of acute territorial ischemia by CT criteria. Grover-white matter differentiation is preser nav. No extra-axial fluid collection is seen. Ventricles, sulci, cisterns: Normal in configuration. Intracranial vasculature: There is atherosclerotic calcification of the cavernous carotid arteries. Calvarium: Unremarkable. Sinuses and mastoids: There is evidence of previous paranasal sinus surgery. There is trace mucosal t hickening in the left maxillary antrum. The remaining paranasal sinuses are clear. The mastoid air ce lls are well pneumatized. Orbits: The bony orbits are grossly intact. There are bilateral ocular lens implants. IMPRESSION: There is no hemorrhage, mass effect, or evidence of acute territorial ischemia by CT erick guaman. ACT 112: Negative or not required by law. Electronically signed by: Gurinder Celestin M.D. 06/19/2021 7:34 PM
[2021-06-19 20:31] LABS: Appearance Urine Clear (Clear); Bacteria Urine Automated Negative (Negative); Bilirubin Urine Negative (Negative); Blood Urine Negative (Negative); Color Urine Dark Yellow; Epithelial Cell Urine Auto >30 /lpf (0-5); Glucose Urine UA Negative (Negative); Ketones Urine Trace (Negative); Leukocyte Esterase Urine Trace (Negative); Nitrite Urine Negative (Negative); Protein Urine Negative (Negative); RBC Urine Automated 0-4 /hpf (0-4); Specific Gravity Urine 1.021 (1.000-1.030); Urobilinogen Urine Negative (Negative)
[2021-06-19] MEDS ORDERED: bisacodyL 10 MG SUPP PR STA (20:41)
[2021-06-19 21:00] LABS: Amphetamines+Metham, Urine Neg (Neg); Barbiturates, Urine Neg (Neg); Benzodiazepine, Urine Neg (Neg); Cocaine, Urine Neg (Neg); MDMA (Ecstacy), Urine Pos (Neg); Methadone, Urine Neg (Neg); Opiate, Urine Pos (Neg); Phencyclidine, Urine Neg (Neg)
--- NOTE | 2021-06-19 21:18 | History & Physical Report ---
Date of Service June 19, 2021 Assessment & Plan (1) Constipation: Plan: Unsure of etiology of his constipation as history taking is difficult - There is no obstruction seen on CT imaging and no pneumatosis and normal lactate - reassuring - Stool in vault with placing of suppository - MOM BID - Docusate and Senna BID - Linzess scheduled daily for now - LR at 125 ml/hour overnight - Follow exam in morning - blood cultures pending (2) Hypercarbia: Plan: Co2 on VBG at 1800 69 with PH 7.28 - BiPAP placed - repeat ABG- - If no improvement may need intubated - Likely secondary to obtundation in regards to further sedating medications (3) Obesity hypoventilation syndrome: Plan: Non compliant at home - Support with BiPAP in house 17/03 with back up RR - Titrate to effective VT and RR with adequate SPo2 (4) Diabetes mellitus type 2, uncontrolled, with complications: Plan: Continue basal insulin - bolus insulin with CF of 20 - if tolerating PO by morning may need increase in ratio coverage (5) Hypertension: Plan: Continue Carvedilol - hold lasix for now likely restart in morning (6) Hyperlipidemia: Plan: Continue statin (7) Morbid obesity with BMI of 40.0-44.9, adult: Plan: Continues to follow with bariatric medicine (8) Hypothyroidism (acquired): Plan: Continue synthroid (9) GERD (gastroesophageal reflux disease): Plan: Continue PPI (10) Chronic hypercapnic respiratory failure: Plan: Multifactorial- holding majority of his sedating medicatons at this time - Continue his zyprexa and his Prozac and Neruotin (11) Lumbar stenosis: Plan: As above - Gabapentin 600mg TID - will hold his 1200mg dose tonight - follow for withdraw- restart when mentation improves (12) Asthma: Plan: Continue albuterol Continue anoro elipta or equivalent Continue zafirlukast History of Present Illness Primary Care Provider: Ryan Jeffries MD 55 YOM with past medical history of: CAD, HTN, HLD, Morbid Obesity, COPD, Schizophrenia, DM II on insulin, Klinefelter, Neuropathy, cellulitis of lower extremity, chronic pain, and esophagitis previously completed treatment with caspofungin for berkley glabrata in December, gastric sleeve in 2015 with repeat in 2019. Since moving here in [facility] from [place] he has gotten engaged with pulmonary for his ARAM/CPAP in which he was ordered a trilogy NIVV (which he is noncompliant with), Weight loss management with Dr. Avelar for his obesity, and metabolic syndrome, and with Dr. Luevano for his DM. He had an EGD in March for odynophagia that revealed bile and fluid through entire esophagus. Patient was seen in the EMD on Jun 17 for hyperglycemia and discharged. He returns to the EMD today for complaints of abdominal pain, that he reports has been ongoing for 2 days. The patient is obtunded and requires continuos stimulation to participate in the exam. He states he has not vomited, but has not had a BM in 4 days. He was at an eye appointment today where he was confused and EMS was called. His BG was noted to be low in the 60s and was given D10 via EMS and D50 once in the EMD- his blood sugar is currently 121. He also had a CT scan of his head performed that was negative for acute process, VBG done with PaCO2 of 63, CT scan of his abdomen done which revealed severe constipation without bowel obstruction and without pneumatosis, he had a toxicology done of his urine that was + for MDMA- but he is on high dose trazadone as outpatient- confirmation is pending, also positive for opiates (sample was sent after morphine administration). He received 500 ml of saline in the EMD, morphine 4mg IV, Zofran. Hospitalist service was notified for admission. As above patient obtunded, he has presented like this prior as well. He does suffer from excessive daytime sleepiness and remains on high doses of sedating medications. He is non-compliant with his Trilogy NIV ventilator at home. He will be placed on BiPAP now following opiate administration, he was given suppository and MOM 30ml in EMD. Will provide hydration with LR at 125ml per hour, he has normal EF on last ECHO, will allow clears as tolerated in the morning. Schedule BID stool softners and BID MOM. Will admit to PCU tonight for clearing of his mental status as well as NIVV support monitoring. Allergies Allergy/AdvReac Type Severity Reaction Status Date / Time copper Allergy Mild skin rash, Verified 06/19/21 16:45 itching cider vinegar AdvReac Mild Redness,swe Verified 06/19/21 16:45 ating Home Medications Medication Instructions Recorded Confirmed Type furosemide 40 mg tablet 40 mg PO UD PRN 09/09/20 06/19/21 History carvedilol 3.125 mg tablet (Coreg) 3.125 mg PO BID 09/22/20 06/19/21 History fluoxetine 40 mg capsule (Prozac) 80 mg PO QAM 09/22/20 06/19/21 History linaclotide 290 mcg capsule 290 mcg PO QAM PRN 09/22/20 06/19/21 History (Linzess) lisinopril 10 mg tablet (Zestril) 10 mg PO QAM 09/22/20 06/19/21 History naproxen sodium 550 mg tablet 550 mg PO BID 09/22/20 06/19/21 History olanzapine 20 mg tablet (Zyprexa) 20 mg PO HS 09/22/20 06/19/21 History omeprazole 40 mg capsule,delayed 40 mg PO QAM 09/22/20 06/19/21 History release rosuvastatin 20 mg tablet (Crestor) 20 mg PO QAM 09/22/20 06/19/21 History levothyroxine 50 mcg tablet 50 mcg PO DAILYBB #30 tab 09/26/20 06/19/21 Rx (Synthroid) zafirlukast 20 mg tablet (Accolate) 20 mg PO BID tab 10/09/20 06/19/21 History insulin glargine 100 unit/mL 70 unit SUBCUT QAM 10/28/20 06/19/21 History subcutaneous solution (Lantus U-100 Insulin) clonazepam 0.5 mg tablet (Klonopin) 0.5 mg PO TID tab 11/21/20 06/19/21 History flash glucose scanning reader #1 ea 11/25/20 06/11/21 History (FreeStyle Shelley 14 Day Clayton) flash glucose sensor (FreeStyle #1 ea 11/25/20 06/11/21 History Shelley 14 Day Sensor) albuterol sulfate 90 mcg/actuation 1 inh INHALATION Q4H PRN 12/25/20 06/19/21 History breath activated powder inhaler,sensor brinzolamide 1 %-brimonidine 0.2 % 1 drp OPB TID 12/25/20 06/19/21 History eye drops,suspension (Simbrinza) trazodone 100 mg tablet 100 mg PO HS 12/25/20 06/19/21 History umeclidinium 62.5 mcg-vilanterol 1 inh INHALATION QAM 12/25/20 06/19/21 History 25 mcg/actuation powdr for inhalation (Anoro Ellipta) gabapentin 600 mg tablet See Rx Instructions .ROUTE 01/06/21 06/19/21 History (Neurontin) .COMPLEX tab aspirin 81 mg tablet,delayed 81 mg PO QAM 01/28/21 06/19/21 History release cholecalciferol (vitamin D3) 125 5,000 unit PO QAM 01/28/21 06/19/21 History mcg (5,000 unit) capsule olanzapine 10 mg tablet (Zyprexa) 10 mg PO HS 03/12/21 06/19/21 History trazodone 150 mg tablet 150 mg PO HS 03/12/21 06/19/21 History insulin aspart U-100 100 unit/mL 22 unit SUBCUT TID 03/14/21 06/19/21 History subcutaneous solution (Novolog U-100 Insulin aspart) cholecalciferol (vitamin D3) 1,250 50,000 unit PO .COMPLEX #14 cap 04/03/21 06/19/21 Rx mcg (50,000 unit) capsule (D3-50 Cholecalciferol) testosterone 20.25 mg/1.25 gram 2 pump TOPICAL DAILY #75 g 04/03/21 06/19/21 Rx (1.62 %) transdermal gel pump (AndroGel) semaglutide (Ozempic) 0.25 mg SUBCUT Q7D #1.5 ml 05/05/21 06/19/21 Rx Oxygen Home 06/11/21 06/19/21 History apraclonidine 0.5 % eye drops 1 drp OPR BID 06/19/21 06/19/21 History methocarbamol 500 mg tablet 500 mg PO TID PRN 06/19/21 06/19/21 History rosuvastatin 20 mg tablet 20 mg PO DAILY 06/19/21 06/19/21 History Past Med/Surg History Medical History (Updated 06/20/21 @ 17:49 by Jimbo Ulloa MD) Anxiety Asthma Cardiac murmur Cellulitis of leg right knee to right foot -- hospitalized [facility] treated with IV antibiotics. 08/2020 Chronic back pain Chronic hypercapnic respiratory failure COPD (chronic obstructive pulmonary disease) Esophagitis ETOH abuse Gastroparesis GERD (gastroesophageal reflux disease) Hiatal hernia History of tobacco abuse Hx of respiratory failure r/t pneumonia 09/08/2019. treated at [place]. to follow with [facility] Professor NARENDRA 09/2020. Hypothyroidism Klinefelters syndrome Macular degeneration Morbid obesity with BMI of 40.0-44.9, adult ARAM (obstructive sleep apnea) trilogy bipap sleep machine Peripheral neuropathy Pneumonia hx (gets annually) Schizophrenia Seizure disorder hx, last seizure 2000 -- treated with depakote and was taken off of depakote about ~2010. no problems since. Shortness of breath Shortness of breath Tachycardia treated with coreg. to follow with Dr Chapman 09/2020. (hx of following with Dr Clark, cardiology at [place], [place]) Type 2 diabetes mellitus IDDM Surgical History H/O hernia repair umbilical H/O right heart catheterization no stents. 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 Professor Required: No Beliefs That Will Affect Care: None marital status: / Current Living Situation: Alone current occupational status: disabled How many Children do You have: 0 Other Information That Helps Us Care for You: No Feels Safe at Home: Yes Assistive Devices: Oxygen - at Night, Walker and Wheelchair Review of Systems Review of Systems: REVIEW OF SYSTEMS: Constitutional: No fever, sweats or chills Eyes: No diplopia, no worsening or blurred vision ENT: normal hearing, no trouble swallowing Respiratory: No cough, sputum, dyspnea at rest or on exertion Cardiovascular: No chest pain, tightness or palpitations Abdomen: (+) pain, constipation, nausea, denies vomitting Musculoskeletal: (+) chronic back pain, NO calf pain, swelling Neurologic: (+) excessive daytime sleepiness, No weakness, numbness/tingling, or balance problems Psychiatric: (+) schizophrenia, hx of suicidal ideations, Skin: No rash or itch Physical Exam Physical Exam: PHYSICAL EXAM: General: obtunded needing constant stimulation to arouse Head: Normocephalic, atraumatic ENT: PERRL, EOMI, no pharyngeal exudate, mucous membranes dry Neuro: AAO x 3, speech garbled cleared with mouth moistening, strength intact bilaterally 5/5, sensation intact and equal all extremities and dermatomes Chest: equal rise and fall of the chest, no accessory muscle use, spo2 on room air normal, decreased air movement throughout Cardiac: Regular rate and rhythm, telemetry reviewed, skin warm dry, cap refill <3 seconds, peripheral pulses +2 no JVD, no murmur, GI: NABS x 4 quadrants, soft, nontender to palpation, no rebound, guarding or tenderness : straight cath x1, no pain, no CVA tenderness, Extremities: Normal inspection, no peripheral edema or erythema, calfs nontender to palpation Psych: states he feels safe Skin: no rash or erythema Results & Data Results & Data ([facility]) Vital Signs (Past 12 Hours) Vital Signs Temp Pulse Pulse Resp BP BP Pulse Ox 06/19/21 20:00 93 H 16 96/50 L 97 06/19/21 18:09 37.8 C H 91 H 22 118/52 L 99 06/19/21 17:41 92 H 22 123/75 100 06/19/21 15:41 37.8 C H 94 H 20 141/61 H 91 06/19/21 15:18 924 H 20 141/61 H 94 Laboratory Results Abnormal lab results 06/19/21 06/19/21 06/19/21 Range/Units 15:42 15:42 17:39 WBC 11.88 H (4.8-10.8) K/uL RBC 4.10 L (4.7-6.1) M/uL Hgb 12.5 L (14.0-18.0) g/dL Hct 38.7 L (42-52) % MPV 11.0 H (7.4-10.4) fL Neut # (Auto) 9.63 H (1.4-6.5) K/uL Lymph # (Auto) 0.75 L (1.2-3.4) K/uL [place] # (Auto) 0.94 H (0.11-0.59) K/uL Eos # (Auto) 0.52 H (0-0.5) K/uL VBG pH (7.36-7.41) VBG pCO2 (38-50) mmHg Sodium 135 L (136-145) mmol/L POC Glucose 65 L* (70-99) mg/dl AST 13 L (15-37) U/L Lipase 66 L (73-393) U/L Urine Ketones (Negative) Ur Leukocyte Esterase (Negative) U Hyaline Cast (Auto) (0-5) /lpf U Epithel Cells (Auto) (0-5) /lpf Urine Opiates Screen (Neg) MDMA (Ecstasy) Screen (Neg) 06/19/21 06/19/21 06/19/21 Range/Units 18:02 18:24 19:15 WBC (4.8-10.8) K/uL RBC (4.7-6.1) M/uL Hgb (14.0-18.0) g/dL Hct (42-52) % MPV (7.4-10.4) fL Neut # (Auto) (1.4-6.5) K/uL Lymph # (Auto) (1.2-3.4) K/uL [place] # (Auto) (0.11-0.59) K/uL Eos # (Auto) (0-0.5) K/uL VBG pH 7.28 L (7.36-7.41) VBG pCO2 69 H (38-50) mmHg Sodium (136-145) mmol/L POC Glucose 165 H 121 H (70-99) mg/dl AST (15-37) U/L Lipase (73-393) U/L Urine Ketones (Negative) Ur Leukocyte Esterase (Negative) U Hyaline Cast (Auto) (0-5) /lpf U Epithel Cells (Auto) (0-5) /lpf Urine Opiates Screen (Neg) MDMA (Ecstasy) Screen (Neg) 06/19/21 06/19/21 06/19/21 Range/Units 20:20 20:20 20:49 WBC (4.8-10.8) K/uL RBC (4.7-6.1) M/uL Hgb (14.0-18.0) g/dL Hct (42-52) % MPV (7.4-10.4) fL Neut # (Auto) (1.4-6.5) K/uL Lymph # (Auto) (1.2-3.4) K/uL [place] # (Auto) (0.11-0.59) K/uL Eos # (Auto) (0-0.5) K/uL VBG pH (7.36-7.41) VBG pCO2 (38-50) mmHg Sodium (136-145) mmol/L POC Glucose 125 H (70-99) mg/dl AST (15-37) U/L Lipase (73-393) U/L Urine Ketones Trace H (Negative) Ur Leukocyte Esterase Trace H (Negative) U Hyaline Cast (Auto) 10-30 H (0-5) /lpf U Epithel Cells (Auto) >30 H (0-5) /lpf Urine Opiates Screen Pos H (Neg) MDMA (Ecstasy) Screen Pos H (Neg) Diagnostic Findings Abdomen/Pelvis CT 06/19/21 15:42 CT SCAN OF THE ABDOMEN AND PELVIS WITHOUT IV CONTRAST CLINICAL HISTORY: Generalized abdominal pain. Vomiting. Distention. COMPARISON STUDY: No priors. TECHNIQUE: CT scan of the abdomen and pelvis is performed from the lung bases to the proximal femora. Images are reviewed in the axial, sagittal, and coronal pl anes. IV contrast was not administered for this examination. Note that the examination was performed in suboptimal fashion without oral and IV contrast. The Examination is also degraded by motion artifact. A dose lowering technique was utilized adhering to the principles of ALARA. CT DOSE: 3561.08 mGy.cm FINDINGS: Lung bases: The heart is normal in size and without pericardial effusion. The lung bases are clear noting bibasilar atelectasis. Liver: The unenhanced liver is normal in size, contour, and attenuation. There is no intrahepatic biliary ductal dilatation. Gallbladder: Unremarkable. Spleen: Normal in size and attenuation. Pancreas: The unenhanced pancreas is atrophic and grossly unremarkable. Adrenal glands: Unremarkable. Kidneys: The unenhanced kidneys demonstrate mild cortical atrophy and are without hydronephrosis. There are no renal calculi identified. There is no evidence of contour deforming renal mass lesion. Abdominal vasculature: The abdominal aorta is normal in course and caliber noting moderate atherosclerotic calcification. Stomach and bowel: There is a small hiatal hernia. Postoperative change is noted in the stomach. There is severe constipation. The small bowel loops are normal in caliber, with no bowel obstruction identified. No colonic wall thickening is identified. There is no pneumatosis intestinalis or portal venous gas. The fredy endix is well-visualized and normal. Peritoneum:. Trace free fluid is seen in the paracolic gutters, right greater than left. No intraperitoneal free air is identified. A fat-containing umbilical hernia is observed. Lymphadenopathy: None. Pelvic viscera: The prostate gland is diminutive and heterogeneous. The bladder wall appears mildly thickened and trabeculated suggesting chronic outlet o bstruction. There is a small fat-containing left inguinal hernia. Skeletal structures: No lytic or blastic lesions are seen. IMPRESSION: 1. Suboptimal examination without oral and IV contrast. 2. Severe constipation. 3. No bowel obstruction is identified. 4. Trace nonspecific free fluid in the paracolic gutters is likely reactive. 5. Additional findings as above. ACT 112: Negative or not required by law. Electronically signed by: Gurinder Celestin M.D. 06/19/2021 4:[address] 06/19/21 18:12 CT SCAN OF THE BRAIN WITHOUT IV CONTRAST CLINICAL HISTORY: Change in mental status. COMPARISON STUDY: CT of the brain dated 02/27/2021. TECHNIQUE: Unenhanced axial CT scan of the brain is performed from the vertex to the skull base. A dose lowering technique was utilized adhering to the principles of ALARA. The examination is a greater by motion artifact. CT DOSE: 3123.39 mGy.cm FINDINGS: Brain parenchyma: The brain parenchyma is normal in appearance. There is no hemorrhage, mass effect, or evidence of acute territorial ischemia by CT criteria. Grover-white matter differentiation is preserved. No extra-axial fluid collection is seen. Ventricles, sulci, cisterns: Normal in configuration. Intracranial vasculature: There is atherosclerotic calcification of the cavernous carotid arteries. Calvarium: Unremarkable. Sinuses and mastoids: There is evidence of previous paranasal sinus surgery. There is trace mucosal thickening in the left maxillary antrum. The remaining paranasal sinuses are clear. The mastoid air cells are well pneumatized. Orbits: The bony orbits are grossly intact. There are bilateral ocular lens implants. IMPRESSION: There is no hemorrhage, mass effect, or evidence of acute territorial ischemia by CT criteria. ACT 112: Negative or not required by law. Electronically signed by: Gurinder Celestin M.D. 06/19/2021 7:34 PM Medications Administered Home Medications furosemide 40 mg tablet 40 mg PO UD PRN 09/09/20 [History Confirmed 06/19/21] carvedilol 3.125 mg tablet (Coreg) 3.125 mg PO BID 09/22/20 [History Confirmed 06/19/21] fluoxetine 40 mg capsule (Prozac) 80 mg PO QAM 09/22/20 [History Confirmed 06/19/21] linaclotide 290 mcg capsule (Linzess) 290 mcg PO QAM PRN 09/22/20 [History Confirmed 06/19/21] lisinopril 10 mg tablet (Zestril) 10 mg PO QAM 09/22/20 [History Confirmed 06/19/21] naproxen sodium 550 mg tablet 550 mg PO BID 09/22/20 [History Confirmed 06/19/21] olanzapine 20 mg tablet (Zyprexa) 20 mg PO HS 09/22/20 [History Confirmed 06/19/21] omeprazole 40 mg capsule,delayed release 40 mg PO QAM 09/22/20 [History Confirmed 06/19/21] rosuvastatin 20 mg tablet (Crestor) 20 mg PO QAM 09/22/20 [History Confirmed 06/19/21] levothyroxine 50 mcg tablet (Synthroid) 50 mcg PO DAILYBB #30 tab 09/26/20 [Rx Confirmed 06/19/21] zafirlukast 20 mg tablet (Accolate) 20 mg PO BID tab 10/09/20 [History Confirmed 06/19/21] insulin glargine 100 unit/mL subcutaneous solution (Lantus U-100 Insulin) 70 unit SUBCUT QAM 10/28/20 [History Confirmed 06/19/21] clonazepam 0.5 mg tablet (Klonopin) 0.5 mg PO TID tab 11/21/20 [History Confirmed 06/19/21] flash glucose scanning reader (FreeStyle Shelley 14 Day Clayton) #1 ea 11/25/20 [History Confirmed 06/11/21] flash glucose sensor (FreeStyle Shelley 14 Day Sensor) #1 ea 11/25/20 [History Confirmed 06/11/21] albuterol sulfate 90 mcg/actuation breath activated powder inhaler,sensor 1 inh INHALATION Q4H PRN 12/25/20 [History Confirmed 06/19/21] brinzolamide 1 %-brimonidine 0.2 % eye drops,suspension (Simbrinza) 1 drp OPB TID 12/25/20 [History Confirmed 06/19/21] trazodone 100 mg tablet 100 mg PO HS 12/25/20 [History Confirmed 06/19/21] umeclidinium 62.5 mcg-vilanterol 25 mcg/actuation powdr for inhalation (Anoro Ellipta) 1 inh INHALATION QAM 12/25/20 [History Confirmed 06/19/21] gabapentin 600 mg tablet (Neurontin) See Rx Instructions .ROUTE .COMPLEX tab 01/06/21 [History Confirmed 06/19/21] aspirin 81 mg tablet,delayed release 81 mg PO QAM 01/28/21 [History Confirmed 06/19/21] cholecalciferol (vitamin D3) 125 mcg (5,000 unit) capsule 5,000 unit PO QAM 01/28/21 [History Confirmed 06/19/21] olanzapine 10 mg tablet (Zyprexa) 10 mg PO HS 03/12/21 [History Confirmed 06/19/21] trazodone 150 mg tablet 150 mg PO HS 03/12/21 [History Confirmed 06/19/21] insulin aspart U-100 100 unit/mL subcutaneous solution (Novolog U-100 Insulin aspart) 22 unit SUBCUT TID 03/14/21 [History Confirmed 06/19/21] cholecalciferol (vitamin D3) 1,250 mcg (50,000 unit) capsule (D3-50 Cholecalciferol) 50,000 unit PO .COMPLEX #14 cap 04/03/21 [Rx Confirmed 06/19/21] testosterone 20.25 mg/1.25 gram (1.62 %) transdermal gel pump (AndroGel) 2 pump TOPICAL DAILY #75 g 04/03/21 [Rx Confirmed 06/19/21] semaglutide (Ozempic) 0.25 mg SUBCUT Q7D #1.5 ml 05/05/21 [Rx Confirmed 06/19/21] Oxygen Home 06/11/21 [History Confirmed 06/19/21] apraclonidine 0.5 % eye drops 1 drp OPR BID 06/19/21 [History Confirmed 06/19/21] methocarbamol 500 mg tablet 500 mg PO TID PRN 06/19/21 [History Confirmed 06/19/21] rosuvastatin 20 mg tablet 20 mg PO DAILY 06/19/21 [History Confirmed 06/19/21] Active Medications Lactated Ringer's (Lr) 1,000 mls @ 125 mls/hr IV .Q8H JARVIS Stop: 07/19/21 21:14 Last Admin: 06/19/21 21:40 Dose: 125 mls/hr Documented by: Lactated Ringer's (Lr) 1,000 mls @ 125 mls/hr IV .Q8H JARVIS Stop: 07/19/21 21:14 Last Admin: 06/19/21 21:40 Dose: 125 mls/hr Documented by: [id number] Discontinued Medications Bisacodyl (Bisacodyl 10 Mg Supp) 10 mg NM NOW STA Stop: 06/19/21 20:42 Last Admin: 06/19/21 20:54 Dose: 10 mg Documented by: [id number] Dextrose (Dextrose 50% 50 Ml Syringe) 50 ml IV NOW ONE Stop: 06/19/21 17:42 Last Admin: 06/19/21 17:46 Dose: 50 ml Documented by: [id number] Sodium Chloride (Nss 1000ml) 500 mls @ 999 mls/hr IV .Q31M ONE Stop: 06/19/21 16:12 Last Infusion: 06/19/21 17:22 Dose: 0 mls/hr Documented by: [id number] Admin: 06/19/21 16:29 Dose: 999 mls/hr Documented by: [id number] Morphine Sulfate (Morphine Sulfate 4 Mg/Ml 1 Ml Carp\Vial) 4 mg IV NOW STA Stop: 06/19/21 15:43 Last Admin: 06/19/21 16:25 Dose: 4 mg Documented by: [id number] Ondansetron HCl (Ondansetron Inj 2 Mg/Ml 2 Ml Vial) 4 mg IV NOW STA Stop: 06/19/21 15:43 Last Admin: 06/19/21 16:25 Dose: 4 mg Documented by: [id number] ECG Additional Comments: pending on admission- evaluate Qt - normal on telemetry Code Status & VTE Plan Code Status CODE: FULL VTE: SCDs, Lovenox 40mg SQ BID VTE Prophylaxis Plan VTE Prophylaxis will be ordered: Yes Supervising Physician Co-Signing Physician Notes Attending addendum: I have physically seen this patient, have supervised the FREDY's activities, and agree with the H&P unless as otherwise noted. Assessment and Plan: Altered mentation- Multifactorial: Hypercarbia, severe constipation with decreased oral intake, uncontrolled diabetes mellitus/hypoglycemia in ED Admit to monitored bed CT head negative CT abdomen pelvis with severe constipation Hypercarbia/obesity hypoventilation syndrome Continue BiPAP, repeat ABG in a.m. Noncompliant with treatment at home If no significant improvement by a.m., may need to be intubated Severe constipation- CT negative for obstruction Resume Linzess, milk of magnesia, docusate, senna Rehydrate with LR at high 25 mils per hour More aggressive treatment in a.m. if needed Remaining orders and notations as noted PG Care Time/CCT Total # of Minutes Spent Total Time Spent with Patient: Total time spent is greater than 50% in coordination of care (as documented) at patient's floor/unit and/or counseling patient: Coding Level of Care Code 24088 Initial Inpt Care Lvl 3 Diagnoses Constipation K59.00 Hypercarbia R06.89 Obesity hypoventilation syndrome E66.2 Diabetes mellitus type 2, uncontrolled, with complications E11.8; E11.65 Hypertension I10 Hypertension type: essential hypertension Hyperlipidemia E78.5 Hyperlipidemia type: unspecified Morbid obesity with BMI of 40.0-44.9, adult E66.01; Z68.41 Hypothyroidism (acquired) E03.9 GERD (gastroesophageal reflux disease) K21.9 Chronic hypercapnic respiratory failure J96.12 Lumbar stenosis M48.061 Neurogenic claudication status: unspecified Asthma J45.41 Asthma complication type: with acute exacerbation Asthma persistence: persistent Asthma severity: moderate (1) Lumbar stenosis Neurogenic claudication status: unspecified Qualified Code(s): M48.061 - Spinal stenosis, lumbar region without neurogenic claudication (2) Hyperlipidemia Hyperlipidemia type: unspecified Qualified Code(s): E78.5 - Hyperlipidemia, unspecified (3) Hypertension Hypertension type: essential hypertension Qualified Code(s): I10 - Essential (primary) hypertension (4) Asthma Asthma complication type: with acute exacerbation Asthma persistence: persistent Asthma severity: moderate Qualified Code(s): J45.41 - Moderate persistent asthma with (acute) exacerbation
[2021-06-19] MEDS: LACTATED RINGER'S 1,000 ML IV SCH (21:40)
[2021-06-19 23:01] LABS: Base Excess ABG -3.4 mEq/L (-9-1.8); HCO3 ABG 23 mmol/L (19-24); Oxygen Saturation ABG 95.9 % (90-95); PCO2 ABG 50 mmHg (35-46); PO2 ABG 88 mmHg (80-95); pH ABG 7.29 (7.35-7.45)
[2021-06-19] MEDS ORDERED: DEXTROSE 50% 50 ML SYRINGE IV PRN (23:12)
[2021-06-19] MEDS ORDERED: ONDANSETRON INJ 2 MG/ML 2 ML VIAL IV PRN (23:12)
[2021-06-19] MEDS ORDERED: CARBOHYDRATES FOR HYPOGLYCEMIA PO PRN (23:12)
[2021-06-19] MEDS ORDERED: GLUCAGON FOR INJ 1 MG VIAL SQ PRN (23:12)
[2021-06-19] MEDS ORDERED: GLUCOSE 10 TABS/TUBE PO PRN (23:12)
[2021-06-19] MEDS ORDERED: MAGNESIUM HYDROXIDE SUSP 30 ML UDC PO ONE (23:12)
[2021-06-19] MEDS ORDERED: ENOXAPARIN INJ 40 MG/0.4 ML SYR SQ SCH (23:12)
[2021-06-19] MEDS ORDERED: GLUCOSE 40% GEL 15 GM TUBE PO PRN (23:12)
[2021-06-19 23:18] LABS: Allen Test POS (Pos)
[2021-06-19] MEDS ORDERED: ALBUTEROL HFA 8 GM INHALER INH PRN (23:44)
[2021-06-20] MEDS: GABAPENTIN 600 MG TAB PO SCH ×4 (00:04→21:58)
[2021-06-20] MEDS: carvediloL 3.125 MG TAB PO SCH ×3 (00:04→21:58)
[2021-06-20] MEDS: ENOXAPARIN INJ 40 MG/0.4 ML SYR SQ SCH ×3 (00:31→21:57)
[2021-06-20] MEDS: LEVOTHYROXINE SODIUM 50 MCG TABLET PO SCH (05:26)
[2021-06-20] MEDS: LACTATED RINGER'S 1,000 ML IV SCH ×2 (05:28→14:21)
[2021-06-20] MEDS: ACETAMINOPHEN 325 MG TAB PO PRN (06:25)
[2021-06-20 07:04] LABS: Basophils # (auto) 0.02 K/uL (0-0.2); Basophils % (auto) 0.1 %; Eosinophils # (auto) 0.42 K/uL (0-0.5); Eosinophils % (auto) 3.1 %; Hematocrit (blood only) 34.1 % (42-52); Hemoglobin 10.7 g/dL (14.0-18.0); Immature Granulocytes # (auto) 0.04 K/uL (0.00-0.02); Immature Granulocytes % (auto) 0.3 %; Lymphocytes # (auto) 0.93 K/uL (1.2-3.4); Lymphocytes % (auto) 6.8 %; Mean Corpuscular Hemoglobin 29.9 pg (25-34); Mean Corpuscular Hgb Conc 31.4 g/dL (32-36); Mean Corpuscular Volume 95.3 fL (80-100); Monocytes # (auto) 1.28 K/uL (0.11-0.59); Monocytes % (auto) 9.4 %; Neutrophils # (auto) 10.98 K/uL (1.4-6.5); Neutrophils % (auto) 80.3 %; Platelet Count 131 K/uL (130-400); RDW Coefficient of Variation 13.4 % (11.5-14.5); RDW Standard Deviation 46.6 fL (36.4-46.3); Red Blood Count 3.58 M/uL (4.7-6.1); White Blood Count 13.67 K/uL (4.8-10.8)
[2021-06-20 07:07] LABS: Base Excess ABG 2.1 mEq/L (-9-1.8); HCO3 ABG 29 mmol/L (19-24); PCO2 ABG 58 mmHg (35-46); PO2 ABG 88 mmHg (80-95); pH ABG 7.31 (7.35-7.45)
[2021-06-20 07:38] LABS: BUN Creatinine Ratio 19.5 (10-20); Calcium 8.2 mg/dl (8.5-10.1); Creatinine Clr Calc Pharmacy 94.8 ml/min; Est GFR (African American) 74.1 ml/min; Potassium 5.2 mmol/L (3.5-5.1)
[2021-06-20 07:49] LABS: Thyroid Stimulating Hormone 0.726 uIu/ml (0.300-4.500)
[2021-06-20] MEDS ORDERED: FLUARIX QUADRIVALENT 0.5 ML SYR IM ONE (08:00)
--- NOTE | 2021-06-20 08:48 | Electrocardiogram Report ---
Test Reason : Blood Pressure : / mmHG Vent. Rate : 083 BPM Atrial Rate : 083 BPM P-R Int : 150 ms QRS Dur : 086 ms QT Int : 338 ms P-R-T Axes : 073 002 049 degrees QTc Int : 397 ms Normal sinus rhythm Normal ECG When compared with ECG of 27-FEB-2021 04:31, No significant change was found Confirmed by Josef Bustos ([id number]) on 06/20/2021 8:48:40 AM Referred By: REFERRED SELF Confirmed By:Josef Bustos
[2021-06-20] MEDS ORDERED: ROSUVASTATIN CALCIUM 20 MG TAB PO SCH (09:00)
[2021-06-20] MEDS: INSULIN ASPART 100 UNITS/ML 3 ML PEN SC SCH ×4 (09:17→22:04)
[2021-06-20] MEDS: INSULIN ASPART 100 UNITS/ML 3 ML PEN SQ SCH ×3 (09:17→17:48)
[2021-06-20] MEDS: ASPIRIN 81 MG ECTAB PO SCH (09:18)
[2021-06-20] MEDS: FLUoxetine HCL 20 MG CAP PO SCH (09:19)
[2021-06-20] MEDS: DOCUSATE SODIUM/SENNA 50/8.6MG TAB PO SCH ×2 (09:19→21:58)
[2021-06-20] MEDS: INSULIN GLARGINE SOLOSTAR 100 UNITS/ML 3 ML PEN SQ SCH (09:20)
[2021-06-20] MEDS: lisinopril 10 MG TAB PO SCH (09:21)
[2021-06-20] MEDS: LINACLOTIDE 145 MCG CAPSULE PO SCH (09:21)
[2021-06-20] MEDS: UMECLIDINIUM/VILANTEROL 62.5/25MCG 7 PUFFS/INHALER INH SCH (09:22)
[2021-06-20] MEDS: ROSUVASTATIN CALCIUM 20 MG TAB PO SCH (09:22)
[2021-06-20] MEDS: PANTOprazole 40 MG TAB PO SCH (09:22)
[2021-06-20] MEDS: MAGNESIUM HYDROXIDE SUSP 30 ML UDC PO SCH ×2 (09:25→21:57)
[2021-06-20] MEDS ORDERED: OPTIRAY 320 125ml IV ONE (20:30)
--- NOTE | 2021-06-20 20:36 | Hospitalist Progress Note ---
Date of Service June 20, 2021 Assessment & Plan (1) Right sided weakness: Plan: patient has right side weakness, this occured after patient awoke, by definition, patient is out of window. will obtain ct head, mri cta head neck (2) Constipation: Plan: Unsure of etiology of his constipation as history taking is difficult - There is no obstruction seen on CT imaging and no pneumatosis and normal lactate - reassuring - Stool in vault with placing of suppository - MOM BID - Docusate and Senna BID - Linzess scheduled daily for now - LR at 125 ml/hour overnight - Follow exam in morning - blood cultures pending (3) Hypercarbia: Plan: Co2 on VBG at 1800 69 with PH 7.28 - BiPAP placed - repeat ABG- - If no improvement may need intubated - Likely secondary to obtundation in regards to further sedating medications (4) Obesity hypoventilation syndrome: Plan: Non compliant at home - Support with BiPAP in house 16 with back up RR - Titrate to effective VT and RR with adequate SPo2 (5) Diabetes mellitus type 2, uncontrolled, with complications: Plan: Continue basal insulin - bolus insulin with CF of 20 - if tolerating PO by morning may need increase in ratio coverage (6) Hypertension: Plan: Continue Carvedilol - hold lasix for now likely restart in morning (7) Hyperlipidemia: Plan: Continue statin (8) Morbid obesity with BMI of 40.0-44.9, adult: Plan: Continues to follow with bariatric medicine (9) Hypothyroidism (acquired): Plan: Continue synthroid (10) GERD (gastroesophageal reflux disease): Plan: Continue PPI (11) Chronic hypercapnic respiratory failure: Plan: Multifactorial- holding majority of his sedating medicatons at this time - Continue his zyprexa and his Prozac and Neruotin (12) Lumbar stenosis: Plan: As above - Gabapentin 600mg TID - will hold his 1200mg dose tonight - follow for withdraw- restart when mentation improves (13) Asthma: Plan: Continue albuterol Continue anoro elipta or equivalent Continue zafirlukast Admission and Anticipated Discharge Date Admission Date: June 19, 2021 Subjective Patient reports having weakness in his bilateral arms but more on his right hand. Patient denies any slurred speech, diplopia, headache. Review of Systems Review of Systems: All systems reviewed & are unremarkable except as noted in HPI & below Physical Exam Physical Exam: General: awake in bed Head: Normocephalic, atraumatic ENT: PERRL, EOMI, no pharyngeal exudate Neuro: AAO x 3, strength intact bilaterally 5/5, sensation intact and equal all extremities and dermatomes, 4+ Chest: equal rise and fall of the chest, no accessory muscle use, spo2 on room air normal, decreased air movement throughout Cardiac: Regular rate and rhythm, telemetry reviewed, skin warm dry, cap refill <3 seconds, peripheral pulses +2 no JVD, no murmur, GI: NABS x 4 quadrants, soft, nontender to palpation, no rebound, guarding or tenderness Extremities: Normal inspection, no peripheral edema or erythema, calfs nonten hermelindo to palpation Psych: states he feels safe Skin: no rash or erythema Results & Data Results & Data ([facility]) Vital Signs (Past 12 Hours) Vital Signs Temp Pulse Resp BP Pulse Ox 06/20/21 19:25 36.6 C 84 18 115/68 93 06/20/21 15:57 37.0 C 84 19 106/55 L 95 06/20/21 11:37 37.0 C 86 20 141/75 H 93 PG Care Time/CCT Total # of Minutes Spent Total Time Spent with Patient: Total time spent is greater than 50% in coordination of care (as documented) at patient's floor/unit and/or counseling patient: Coding Level of Care Code 66984 Subseq Hosp Care Lvl 3 Diagnoses Constipation K59.00 Hypercarbia R06.89 Obesity hypoventilation syndrome E66.2 Diabetes mellitus type 2, uncontrolled, with complications E11.8; E11.65 Hypertension I10 Hypertension type: essential hypertension Hyperlipidemia E78.5 Hyperlipidemia type: unspecified Morbid obesity with BMI of 40.0-44.9, adult E66.01; Z68.41 Hypothyroidism (acquired) E03.9 GERD (gastroesophageal reflux disease) K21.9 Chronic hypercapnic respiratory failure J96.12 Lumbar stenosis M48.061 Neurogenic claudication status: unspecified Asthma J45.41 Asthma severity: moderate Asthma persistence: persistent Asthma complication type: with acute exacerbation Right sided weakness R53.1 Time Spent (min) 35 (1) Hypertension Hypertension type: essential hypertension Qualified Code(s): I10 - Essential (primary) hypertension (2) Hyperlipidemia Hyperlipidemia type: unspecified Qualified Code(s): E78.5 - Hyperlipidemia, unspecified (3) Lumbar stenosis Neurogenic claudication status: unspecified Qualified Code(s): M48.061 - Spinal stenosis, lumbar region without neurogenic claudication (4) Asthma Asthma severity: moderate Asthma persistence: persistent Asthma complication type: with acute exacerbation Qualified Code(s): J45.41 - Moderate persistent asthma with (acute) exacerbation
--- NOTE | 2021-06-20 20:46 | CT Scan Report ---
CT head/brain wo con CLINICAL HISTORY: 56 years-old Male with right sided weakness. Acute strokelike symptoms TECHNIQUE: Multiple axial CT images of the head were obtained without contrast. A dose lowering tech nique was utilized adhering to the principles of ALARA. COMPARISON: CTA head and neck of same day, head CT 06/19/2021 FINDINGS: No acute intracranial hemorrhage, midline shift, intracranial mass, hydrocephalus, territorial ischem ia or abnormal extra-axial collection. Minimal involutional changes. The calvarium is intact. Prior bilateral lens repair. Postoperative changes of the paranasal sinuses. The paranasal sinuses, mastoid air cells, and middle ear cavities are clear. IMPRESSION: No acute intracranial abnormality. ACT 112: Negative or not required by law. The above report was generated using voice recognition software. It may contain grammatical, syntax o r spelling errors. Electronically signed by: Reno Johnson M.D. 06/20/2021 8:44 PM
--- NOTE | 2021-06-20 20:53 | CT Scan Report ---
CT angio neck with con, CT angio head w con CLINICAL HISTORY: 56 years-old Male with focal findings. Acute strokelike symptoms COMPARISON STUDY: Head CT 06/19/2021 TECHNIQUE: Following the IV administration of 121 mL of Optiray, CT angiogram of the head and neck wa s performed from the aortic arch to the skull apex. Images are reviewed in the axial, sagittal, and c oronal planes. 3-D MIPS images are created and assessed. IV contrast was administered without complic ation. All measurements were calculated based on NASCET criteria. A dose lowering technique was util ized adhering to the principles of ALARA. CT DOSE: 1392.73 mGy.cm FINDINGS: Mild atherosclerosis of the thoracic aortic arch which demonstrates a three-vessel morphology. The in nominate and imaged subclavian arteries are patent bilaterally. The common carotid arteries are widel y patent. Mild to moderate atherosclerotic plaque of the carotid bulbs results in less than 50% steno sis bilaterally. Atherosclerosis of the cavernous and supraclinoid segments. The middle and anterior cerebral arteries are patent. The vertebral arteries are codominant and widely patent. The basilar an d posterior cerebral arteries are also patent. The cerebral venous sinuses are patent. There is no an eurysm, dissection, high-grade stenosis or arterial occlusion identified. No abnormal enhancement. There is enlarged 1.3 cm right paratracheal lymph node with central fatty hilum, likely reactive. Non specific mildly prominent left supraclavicular lymph nodes measure up to 7 mm. Moderate narrowing of the lateral pharyngeal airway may be secondary to phase of respiration. No associated lesion or infla mmatory changes identified. Unremarkable thyroid. No acute fracture. Mild mucosal periosteal thickeni ng of the paranasal sinuses with chronic postoperative changes. The mastoid air cells are clear. IMPRESSION:Unremarkable CTA of the head and neck without aneurysm, dissection, high-grade stenosis or arterial occlusion. ACT 112: Negative or not required by law. The above report was generated using voice recognition software. It may contain grammatical, syntax o r spelling errors. Electronically signed by: Reno Johnson M.D. 06/20/2021 8:51 PM
[2021-06-20] MEDS ORDERED: OLANZapine 10 MG TAB PO SCH (21:00)
[2021-06-21] MEDS: LACTATED RINGER'S 1,000 ML IV SCH ×4 (02:36→22:13)
[2021-06-21] MEDS: ACETAMINOPHEN 325 MG TAB PO PRN ×2 (04:58→11:15)
[2021-06-21] MEDS: LEVOTHYROXINE SODIUM 50 MCG TABLET PO SCH (06:23)
[2021-06-21 06:43] LABS: Basophils # (auto) 0.02 K/uL (0-0.2); Basophils % (auto) 0.2 %; Eosinophils # (auto) 0.45 K/uL (0-0.5); Eosinophils % (auto) 3.6 %; Hematocrit (blood only) 34.1 % (42-52); Hemoglobin 10.9 g/dL (14.0-18.0); Immature Granulocytes # (auto) 0.05 K/uL (0.00-0.02); Immature Granulocytes % (auto) 0.4 %; Lymphocytes # (auto) 1.12 K/uL (1.2-3.4); Mean Corpuscular Hemoglobin 30.1 pg (25-34); Mean Corpuscular Volume 94.2 fL (80-100); Mean Platelet Volume 11.1 fL (7.4-10.4); Monocytes # (auto) 0.99 K/uL (0.11-0.59); Monocytes % (auto) 7.9 %; Neutrophils # (auto) 9.85 K/uL (1.4-6.5); Neutrophils % (auto) 78.9 %; Platelet Count 170 K/uL (130-400); RDW Coefficient of Variation 13.3 % (11.5-14.5); RDW Standard Deviation 45.7 fL (36.4-46.3); Red Blood Count 3.62 M/uL (4.7-6.1); White Blood Count 12.48 K/uL (4.8-10.8)
[2021-06-21 06:46] LABS: BUN Creatinine Ratio 19.1 (10-20); Calcium 8.8 mg/dl (8.5-10.1); Creatinine Clr Calc Pharmacy 113.8 ml/min; Est GFR (African American) 92.6 ml/min; Est GFR (Non-African American) 79.9 ml/min; Magnesium 2.6 mg/dl (1.8-2.4); Potassium 4.6 mmol/L (3.5-5.1)
[2021-06-21] MEDS: lisinopril 10 MG TAB PO SCH (08:21)
[2021-06-21] MEDS: ASPIRIN 81 MG ECTAB PO SCH (08:21)
[2021-06-21] MEDS: DOCUSATE SODIUM/SENNA 50/8.6MG TAB PO SCH ×2 (08:21→21:43)
[2021-06-21] MEDS: PANTOprazole 40 MG TAB PO SCH (08:22)
[2021-06-21] MEDS: FLUoxetine HCL 20 MG CAP PO SCH (08:22)
[2021-06-21] MEDS: LINACLOTIDE 145 MCG CAPSULE PO SCH (08:22)
[2021-06-21] MEDS: ROSUVASTATIN CALCIUM 20 MG TAB PO SCH (08:22)
[2021-06-21] MEDS: carvediloL 3.125 MG TAB PO SCH ×2 (08:22→21:43)
[2021-06-21] MEDS: UMECLIDINIUM/VILANTEROL 62.5/25MCG 7 PUFFS/INHALER INH SCH (08:23)
[2021-06-21] MEDS: INSULIN ASPART 100 UNITS/ML 3 ML PEN SC SCH ×4 (08:29→21:50)
[2021-06-21] MEDS: INSULIN GLARGINE SOLOSTAR 100 UNITS/ML 3 ML PEN SQ SCH (08:34)
[2021-06-21] MEDS: GABAPENTIN 600 MG TAB PO SCH ×3 (08:35→21:44)
[2021-06-21] MEDS: ENOXAPARIN INJ 40 MG/0.4 ML SYR SQ SCH ×2 (08:35→21:43)
[2021-06-21] MEDS: INSULIN ASPART 100 UNITS/ML 3 ML PEN SQ SCH ×3 (08:37→17:20)
[2021-06-21] MEDS: MAGNESIUM HYDROXIDE SUSP 30 ML UDC PO SCH ×2 (08:40→21:45)
--- NOTE | 2021-06-21 09:06 | Magnetic Resonance Report ---
MR brain wo con HISTORY: 56 years-old Male right sided weakness acute strokelike symptoms COMPARISON: Head CT of same day TECHNIQUE: Multiplanar multisequence MRI of the brain was obtained without the use of IV contrast FINDINGS: No restricted diffusion to suggest acute or subacute infarct. Partially empty sella. No acute intracr anial hemorrhage, midline shift, abnormal extra axial collection, hydrocephalus or intracranial mass. No significant T2/FLAIR signal abnormalities. The cerebral venous sinuses and major arterial flow vo ids appear patent. Prior bilateral lens repair. The skull, orbits and soft tissues are otherwise unre markable. IMPRESSION: No acute intracranial abnormality. No acute or subacute infarct. ACT 112: Negative or not required by law. The above report was generated using voice recognition software. It may contain grammatical, syntax o r spelling errors. Electronically signed by: Reno Johnson M.D. 06/21/2021 9:04 AM
[2021-06-21] MEDS ORDERED: clonazePAM 0.5 MG TAB PO STA (18:47)
[2021-06-21] MEDS ORDERED: clonazePAM 0.5 MG TAB PO ONE (21:41)
[2021-06-21] MEDS: OLANZapine 10 MG TAB PO SCH (21:45)
--- NOTE | 2021-06-21 21:56 | Hospitalist Progress Note ---
Date of Service June 21, 2021 Assessment & Plan (1) Right sided weakness: Plan: patient has right side weakness, this occured after patient awoke, by definition, patient is out of window. will obtain ct head, mri cta head neck: all of these were negative. (2) Constipation: Plan: Unsure of etiology of his constipation as history taking is difficult - There is no obstruction seen on CT imaging and no pneumatosis and normal lactate - reassuring - Stool in vault with placing of suppository - MOM BID - Docusate and Senna BID - Linzess scheduled daily for now - will stop IVF. - Follow exam in morning - blood cultures pending (3) Hypercarbia: Plan: Co2 on VBG at 1800 69 with PH 7.28 - BiPAP placed - repeat ABG- - If no improvement may need intubated - Likely secondary to obtundation in regards to further sedating medications (4) Obesity hypoventilation syndrome: Plan: Non compliant at home - Support with BiPAP in house 16/8 with back up RR - Titrate to effective VT and RR with adequate SPo2 (5) Diabetes mellitus type 2, uncontrolled, with complications: Plan: Continue basal insulin - bolus insulin with CF of 20 - if tolerating PO by morning may need increase in ratio coverage (6) Hypertension: Plan: Continue Carvedilol - hold lasix for now likely restart in morning (7) Hyperlipidemia: Plan: Continue statin (8) Morbid obesity with BMI of 40.0-44.9, adult: Plan: Continues to follow with bariatric medicine (9) Hypothyroidism (acquired): Plan: Continue synthroid (10) GERD (gastroesophageal reflux disease): Plan: Continue PPI (11) Chronic hypercapnic respiratory failure: Plan: Multifactorial- holding majority of his sedating medicatons at this time - Continue his zyprexa and his Prozac and Neruotin (12) Lumbar stenosis: Plan: As above - Gabapentin 600mg TID - will hold his 1200mg dose tonight - follow for withdraw- restart when mentation improves (13) Asthma: Plan: Continue albuterol Continue anoro elipta or equivalent Continue zafirlukast Admission and Anticipated Discharge Date Admission Date: June 19, 2021 Subjective 56 yo m reports feeling anxious today. aHe is asking to resume his meds. Review of Systems Review of Systems: All systems reviewed & are unremarkable except as noted in HPI & below Physical Exam Physical Exam: General: awake in bed Head: Normocephalic, atraumatic ENT: PERRL, EOMI, no pharyngeal exudate Neuro: AAO x 3, strength intact bilaterally 5/5, sensation intact and equal all extremities and dermatomes, 4+ Chest: equal rise and fall of the chest, no accessory muscle use, spo2 on room air normal, decreased air movement throughout Cardiac: Regular rate and rhythm, telemetry reviewed, skin warm dry, cap refill <3 seconds, peripheral pulses +2 no JVD, no murmur, GI: NABS x 4 quadrants, soft, nontender to palpation, no rebound, guarding or tenderness Extremities: Normal inspection, no peripheral edema or erythema, calfs nontender to palpation Psych: states he feels safe Skin: no rash or erythema Results & Data Results & Data ([facility]) Vital Signs (Past 12 Hours) Vital Signs Temp Pulse Pulse Resp BP Pulse Ox 06/21/21 20:00 36.7 C 73 20 163/85 H 93 06/21/21 15:17 36.9 C 76 20 124/66 97 06/21/21 15:15 76 06/21/21 11:56 36.4 C L 82 20 145/70 H 95 06/21/21 10:44 88 PG Care Time/CCT Total # of Minutes Spent Total Time Spent with Patient: Total time spent is greater than 50% in coordination of care (as documented) at patient's floor/unit and/or counseling patient: Coding Level of Care Code 96468 Subseq Hosp Care Lvl 2 Diagnoses Right sided weakness R53.1 Constipation K59.00 Hypercarbia R06.89 Obesity hypoventilation syndrome E66.2 Diabetes mellitus type 2, uncontrolled, with complications E11.8; E11.65 Hypertension I10 Hypertension type: essential hypertension Hyperlipidemia E78.5 Hyperlipidemia type: unspecified Morbid obesity with BMI of 40.0-44.9, adult E66.01; Z68.41 Hypothyroidism (acquired) E03.9 GERD (gastroesophageal reflux disease) K21.9 Chronic hypercapnic respiratory failure J96.12 Lumbar stenosis M48.061 Neurogenic claudication status: unspecified Asthma J45.41 Asthma severity: moderate Asthma persistence: persistent Asthma complication type: with acute exacerbation (1) Hypertension Hypertension type: essential hypertension Qualified Code(s): I10 - Essential (primary) hypertension (2) Hyperlipidemia Hyperlipidemia type: unspecified Qualified Code(s): E78.5 - Hyperlipidemia, unspecified (3) Lumbar stenosis Neurogenic claudication status: unspecified Qualified Code(s): M48.061 - Spinal stenosis, lumbar region without neurogenic claudication (4) Asthma Asthma severity: moderate Asthma persistence: persistent Asthma complication type: with acute exacerbation Qualified Code(s): J45.41 - Moderate persistent asthma with (acute) exacerbation
[2021-06-22] MEDS: LEVOTHYROXINE SODIUM 50 MCG TABLET PO SCH (05:46)
[2021-06-22] MEDS: lisinopril 10 MG TAB PO SCH (07:18)
[2021-06-22] MEDS: DOCUSATE SODIUM/SENNA 50/8.6MG TAB PO SCH ×2 (07:18→20:40)
[2021-06-22] MEDS: ASPIRIN 81 MG ECTAB PO SCH (07:19)
[2021-06-22] MEDS: LINACLOTIDE 145 MCG CAPSULE PO SCH (07:19)
[2021-06-22] MEDS: PANTOprazole 40 MG TAB PO SCH (07:19)
[2021-06-22] MEDS: FLUoxetine HCL 20 MG CAP PO SCH (07:20)
[2021-06-22] MEDS: GABAPENTIN 600 MG TAB PO SCH ×3 (07:21→20:40)
[2021-06-22] MEDS: ROSUVASTATIN CALCIUM 20 MG TAB PO SCH (07:21)
[2021-06-22] MEDS: carvediloL 3.125 MG TAB PO SCH ×2 (07:21→20:39)
[2021-06-22] MEDS: UMECLIDINIUM/VILANTEROL 62.5/25MCG 7 PUFFS/INHALER INH SCH (07:22)
[2021-06-22] MEDS: ENOXAPARIN INJ 40 MG/0.4 ML SYR SQ SCH ×2 (07:23→20:40)
[2021-06-22 07:48] LABS: Basophils # (auto) 0.05 K/uL (0-0.2); Basophils % (auto) 0.5 %; Eosinophils # (auto) 0.65 K/uL (0-0.5); Eosinophils % (auto) 6.4 %; Hematocrit (blood only) 37.8 % (42-52); Hemoglobin 12.1 g/dL (14.0-18.0); Immature Granulocytes # (auto) 0.01 K/uL (0.00-0.02); Immature Granulocytes % (auto) 0.1 %; Lymphocytes # (auto) 1.47 K/uL (1.2-3.4); Lymphocytes % (auto) 14.5 %; Mean Corpuscular Hemoglobin 30.3 pg (25-34); Mean Corpuscular Volume 94.5 fL (80-100); Mean Platelet Volume 11.1 fL (7.4-10.4); Monocytes # (auto) 0.66 K/uL (0.11-0.59); Monocytes % (auto) 6.5 %; Neutrophils # (auto) 7.32 K/uL (1.4-6.5); Platelet Count 181 K/uL (130-400); RDW Coefficient of Variation 13.2 % (11.5-14.5); RDW Standard Deviation 45.9 fL (36.4-46.3); White Blood Count 10.16 K/uL (4.8-10.8)
[2021-06-22] MEDS: MAGNESIUM HYDROXIDE SUSP 30 ML UDC PO SCH ×2 (07:49→20:27)
[2021-06-22 08:27] LABS: BUN Creatinine Ratio 15.7 (10-20); Calcium 9.4 mg/dl (8.5-10.1); Creatinine Clr Calc Pharmacy 140.8 ml/min; Est GFR (African American) 113.4 ml/min; Est GFR (Non-African American) 97.9 ml/min; Magnesium 2.4 mg/dl (1.8-2.4); Potassium 4.4 mmol/L (3.5-5.1)
[2021-06-22] MEDS: INSULIN ASPART 100 UNITS/ML 3 ML PEN SQ SCH ×3 (08:42→17:27)
[2021-06-22] MEDS: INSULIN ASPART 100 UNITS/ML 3 ML PEN SC SCH ×4 (08:43→20:40)
[2021-06-22] MEDS: INSULIN GLARGINE SOLOSTAR 100 UNITS/ML 3 ML PEN SQ SCH (08:45)
[2021-06-22] MEDS: clonazePAM 0.5 MG TAB PO SCH ×3 (11:25→20:39)
--- NOTE | 2021-06-22 16:30 | XRay Report ---
XR chest 2V PA/lateral HISTORY: 56 years-old Male hypoxia acute hypoxia COMPARISON: Chest radiographs 03/25/2021 TECHNIQUE: PA and lateral views of the chest FINDINGS: Cardiac silhouette is mildly enlarged. Linear right midlung atelectasis/scarring. No pneumothorax or large pleural effusion. Bibasilar predominant interstitial opacities appear generally stable. No pneu mothorax, pleural effusion or lobar airspace consolidation. Chronic mid sternal fracture with unchang ed alignment. No acute fracture. IMPRESSION: Similar-appearing bibasilar interstitial coarsening suggestive of atelectasis/scarring. ACT 112: Negative or not required by law. The above report was generated using voice recognition software. It may contain grammatical, syntax o r spelling errors. Electronically signed by: Reno Johnson M.D. 06/22/2021 4:28 PM
[2021-06-22] MEDS: ACETAMINOPHEN 325 MG TAB PO PRN (17:21)
[2021-06-22] MEDS: POLYETHYLENE (MIRALAX) 17 GM PACK PO SCH (20:39)
[2021-06-22] MEDS: OLANZapine 10 MG TAB PO SCH (20:39)
--- NOTE | 2021-06-22 22:06 | Hospitalist Progress Note ---
Date of Service June 22, 2021 Assessment & Plan (1) Right sided weakness: Plan: patient has right side weakness, this occured after patient awoke, by definition, patient is out of window. will obtain ct head, mri cta head neck: all of these were negative. Today this symptom has resolved. (2) Constipation: Plan: Unsure of etiology of his constipation as history taking is difficult. It appears this is an acute on chronic problem. - There is no obstruction seen on CT imaging and no pneumatosis and normal lactate - reassuring - Stool in vault with placing of suppository - MOM BID - Docusate and Senna BID - Linzess scheduled daily for now -will add miralax. - will stop IVF. - Follow exam in morning - blood cultures pending (3) Hypercarbia: Plan: Acute and chronic hypercarbic respiratory failure Co2 on VBG at 1800 69 with PH 7.28 - BiPAP placed - repeat ABG- - If no improvement may need intubated - Likely secondary to obtundation in regards to further sedating medications (4) Obesity hypoventilation syndrome: Plan: Non compliant at home - Support with BiPAP in house 17/03 with back up RR - Titrate to effective VT and RR with adequate SPo2 (5) Diabetes mellitus type 2, uncontrolled, with complications: Plan: Continue basal insulin - bolus insulin with CF of 20 - if tolerating PO by morning may need increase in ratio coverage (6) Hypertension: Plan: Continue Carvedilol - hold lasix for now likely restart in morning (7) Hyperlipidemia: Plan: Continue statin (8) Morbid obesity with BMI of 40.0-44.9, adult: Plan: Continues to follow with bariatric medicine (9) Hypothyroidism (acquired): Plan: Continue synthroid (10) GERD (gastroesophageal reflux disease): Plan: Continue PPI (11) Chronic hypercapnic respiratory failure: Plan: Multifactorial- holding majority of his sedating medicatons at this time - Continue his zyprexa and his Prozac and Neruotin (12) Lumbar stenosis: Plan: As above - Gabapentin 600mg TID - will hold his 1200mg dose tonight - follow for withdraw- restart when mentation improves (13) Asthma: Plan: Continue albuterol Continue anoro elipta or equivalent Continue zafirlukast (14) Acute metabolic encephalopathy: Plan: Metabolic encephalopathyin setting of acute hypercarbic respiratory failure This resolved with BIPAP. will monitor. Discharge planning: Case management needs to work on getting home health services, 2 step: oxygen on ambulation. He only is on oxygen at bedtime. Admission and Anticipated Discharge Date Admission Date: June 19, 2021 Subjective Patient complained that he missed the morning dose of clonazepam as he was drowsy this am. Patient is now complaining of worsening abdominal distention. He reports he had a BM on Wednesday night and usually has one BM a week at home. He reports that due to his [place], he normally has abdominal distention, but today it is worse. Review of Systems Review of Systems: All systems reviewed & are unremarkable except as noted in HPI & below Physical Exam Physical Exam: General: awake in bed Head: Normocephalic, atraumatic ENT: PERRL, EOMI, no pharyngeal exudate Neuro: AAO x 3, strength intact bilaterally 5/5, sensation intact and equal all extremities and dermatomes, 4+ Chest: equal rise and fall of the chest, no accessory muscle use, spo2 on room air normal, decreased air movement throughout Cardiac: Regular rate and rhythm, telemetry reviewed, skin warm dry, cap refill <3 seconds, peripheral pulses +2 no JVD, no murmur, GI: NABS x 4 quadrants, soft, nontender to palpation, no rebound, guarding or tenderness Extremities: Normal inspection, no peripheral edema or erythema, calfs nontender to palpation Psych: states he feels safe Skin: no rash or erythema Results & Data Results & Data ([facility]) Vital Signs (Past 12 Hours) Vital Signs Temp Pulse Pulse Resp BP Pulse Ox 06/22/21 19:43 36.6 C 79 20 160/85 H 97 06/22/21 17:16 36.4 C L 90 20 155/87 H 95 06/22/21 15:30 75 06/22/21 12:54 36.8 C 81 20 150/80 H 94 PG Care Time/CCT Total # of Minutes Spent Total Time Spent with Patient: Total time spent is greater than 50% in coordination of care (as documented) at patient's floor/unit and/or counseling patient: Coding Level of Care Code 40742 Subseq Hosp Care Lvl 2 Diagnoses Right sided weakness R53.1 Constipation K59.00 Hypercarbia R06.89 Obesity hypoventilation syndrome E66.2 Diabetes mellitus type 2, uncontrolled, with complications E11.8; E11.65 Hypertension I10 Hypertension type: essential hypertension Hyperlipidemia E78.5 Hyperlipidemia type: unspecified Morbid obesity with BMI of 40.0-44.9, adult E66.01; Z68.41 Hypothyroidism (acquired) E03.9 GERD (gastroesophageal reflux disease) K21.9 Chronic hypercapnic respiratory failure J96.12 Lumbar stenosis M48.061 Neurogenic claudication status: unspecified Asthma J45.41 Asthma complication type: with acute exacerbation Asthma persistence: persistent Asthma severity: moderate Acute metabolic encephalopathy G93.41 Time Spent (min) 25 (1) Lumbar stenosis Neurogenic claudication status: unspecified Qualified Code(s): M48.061 - Spinal stenosis, lumbar region without neurogenic claudication (2) Hyperlipidemia Hyperlipidemia type: unspecified Qualified Code(s): E78.5 - Hyperlipidemia, unspecified (3) Hypertension Hypertension type: essential hypertension Qualified Code(s): I10 - Essential (primary) hypertension (4) Asthma Asthma complication type: with acute exacerbation Asthma persistence: persistent Asthma severity: moderate Qualified Code(s): J45.41 - Moderate persistent asthma with (acute) exacerbation
[2021-06-23] MEDS: LEVOTHYROXINE SODIUM 50 MCG TABLET PO SCH (06:16)
[2021-06-23] MEDS: lisinopril 10 MG TAB PO SCH (08:15)
[2021-06-23] MEDS: ASPIRIN 81 MG ECTAB PO SCH (08:18)
[2021-06-23] MEDS: ROSUVASTATIN CALCIUM 20 MG TAB PO SCH (08:18)
[2021-06-23] MEDS: GABAPENTIN 600 MG TAB PO SCH ×2 (08:18→12:33)
[2021-06-23] MEDS: FLUoxetine HCL 20 MG CAP PO SCH (08:18)
[2021-06-23] MEDS: PANTOprazole 40 MG TAB PO SCH (08:18)
[2021-06-23] MEDS: LINACLOTIDE 145 MCG CAPSULE PO SCH (08:18)
[2021-06-23] MEDS: UMECLIDINIUM/VILANTEROL 62.5/25MCG 7 PUFFS/INHALER INH SCH (08:18)
[2021-06-23] MEDS: DOCUSATE SODIUM/SENNA 50/8.6MG TAB PO SCH (08:19)
[2021-06-23] MEDS: POLYETHYLENE (MIRALAX) 17 GM PACK PO SCH (08:19)
[2021-06-23] MEDS: carvediloL 3.125 MG TAB PO SCH (08:19)
[2021-06-23] MEDS: ENOXAPARIN INJ 40 MG/0.4 ML SYR SQ SCH (08:20)
[2021-06-23] MEDS: INSULIN ASPART 100 UNITS/ML 3 ML PEN SQ SCH ×2 (08:22→12:36)
[2021-06-23] MEDS: INSULIN ASPART 100 UNITS/ML 3 ML PEN SC SCH ×2 (08:24→12:36)
[2021-06-23] MEDS: INSULIN GLARGINE SOLOSTAR 100 UNITS/ML 3 ML PEN SQ SCH (08:25)
[2021-06-23] MEDS: clonazePAM 0.5 MG TAB PO SCH ×2 (08:37→12:33)
[2021-06-23] MEDS: MAGNESIUM HYDROXIDE SUSP 30 ML UDC PO SCH (08:53)
--- NOTE | 2021-06-23 08:53 | XRay Report ---
KUB HISTORY: Abdominal distention. COMPARISON: Abdomen and pelvis CT 06/19/2021. FINDINGS: No change in the mildly distended colon containing a large amount well-formed stool consist ent with constipation. No renal calculi. No ureteral calculi. No pneumoperitoneum or pneumatosis. IMPRESSION: Mildly distended colon containing a large amount of well-formed stool consistent with constipation. T his is similar to the prior CT examination. ACT 112: Negative or not required by law. Electronically signed by: Michael Dillard M.D. 06/23/2021 8:52 AM
--- NOTE | 2021-06-23 11:14 | Discharge Summary ---
Date of Service June 23, 2021 Admission HPI Per Admitting Provider 55 YOM with past medical history of: CAD, HTN, HLD, Morbid Obesity, COPD, Schizophrenia, DM II on insulin, Klinefelter, Neuropathy, cellulitis of lower extremity, chronic pain, and esophagitis previously completed treatment with caspofungin for berkley glabrata in December, gastric sleeve in 2015 with repeat in 2019. Since moving here in [facility] from [place] he has gotten engaged with pulmonary for his ARAM/CPAP in which he was ordered a trilogy NIVV (which he is noncompliant with), Weight loss management with Dr. Avelar for his obesity, and metabolic syndrome, and with Dr. Luevano for his DM. He had an EGD in March for odynophagia that revealed bile and fluid through entire esophagus. Patient was seen in the EMD on Jun 17 for hyperglycemia and discharged. He returns to the EMD today for complaints of abdominal pain, that he reports has been ongoing for 2 days. The patient is obtunded and requires continuos stimulation to participate in the exam. He states he has not vomited, but has not had a BM in 4 days. He was at an eye appointment today where he was confused and EMS was called. His BG was noted to be low in the 60s and was given D10 via EMS and D50 once in the EMD- his blood sugar is currently 121. He also had a CT scan of his head performed that was negative for acute process, VBG done with PaCO2 of 63, CT scan of his abdomen done which revealed severe constipation without bowel obstruction and without pneumatosis, he had a toxicology done of his urine that was + for MDMA- but he is on high dose trazadone as outpatient- confirmation is pending, also positive for opiates (sample was sent after morphine administration). He received 500 ml of saline in the EMD, morphine 4mg IV, Zofran. Hospitalist service was notified for admission. As above patient obtunded, he has presented like this prior as well. He does suffer from excessive daytime sleepiness and remains on high doses of sedating medications. He is non-compliant with his Trilogy NIV ventilator at home. He will be placed on BiPAP now following opiate administration, he was given suppository and MOM 30ml in EMD. Will provide hydration with LR at 125ml per hour, he has normal EF on last ECHO, will allow clears as tolerated in the morning. Schedule BID stool softners and BID MOM. Will admit to PCU tonight for clearing of his mental status as well as NIVV support monitoring. Principal Diagnosis Hypercarbia, likely from medication overuse and obesity hypoventilation syndrome Constipation Discharge Exam Constitutional WD/WN, vitals as above Eyes EOM intact bilaterally; no conjunctival abnormality ENMT external ear and nose normal, oropharynx normal Neck trachea midline, no thyromegaly normal visual inspection Respiratory normal respiratory effort, lungs clear to auscultation no respiratory distress Cardiovascular RRR, no murmur, no edema Gastrointestinal (Abdomen) Inspection/Auscultation: abdomen normal to inspection; abdomen not distended Musculoskeletal no cyanosis or clubbing, extremities motor strength 5/5 Skin no rashes, warm and dry Neurologic moves all extremities and awake Psychiatric Orientation: alert, oriented to person and cooperative Discharge Data Allergies Allergy/AdvReac Type Severity Reaction Status Date / Time copper Allergy Mild skin rash, Verified 06/19/21 16:45 itching cider vinegar AdvReac Mild Redness,swe Verified 06/19/21 16:45 ating Consultations 06/19/21 19:39 ED Decision to Admit Stat Ordered Studies 06/19/21 15:42 CT abd pelvis wo con Stat 06/19/21 18:12 CT head/brain wo con Stat 06/20/21 13:00 CT angio head w con Urgent CT angio neck with con Routine CT head/brain wo con Routine 06/20/21 13:01 MR brain wo con Routine Hospital Course (1) Right sided weakness: patient has right side weakness, this occured after patient awoke, by definition, patient is out of window. will obtain ct head, mri cta head neck: all of these were negative. Today this symptom has resolved. (2) Constipation: Unsure of etiology of his constipation. Per patient, it has been going on for at least 10-15 years. - There is no obstruction seen on CT imaging and no pneumatosis and normal lactate - reassuring - Stool in vault with placing of suppository - MOM BID - Docusate and Senna BID - Linzess scheduled daily for now -will add miralax. - Per patient, has BM every 1-2 weeks. Had two large BMs on Wednesday. Does not feel obstructed/bloated/constipated. Encourage good bowel regimen. (3) Hypercarbia: Acute and chronic hypercarbic respiratory failure due to obesity hypoventilation and medication overuse. - BiPAP placed - Resolved by discharge. Has Trilogy at home. Encouraged him to use it and resolve recall issues (he is working with PCP on this.) - Lowered/stopped/made PRN multiple sedating medications. - Discharged on home O2 2L during the daytime as well. (4) Obesity hypoventilation syndrome: Per patient, his Trilogy respirator is recalled. Encouraged to work with PCP on the issue. - Support with BiPAP in house 17/03 with back up RR - Titrate to effective VT and RR with adequate SPo2 (5) Diabetes mellitus type 2, uncontrolled, with complications: Return to home regimen. (6) Hypertension: Continue Carvedilol - hold lasix for now likely restart in morning (7) Hyperlipidemia: Continue statin (8) Morbid obesity with BMI of 40.0-44.9, adult: Continues to follow with bariatric medicine (9) Hypothyroidism (acquired): Continue synthroid (10) GERD (gastroesophageal reflux disease): Continue PPI (11) Chronic hypercapnic respiratory failure: Multifactorial- holding majority of his sedating medicatons at this time - Continue his zyprexa and his Prozac and Neruotin (12) Lumbar stenosis: As above - Gabapentin 600mg TID - will hold his 1200mg dose tonight - follow for withdraw- restart when mentation improves (13) Asthma: Continue albuterol Continue anoro elipta or equivalent Continue zafirlukast (14) Acute metabolic encephalopathy: Metabolic encephalopathyin setting of acute hypercarbic respiratory failure This resolved with BIPAP. Total Time Total Time Spent Total Time Spent (In Minutes): 35 Discharge Plan Discharge Items Patient Disposition: Home - Home Health Services Reason For Visit: CONSTIPATION, OBTUNDATION Discharge Diagnosis: Medication overuse Activity: Resume your previous activity Non-emergency contact: Primary Care Provider Call non-emergency contact if: your symptoms worsen Follow-up/Referrals: Ryan Jeffries MD [Primary Care Provider] - Diet: Carb Consistent or DM2 and Heart Healthy Addtl Attending Provider Instructions: Mr. Smiley, You were admitted with constipation and confusion. The confusion may have been from medication overuse. Please taper back on your medications that can cause sedation as this can worsen lung issues. Please pare back your gabapentin to 600 mg three times a day. Only take your Xanax as needed. Hold your trazodone at night as this can cause you to sleep too deeply and allow carbon dioxide to build up. Pending Studies at Discharge: No Stand-Alone Forms: [facility] [employer], Smoking Cessation Medications and DC Order Prescriptions: New polyethylene glycol 3350 [Miralax] 17 gram Powder In Packet 17 g PO DAILY Qty: 0 RF: 0 sennosides-docusate sodium [Senokot-S] 8.6-50 mg Tablet 1 tab PO BID Qty: 0 RF: 0 Continued Ozempic 0.25 mg or 0.5 mg(2 mg/1.5 mL) pen injector 0.25 mg subcut Q7D Qty: 1.5 RF: 5 testosterone [AndroGel] 20.25 mg/1.25 gram (1.62 %) gel in metered-dose pump 2 pump topical DAILY Qty: 75 RF: 3 cholecalciferol (vitamin D3) [D3-50 Cholecalciferol] 1,250 mcg (50,000 unit) capsule 50,000 unit PO .COMPLEX Qty: 14 RF: 0 (DME) FreeStyle Shelley 14 Day Sensor Kit See Rx Instructions .ROUTE .MEDSUPPLY Qty: 1 RF: 0 (DME) FreeStyle Shelley 14 Day [place] Misc See Rx Instructions .ROUTE .MEDSUPPLY Qty: 1 RF: 0 (DME) Oxygen Home Liters Per Minute See Rx Instructions .ROUTE RF: 0 furosemide 40 mg tablet 40 mg PO UD PRN (Reason: Fluid Retention) RF: 0 fluoxetine [Prozac] 40 mg capsule 80 mg PO QAM RF: 0 omeprazole 40 mg capsule,delayed release(DR/EC) 40 mg PO QAM RF: 0 carvedilol [Coreg] 3.125 mg tablet 3.125 mg PO BID RF: 0 lisinopril [Zestril] 10 mg tablet 10 mg PO QAM RF: 0 olanzapine [Zyprexa] 20 mg tablet 20 mg PO HS RF: 0 rosuvastatin [Crestor] 20 mg tablet 20 mg PO QAM RF: 0 Linzess 290 mcg capsule 290 mcg PO QAM PRN (Reason: Constipation) RF: 0 levothyroxine [Synthroid] 50 mcg Tablet 50 mcg PO DAILYBB Qty: 30 RF: 5 zafirlukast [Accolate] 20 mg tablet 20 mg PO BID RF: 0 Simbrinza 1-0.2 % Drops,Suspension 1 drp OPB TID RF: 0 Anoro Ellipta 62.5-25 mcg/actuation Blister With Device 1 inh INHALATION QAM RF: 0 albuterol sulfate 90 mcg/actuation Aero Powdr Breath Act W/Sensor 1 inh INHALATION Q4H PRN (Reason: sob) RF: 0 olanzapine [Zyprexa] 10 mg Tablet 10 mg PO HS RF: 0 insulin aspart U-100 [Novolog U-100 Insulin aspart] 100 unit/mL solution 22 unit subcut TID RF: 0 Lantus U-100 Insulin 100 unit/mL solution 70 unit SUBCUT QAM RF: 0 aspirin 81 mg Tablet,Delayed Release (Dr/Ec) 81 mg PO QAM RF: 0 cholecalciferol (vitamin D3) 125 mcg (5,000 unit) capsule 5,000 unit PO QAM RF: 0 apraclonidine 0.5 % drops 1 drp OPR BID RF: 0 Changed gabapentin [Neurontin] 600 mg tablet 600 mg PO TID Qty: 0 RF: 0 clonazepam [Klonopin] 0.5 mg tablet 0.5 mg PO TID PRN (Reason: Anxiety) Qty: 0 RF: 0 Discontinued naproxen sodium 550 mg tablet 550 mg PO BID RF: 0 trazodone 100 mg Tablet 100 mg PO HS RF: 0 trazodone 150 mg Tablet 150 mg PO HS RF: 0 methocarbamol 500 mg tablet 500 mg PO TID PRN (Reason: ..) RF: 0 rosuvastatin 20 mg tablet 20 mg PO DAILY RF: 0 Discharge Orders: Discharge Order (Routine); Ordered 06/23/21 Ordered By: Jack Palacios Admission Data Admit Date/Time: 06/19/21 21:14 Attending Provider: Jack Palacios Admit Provider: Fausto Herring Primary Care Provider: Ryan Jeffries Other Providers: Jack Palacios Other Interventions: Discharge Summary Assessment (RN) Last Done: 06/23/21 09:43 Coding Level of Care Code D/C DAY MANAGEMENT >30 MINS Diagnoses Right sided weakness R53.1 Constipation K59.00 Hypercarbia R06.89 Obesity hypoventilation syndrome E66.2 Diabetes mellitus type 2, uncontrolled, with complications E11.8; E11.65 Hypertension I10 Hypertension type: essential hypertension Hyperlipidemia E78.5 Hyperlipidemia type: unspecified Morbid obesity with BMI of 40.0-44.9, adult E66.01; Z68.41 Hypothyroidism (acquired) E03.9 GERD (gastroesophageal reflux disease) K21.9 Chronic hypercapnic respiratory failure J96.12 Lumbar stenosis M48.061 Neurogenic claudication status: unspecified Asthma J45.41 Asthma severity: moderate Asthma persistence: persistent Asthma complication type: with acute exacerbation Acute metabolic encephalopathy G93.41
[2021-06-23 12:02] VITALS: BP 169/84; PULSE 79; TEMP 97.7; O2SAT 95
[2021-06-24 07:37] LABS: Codeine Urine NEGATIVE ng/mL (<50); Hydrocodone Urine NEGATIVE ng/mL (<50); Hydromor Urine NEGATIVE ng/mL (<50); MDA negative; MDEA negative; MDMA (Ecstasy) Urine, Confirm negative; Morphine Urine 1580 ng/mL (<50); Norhydrocodone Conf Ur NEGATIVE ng/mL (<50); Noroxycodone Urine NEGATIVE ng/mL (<50); Oxycodone Urine NEGATIVE ng/mL (<50); Oxymorph Urine NEGATIVE ng/mL (<50)
== END 2021-06-23 13:50 | disposition home health service (06) ==
LOC: ED 15:27 → SUATTDRO 21:14 → INTOOBSV 21:14 → 2S 21:14